=== PATIENT | male | born 1965 | race Caucasian/White ===

== ENCOUNTER 2017-08-13 14:01 | Inpatient (IN) ==
[2017-08-13] MEDS ORDERED: Pantoprazole 80 MG in 0.9 % Sodium Chloride 50 ML IVPB ONE (15:19)
[2017-08-13] MEDS ORDERED: 0.9 % Sodium Chloride 1,000 ML IVC ONE (15:19)
--- NOTE | 2017-08-13 15:42 | Emergency Department Note ---
Disposition Clinical Impression: Mesenteric venous thrombosis GI bleed Qualifiers: GI bleed type/associated pathology: unspecified gastrointestinal hemorrhage type Qualified Code(s): K92.2 - Gastrointestinal hemorrhage, unspecified Anemia Qualifiers: Anemia type: other cause Other causes of anemia: other cause, not classified Qualified Code(s): D64.89 - Other specified anemias Disposition: Admitted As Inpatient Condition: Good Referrals: Garett Ervin DO [Primary Care Provider] - Forms: ED Satisfaction Letter GI Bleed HPI - General Chief complaint: ED GI Bleed Stated complaint: Rectal Bleed Time Seen by Provider: 08/13/17 15:06 Source: patient Mode of arrival: private vehicle Limitations: no limitations Nursing Notes Reviewed: Yes Vital Signs Reviewed: Yes - History of Present Illness HPI Narrative: 52-year-old male history of pancreatic cancer currently not on chemotherapy history of gastric ulcers currently not on medications to presents to the ER due to rectal bleeding. Patient reports symptoms for the last 2 days. States he has had dark stools as well as some bright red blood mixed into his stool. He reports lower abdominal pain. He denies any hemoptysis, hematemesis, hematuria. He is not on any blood thinners. No history of transfusion and he is aware of. Last chemotherapy therapy was 5 weeks ago. Has had hemorrhoids before. No other complaints. Pt Subjective Complaint: melena Onset (ago): day(s) Consistency: intermittent Severity: mild Improves with: nothing Worsens with: nothing Context: other (History of ulcers) Associated symptoms: Reports: abdominal pain, nausea. Denies: vomiting, fever Treatments Prior to Arrival: none - Related Data Home Medications Medication Instructions Recorded Confirmed Multivitamin [Multivitamins] 1 each PO DAILY 11/06/16 08/13/17 Ranitidine HCl [Acid Plow And Boring Machine Tender] 150 mg PO QPM PRN 11/06/16 08/13/17 metFORMIN [Glucophage] 500 mg PO DAILY 11/06/16 08/13/17 Baclofen [Lioresal] 10 mg PO DAILY PRN 08/13/17 08/13/17 Gabapentin [Neurontin] 300 mg PO HS PRN 08/13/17 08/13/17 Lipase/Protease/Amylase [Creon Dr 1 each PO AD 08/13/17 08/13/17 12,000 Units Capsule] Pantoprazole Sodium [Protonix] 40 mg PO DAILY 08/13/17 08/13/17 RX: Loperamide [Imodium] 2 mg PO PER PKG DI PRN 08/13/17 08/13/17 RX: Melatonin 5 mg PO HS 08/13/17 08/13/17 Turmeric Curcumin 1 tab PO DAILY 08/13/17 08/13/17 Previous Rx's Medication Instructions Recorded RX: Lidocaine/Prilocaine CREAM 1 gm TP AD #1 tube 11/06/16 [Emla] RX: Magic Mouthwash 5 ml PO Q4H PRN #240 ml 11/06/16 Promethazine [Phenergan] 12.5 mg RC Q6H PRN #15 supp.rect 11/18/16 Promethazine [Phenergan] 25 mg PO Q6HR PRN #30 tablet 11/18/16 HYDROcodone/Acet 10/325 mg [Stow 1 tab PO Q4HR PRN #84 tab 12/16/16 10-325 mg] Allergies Allergy/AdvReac Type Severity Reaction Status Date / Time ondansetron Allergy Swelling Verified 05/21/17 14:10 [From Zofran (as of hydrochloride)] Lip/Tongue/Throat prochlorperazine Allergy Swelling Verified 05/21/17 14:10 [From Compazine] of Lip/Tongue/Throat Oxycodone AdvReac Rash Verified 05/21/17 14:09 All systems ED: reviewed and negative except as stated. Constitutional: Denies: fever Cardiovascular: Denies: chest pain Respiratory: Denies: dyspnea, hemoptysis Gastrointestinal: Reports: abdominal pain, nausea, melena. Denies: vomiting, diarrhea, hematemesis Genitourinary: Denies: dysuria, hematuria Past Medical History - Past Medical History Attestation: Yes The following information was validated with the patient. Source: patient Medical history: Reports: cancer, diabetes, hyperlipidemia, hypertension Psychiatric history: Reports: no psych history - Social History Smoking Status: Never smoker Smokeless Tobacco Status: No Alcohol use: Reports: none Drug use: Reports: none Physical Exam - General Limitations: no limitations General appearance: alert, in no apparent distress - Head Head exam: atraumatic, normocephalic, normal inspection - Eye Eye exam: Present: normal appearance, EOMI - ENT ENT exam: normal exam - Neck Neck exam: Present: normal inspection, full ROM - Chest Chest inspection: Present: normal inspection, symmetric chest wall rise - Respiratory Respiratory exam: Present: normal lung sounds bilaterally - Cardiovascular Cardiovascular exam: Present: regular rate, normal rhythm, normal heart sounds - Abdominal Exam Abdominal exam: Present: soft, tenderness (Mild tenderness to palpation in the lower abdomen without rigidity, distention, rebound tenderness.) - Rectal Exam Rectal exam: Present: normal inspection, normal rectal tone, black stool - Extremities Exam Extremities exam: Present: normal inspection, full ROM - Expanded Upper Extremity Exam Shoulder exam: Present: normal inspection, full ROM Arm exam: Present: normal inspection, full ROM Elbow exam: Present: normal inspection, full ROM Forearm/Wrist exam: Present: normal inspection, full ROM Hand exam: Present: normal inspection, full ROM Vascular exam: Normal: radial pulse - Expanded Lower Extremity Exam Hip/Pelvis exam: Present: normal inspection, full ROM Upper leg exam: Present: normal inspection, full ROM Knee exam: Present: normal inspection, full ROM Lower leg exam: Present: normal inspection, full ROM Ankle exam: Present: normal inspection, full ROM Foot/toe exam: Present: normal inspection, full ROM Neurovascular/Tendon exam: Absent: motor deficit, sensory deficit - Neurological Exam Neurological exam: Present: alert, other (GCS 15. Nonfocal.) - Psychiatric Psychiatric exam: Present: normal affect, normal mood - Skin Skin exam: Present: warm, dry, intact, normal color Course Course Narrative: Patient seen and examined. We will obtain an EKG, CT scan of the abdomen and pelvis with IV contrast as well as labs including CBC, coags, type and screen. Patient given a liter bolus as well as Protonix. - Reevaluation(s) Reevaluation #1: I discussed the imaging and lab work with the patient as well as the recommendations from our vascular surgeon. Patient understands the plan of being admitted watching his hemoglobin with possible anticoagulation initiated in the near future. All questions were answered patient has no other complaints or questions at this time. - Consultations Consultation #1: I spoke with the on-call vascular surgeon Dr. Meyer concerning the patient's CT scan. I discussed the patient's history labs imaging and interventions to date. Patient has a thrombosis in his SMV as well as portal vein. He reports that the treatment would be anticoagulation however the patient has had a 3 g drop in his hemoglobin and has Hemoccult positive stool. We will hold anticoagulation in the setting of GI bleed. Consultation #2: I discussed this case with the on-call oncologist Dr. Sanchez. He advises no other interventions at this time and will see the patient in consultation tomorrow. Vital Signs Temperature 98.1 F 08/13/17 14:11 Pulse Rate 93 08/13/17 14:11 Respiratory Rate 22 08/13/17 14:11 Blood Pressure 120/83 08/13/17 14:11 O2 Sat by Pulse Oximetry 100 08/13/17 14:11 Temperature 98.1 F 08/13/17 14:11 Pulse Rate 76 08/13/17 19:42 Respiratory Rate 22 08/13/17 19:42 Blood Pressure 123/83 08/13/17 19:42 O2 Sat by Pulse Oximetry 99 08/13/17 19:42 Oxygen Delivery Oxygen Delivery Room Air GI Bleed - MDM Narrative Medical decision making narrative: 52-year-old male presents to the ER due to tarry stools for 2 days. History pink-red cancer currently on chemotherapy. He has lower crampy abdominal pain without a surgical abdomen on exam. He has a 3 g drop in his hemoglobin from April. He is Hemoccult positive here. CT scan of the abdomen and pelvis as read by radiology reveals an acute thrombus of the SMV as well as portal veins. Case was discussed with vascular surgery and the patient would need to be treated with anticoagulation however he is currently an acute GI bleed so we will withhold this for the time being. She given a liter of fluids as well as 80 mg of Protonix. Patient admitted to the hospitalist service with vascular surgery consultation. - Lab Data Lab results reviewed: Yes I reviewed the patient's lab results. Result diagrams: 08/13/17 16:05 08/13/17 16:05 Lab Results 08/13/17 08/13/17 08/13/17 Range/Units 16:05 16:05 16:05 WBC 3.5 L (4.3-11.1) K/mcL RBC 3.23 L (4.19-5.50) M/mcL Hgb 10.3 L (12.9-16.9) g/dL Hct 31.0 L (37.5-50.1) % MCV 96.0 (83.0-100.0) fL MCH 31.9 (28.0-33.3) pg MCHC 33.2 (31.6-35.5) g/dL RDW 13.5 (11.5-14.5) % Plt Count 150 (140-400) K/mcL MPV 10.2 (9.4-12.4) fL Immature Gran % 0.3 (0-4) % Seg Neutrophils % 82.0 % Lymphocytes % 5.7 % Monocytes % 9.7 % Eosinophils % 1.7 % Basophils % 0.6 % Neutrophils # 2.9 (1.6-8.9) K/mcL Lymphocytes # 0.2 L (0.6-4.6) K/mcL Monocytes # 0.3 (0.0-1.3) K/mcL Eosinophils # 0.1 (0.0-0.6) K/mcL Basophils # 0.0 (0.0-0.2) K/mcL PT 13.5 H (9.4-12.1) Seconds INR 1.2 APTT 36.9 H (26.0-36.0) Seconds Sodium 138 (136-145) mEq/L Potassium 3.6 (3.5-4.5) mEq/L Chloride 105 (98-109) mEq/L Carbon Dioxide 23 (19-29) mEq/L BUN 20 (8-26) mg/dL Creatinine 0.73 (0.72-1.25) mg/dL Est GFR ( Amer) > 60 (> 60) Est GFR (Non-Af Amer) > 60 (> 60) BUN/Creatinine Ratio 27 H (6-26) Glucose 156 H (70-99) mg/dL Calculated Osmolality 292 (280-300) Calcium 9.0 (8.6-10.8) mg/dL Total Bilirubin 1.1 (0.2-1.2) mg/dL AST 22 (5-34) Units/L ALT 36 (0-55) Units/L Alkaline Phosphatase 128 H (38-126) Units/L Troponin I (0-0.03) ng/mL Serum Total Protein 6.4 (6.0-8.3) g/dL Albumin 3.4 L (3.5-5.0) g/dL Globulin 3.0 (2.4-3.5) g/dL Albumin/Globulin Ratio 1.1 (1.1-2.2) Lipase < 10 (8-78) Units/L Stool Occult Blood (Negative) Blood Type Antibody Screen 08/13/17 08/13/17 08/13/17 Range/Units 16:05 16:05 16:25 WBC (4.3-11.1) K/mcL RBC (4.19-5.50) M/mcL Hgb (12.9-16.9) g/dL Hct (37.5-50.1) % MCV (83.0-100.0) fL MCH (28.0-33.3) pg MCHC (31.6-35.5) g/dL RDW (11.5-14.5) % Plt Count (140-400) K/mcL MPV (9.4-12.4) fL Immature Gran % (0-4) % Seg Neutrophils % % Lymphocytes % % Monocytes % % Eosinophils % % Basophils % % Neutrophils # (1.6-8.9) K/mcL Lymphocytes # (0.6-4.6) K/mcL Monocytes # (0.0-1.3) K/mcL Eosinophils # (0.0-0.6) K/mcL Basophils # (0.0-0.2) K/mcL PT (9.4-12.1) Seconds INR APTT (26.0-36.0) Seconds Sodium (136-145) mEq/L Potassium (3.5-4.5) mEq/L Chloride (98-109) mEq/L Carbon Dioxide (19-29) mEq/L BUN (8-26) mg/dL Creatinine (0.72-1.25) mg/dL Est GFR ( Amer) (> 60) Est GFR (Non-Af Amer) (> 60) BUN/Creatinine Ratio (6-26) Glucose (70-99) mg/dL Calculated Osmolality (280-300) Calcium (8.6-10.8) mg/dL Total Bilirubin (0.2-1.2) mg/dL AST (5-34) Units/L ALT (0-55) Units/L Alkaline Phosphatase (38-126) Units/L Troponin I 0.00 (0-0.03) ng/mL Serum Total Protein (6.0-8.3) g/dL Albumin (3.5-5.0) g/dL Globulin (2.4-3.5) g/dL Albumin/Globulin Ratio (1.1-2.2) Lipase (8-78) Units/L Stool Occult Blood Positive A (Negative) Blood Type A POSITIVE Antibody Screen NEGATIVE - Radiology Data Radiology results reviewed: Yes I reviewed the patient's radiology results. Abdomen/Pelvis CT 08/13/17 15:19 IMPRESSION: Acute appearing thrombus within the SMV near the portal splenic confluence. Thrombus also noted extending into the main portal vein, left portal vein, as well as the anterior and posterior branches of the right portal vein. Ill-defined soft tissue noted surrounding the celiac axis and SMA, progressed. Mild dilatation of the pancreatic duct in the tail, new. Prominent inflammatory change in wall thickening involving the ascending colon and proximal transverse colon as well as the distal stomach and duodenum. Findings are likely infectious or inflammatory in etiology. Small to moderate volume ascites. D/ / Lori Ford MD / Lori Ford MD Interpreting Provider: Lori Ford MD - EKG Data EKG attestation: Yes I reviewed and interpreted this EKG. EKG results narrative: EKG demonstrates sinus rhythm with a rate of 80 bpm. Normal axis. Normal intervals. Normal R-wave progression. No gross ST elevations or depressions. No acute ischemic findings. S.B.AJuanR. - Rachel.[email or web address].[place] Situation: Demographics, MOA Background: Presenting Complaint, Relevant PMH, Meds, & Allergies Assessment: Course and respsone to treatment, Exam Concerns, Patient/Family Expectation, Pertinant Lab Results Recommendation: Barrier(s) to disposition, Recommendation based on pending studies, treatments, or consults S.[email or web address] Report Given to: Dr. Oliver Marinelli Repor Time: 19:30 (Requested I speak with oncology concerning the patient's venous thrombosis) Attestation Statement - Attestation Attestation: I examined this patient and my medical decision-making was reviewed with the Resident Physician. I agree with the documented findings, disposition and treatment plan as described except to the extent set forth below. Patient presents to the ED with a chief complaint of rectal bleeding. Patient states dark tarry stools. Patient has pancreatic cancer. He is undergoing treatments here, at the [facility], and at the cancer treatment centers of [facility]. He is currently not getting any treatment as he was not happy with his care at the cancer treatment centers [facility]. He sees Dr. Garcia his PCP, however nobody is managing his pancreatic cancer at this time. He states he was totally stable. Denies fever. No chest pain. On examination he has some upper abdominal tenderness without guarding. Plan. Patient has a CT scan which shows increasing size of his pain currently tumor. He has clot burden throughout the portal veins. He has tumor surrounding the mesenteric arteries as well. We did discuss with on-call for vascular. Patient has contraindications to anticoagulation at this time with the active GI bleed. He protonic's. Will be admitted to the hospital.
[2017-08-13 16:16] LABS: Basophils % 0.6 %; Eosinophils # 0.1 K/mcL (0.0-0.6); Eosinophils % 1.7 %; Hemoglobin 10.3 g/dL (12.9-16.9); Immature Granulocytes % 0.3 % (0-4); Lymphocytes # 0.2 K/mcL (0.6-4.6); Lymphocytes % 5.7 %; Mean Corpuscular HGB Conc 33.2 g/dL (31.6-35.5); Mean Corpuscular Hemoglobin 31.9 pg (28.0-33.3); Mean Platelet Volume 10.2 fL (9.4-12.4); Monocytes # 0.3 K/mcL (0.0-1.3); Monocytes % 9.7 %; Neutrophils # 2.9 K/mcL (1.6-8.9); Platelet Count 150 K/mcL (140-400); Red Blood Count 3.23 M/mcL (4.19-5.50); Red Cell Distribution Width 13.5 % (11.5-14.5)
[2017-08-13 16:20] LABS: INR 1.2; Prothrombin Time 13.5 Seconds (9.4-12.1)
[2017-08-13 16:23] LABS: Activated Partial Thrombo Time 36.9 Seconds (26.0-36.0)
[2017-08-13 16:28] LABS: Alanine Aminotransferase 36 Units/L (0-55); Albumin 3.4 g/dL (3.5-5.0); Albumin/Globulin Ratio 1.1 (1.1-2.2); Alkaline Phosphatase 128 Units/L (38-126); Aspartate Amino Transferase 22 Units/L (5-34); BUN/Creatinine Ratio 27 (6-26); Bilirubin,Total 1.1 mg/dL (0.2-1.2); Blood Urea Nitrogen 20 mg/dL (8-26); Carbon Dioxide 23 mEq/L (19-29); Chloride 105 mEq/L (98-109); Glucose 156 mg/dL (70-99); Osmolality,Calculated 292 (280-300); Potassium 3.6 mEq/L (3.5-4.5); Sodium 138 mEq/L (136-145); Total Protein 6.4 g/dL (6.0-8.3); eGFR For African Americans > 60 (> 60); eGFR For Non-African Americans > 60 (> 60)
[2017-08-13 16:29] LABS: Lipase < 10 Units/L (8-78)
[2017-08-13] MEDS ORDERED: Metoclopramide 10 MG/2 ML VIAL IVP ONE (17:56)
[2017-08-13] MEDS ORDERED: *HR* HYDROmorphone (PF) 1 MG/ML SYRINGE IVP ONE (19:17)
--- NOTE | 2017-08-13 19:40 | Internal Med History&Physical ---
Date of Encounter: 08/14/17 Time of Encounter: 19:39 Assessment and Plan (1) GI bleed Current visit: Yes Status: Acute In the ED, stool occult blood was positive, HGB 10.3, and INR 1.2. Last EGD March 2017 revealed gastric ulcers. Patient denies previous colonoscopy. Patient was given 80 mg of Protonix. Continue Protonix drip Continue IVF Monitor H&H q6h NPO GI consulted Qualifiers: GI bleed type/associated pathology: unspecified gastrointestinal hemorrhage type Qualified Code(s): K92.2 - Gastrointestinal hemorrhage, unspecified (2) Acute blood loss anemia Current visit: Yes Status: Acute Stool occult blood positive, HGB 10.3 (was 13.1 on 05/21/17), and INR 1.2. Patient was given 80 mg of Protonix. Continue Protonix drip Monitor H&H q6h (3) Mesenteric venous thrombosis Current visit: Yes Status: Acute CT abd/plv revealed acute thrombus within the SMV near the portal splenic confluence extending into the main portal vein, left portal vein, as well as the anterior and posterior branches of the right portal vein. ED physician discussed the case with vascular surgeon personal fitness trainer, Dr. Meyer, who recommended holding anticoagulation in the setting of acute GI bleed. Vascular surgery consulted Oncology consulted Consider IR consult for possible embolectomy (4) Pancreatic cancer Current visit: No Status: Chronic CT abd/plv revealed ill-defined soft tissue noted surrounding the celiac axis and SMA, progressed. Mild dilatation of the pancreatic duct in the tail, new. Prominent inflammatory change in wall thickening involving the ascending colon and proximal transverse colon as well as the distal stomach and duodenum. Findings are likely infectious or inflammatory in etiology. Continue empiric Flagyl IV Blood cultures pending Continue pain control Oncology consulted Qualifiers: Pancreatic malignancy location: body of pancreas Qualified Code(s): C25.1 - Malignant neoplasm of body of pancreas (5) DM type 2 (diabetes mellitus, type 2) Current visit: Yes Status: Chronic HGB a1c pending Accuchecks q6h while NPO Low dose SSI Qualifiers: Diabetes mellitus complication status: without complication Diabetes mellitus penitentiary insulin use: without penitentiary use Qualified Code(s): E11.9 - Type 2 diabetes mellitus without complications (6) DVT prophylaxis Current visit: Yes Status: Acute SCDs Internal Medicine - H&P: HPI Chief complaint: Blood in stool Admitted From: Home Plans for Post Hospital Care: Home History of present illness: Mr. Hatch is a 52 year old male with a PMH of inoperable pancreatic cancer diagnosed October 2016, DM type 2, hemorrhoids, and chemo-induced gastric ulcers that presented from home c/o black tarry stool and bright red blood in his stool for the past 2 days. He reports toilet bowl was full of blood today. He reports associated fatigue, nausea, anorexia, and intermittent generalized abd pain. Pain severity was 15/10 and decreased to 1/10 after Dilaudid in the ED. Nothing makes abd pain worse. Patient underwent radiation and chemotherapy at [facility] but had to stop chemotherapy therapy 5 weeks ago because he was not tolerating treatments. Patient denies fever, chills, CP, SOB, hemoptysis, hematemesis, hematuria, h/o blood clots, current blood thinner use, or history of blood transfusions. He reports taking Protonix 40mg PO daily since EGD in March 2017 and 100 lbs weight loss in the past 9 months. Patient has a functioning right Port-a-cath in place. In the ED, stool occult blood was positive, HGB 10.3, and INR 1.2. CT abd/plv revealed acute thrombus within the SMV near the portal splenic confluence extending into the main portal vein, left portal vein, as well as the anterior and posterior branches of the right portal vein. The ED physician discussed the case with vascular surgeon personal fitness trainer, Dr. Meyer, who recommended holding anticoagulation in the setting of acute GI bleed. Patient was given IV fluids as well as 80 mg of Protonix. and brother are at bedside. Past Med Surg Social Fam HX - Past Medical History Medical history: cancer (pancreatic), diabetes, other (Peptic ulcers, hemorrhoids) Psychiatric history: no psych history - Past Surgical History Surgical History: orthopedic, other (right shoulder, C6-C7, port-a-cath) - Social History Smoking Status: Never smoker Smokeless Tobacco Status: No Alcohol use: none Drug use: none Occupational status: employed Current living situation: Home, With Family Activity Level: Independent ambulation Recent Out of Country Travel Within the Last 8 Weeks: No Exposure or Possible Exposure to Illness During Travel: No - Family History Father Hx Family Cardiac Disorders: Yes (NC, CABG, HTN) Hx Family Endocrine Disorder: Yes (DM) Mother Hx Family Cardiac Disorders: No Internal Medicine - H&P: Meds Lidocaine/Prilocaine CREAM [Emla] 1 gm TP AD #1 tube 11/06/16 [Rx] Magic Mouthwash 5 ml PO Q4H PRN #240 ml 11/06/16 [Rx] Multivitamin [Multivitamins] 1 each PO DAILY 11/06/16 [History] Ranitidine HCl [Acid Terminal Computer Operator] 150 mg PO QPM PRN 11/06/16 [History] metFORMIN [Glucophage] 500 mg PO DAILY 11/06/16 [History] HYDROcodone/Acet 10/325 mg [Alden 10-325 mg] 1 tab PO Q4HR PRN #84 tab 12/16/16 [Rx] Baclofen [Lioresal] 10 mg PO DAILY PRN 08/13/17 [History] Gabapentin [Neurontin] 300 mg PO HS PRN 08/13/17 [History] Lipase/Protease/Amylase [Creon Dr 12,000 Units Capsule] 1 each PO AD 08/13/17 [ History] Loperamide [Imodium] 2 mg PO PER PKG DI PRN 08/13/17 [History] Melatonin 5 mg PO HS 08/13/17 [History] Pantoprazole Sodium [Protonix] 40 mg PO DAILY 08/13/17 [History] Sancuso 3.1 mg TD Q1W PRN 08/13/17 [History] Turmeric Curcumin 1 tab PO DAILY 08/13/17 [History] 3 Allergy/AdvReac Type Severity Reaction Status Date / Time ondansetron Allergy Swelling Verified 05/21/17 14:10 [From Zofran (as of hydrochloride)] Lip/Tongue/Throat prochlorperazine Allergy Swelling Verified 05/21/17 14:10 [From Compazine] of Lip/Tongue/Throat Oxycodone AdvReac Rash Verified 05/21/17 14:09 All Systems PM: A 10-system review of systems was performed and is negative for pertinent findings except as documented above in the HPI. - Constitutional Constitutional: anorexia, fatigue, lethargy, weakness, weight loss, no chills, no fever(s) - EENT Eyes: no change in vision Nose, mouth and throat: nasal congestion, post-nasal drip, no epistaxis, no mouth lesions, no sinus pressure, no sore throat - Cardiovascular Cardiovascular ROS IM: no chest pain, no palpitations - Respiratory Respiratory: no cough, no hemoptysis, no wheezing, no chest congestion, no excessive phlegm production - Gastrointestinal Gastrointestinal: abdominal pain, hematochezia, melena, nausea, no bloating, no coffee ground emesis, no constipation, no diarrhea, no hematemesis, no vomiting - Genitourinary Genitourinary ROS male: no dysuria, no urinary frequency, no urinary urgency - Musculoskeletal Musculoskeletal ROS IM: no back pain, no numbness, no tingling - Integumentary Integumentary IM: no erythema, no rash - Neurological Neurological ROS: weakness, no confusion, no dizziness, no numbness, no tingling - Psychiatric Psychiatric: no anxiety, no depression - Endocrine Endocrine IM: fatigue, no polydipsia, no polyphagia, no polyuria - Hematologic/Lymphatic Hematologic/Lymphatic: no easy bleeding, no easy bruising - Constitutional Vitals: Temp Pulse Resp BP Pulse Ox 98.1 F 98 18 122/82 99 08/13/17 14:11 08/13/17 19:15 08/13/17 19:15 08/13/17 19:15 08/13/17 19:15 General appearance: Present: mild distress, pleasant, answers questions appropriately - Head Head exam: Present: atraumatic, normal inspection, normocephalic - Eye Eye exam: Present: EOMI, PERRL, conjuntiva pink - ENT ENT exam: Present: mucous membranes dry, normal oropharynx - Neck Neck exam general surgery: Present: normal inspection, supple. Absent: tenderness - Respiratory Respiratory exam: Present: CTAB. Absent: respiratory distress, wheezes - Cardiovascular Cardiovascular exam: Present: RRR, +S1, +S2 Additional comments: Port-a-cath right upper chest - GI/Abdominal GI/Abdominal exam: Present: normal bowel sounds, soft, tenderness (duffuse). Absent: firm, guarding - Extremities Exam Extremities exam: Present: full ROM, normal inspection, warm, radial pulses palpable and symmetrical. Absent: pedal edema, tenderness - Back Exam Back exam: Present: normal inspection. Absent: tenderness - Neurological Exam Neurological exam: Present: alert, oriented X3, no focal deficits, strengths equal and symetr throughout. Absent: altered, speech deficit - Psychiatric Psychiatric exam: Present: normal affect, normal mood - Skin Skin exam: Present: dry, pallor, warm Internal Med - H&P Results - Labs CBC & Chem 7: 08/13/17 16:05 08/13/17 16:05 Labs: Short CBC 08/13/17 Range/Units 16:05 WBC 3.5 L (4.3-11.1) K/mcL Hgb 10.3 L (12.9-16.9) g/dL Hct 31.0 L (37.5-50.1) % Plt Count 150 (140-400) K/mcL Neutrophils # 2.9 (1.6-8.9) K/mcL BMP 08/13/17 16:05 Sodium 138 Potassium 3.6 Chloride 105 Carbon Dioxide 23 BUN 20 Creatinine 0.73 Glucose 156 H Calcium 9.0 Cardiac Enzymes 08/13/17 Range/Units 16:05 Troponin I 0.00 (0-0.03) ng/mL Liver Function 08/13/17 Range/Units 16:05 Total Bilirubin 1.1 (0.2-1.2) mg/dL AST 22 (5-34) Units/L ALT 36 (0-55) Units/L Alkaline Phosphatase 128 H (38-126) Units/L Albumin 3.4 L (3.5-5.0) g/dL - Impressions ITS Impressions Abdomen/Pelvis CT 08/13/17 15:19 IMPRESSION: Acute appearing thrombus within the SMV near the portal splenic confluence. Thrombus also noted extending into the main portal vein, left portal vein, as well as the anterior and posterior branches of the right portal vein. Ill-defined soft tissue noted surrounding the celiac axis and SMA, progressed. Mild dilatation of the pancreatic duct in the tail, new. Prominent inflammatory change in wall thickening involving the ascending colon and proximal transverse colon as well as the distal stomach and duodenum. Findings are likely infectious or inflammatory in etiology. Small to moderate volume ascites. D/ / Lori Ford MD / Lori Ford MD Interpreting Provider: Lori Ford MD
[2017-08-13] MEDS ORDERED: Naloxone 0.4 MG/ML INJ IVP PRN (20:26)
[2017-08-13] MEDS ORDERED: Metoclopramide 10 MG/2 ML VIAL IVP PRN (20:26)
[2017-08-13] MEDS ORDERED: *HR* HYDROmorphone (PF) 1 MG/ML SYRINGE IVP PRN (20:26)
[2017-08-13] MEDS ORDERED: *HR* Morphine 2 MG/ML SYRINGE IVP PRN (20:26)
[2017-08-13] MEDS ORDERED: 0.9 % Sodium Chloride 1,000 ML IVC SCH (20:30)
[2017-08-13] MEDS ORDERED: Gabapentin 300 MG CAPSULE PO PRN (20:35)
[2017-08-13] MEDS ORDERED: Dextrose Gel 15 GM PO PRN ×2 (20:36)
[2017-08-13] MEDS ORDERED: D5% in Water 1,000 ML IVC PRN (20:36)
[2017-08-13] MEDS ORDERED: *HR* Dextrose 50 % in Water (Syg) 50 ML SYRINGE IVP PRN (20:36)
[2017-08-13] MEDS ORDERED: Melatonin 3 MG TABLET PO SCH (21:00)
[2017-08-13] MEDS ORDERED: Insulin DETEMIR 100 UNIT/ML X5UNITS SQ SCH (21:00)
[2017-08-13] MEDS ORDERED: Insulin LISPRO 300 UNITS/3 ML VIAL SQ SCH (21:00)
[2017-08-13 21:04] LABS: Hemoglobin A1C 4.7 %
[2017-08-13] MEDS: Pantoprazole 40 MG in 0.9 % Sodium Chloride Mini Bag 100 ML IVC SCH (22:45)
[2017-08-14] MEDS ORDERED: MetroNIDAZOLE 500 MG/100 ML 500 MG/100 ML BAG IVPB SCH
[2017-08-14] MEDS ORDERED: *HR* HYDROmorphone (PF) 1 MG/ML SYRINGE IVP PRN (01:10)
--- NOTE | 2017-08-14 01:18 | Event Note ---
Date of Encounter: 08/14/17 Time of Encounter: 01:15 Patient and examined with medical massage therapist. Agree with assessment and plan. Unoperable pancreatic cancer. Suspect upper G.I. bleeding. Protonix drip, follow H and H and GI consultation. Keep NPO. Patient also has superior mesenteric and portended thrombosis. Please discussed by ER with oncology will did not recommend any further intervention by IR.
[2017-08-14] MEDS: Pantoprazole 40 MG in 0.9 % Sodium Chloride Mini Bag 100 ML IVC SCH ×4 (05:58→22:40)
[2017-08-14] MEDS: Insulin LISPRO 300 UNITS/3 ML VIAL SQ SCH ×4 (06:00→17:37)
[2017-08-14 06:09] LABS: Hematocrit 26.9 % (37.5-50.1); Hemoglobin 8.9 g/dL (12.9-16.9); Immature Platelets 3.4 % (1.1-6.1); Mean Corpuscular HGB Conc 33.1 g/dL (31.6-35.5); Mean Corpuscular Hemoglobin 32.1 pg (28.0-33.3); Mean Corpuscular Volume 97.1 fL (83.0-100.0); Mean Platelet Volume 10.5 fL (9.4-12.4); Red Blood Count 2.77 M/mcL (4.19-5.50); Red Cell Distribution Width 13.7 % (11.5-14.5)
[2017-08-14 06:27] LABS: Alanine Aminotransferase 27 Units/L (0-55); Albumin 2.9 g/dL (3.5-5.0); Albumin/Globulin Ratio 1.2 (1.1-2.2); Alkaline Phosphatase 105 Units/L (38-126); Aspartate Amino Transferase 18 Units/L (5-34); BUN/Creatinine Ratio 27 (6-26); Bilirubin,Total 0.9 mg/dL (0.2-1.2); Blood Urea Nitrogen 20 mg/dL (8-26); Calcium 8.7 mg/dL (8.6-10.8); Carbon Dioxide 23 mEq/L (19-29); Chloride 110 mEq/L (98-109); Globulin 2.5 g/dL (2.4-3.5); Glucose 92 mg/dL (70-99); INR 1.2; Osmolality,Calculated 294 (280-300); Potassium 3.7 mEq/L (3.5-4.5); Prothrombin Time 13.2 Seconds (9.4-12.1); Sodium 141 mEq/L (136-145); Total Protein 5.4 g/dL (6.0-8.3); eGFR For African Americans > 60 (> 60); eGFR For Non-African Americans > 60 (> 60)
[2017-08-14 06:30] LABS: Activated Partial Thrombo Time 28.3 Seconds (26.0-36.0)
--- NOTE | 2017-08-14 08:43 | Oncology Inp Consult Note ---
Date of Encounter: 08/14/17 Time of Encounter: 08:40 Assessment and Plan (1) GI bleed Status: Acute Assessment and plan: He has acute upper GI bleed with melena. Given his recent radiation therapy, radiation enteritis is a concern as is possible varices given his portal vein thromosis. GI to see today and will await their evaluation. Maintain hemoglobin >7. Qualifiers: GI bleed type/associated pathology: unspecified gastrointestinal hemorrhage type Qualified Code(s): K92.2 - Gastrointestinal hemorrhage, unspecified (2) Mesenteric venous thrombosis Status: Chronic Assessment and plan: He had a documented portal vein thrombosis in April,. There is now evidence of a SMV thrombosis. This may be related to tumor thrombosis. In either case, would not recommend anticoagulation as this is a chronic process and may be tumor-related. Also with GI bleed, anticoagulation is contraindicated. (3) Pancreatic cancer Status: Chronic Assessment and plan: He has locally advanced, progressive pancreatic cancer. I think we could consider further [place]/Abraxane after recovery from this acute event. He wishes to reestablish care here with Dr. Waters. I will make arrangements for f/u. Qualifiers: Pancreatic malignancy location: body of pancreas Qualified Code(s): C25.1 - Malignant neoplasm of body of pancreas - Data of Consult Requesting Physician: Pascale Gonzalez MD Primary Care Provider: Cora Santacruz - Consult Narrative Reason for consult: Pancreas cancer with SMV thrombosis and GI bleed History of present illness: Mr. Hatch is a 52 year old male who was previously a patient of my partner, Dr. Waters, who has unresectable locally advanced pancreatic adenocarcinoma. Patient initially presented to the emergency department in September 2016 with left upper quadrant pain. There was a mass located at the junction of the head and body of the pancreas measuring 3.8 x 2.1 cm. It was recommended he proceed with neoadjuvant chemotherapy. He completed 4 doses of full fear and ox every 2016 without significant response. Patient unfortunately remained unresectable. He sought a second opinion at the [facility] [place] [facility]. There, he received concurrent chemoradiotherapy completed sometime in February 2017. There was concern of disease progression and likely tumor thrombus in the portal vein. This was followed by initiation of gemcitabine and Abraxane. He received 2 cycles and has done poorly since that time. He has been off chemotherapy for at least 5 weeks. He was able to return to work at [employer] and doing well. He presented with new midabdominal pain different than his usual cancer-related pain that started this past weekend. It is a sharp, constant pain. He has been using [place] with minimal relief. No nausea or emesis. However, he did develop melena for the past few days. He has become more fatigued. Of note, he was previously on morphine following radiation therapy. He has also underwent celiac plexus block x 3 for pain. Past Med Surg Social Fam HX - Past Medical History Medical history: cancer (pancreatic), diabetes, other (Peptic ulcers, hemorrhoids) Psychiatric history: no psych history - Past Surgical History Surgical History: orthopedic, other (right shoulder, C6-C7, port-a-cath) - Social History Smoking Status: Never smoker Smokeless Tobacco Status: No Alcohol use: none Drug use: none - Family History Father Adopted: No Hx Family Cardiac Disorders: Yes (ID, CABG, HTN) Hx Family Endocrine Disorder: Yes (DM) Mother History Unknown: Yes Hx Family Cardiac Disorders: No Medications and Allergies Lidocaine/Prilocaine CREAM [Emla] 1 gm TP AD #1 tube 11/06/16 [Rx] Magic Mouthwash 5 ml PO Q4H PRN #240 ml 11/06/16 [Rx] Multivitamin [Multivitamins] 1 each PO DAILY 11/06/16 [History] Ranitidine HCl [Acid Manager Stars] 150 mg PO QPM PRN 11/06/16 [History] metFORMIN [Glucophage] 500 mg PO DAILY 11/06/16 [History] HYDROcodone/Acet 10/325 mg [[place] 10-325 mg] 1 tab PO Q4HR PRN #84 tab 12/16/16 [Rx] Baclofen [Lioresal] 10 mg PO DAILY PRN 08/13/17 [History] Gabapentin [Neurontin] 300 mg PO HS PRN 08/13/17 [History] Lipase/Protease/Amylase [Creon Dr 12,000 Units Capsule] 1 each PO AD 08/13/17 [ History] Loperamide [Imodium] 2 mg PO PER PKG DI PRN 08/13/17 [History] Melatonin 5 mg PO HS 08/13/17 [History] Pantoprazole Sodium [Protonix] 40 mg PO DAILY 08/13/17 [History] Sancuso 3.1 mg TD Q1W PRN 08/13/17 [History] Turmeric Curcumin 1 tab PO DAILY 08/13/17 [History] 3 Allergy/AdvReac Type Severity Reaction Status Date / Time ondansetron Allergy Swelling Verified 05/21/17 14:10 [From Zofran (as of hydrochloride)] Lip/Tongue/Throat prochlorperazine Allergy Swelling Verified 05/21/17 14:10 [From Compazine] of Lip/Tongue/Throat Oxycodone AdvReac Rash Verified 05/21/17 14:09 All systems: reviewed and no additional remarkable complaints except as stated Constitutional: Present: fatigue, malaise, weakness Eyes: Present: as per HPI Ears: Present: as per HPI Nose, mouth and throat: Present: as per HPI Cardiovascular: Present: dyspnea on exertion Gastrointestinal: Present: as per HPI Neurological: Present: as per HPI Oncology - Exam - Constitutional Vitals: Temp Pulse Resp BP Pulse Ox 97.8 F 74 14 100/68 99 08/14/17 07:16 08/14/17 07:16 08/14/17 07:16 08/14/17 07:16 08/14/17 07:16 General appearance: no acute distress, thin - Head Head exam: Present: atraumatic, normal inspection, normocephalic - Eye Eye exam: Present: EOMI, normal appearance, conjuntiva pink, sclera anicteric - ENT ENT exam: Present: mucous membranes dry, normal oropharynx - Neck Neck exam: Present: full ROM, normal inspection - Respiratory Respiratory exam: Present: CTAB - Cardiovascular Cardiovascular exam: Present: RRR - GI/Abdominal GI/Abdominal exam: Present: normal bowel sounds, tenderness - Extremities Exam Extremities exam: Present: normal inspection - Neurological Exam Neurological exam: Present: alert, CN II-XII intact, oriented X3 Oncology - Results Labs: Short CBC 08/14/17 Range/Units 04:52 WBC 2.5 L (4.3-11.1) K/mcL Hgb 8.9 L (12.9-16.9) g/dL Hct 26.9 L (37.5-50.1) % Plt Count 133 L (140-400) K/mcL BMP 08/14/17 04:52 Sodium 141 Potassium 3.7 Chloride 110 H Carbon Dioxide 23 BUN 20 Creatinine 0.73 Glucose 92 Calcium 8.7 Liver Function 08/14/17 Range/Units 04:52 Total Bilirubin 0.9 (0.2-1.2) mg/dL AST 18 (5-34) Units/L ALT 27 (0-55) Units/L Alkaline Phosphatase 105 (38-126) Units/L Albumin 2.9 L (3.5-5.0) g/dL Consult Discharge Plan - Plan Referrals: Garett Ervin DO [Primary Care Provider] -
[2017-08-14] MEDS ORDERED: FLUARIX QUAD 2017-18 36MOS UP/PF 0.5 ML SYRINGE IM ONE (09:00)
[2017-08-14] MEDS ORDERED: Multivit/Ca/Min/Fe/FA 1 TAB TABLET PO SCH (09:00)
[2017-08-14] MEDS ORDERED: Metoclopramide 10 MG/2 ML VIAL IVP PRN (09:23)
[2017-08-14] MEDS ORDERED: Naloxone 0.4 MG/ML INJ IVP PRN (09:23)
[2017-08-14] MEDS ORDERED: D5% in Water 1,000 ML IVC PRN (09:24)
[2017-08-14] MEDS ORDERED: Dextrose Gel 15 GM PO PRN ×2 (09:24)
[2017-08-14] MEDS ORDERED: Gabapentin 300 MG CAPSULE PO PRN ×2 (09:24→21:00)
[2017-08-14] MEDS ORDERED: *HR* Dextrose 50 % in Water (Syg) 50 ML SYRINGE IVP PRN (09:24)
[2017-08-14] MEDS: MetroNIDAZOLE 500 MG/100 ML 500 MG/100 ML BAG IVPB SCH ×2 (09:34→17:32)
[2017-08-14] MEDS: 0.9 % Sodium Chloride 1,000 ML IVC SCH ×2 (09:39→21:27)
[2017-08-14] MEDS ORDERED: *HR* Morphine 2 MG/ML SYRINGE IVP PRN (11:03)
[2017-08-14 11:18] LABS: Hematocrit 28.7 % (37.5-50.1); Hemoglobin 9.4 g/dL (12.9-16.9); Mean Corpuscular HGB Conc 32.8 g/dL (31.6-35.5); Mean Corpuscular Volume 97.6 fL (83.0-100.0); Mean Platelet Volume 9.8 fL (9.4-12.4); Platelet Count 127 K/mcL (140-400); Red Blood Count 2.94 M/mcL (4.19-5.50); Red Cell Distribution Width 13.7 % (11.5-14.5)
--- NOTE | 2017-08-14 11:52 | Internal Med Progress Note ---
Date of Encounter: 08/14/17 Time of Encounter: 11:50 - Assessment and plan (1) GI bleed Current Visit: Yes Status: Acute Assessment and plan: Patient presented with multiple episodes of bright red bleeding per rectum, with h/o- radiation-induced gastritis and gastric ulcers. Bleeding is currently controlled. Continue bowel rest, IV hydration. Pain control with when necessary IV Dilaudid. Monitor hemoglobin closely, noted to have a 1g drop in hemoglobin this morning. Will transfuse <8. GI consult for possible colonoscopy. Qualifiers: GI bleed type/associated pathology: unspecified gastrointestinal hemorrhage type Qualified Code(s): K92.2 - Gastrointestinal hemorrhage, unspecified (2) Mesenteric venous thrombosis Current Visit: Yes Status: Chronic Assessment and plan: Case d/w Oncology; review of previous imaging studies show that patient has chronic thrombosis of portal ein, and more than likely it could be tumor burden rather than blood clot; he is a high risk candidate for intervention/ thrombectomy, not indicated at this time. Continue pain control and supportive care. He is also not a candidate for anticoagulation due to recent radiation and current GI bleed. (3) Acute blood loss anemia Current Visit: Yes Status: Acute Assessment and plan: due to GI bleed, monitor Hb closely. (4) DM type 2 (diabetes mellitus, type 2) Current Visit: Yes Status: Chronic Assessment and plan: Continue Accu-Chek blood glucose monitoring with sliding scale insulin as needed. Currently nothing by mouth. Qualifiers: Diabetes mellitus complication status: without complication Diabetes mellitus long-term insulin use: without long-term use Qualified Code(s): E11.9 - Type 2 diabetes mellitus without complications (5) Pancreatic cancer Current Visit: Yes Status: Chronic Assessment and plan: History of unresectable pancreatic cancer with metastasis. Follows with oncology as outpatient. Unable to tolerate chemotherapy, has been off chemotherapy for 5 weeks. Oncology consult appreciated. Qualifiers: Pancreatic malignancy location: body of pancreas Qualified Code(s): C25.1 - Malignant neoplasm of body of pancreas - Subjective Interval history: Improved rectal bleeding, no further bowel movements today. No nausea, vomiting , fever/chills, does have improving abdominal pain. - Constitutional Vitals: Temp Pulse Resp BP Pulse Ox 97.8 F 74 14 100/68 99 08/14/17 07:16 08/14/17 07:16 08/14/17 07:16 08/14/17 07:16 08/14/17 07:16 General appearance: Present: A&O X 3, answers questions appropriately - Respiratory Respiratory exam: Present: CTAB. Absent: accessory muscle use, rales, rhonchi, wheezes - Cardiovascular Cardiovascular exam: Present: RRR, +S1, +S2. Absent: diastolic murmur, gallop, rubs, systolic murmur - GI/Abdominal GI/Abdominal exam: Present: normal bowel sounds, soft, no peritoneal signs. Absent: distended, tenderness - Extremities Exam Extremities exam: Present: full ROM, warm, radial pulses palpable and symmetrical. Absent: calf tenderness, cyanotic, pedal edema - Neurological Exam Neurological exam: Present: CN II-XII intact, oriented X3, no focal deficits. Absent: pronater drift, facial droop, speech deficit Internal Medicine: Result - Labs CBC & Chem 7: 08/14/17 11:07 08/14/17 04:52 Labs: Short CBC 08/14/17 08/14/17 Range/Units 04:52 11:07 WBC 2.5 L 2.5 L (4.3-11.1) K/mcL Hgb 8.9 L 9.4 L (12.9-16.9) g/dL Hct 26.9 L 28.7 L (37.5-50.1) % Plt Count 133 L 127 L (140-400) K/mcL BMP 08/14/17 04:52 Sodium 141 Potassium 3.7 Chloride 110 H Carbon Dioxide 23 BUN 20 Creatinine 0.73 Glucose 92 Calcium 8.7 Liver Function 08/14/17 Range/Units 04:52 Total Bilirubin 0.9 (0.2-1.2) mg/dL AST 18 (5-34) Units/L ALT 27 (0-55) Units/L Alkaline Phosphatase 105 (38-126) Units/L Albumin 2.9 L (3.5-5.0) g/dL - ABG Interpretation ABG results: PT/INR, D-dimer PT 13.2 Seconds (9.4-12.1) H 08/14/17 04:52 - VTE Documentation of Mechanical Device: Intermittent pneumatic compression device Consult Discharge Plan - Plan Referrals: Garett Ervin DO [Primary Care Provider] -
[2017-08-14] MEDS ORDERED: Lidocaine -MPF 2% 5 ML VIAL INFILT ONE (12:11)
--- NOTE | 2017-08-14 12:25 | Anesthesia Evaluation PreOp ---
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 Any Significant HX Other Medical History: Other (GI bleed, Pancreatic CA, CT abd/plv revealed acute thrombus within the SMV near the portal splenic confluence extending into the main portal vein, left portal vein, as well as the anterior and posterior branches of the right portal vein.) Anesthesia History: No Prior Anesthetic Complications, Past Anesthesia (ACDF, Knee scope) Alcohol Use: none Drug use: none Medications and Allergies Lidocaine/Prilocaine CREAM [Emla] 1 gm TP AD #1 tube 11/06/16 [Rx] Magic Mouthwash 5 ml PO Q4H PRN #240 ml 11/06/16 [Rx] Multivitamin [Multivitamins] 1 each PO DAILY 11/06/16 [History] Ranitidine HCl [Acid Inspector Of Weights And Measures] 150 mg PO QPM PRN 11/06/16 [History] metFORMIN [Glucophage] 500 mg PO DAILY 11/06/16 [History] HYDROcodone/Acet 10/325 mg [[place] 10-325 mg] 1 tab PO Q4HR PRN #84 tab 12/16/16 [Rx] Baclofen [Lioresal] 10 mg PO DAILY PRN 08/13/17 [History] Gabapentin [Neurontin] 300 mg PO HS PRN 08/13/17 [History] Lipase/Protease/Amylase [Creon Dr 12,000 Units Capsule] 1 each PO AD 08/13/17 [ History] Loperamide [Imodium] 2 mg PO PER PKG DI PRN 08/13/17 [History] Melatonin 5 mg PO HS 08/13/17 [History] Pantoprazole Sodium [Protonix] 40 mg PO DAILY 08/13/17 [History] Sancuso 3.1 mg TD Q1W PRN 08/13/17 [History] Turmeric Curcumin 1 tab PO DAILY 08/13/17 [History] 3 Allergy/AdvReac Type Severity Reaction Status Date / Time ondansetron Allergy Swelling Verified 05/21/17 14:10 [From Zofran (as of hydrochloride)] Lip/Tongue/Throat prochlorperazine Allergy Swelling Verified 05/21/17 14:10 [From Compazine] of Lip/Tongue/Throat Oxycodone AdvReac Rash Verified 05/21/17 14:09 - Meds/Allergy Pre-op Review Medications Reviewed: Yes Allergies Reviewed: Yes Beta Blockers on Current Med List: No Anesthesia Results - Labs 08/14/17 11:07 08/14/17 04:52 Anesthesia Exam O2 Sat Height 1.8 m Weight 65.68 kg Weight 65.544 kg O2 Sat by Pulse Oximetry 93 O2 Sat by Pulse Oximetry 99 O2 Sat by Pulse Oximetry 99 O2 Sat by Pulse Oximetry 100 O2 Sat by Pulse Oximetry 99 O2 Sat by Pulse Oximetry 99 O2 Sat by Pulse Oximetry 99 O2 Sat by Pulse Oximetry 100 O2 Sat by Pulse Oximetry 100 O2 Sat by Pulse Oximetry 97 Vital Signs Temp Pulse Resp BP Pulse Ox 98.1 F 93 22 120/83 100 08/13/17 14:11 08/13/17 14:11 08/13/17 14:11 08/13/17 14:11 08/13/17 14:11 Vital Signs/O2 Sat, Most Current Temp Pulse Resp BP Pulse Ox 98.1 F 78 16 102/68 93 08/14/17 11:49 08/14/17 11:49 08/14/17 11:49 08/14/17 11:49 08/14/17 11:49 Height: 5'11'' Weight: 144# NPO (# of Hours): > 8 hrs Pain Scale: 0 Pain Scale Used: Numeric (1 - 10) - HEENT Pupil (Motor): Pupils equal, EOMI Mallampati: III Teeth: Normal Oral Opening: Greater than 3 - RETAIL SALES ASSOCIATE SEASONAL LOC: Oriented RETAIL SALES [employer]OCIATE SEASONAL Motor: Normal RUE, Normal LUE, Normal RLE, Normal LLE, Normal Face [employer]AIL SALES ASSOCIATE SEASONAL Sensory: Normal: RUE, LUE, RLE, LLE, Face - Cardiac Rhythm: Regular Murmur: None JVD: No Carotid Bruit: No - Pulmonary Breath Sounds: bilateral Clear Respiratory Effort: Symmetrical Anesthesia Assess/Plan ASA Score: 3 Modified Brien Scale for Level of Consciousness: Cooperative, oriented, and tranquil Anesthetic Plan: General Autologous Blood: Yes Monitoring Plan: Standard Monitors Recovery Plan: Other
--- NOTE | 2017-08-14 12:41 | Gastroenterology Consult Note ---
<Chan Moore Roberto - Last Filed: 08/14/17 12:39> Date of Encounter: 08/14/17 Time of Encounter: 10:55 - Assessment and plan (1) GI bleed Current Visit: Yes Status: Acute Assessment and plan: Plan for EGD today to r/o esophagitis, gastritis, duodenitis, PUD, MW tear, or AVM. If negative consider colonoscopy tomorrow. Qualifiers: GI bleed type/associated pathology: unspecified gastrointestinal hemorrhage type Qualified Code(s): K92.2 - Gastrointestinal hemorrhage, unspecified (2) Anemia Current Visit: Yes Status: Acute Assessment and plan: Hgb 10.3 on admission and this AM Hgb 8.9. Continue to monitor CBC and transfuse PRBC as needed. Plan for EGD today and possible colonoscopy tomorrow. Qualifiers: Anemia type: unspecified type Qualified Code(s): D64.9 - Anemia, unspecified (3) Pancreatic cancer Current Visit: No Status: Chronic Assessment and plan: CT A/P revealed acute thrombus within the SMV near the portal splenic confluence extending into the main portal vein, left portal vein, as well as the anterior and posterior branches of the right portal vein. Likely this is his pancreatic tumor and not a thrombus. Qualifiers: Pancreatic malignancy location: body of pancreas Qualified Code(s): C25.1 - Malignant neoplasm of body of pancreas - Time Spent With Patient Total time spent is greater than 50% in coordination of care (as documented) at patient's floor/unit and/or counseling patient: GI History of Present Illness - Data of Consult Patient: new to practice Consult date: 08/14/17 Requesting Physician: Pascale Gonzalez MD - Consult Narrative Reason for consult: GI bleed History of present illness: Mr. Hatch is a 52 year old male with PMHx of Pancreatic cancer diagnosed October 2016, DM, chemo induced gastric ulcers that presented from home c/o black tarry stool and bright red blood in his stool for 2 days prior to admission. He reports toilet bowl was full of blood the day of admission. He reports associated fatigue, nausea, anorexia, and intermittent generalized abd pain. Patient underwent radiation and chemotherapy at [facility] but had to stop chemotherapy therapy 5 weeks ago because he was not tolerating treatments. He denies fever, chills, chest pain, SOB, hematemesis. FOBT positive in the ED. Hgb 10.3 on admission and this AM Hgb 8.9. CT A/P revealed acute thrombus within the SMV near the portal splenic confluence extending into the main portal vein, left portal vein, as well as the anterior and posterior branches of the right portal vein. Procedures: EGD March 2017 revealed gastric ulcers. NSAIDs: None Anticoagulation: None Past Med Surg Social Fam HX - Past Medical History Medical history: cancer (pancreatic), diabetes, other (Peptic ulcers, hemorrhoids) Psychiatric history: no psych history - Past Surgical History Surgical History: orthopedic, other (right shoulder, C6-C7, port-a-cath) - Social History Smoking Status: Never smoker Smokeless Tobacco Status: No Alcohol use: none Drug use: none - Family History Father Adopted: No Hx Family Cardiac Disorders: Yes (DE, CABG, HTN) Hx Family Endocrine Disorder: Yes (DM) Mother History Unknown: Yes Hx Family Cardiac Disorders: No - Gastrointestinal Gastrointestinal: Present: as per HPI - Constitutional Constitutional: as per HPI - EENT Eyes: as per HPI Ears: Present: as per HPI Nose, mouth and throat: Present: as per HPI - Cardiovascular Cardiovascular ROS: Present: as per HPI - Respiratory Respiratory IM: Present: as per HPI - Genitourinary Genitourinary: Absent: change in color, Urinary frequency - Neurological ROS Neurological GI: Present: as per HPI - Hematologic/Lymphatic Hematologic/Lymphatic pediatric: Present: as per HPI - Musculoskeletal Musculoskeletal ROS GI: Present: as per HPI - Integumentary Integumentary GI: Present: as per HPI - Psychiatric ROS Psychiatric GI: Present: as per HPI - Endocrine Endocrine IM: Present: as per HPI - Constitutional Vitals: Temp Pulse Resp BP Pulse Ox 98.1 F 78 16 102/68 93 08/14/17 11:49 08/14/17 11:49 08/14/17 11:49 08/14/17 11:49 08/14/17 11:49 General appearance: Present: cooperative, A&O X 3, no acute distress, answers questions appropriately - Head Head exam: Present: atraumatic, normocephalic - Eye Eye exam: Present: normal appearance, sclera anicteric - ENT ENT exam: Present: mucous membranes dry - Neck Neck exam general surgery: Present: normal inspection, trachea midline - Respiratory Respiratory exam: Present: CTAB. Absent: rales, rhonchi - Cardiovascular Cardiovascular exam: Present: RRR, +S1, +S2 - GI/Abdominal GI/Abdominal exam: Present: normal bowel sounds, soft, no peritoneal signs. Absent: distended, firm, guarding, tenderness - Rectal Rectal exam: Present: deferred - Extremities Exam Extremities exam: Present: warm - Neurological Exam Neurological exam: Present: no focal deficits - Psychiatric Psychiatric exam: Present: normal affect, normal mood - Skin Skin exam: Present: dry, intact, normal color, warm Results - Labs CBC & Chem 7: 08/14/17 11:07 08/14/17 04:52 Labs: Last Result Calcium 8.7 mg/dL (8.6-10.8) 08/14/17 04:52 Troponin I 0.00 ng/mL (0-0.03) 08/13/17 16:05 Stool Occult Blood Positive (Negative) A 08/13/17 16:25 Entire Visit Hgb 9.4 g/dL (12.9-16.9) L 08/14/17 11:07 Hct 28.7 % (37.5-50.1) L 08/14/17 11:07 PT 13.2 Seconds (9.4-12.1) H 08/14/17 04:52 Total Bilirubin 0.9 mg/dL (0.2-1.2) 08/14/17 04:52 AST 18 Units/L (5-34) 08/14/17 04:52 ALT 27 Units/L (0-55) 08/14/17 04:52 Lipase < 10 Units/L (8-78) 08/13/17 16:05 - ABG ABG results: PT/INR, D-dimer PT 13.2 Seconds (9.4-12.1) H 08/14/17 04:52 Consult Discharge Plan - Plan Referrals: Garett Ervin DO [Primary Care Provider] - <Chanell Barber - Last Filed: 08/14/17 18:34> Date of Encounter: 08/14/17 Time of Encounter: 14:00 - Time Spent With Patient Total time spent is greater than 50% in coordination of care (as documented) at patient's floor/unit and/or counseling patient: GI History of Present Illness - Data of Consult Requesting Physician: Pascale Gonzalez MD - Consult Narrative History of present illness: Mr. Hatch is a 52 year old male - Constitutional Vitals: Temp Pulse Resp BP Pulse Ox 98.0 F 69 16 120/79 95 08/14/17 15:10 08/14/17 16:30 08/14/17 16:30 08/14/17 16:30 08/14/17 16:30 Results - Labs CBC & Chem 7: 08/14/17 16:15 08/14/17 04:52 Labs: Last Result Calcium 8.7 mg/dL (8.6-10.8) 08/14/17 04:52 Troponin I 0.00 ng/mL (0-0.03) 08/13/17 16:05 Stool Occult Blood Positive (Negative) A 08/13/17 16:25 Entire Visit Hgb 9.5 g/dL (12.9-16.9) L 08/14/17 16:15 Hct 29.3 % (37.5-50.1) L 08/14/17 16:15 PT 13.2 Seconds (9.4-12.1) H 08/14/17 04:52 Total Bilirubin 0.9 mg/dL (0.2-1.2) 08/14/17 04:52 AST 18 Units/L (5-34) 08/14/17 04:52 ALT 27 Units/L (0-55) 08/14/17 04:52 Lipase < 10 Units/L (8-78) 08/13/17 16:05 - ABG ABG results: PT/INR, D-dimer PT 13.2 Seconds (9.4-12.1) H 08/14/17 04:52 - Attending Attestation I examined this patient and my medical decision-making was reviewed with the Resident Physician. I agree with the documented findings, disposition and treatment plan as described except to the extent set forth below. Unresectable pancreatic cancer. Patient may need EUS with celiac block for pain control as per patient he did work before. EGD for lower GI bleed and if negative then will need colonoscopy
[2017-08-14] MEDS ORDERED: Simethicone 40 MG/0.6 ML MLS IR ONE (15:12)
[2017-08-14] MEDS ORDERED: Tetracaine/Benzocaine/Butamben 200MG/SPRAY (100SPY/BOT) MM ONE (15:12)
--- NOTE | 2017-08-14 15:31 | Electrocardiograph Report ---
[address] [address] Test Date: 2017-08-13 Pat Name: Dickson Hatch Department: 102 Room: 3A42 Gender: M Epic Director: : 1965 Requested By: Woodrow Carter Order Number: [id number] Reading MD: Kwaku Coleman Measurements Intervals [place] Rate: 80 P: 6 CA: 138 QRS: 42 QRSD: 89 T: 41 QT: 368 QTc: 404 Interpretive Statements SINUS RHYTHM Electronically Signed On 08-14-2017 15:29:37 EDT by Kwaku Coleman
[2017-08-14] MEDS: *HR* HYDROmorphone (PF) 1 MG/ML SYRINGE IVP PRN ×2 (16:15→21:29)
[2017-08-14 16:48] LABS: Basophils % 0.8 %; Eosinophils % 0.8 %; Hematocrit 29.3 % (37.5-50.1); Hemoglobin 9.5 g/dL (12.9-16.9); Lymphocytes # 0.2 K/mcL (0.6-4.6); Mean Corpuscular HGB Conc 32.4 g/dL (31.6-35.5); Mean Corpuscular Hemoglobin 31.5 pg (28.0-33.3); Mean Platelet Volume 10.1 fL (9.4-12.4); Monocytes # 0.3 K/mcL (0.0-1.3); Monocytes % 7.3 %; Neutrophils # 3.3 K/mcL (1.6-8.9); Platelet Count 131 K/mcL (140-400); Red Blood Count 3.02 M/mcL (4.19-5.50); Red Cell Distribution Width 13.7 % (11.5-14.5); Segmented Neutrophils % 86.1 %
[2017-08-14 16:55] LABS: Platelet Estimate Slight Decrease (Normal)
[2017-08-14] MEDS ORDERED: Insulin DETEMIR 100 UNIT/ML X5UNITS SQ SCH (21:00)
[2017-08-14] MEDS ORDERED: Insulin LISPRO 300 UNITS/3 ML VIAL SQ SCH (21:00)
[2017-08-14] MEDS: Melatonin 3 MG TABLET PO SCH (21:28)
[2017-08-15] MEDS: Insulin LISPRO 300 UNITS/3 ML VIAL SQ SCH ×6 (00:23→21:09)
[2017-08-15] MEDS: MetroNIDAZOLE 500 MG/100 ML 500 MG/100 ML BAG IVPB SCH ×3 (01:57→18:14)
[2017-08-15] MEDS: *HR* HYDROmorphone (PF) 1 MG/ML SYRINGE IVP PRN ×2 (04:10→09:19)
[2017-08-15 04:28] LABS: Basophils % 0.8 %; Eosinophils # 0.1 K/mcL (0.0-0.6); Eosinophils % 3.9 %; Hematocrit 26.8 % (37.5-50.1); Hemoglobin 8.7 g/dL (12.9-16.9); Lymphocytes # 0.2 K/mcL (0.6-4.6); Lymphocytes % 8.5 %; Mean Corpuscular HGB Conc 32.5 g/dL (31.6-35.5); Mean Corpuscular Hemoglobin 31.5 pg (28.0-33.3); Mean Corpuscular Volume 97.1 fL (83.0-100.0); Mean Platelet Volume 10.4 fL (9.4-12.4); Monocytes # 0.3 K/mcL (0.0-1.3); Monocytes % 10.9 %; Platelet Count 120 K/mcL (140-400); Red Blood Count 2.76 M/mcL (4.19-5.50); Red Cell Distribution Width 13.5 % (11.5-14.5); Segmented Neutrophils % 75.9 %
[2017-08-15] MEDS: Pantoprazole 40 MG in 0.9 % Sodium Chloride Mini Bag 100 ML IVC SCH ×3 (04:30→09:04)
[2017-08-15 05:09] LABS: Alanine Aminotransferase 24 Units/L (0-55); Albumin/Globulin Ratio 1.3 (1.1-2.2); Alkaline Phosphatase 104 Units/L (38-126); Aspartate Amino Transferase 17 Units/L (5-34); BUN/Creatinine Ratio 29 (6-26); Blood Urea Nitrogen 20 mg/dL (8-26); Calcium 8.5 mg/dL (8.6-10.8); Carbon Dioxide 19 mEq/L (19-29); Chloride 109 mEq/L (98-109); Globulin 2.4 g/dL (2.4-3.5); Glucose 87 mg/dL (70-99); Osmolality,Calculated 290 (280-300); Potassium 3.6 mEq/L (3.5-4.5); Sodium 139 mEq/L (136-145); Total Protein 5.4 g/dL (6.0-8.3); eGFR For African Americans > 60 (> 60); eGFR For Non-African Americans > 60 (> 60)
[2017-08-15] MEDS: 0.9 % Sodium Chloride 1,000 ML IVC SCH ×2 (07:39→09:02)
[2017-08-15] MEDS: Multivit/Ca/Min/Fe/FA 1 TAB TABLET PO SCH (09:02)
[2017-08-15] MEDS: Sucralfate 1 GM TABLET PO SCH ×3 (11:52→21:09)
[2017-08-15] MEDS ORDERED: *HR* HYDROcodone/Acet 10/325 mg TABLET PO PRN (11:59)
--- NOTE | 2017-08-15 12:28 | Internal Med Progress Note ---
Date of Encounter: 08/15/17 Time of Encounter: 11:40 - Assessment and plan (1) GI bleed Current Visit: Yes Status: Acute Assessment and plan: Bleeding symptoms improved. GI consulted, patient underwent EGD yesterday- radiation gastritis and duodenitis with few bleeding spots s/p cauterization and bleeding control. Continue solid diet as tolerated. Noted to have drop in Hb , 8.7 today. Continue to monitor closely. Will transfuse <8. Discontinue PPI drip and start PO Protonix. 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 Continue pain control and supportive care. He is also not a candidate for anticoagulation due to recent radiation and current GI bleed. (3) Acute blood loss anemia Current Visit: Yes Status: Acute Assessment and plan: due to GI bleed, monitor Hb closely. (4) DM type 2 (diabetes mellitus, type 2) Current Visit: Yes Status: Chronic Assessment and plan: Continue Accu-Chek blood glucose monitoring with sliding scale insulin as needed. Diabetic diet. Qualifiers: Diabetes mellitus complication status: without complication Diabetes mellitus long-term insulin use: without long-term use Qualified Code(s): E11.9 - Type 2 diabetes mellitus without complications (5) Pancreatic cancer Current Visit: Yes Status: Chronic Assessment and plan: History of unresectable pancreatic cancer with metastasis. Follows with oncology as outpatient. Unable to tolerate chemotherapy, has been off chemotherapy for 5 weeks. Oncology consult appreciated. Qualifiers: Pancreatic malignancy location: body of pancreas Qualified Code(s): C25.1 - Malignant neoplasm of body of pancreas - Subjective Interval history: No fever/chills, nausea, vomiting, rectal bleed/melena. Does have some lower abdominal pain. Tolerates oral diet. - Constitutional Vitals: Temp Pulse Resp BP Pulse Ox 98.0 F 90 14 98/64 100 08/15/17 11:05 08/15/17 11:05 08/15/17 11:05 08/15/17 11:05 08/15/17 11:05 General appearance: Present: A&O X 3, answers questions appropriately - Respiratory Respiratory exam: Present: CTAB. Absent: accessory muscle use, rales, rhonchi, wheezes - Cardiovascular Cardiovascular exam: Present: RRR, +S1, +S2. Absent: diastolic murmur, gallop, rubs, systolic murmur - GI/Abdominal GI/Abdominal exam: Present: normal bowel sounds, soft, no peritoneal signs. Absent: distended, tenderness - Extremities Exam Extremities exam: Present: full ROM, warm, radial pulses palpable and symmetrical. Absent: calf tenderness, cyanotic, pedal edema Internal Medicine: Result - Labs CBC & Chem 7: 08/15/17 04:00 08/15/17 04:00 Labs: Short CBC 08/14/17 08/15/17 Range/Units 16:15 04:00 WBC 3.8 L D 2.6 L (4.3-11.1) K/mcL Hgb 9.5 L 8.7 L (12.9-16.9) g/dL Hct 29.3 L 26.8 L (37.5-50.1) % Plt Count 131 L 120 L (140-400) K/mcL Neutrophils # 3.3 2.0 (1.6-8.9) K/mcL BMP 08/15/17 04:00 Sodium 139 Potassium 3.6 Chloride 109 Carbon Dioxide 19 BUN 20 Creatinine 0.69 L Glucose 87 Calcium 8.5 L Liver Function 08/15/17 Range/Units 04:00 Total Bilirubin 1.0 (0.2-1.2) mg/dL AST 17 (5-34) Units/L ALT 24 (0-55) Units/L Alkaline Phosphatase 104 (38-126) Units/L Albumin 3.0 L (3.5-5.0) g/dL - ABG Interpretation ABG results: PT/INR, D-dimer PT 13.2 Seconds (9.4-12.1) H 08/14/17 04:52 - VTE Documentation of Mechanical Device: Intermittent pneumatic compression device Consult Discharge Plan - Plan Referrals: Garett Ervin DO [Primary Care Provider] -
--- NOTE | 2017-08-15 17:52 | Oncology Inp Progress Note ---
Date of Encounter: 08/18/17 Time of Encounter: 17:50 (1) Acute blood loss anemia Status: Acute Assessment and plan: Hemoglobin 8.7.we will continue to monitor that. (2) Mesenteric venous thrombosis Status: Chronic Assessment and plan: Superior mesenteric vein thrombosis. PT PTT normal 08/14/2017. Because of recent GI bleed not a candidate for anticoagulation (3) Pancreatic cancer Status: Chronic Assessment and plan: Will review the records from [facility]. We will give a break from chemotherapy still his gastritis and duodenitis improve Had a long discussion with him and the . He wants to resume chemotherapy here. We will do Gemzar and Abraxane every 2 weeks He his interested in CARTT treatment for pancreatic cancer.. She is going to bring some information on that CT dominant pelvis with contrast 08/13/2017 revealed ill-defined soft tissue surrounding celiac access and SMA. No mention of any liver metastasis. I ordered CA 19.9 during this admission Qualifiers: Pancreatic malignancy location: body of pancreas Qualified Code(s): C25.1 - Malignant neoplasm of body of pancreas Oncology: Subj Interval history: Unresectable pancreatic cancer. Initial stage T3 N1, MX stage III. Mass about 3 cm at the junction of head and neck of pancreas treated initially with neoadjuvant FOLFIRINOX 4 cycles completed November 2016. CA-19-9 marginally reduced to 185. Found to be unresectable to chemotherapy at [facility] Since then he went to cancer treatment centers of [facility] and had concurrent chemoradiation to the pancreas. He was on Xeloda apparently 2 g by mouth twice a day during radiation and he had SBRT the pancreas at the end of radiation Also started on Gemzar and Abraxane completion of chemoradiation and last dose was about 5 weeks ago Hospitalized now with his in induced gastritis and GI bleeding . Currently getting Prilosec and sucralfate EGD 08/15/2017 showed severe lesion induced gastropathy and adenopathy reduced improving with conservative management - Constitutional Vitals: Vital Signs Temp Pulse Resp BP Pulse Ox 08/15/17 14:12 98.3 F 79 14 103/69 100 08/15/17 11:05 98.0 F 90 14 98/64 100 08/15/17 07:14 98.3 F 77 14 104/67 100 08/15/17 05:06 97.8 F 83 18 95/89 100 08/15/17 00:00 97.7 F 88 18 100/63 100 08/14/17 19:54 98.4 F 92 18 105/63 100 Intake and Output 08/15/17 08/15/17 08/15/17 07:59 15:59 23:59 Intake Total 1200 / 1200 560 / 560 Output Total 0 / 0 0 / 0 0 / 0 Balance 1200 / 1200 560 / 560 0 / 0 Intake: IV Fluids 1200 / 1200 200 / 200 0.9 % Sodium Chloride 1,000 ML 1000 / 1000 @ 100 mls/hr IVC .Q10H MAXI Rx#: [id number] Protonix 40 MG In 0.9 % Sodium 100 / 100 100 / 100 Chloride (Mini-Bag +) 100 ML @ 20 mls/hr IVC .Q5H MAXI Rx#: [id number] Flagyl Premix 500 MG/100 ML 500 100 / 100 100 / 100 mg In 100 ml @ 100 mls/hr IVPB Q8H MAXI Rx#:[id number] Oral 0 / 0 360 / 360 Output: Urine 0 / 0 0 / 0 0 / 0 Other: Meal Lunch Percent of Meal Consumed 100% Stool Size Moderate Stool Consistency loose Stool Color Dark Red Blood # Bowel Movements 1 0 Blood Glucose* 88 140 135 Exam: GENERAL: Alert and oriented, well appearing. Mental Status: Affect appropriate for circumstances HEENT: Sclerae anicteric. No mucositis or thrush. No other oral or pharyngeal lesions or erythema. Skin: No rashes or petechiae. No evidence of skin malignancy Lymph nodes: No cervical, supraclavicular, axillary, or inguinal adenopathy. Lungs: Air entry normal with normal breath sounds. No rhonchi or wheezing Cardiovascular: Regular rate and rhythm. No skipped beats Abdomen: Soft, mild tenderness in the epigastrium; no organomegaly or masses palpable. Extremities: No edema. No calf swelling or tenderness. No joint deformity. Neurologic: Alert, cranial nerves II-XII intact; normal gait; no focal weakness or sensory abnormalities Oncology: Obj Data - Labs CBC & Chem 7: 08/16/17 Unknown 08/15/17 04:00 Labs: Laboratory Results - last 24 hr 08/14/17 08/15/17 08/15/17 20:05 00:05 04:00 WBC 2.6 L RBC 2.76 L Hgb 8.7 L Hct 26.8 L MCV 97.1 MCH 31.5 MCHC 32.5 RDW 13.5 Plt Count 120 L MPV 10.4 Immature Gran % 0.0 Seg Neutrophils % 75.9 Lymphocytes % 8.5 Monocytes % 10.9 Eosinophils % 3.9 Basophils % 0.8 Neutrophils # 2.0 Lymphocytes # 0.2 L Monocytes # 0.3 Eosinophils # 0.1 Basophils # 0.0 Sodium Potassium Chloride Carbon Dioxide BUN Creatinine Est GFR ( Amer) Est GFR (Non-Af Amer) BUN/Creatinine Ratio Glucose POC Glucose 131 H 104 H Calculated Osmolality Calcium Total Bilirubin AST ALT Alkaline Phosphatase Serum Total Protein Albumin Globulin Albumin/Globulin Ratio 08/15/17 08/15/17 08/15/17 04:00 05:04 07:44 WBC RBC Hgb Hct MCV MCH MCHC RDW Plt Count MPV Immature Gran % Seg Neutrophils % Lymphocytes % Monocytes % Eosinophils % Basophils % Neutrophils # Lymphocytes # Monocytes # Eosinophils # Basophils # Sodium 139 Potassium 3.6 Chloride 109 Carbon Dioxide 19 BUN 20 Creatinine 0.69 L Est GFR ( Amer) > 60 Est GFR (Non-Af Amer) > 60 BUN/Creatinine Ratio 29 H Glucose 87 POC Glucose 83 88 Calculated Osmolality 290 Calcium 8.5 L Total Bilirubin 1.0 AST 17 ALT 24 Alkaline Phosphatase 104 Serum Total Protein 5.4 L Albumin 3.0 L Globulin 2.4 Albumin/Globulin Ratio 1.3 08/15/17 08/15/17 11:08 16:05 WBC RBC Hgb Hct MCV MCH MCHC RDW Plt Count MPV Immature Gran % Seg Neutrophils % Lymphocytes % Monocytes % Eosinophils % Basophils % Neutrophils # Lymphocytes # Monocytes # Eosinophils # Basophils # Sodium Potassium Chloride Carbon Dioxide BUN Creatinine Est GFR ( Amer) Est GFR (Non-Af Amer) BUN/Creatinine Ratio Glucose POC Glucose 140 H 135 H Calculated Osmolality Calcium Total Bilirubin AST ALT Alkaline Phosphatase Serum Total Protein Albumin Globulin Albumin/Globulin Ratio - ABG Interpretation ABG results: PT/INR, D-dimer PT 13.2 Seconds (9.4-12.1) H 08/14/17 04:52 Consult Discharge Plan - Plan Instructions: Sucralfate (By mouth), Pantoprazole (By mouth), Anemia (GEN) Additional Instructions: F/up with [facility] as scheduled Referrals: Garett Ervin DO [Primary Care Provider] - Prescriptions: Pantoprazole Sodium [Protonix] 40 mg PO BID #60 tablet. Sucralfate [Carafate] 1 gm PO TID #90 tablet
[2017-08-15] MEDS: Melatonin 3 MG TABLET PO SCH (21:09)
[2017-08-16] MEDS: MetroNIDAZOLE 500 MG/100 ML 500 MG/100 ML BAG IVPB SCH ×2 (01:38→08:27)
[2017-08-16 03:48] LABS: Basophils % 0.4 %; Eosinophils # 0.1 K/mcL (0.0-0.6); Eosinophils % 3.2 %; Hematocrit 26.2 % (37.5-50.1); Hemoglobin 8.7 g/dL (12.9-16.9); Immature Granulocytes % 0.4 % (0-4); Lymphocytes # 0.2 K/mcL (0.6-4.6); Lymphocytes % 7.1 %; Mean Corpuscular HGB Conc 33.2 g/dL (31.6-35.5); Mean Corpuscular Volume 96.3 fL (83.0-100.0); Monocytes # 0.3 K/mcL (0.0-1.3); Monocytes % 12.7 %; Neutrophils # 1.9 K/mcL (1.6-8.9); Platelet Count 113 K/mcL (140-400); Red Blood Count 2.72 M/mcL (4.19-5.50); Red Cell Distribution Width 13.4 % (11.5-14.5); Segmented Neutrophils % 76.2 %
[2017-08-16 04:15] LABS: Platelet Estimate Decreased (Normal)
[2017-08-16 07:10] VITALS: BP 117/73
[2017-08-16] MEDS: Insulin LISPRO 300 UNITS/3 ML VIAL SQ SCH ×2 (08:10→11:48)
[2017-08-16] MEDS: Multivit/Ca/Min/Fe/FA 1 TAB TABLET PO SCH (08:26)
[2017-08-16] MEDS: Sucralfate 1 GM TABLET PO SCH (08:27)
--- NOTE | 2017-08-16 11:17 | Discharge Summary ---
Date of Encounter: 08/16/17 Time of Encounter: 11:13 - Discharge Diagnosis (1) GI bleed Priority: Primary Status: Acute Qualifiers: GI bleed type/associated pathology: gastritis Gastritis type: other gastritis Qualified Code(s): K29.61 - Other gastritis with bleeding (2) Mesenteric venous thrombosis Priority: Primary Status: Chronic (3) Acute blood loss anemia Priority: Primary Status: Acute (4) DM type 2 (diabetes mellitus, type 2) Priority: Secondary Status: Chronic Qualifiers: Diabetes mellitus complication status: without complication Diabetes mellitus ferry terminal agent insulin use: without long-term use Qualified Code(s): E11.9 - Type 2 diabetes mellitus without complications (5) Pancreatic cancer Priority: Secondary Status: Chronic Qualifiers: Pancreatic malignancy location: body of pancreas Qualified Code(s): C25.1 - Malignant neoplasm of body of pancreas - Discharge Medications Prescriptions: Pantoprazole Sodium [Protonix] 40 mg PO BID #60 tablet. Sucralfate [Carafate] 1 gm PO TID #90 tablet Home Medications: Lidocaine/Prilocaine CREAM [Emla] 1 gm TP AD #1 tube 11/06/16 [Rx] Magic Mouthwash 5 ml PO Q4H PRN #240 ml 11/06/16 [Rx] Multivitamin [Multivitamins] 1 each PO DAILY 11/06/16 [History] Ranitidine HCl [Acid Plumber Maintenance] 150 mg PO QPM PRN 11/06/16 [History] metFORMIN [Glucophage] 500 mg PO DAILY 11/06/16 [History] Baclofen [Lioresal] 10 mg PO DAILY PRN 08/13/17 [History] Gabapentin [Neurontin] 300 mg PO HS PRN 08/13/17 [History] Lipase/Protease/Amylase [Darrin Cartagena 12,000 Units Capsule] 1 each PO AD 08/13/17 [ History] Loperamide [Imodium] 2 mg PO PER PKG DI PRN 08/13/17 [History] Melatonin 5 mg PO HS 08/13/17 [History] Sancuso 3.1 mg TD Q1W PRN 08/13/17 [History] Turmeric Curcumin 1 tab PO DAILY 08/13/17 [History] Pantoprazole Sodium [Protonix] 40 mg PO BID #60 tablet. 08/16/17 [Rx] Sucralfate [Carafate] 1 gm PO TID #90 tablet 08/16/17 [Rx] Allergies/Adverse Reactions: 3 Allergy/AdvReac Type Severity Reaction Status Date / Time ondansetron Allergy Swelling Verified 05/21/17 14:10 [From Zofran (as of hydrochloride)] Lip/Tongue/Throat prochlorperazine Allergy Swelling Verified 05/21/17 14:10 [From Compazine] of Lip/Tongue/Throat Oxycodone AdvReac Rash Verified 05/21/17 14:09 Date of admission: 08/14/17 01:29 Primary care physician: Cora Santacruz Discharging clinician: Pascale Gonzalez Anticipated date of discharge: 08/16/17 - Patient Status Disposition: Home, Self-Care Condition: Good Functional capacity at discharge: independent ambulation Overall status at discharge: patient is progressing back to baseline - Discharge Instructions Instructions: Sucralfate (By mouth), Pantoprazole (By mouth), Anemia (GEN) Follow Up With: Garett Ervin DO [Primary Care Provider] - Forms: Inpatient Work/School Release Additional Instructions: F/up with [facility] as scheduled - Diet and Activity Activity: resume usual activities as tolerated Diet: advance to your usual diet, diabetic diet, low fat, low cholesterol Hospital course: Mr. Hatch is a 52 year old male with history of unresectable pancreatic cancer, on chemotherapy, who was admitted with melena and rectal bleed. He was given bowel rest, IV hydration and supportive care. He was noted to have a 2-3 g drop in hemoglobin during this hospitalization, however remained fairly stable and did not require PRBC transfusion. Gastroenterology was consulted and patient underwent EGD, which showed diffuse radiation-induced gastritis and duodenitis, with a few bleeding spots. He started on twice daily PPI and Carafate with meals. CT abdomen/pelvis done at the time of admission also revealed portal vein and superior mesenteric vein thrombosis. Oncology was consulted and patient is noted to have chronic portal vein thrombosis and this is likely related to his cancer, anticoagulation is not recommended at this time due to active GI bleed. Patient was gradually able to tolerate oral diet, his abdominal pain is controlled without narcotic pain medications and he is currently medically stable for discharge, with outpatient oncology follow-up. - Time Spent with Patient Total time spent providing and/or coordinating discharge services: Greater than 30 minutes (40 min) - Constitutional Vitals: Temp Pulse Resp BP Pulse Ox 97.4 F L 74 14 117/73 100 08/16/17 07:03 08/16/17 07:03 08/16/17 07:03 08/16/17 07:03 08/16/17 07:03 General appearance: Present: A&O X 3, answers questions appropriately - Cardiovascular Cardiovascular exam: Present: RRR, +S1, +S2. Absent: diastolic murmur, gallop, rubs, systolic murmur - VTE Documentation of Mechanical Device: Intermittent pneumatic compression device
== END 2017-08-16 12:12 | disposition home or self-care (01) | DRG 377 ==
LOC: EMEROO 14:01 → 3ANU 14:01
PROVIDERS: ADMIT Hospitalist; ATTEND Internal Medicine
PROC: ENDOEBX (2017-08-14 14:30)

== ENCOUNTER 2017-09-29 09:29 | Inpatient (IN) ==
--- NOTE | 2017-09-29 09:53 | Emergency Department Note ---
Disposition Clinical Impression: Dehydration Altered mental status Qualifiers: Altered mental status type: somnolence Qualified Code(s): R40.0 - Somnolence Disposition: Admitted As Inpatient Condition: Fair Time of Disposition: 12:32 Altered Mental Status HPI - General Chief Complaint: ED Weakness Stated Complaint: lethargic Time Seen by Provider: 09/29/17 09:35 Source: EMS Limitations: altered mental status Nursing Notes Reviewed: Yes Vital Signs Reviewed: Yes - History of Present Illness HPI Narrative: 52-year-old male brought to the emergency department by EMS because of altered mental status and weakness. He has history of pancreatic cancer and lashes chemotherapy in April of this year. He has since had radiation treatments but nothing in the past week. No recent surgery. No recent change in medications. There is been a 2 to three-day progression of worsening somnolence with poor oral intake and periods of hypotension. This morning his measured a systolic blood pressure of 70. He has had increasing weakness and unable to ambulate from bathroom to bedroom. No vomiting or diarrhea today. No fevers. MD complaint: altered mental status Onset (ago): day(s) Timing confirmed by: spouse Pain Severity: moderate Pain Scale: 0 Consistency of Symptoms: getting worse Context: cancer Associated symptoms: Denies: chest pain, cough Treatments prior to arrival: IV fluid - Related Data Home Medications Medication Instructions Recorded Confirmed Multivitamin [Multivitamins] 1 each PO DAILY 11/06/16 09/29/17 Baclofen [Lioresal] 10 mg PO DAILY PRN 08/13/17 09/29/17 Gabapentin [Neurontin] 300 mg PO HS PRN 08/13/17 09/29/17 Lipase/Protease/Amylase [Creon Dr 1 each PO TID PRN 08/13/17 09/29/17 12,000 Units Capsule] Melatonin 5 mg PO HS 08/13/17 09/29/17 Previous Rx's Medication Instructions Recorded Pantoprazole Sodium [Protonix] 40 mg PO BID #60 tablet. 08/16/17 Hydromorphone HCl [Dilaudid] 1 - 2 tab PO Q4H PRN #90 tablet 09/03/17 Apixaban [Eliquis] 1 tab PO BID #60 tablet 09/10/17 Granisetron [Sancuso] 1 each TD QWEEK #4 patch.tdwk 09/10/17 predniSONE [PredniSONE] 1 tab PO DAILY #30 tablet 09/10/17 Potassium Chloride Elixir 7.5 ml PO DAILY #220 mls 09/25/17 [Potassium Chloride] Allergies Allergy/AdvReac Type Severity Reaction Status Date / Time ondansetron Allergy Swelling Verified 09/25/17 09:38 [From Zofran (as of hydrochloride)] Lip/Tongue/Throat prochlorperazine Allergy Swelling Verified 09/25/17 09:38 [From Compazine] of Lip/Tongue/Throat Oxycodone AdvReac Rash Verified 09/25/17 09:38 All systems ED: reviewed and negative except as stated. Constitutional: Reports: weakness. Denies: fever, chills Eyes: Denies: eye pain Cardiovascular: Denies: chest pain, palpitations Gastrointestinal: Denies: abdominal pain, diarrhea Genitourinary: Denies: urgency, dysuria Neurological: Reports: headache. Denies: weakness Past Medical History - Past Medical History Attestation: Yes The following information was validated with the patient. Medical history: Reports: cancer (pancreatic), diabetes, other (Thrombosed portal vein ) Surgical history: Reports: orthopedic, other Psychiatric history: Reports: no psych history - Social History Smoking Status: Never smoker Smokeless Tobacco Status: No Alcohol use: Reports: none Drug use: Reports: none Physical Exam Somnolent but arousable. Follows commands. Denies pain. - General Limitations: altered mental status General appearance: alert, lethargic - Head Head exam: atraumatic, normocephalic - Eye Eye exam: Present: normal appearance - ENT ENT exam: mucous membranes dry - Neck Neck exam: Present: full ROM, trachea midline. Absent: tenderness - Chest Chest inspection: Present: normal inspection, symmetric chest wall rise. Absent : tenderness - Respiratory Respiratory exam: Present: normal lung sounds bilaterally, respiratory distress - Cardiovascular Cardiovascular exam: Present: regular rate - Abdominal Exam Abdominal exam: Present: soft, Non-Tender, normal bowel sounds - Extremities Exam Extremities exam: Present: normal inspection - Expanded Lower Extremity Exam Foot/toe exam: Absent: tenderness Neurovascular/Tendon exam: Present: normal capillary refill - Neurological Exam Neurological exam: Absent: motor sensory deficit - Psychiatric Psychiatric exam: Present: flat affect. Absent: normal affect - Skin Skin exam: Present: warm, dry Course - Reevaluation(s) Reevaluation #1: Slight improvement with IV fluids ED work-up unremarkable to this point except for pre-renal azotemia Time: 12:35 Vital Signs Temperature 97.7 F 09/29/17 09:34 Pulse Rate 82 09/29/17 09:34 Respiratory Rate 16 09/29/17 09:34 Blood Pressure 102/72 09/29/17 09:34 O2 Sat by Pulse Oximetry 100 09/29/17 09:34 Temperature 97.4 F L 09/29/17 13:28 Pulse Rate 74 09/29/17 13:28 Respiratory Rate 18 09/29/17 13:28 Blood Pressure 99/66 09/29/17 13:28 O2 Sat by Pulse Oximetry 100 09/29/17 13:28 Oxygen Delivery Oxygen Delivery Room Air Altered Mental Status - Lab Data Result diagrams: 09/29/17 10:14 09/29/17 10:14 Lab Results 09/29/17 09/29/17 09/29/17 Range/Units 10:14 10:14 10:14 WBC 3.4 L D (4.3-11.1) K/mcL RBC 4.46 (4.19-5.50) M/mcL Hgb 12.2 L (12.9-16.9) g/dL Hct 37.9 (37.5-50.1) % MCV 85.0 (83.0-100.0) fL MCH 27.4 L (28.0-33.3) pg MCHC 32.2 (31.6-35.5) g/dL RDW 14.4 (11.5-14.5) % Plt Count 207 (140-400) K/mcL MPV 9.5 (9.4-12.4) fL Immature Gran % 0.3 (0-4) % Seg Neutrophils % 81.0 % Lymphocytes % 5.9 % Monocytes % 12.8 % Eosinophils % 0.0 % Basophils % 0.0 % Neutrophils # 2.8 (1.6-8.9) K/mcL Lymphocytes # 0.2 L (0.6-4.6) K/mcL Monocytes # 0.4 (0.0-1.3) K/mcL Eosinophils # 0.0 (0.0-0.6) K/mcL Basophils # 0.0 (0.0-0.2) K/mcL VBG pH (7.32-7.42) pH Units VBG pCO2 (41-51) mmHg VBG pO2 (25-50) mmHg VBG HCO3 (21-27) mEq/L Sodium 131 L (136-145) mEq/L Potassium 3.9 (3.5-4.5) mEq/L Chloride 94 L (98-109) mEq/L Carbon Dioxide 25 (19-29) mEq/L BUN 40 H (8-26) mg/dL Creatinine 1.01 (0.72-1.25) mg/dL Est GFR ( Amer) > 60 (> 60) Est GFR (Non-Af Amer) > 60 (> 60) BUN/Creatinine Ratio 40 H (6-26) Glucose 143 H (70-99) mg/dL Calculated Osmolality 284 (280-300) Lactic Acid (0.5-2.2) mmol/L Calcium 8.9 (8.6-10.8) mg/dL Magnesium 2.4 (1.6-2.6) mg/dL Total Bilirubin 1.1 (0.2-1.2) mg/dL AST 18 (5-34) Units/L ALT 25 (0-55) Units/L Alkaline Phosphatase 179 H (38-126) Units/L Ammonia 42 (18-72) mcmol/L Serum Total Protein 6.6 (6.0-8.3) g/dL Albumin 3.0 L (3.5-5.0) g/dL Globulin 3.6 H (2.4-3.5) g/dL Albumin/Globulin Ratio 0.8 L (1.1-2.2) 09/29/17 09/29/17 Range/Units 10:29 10:33 WBC (4.3-11.1) K/mcL RBC (4.19-5.50) M/mcL Hgb (12.9-16.9) g/dL Hct (37.5-50.1) % MCV (83.0-100.0) fL MCH (28.0-33.3) pg MCHC (31.6-35.5) g/dL RDW (11.5-14.5) % Plt Count (140-400) K/mcL MPV (9.4-12.4) fL Immature Gran % (0-4) % Seg Neutrophils % % Lymphocytes % % Monocytes % % Eosinophils % % Basophils % % Neutrophils # (1.6-8.9) K/mcL Lymphocytes # (0.6-4.6) K/mcL Monocytes # (0.0-1.3) K/mcL Eosinophils # (0.0-0.6) K/mcL Basophils # (0.0-0.2) K/mcL VBG pH 7.44 H (7.32-7.42) pH Units VBG pCO2 39 L (41-51) mmHg VBG pO2 34 (25-50) mmHg VBG HCO3 26 (21-27) mEq/L Sodium (136-145) mEq/L Potassium (3.5-4.5) mEq/L Chloride (98-109) mEq/L Carbon Dioxide (19-29) mEq/L BUN (8-26) mg/dL Creatinine (0.72-1.25) mg/dL Est GFR ( Amer) (> 60) Est GFR (Non-Af Amer) (> 60) BUN/Creatinine Ratio (6-26) Glucose (70-99) mg/dL Calculated Osmolality (280-300) Lactic Acid 0.9 (0.5-2.2) mmol/L Calcium (8.6-10.8) mg/dL Magnesium (1.6-2.6) mg/dL Total Bilirubin (0.2-1.2) mg/dL AST (5-34) Units/L ALT (0-55) Units/L Alkaline Phosphatase (38-126) Units/L Ammonia (18-72) mcmol/L Serum Total Protein (6.0-8.3) g/dL Albumin (3.5-5.0) g/dL Globulin (2.4-3.5) g/dL Albumin/Globulin Ratio (1.1-2.2) TPA Checklist - LKW: 3-4.5 hrs Add. Warnings/Precautions Patient/family understanding: The patient/family members have been counseled and understood the risk, benefit , and alternatives of treatment.
[2017-09-29 10:21] LABS: Hematocrit 37.9 % (37.5-50.1); Hemoglobin 12.2 g/dL (12.9-16.9); Immature Granulocytes % 0.3 % (0-4); Lymphocytes # 0.2 K/mcL (0.6-4.6); Lymphocytes % 5.9 %; Mean Corpuscular HGB Conc 32.2 g/dL (31.6-35.5); Mean Corpuscular Hemoglobin 27.4 pg (28.0-33.3); Mean Platelet Volume 9.5 fL (9.4-12.4); Monocytes # 0.4 K/mcL (0.0-1.3); Monocytes % 12.8 %; Neutrophils # 2.8 K/mcL (1.6-8.9); Platelet Count 207 K/mcL (140-400); Red Blood Count 4.46 M/mcL (4.19-5.50); Red Cell Distribution Width 14.4 % (11.5-14.5)
[2017-09-29 10:34] LABS: VBG HCO3 26 mEq/L (21-27); VBG PCO2 39 mmHg (41-51); VBG PH 7.44 pH Units (7.32-7.42); VBG PO2 34 mmHg (25-50)
[2017-09-29 10:34] LABS: Alanine Aminotransferase 25 Units/L (0-55); Albumin/Globulin Ratio 0.8 (1.1-2.2); Alkaline Phosphatase 179 Units/L (38-126); Aspartate Amino Transferase 18 Units/L (5-34); BUN/Creatinine Ratio 40 (6-26); Bilirubin,Total 1.1 mg/dL (0.2-1.2); Blood Urea Nitrogen 40 mg/dL (8-26); Calcium 8.9 mg/dL (8.6-10.8); Carbon Dioxide 25 mEq/L (19-29); Chloride 94 mEq/L (98-109); Globulin 3.6 g/dL (2.4-3.5); Glucose 143 mg/dL (70-99); Magnesium 2.4 mg/dL (1.6-2.6); Osmolality,Calculated 284 (280-300); Potassium 3.9 mEq/L (3.5-4.5); Sodium 131 mEq/L (136-145); Total Protein 6.6 g/dL (6.0-8.3); eGFR For African Americans > 60 (> 60); eGFR For Non-African Americans > 60 (> 60)
[2017-09-29] MEDS ORDERED: 0.9 % Sodium Chloride 1,000 ML IVC ONE (11:05)
[2017-09-29] MEDS ORDERED: Naloxone 0.4 MG/ML INJ IVP PRN (14:21)
[2017-09-29] MEDS ORDERED: Ondansetron 4 MG/2 ML VIAL IVP PRN (14:21)
--- NOTE | 2017-09-29 14:27 | Internal Med History&Physical ---
Date of Encounter: 09/29/17 Time of Encounter: 14:27 Assessment and Plan (1) Dehydration Current visit: Yes Status: Acute 52/male Advanced metastatic pancreatic cancer. Admitted with the dehydration. Elevated BUN. Plan: IV fluid bolus 1 L IV fluid maintenance 70 mL/h. Pain controlled with intravenous opioids. Resume home medications. Of note: I have a long discussion with the patient and his family members in the emergency room #22 Patient and family would prefer to go with the status of full code. (2) Pancreatic cancer Current visit: No Status: Chronic Patient has advanced metastatic cancer. I spoke with patient's oncologist. Patient's oncologist is of opinion that patient can be referred to palliative care. This is because past few months patient is not on any active treatment. Patient and his family prefer for a full code. 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 (4) DVT prophylaxis Current visit: No Status: Acute On the novel anticoagulant. Internal Medicine - H&P: HPI Chief complaint: Abdominal pain Admitted From: Emergency Dept Plans for Post Hospital Care: Home History of present illness: Mr. Hatch is a 52 year old male who was diagnosed with pancreatic cancer around 1 year back. Patient underwent chemotherapy/radiation therapy in last 1 year. For the past few months patient is not on any active oncology treatment. Noted that patient has good family support. Family noted that patient is clinically deteriorating and was dehydrated due to the poor oral intake. This was the reason they decided to bring the patient to the hospital for further evaluation. Patient was seen in the emergency room by ER physician. Basic labs were drawn and suspicion for dehydration was confirmed. Reason for hospitalization: Worsening dehydration and an once metastatic pancreatic cancer patient. Family history: Noncontributory Past Med Surg Social Fam HX - Past Medical History Medical history: cancer (pancreatic), diabetes, other (Thrombosed portal vein ) Psychiatric history: no psych history - Past Surgical History Surgical History: orthopedic, other - Social History Smoking Status: Never smoker Smokeless Tobacco Status: No Alcohol use: none Drug use: none - Family History Father Adopted: No Hx Family Cardiac Disorders: Yes ([place], CABG, HTN) Hx Family Endocrine Disorder: Yes (DM) Mother Hx Family Cardiac Disorders: No Internal Medicine - H&P: Meds Multivitamin [Multivitamins] 1 each PO DAILY 11/06/16 [History] Baclofen [Lioresal] 10 mg PO DAILY PRN 08/13/17 [History] Gabapentin [Neurontin] 300 mg PO HS PRN 08/13/17 [History] Lipase/Protease/Amylase [Darrin Cartagena 12,000 Units Capsule] 1 each PO TID PRN [History] Melatonin 5 mg PO HS 08/13/17 [History] Pantoprazole Sodium [Protonix] 40 mg PO BID #60 tablet.dr 08/16/17 [Rx] Hydromorphone HCl [Dilaudid] 1 - 2 tab PO Q4H PRN #90 tablet 09/03/17 [Rx] Apixaban [Eliquis] 1 tab PO BID #60 tablet 09/10/17 [Rx] Granisetron [Sancuso] 1 each TD QWEEK #4 patch.tdwk 09/10/17 [Rx] predniSONE [PredniSONE] 1 tab PO DAILY #30 tablet 09/10/17 [Rx] Potassium Chloride Elixir [Potassium Chloride] 7.5 ml PO DAILY #220 mls [Rx] 3 Allergy/AdvReac Type Severity Reaction Status Date / Time ondansetron Allergy Swelling Verified 09/25/17 09:38 [From Zofran (as of hydrochloride)] Lip/Tongue/Throat prochlorperazine Allergy Swelling Verified 09/25/17 09:38 [From Compazine] of Lip/Tongue/Throat Oxycodone AdvReac Rash Verified 09/25/17 09:38 All Systems PM: A 10-system review of systems was performed and is negative for pertinent findings except as documented above in the HPI. - Constitutional Constitutional: anorexia, fatigue, lethargy, malaise, weakness, weight loss, no chills, no fever(s), no night sweats - EENT Eyes: no change in vision, no discharge, no pain, no photophobia Ears: no ear discharge, no ear pain, no tinnitus Nose, mouth and throat: no dysphagia, no nasal discharge, no neck pain, no sore throat - Cardiovascular Cardiovascular ROS IM: no chest pain, no diaphoresis, no dyspnea, no lightheadedness, no palpitations, no syncope - Respiratory Respiratory: no cough, no dyspnea, no wheezing, no excessive phlegm production - Gastrointestinal Gastrointestinal: no abdominal pain, no diarrhea, no hematemesis, no hematochezia, no melena, no nausea, no vomiting - Musculoskeletal Musculoskeletal ROS IM: no numbness, no tingling - Integumentary Integumentary IM: no rash, no unusual bruising - Neurological Neurological ROS: no confusion, no convulsions, no focal weakness, no numbness, no tingling, no tremor(s) - Hematologic/Lymphatic Hematologic/Lymphatic: no easy bruising - Constitutional Vitals: Temp Pulse Resp BP Pulse Ox 97.4 F L 74 18 99/66 100 09/29/17 13:28 09/29/17 13:28 09/29/17 13:28 09/29/17 13:28 09/29/17 13:28 General appearance: Present: cachectic, A&O X 3, pleasant, answers questions appropriately - Head Head exam: Present: atraumatic, normocephalic - Eye Eye exam: Present: PERRL, conjuntiva pink, sclera anicteric Pupils: Present: PERRL - Neck Neck exam general surgery: Present: supple, trachea midline. Absent: lymphadenopathy - Respiratory Respiratory exam: Present: CTAB. Absent: accessory muscle use, rales, rhonchi, wheezes - Cardiovascular Cardiovascular exam: Present: RRR, +S1, +S2. Absent: diastolic murmur, gallop, rubs, systolic murmur - GI/Abdominal GI/Abdominal exam: Present: normal bowel sounds, soft, no peritoneal signs. Absent: distended, tenderness - Extremities Exam Extremities exam: Present: warm, radial pulses palpable and symmetrical. Absent : calf tenderness, cyanotic, pedal edema - Neurological Exam Neurological exam: Present: CN II-XII intact, oriented X3, no focal deficits. Absent: pronater drift, facial droop, speech deficit - Skin Skin exam: Present: dry, intact Internal Med - H&P Results - Labs CBC & Chem 7: 09/29/17 10:14 09/29/17 10:14
[2017-09-29] MEDS ORDERED: 0.9 % Sodium Chloride 1,000 ML ONE (15:57)
[2017-09-29] MEDS ORDERED: 0.9 % Sodium Chloride 1,000 ML IV ONE ×2 (16:05→16:15)
[2017-09-29] MEDS: *HR* Morphine 2 MG/ML SYRINGE IVP PRN (17:12)
[2017-09-29] MEDS: 0.9 % Sodium Chloride 1,000 ML IVC SCH (17:17)
[2017-09-29] MEDS ORDERED: Gabapentin 300 MG CAPSULE PO PRN (18:34)
[2017-09-29] MEDS ORDERED: Baclofen 10 MG TABLET PO PRN (18:34)
[2017-09-29] MEDS ORDERED: Patient Taking Own Medication 1 EACH TP SCH (18:45)
[2017-09-29] MEDS: APIXABAN 2.5 MG TABLET PO SCH (20:36)
[2017-09-29] MEDS: Melatonin 3 MG TABLET PO SCH (20:36)
[2017-09-29] MEDS ORDERED: GRANISETRON 3.1 MG TP SCH (20:45)
[2017-09-30] MEDS: *HR* Morphine 2 MG/ML SYRINGE IVP PRN ×5 (01:11→21:34)
[2017-09-30 05:24] LABS: Hematocrit 32.4 % (37.5-50.1); Mean Corpuscular HGB Conc 31.8 g/dL (31.6-35.5); Mean Corpuscular Hemoglobin 27.2 pg (28.0-33.3); Mean Corpuscular Volume 85.7 fL (83.0-100.0); Mean Platelet Volume 9.8 fL (9.4-12.4); Platelet Count 176 K/mcL (140-400); Red Blood Count 3.78 M/mcL (4.19-5.50); Red Cell Distribution Width 14.6 % (11.5-14.5)
[2017-09-30 05:25] LABS: Hemoglobin 10.3 g/dL (12.9-16.9)
[2017-09-30 05:42] LABS: Alanine Aminotransferase 21 Units/L (0-55); Albumin 2.5 g/dL (3.5-5.0); Albumin/Globulin Ratio 0.9 (1.1-2.2); Alkaline Phosphatase 138 Units/L (38-126); Aspartate Amino Transferase 18 Units/L (5-34); BUN/Creatinine Ratio 45 (6-26); Blood Urea Nitrogen 33 mg/dL (8-26); Calcium 8.1 mg/dL (8.6-10.8); Carbon Dioxide 23 mEq/L (19-29); Chloride 101 mEq/L (98-109); Globulin 2.8 g/dL (2.4-3.5); Glucose 101 mg/dL (70-99); Magnesium 1.8 mg/dL (1.6-2.6); Osmolality,Calculated 281 (280-300); Phosphorous 2.8 mg/dL (2.3-4.7); Potassium 3.6 mEq/L (3.5-4.5); Sodium 132 mEq/L (136-145); Total Protein 5.3 g/dL (6.0-8.3); eGFR For African Americans > 60 (> 60); eGFR For Non-African Americans > 60 (> 60)
[2017-09-30 06:47] LABS: Bilirubin,Urine Negative (Negative); Blood,Urine Negative (Negative); Clarity,Urine Clear (Clear); Color,Urine Yellow (Yellow); Glucose,Urine (UA) Normal (Normal); Ketones,Urine Negative (Negative); Leukocyte Esterase,Urine Negative (Negative); Nitrite,Urine Negative (Negative); PH,Urine 6.5 pH Units (5.0-8.0); Protein,Urine Trace mg/dL (Neg-Trace); Specific Gravity,Urine 1.026 (1.010-1.025); Urobilinogen,Urine Normal (Normal)
[2017-09-30 06:49] LABS: Bacteria,Urine None Seen per hpf (None-Few); Hyaline Casts,Urine None Seen per lpf (None-Few); Squamous Epithelial Cell,Urine Many per lpf (None-Few)
[2017-09-30] MEDS: APIXABAN 2.5 MG TABLET PO SCH ×2 (09:04→20:38)
[2017-09-30] MEDS: Potassium Chloride Elixir 20 MEQ/15 ML UDC PO SCH (09:04)
[2017-09-30] MEDS: predniSONE 10 MG TABLET PO SCH (09:04)
[2017-09-30] MEDS: Multivit/Ca/Min/Fe/FA 1 TAB TABLET PO SCH (09:04)
[2017-09-30] MEDS: 0.9 % Sodium Chloride 1,000 ML IVC SCH (09:05)
--- NOTE | 2017-09-30 09:49 | Internal Med Progress Note ---
<Shun Ortega - Last Filed: 09/30/17 16:43> Date of Encounter: 09/30/17 Time of Encounter: 09:46 - Assessment and plan (1) Dehydration Current Visit: Yes Status: Acute Assessment and plan: Metastatic pancreatic cancer BUN elevated at 40 on admission Patient receiving IV fluid repletion (2) Pancreatic cancer Current Visit: No Status: Chronic Assessment and plan: Advanced metastatic pancreatic cancer Oncology is of the opinion that patient can be referred to palliative care Admitting physician discussed with family who prefer full code Pain controlled with IV opioid medication Qualifiers: Pancreatic malignancy location: body of pancreas Qualified Code(s): C25.1 - Malignant neoplasm of body of pancreas (3) Mesenteric venous thrombosis Current Visit: No Status: Chronic Assessment and plan: On Eliquis at home and in hospital (4) DVT prophylaxis Current Visit: No Status: Acute Assessment and plan: Eliquis - Subjective Interval history: 52-year-old male here for dehydration, poor oral intake, and overall declining state of health. He was diagnosed with pancreatic cancer approximately one year ago, treated with chemotherapy/radiation. Patient seen and examined at bedside. He is complaining of abdominal and back pain that is chronic and related to his metastatic pancreatic cancer. He requests increase in his pain medication. He denies new complaints - Constitutional Vitals: Temp Pulse Resp BP Pulse Ox 97.7 F 71 17 111/79 100 09/30/17 07:09 09/30/17 07:09 09/30/17 07:09 09/30/17 07:09 09/30/17 07:09 General appearance: Present: cachectic, A&O X 3, pleasant, answers questions appropriately - Respiratory Respiratory exam: Present: CTAB. Absent: accessory muscle use, rales, rhonchi, wheezes - Cardiovascular Cardiovascular exam: Present: RRR, +S1, +S2. Absent: diastolic murmur, gallop, rubs, systolic murmur - GI/Abdominal GI/Abdominal exam: Present: normal bowel sounds, soft, tenderness (diffuse, most markedly LUQ). Absent: distended - Extremities Exam Extremities exam: Present: warm, radial pulses palpable and symmetrical. Absent : calf tenderness, cyanotic, pedal edema - Neurological Exam Neurological exam: Present: alert, oriented X3, no focal deficits Internal Medicine: Result - Labs CBC & Chem 7: 09/30/17 04:58 09/30/17 04:58 Labs: Short CBC 09/30/17 Range/Units 04:58 WBC 2.3 L (4.3-11.1) K/mcL Hgb 10.3 L D (12.9-16.9) g/dL Hct 32.4 L (37.5-50.1) % Plt Count 176 (140-400) K/mcL BMP 09/30/17 04:58 Sodium 132 L Potassium 3.6 Chloride 101 Carbon Dioxide 23 BUN 33 H Creatinine 0.73 Glucose 101 H Calcium 8.1 L Liver Function 09/30/17 Range/Units 04:58 Total Bilirubin 1.0 (0.2-1.2) mg/dL AST 18 (5-34) Units/L ALT 21 (0-55) Units/L Alkaline Phosphatase 138 H (38-126) Units/L Albumin 2.5 L (3.5-5.0) g/dL Urine 09/30/17 Range/Units 06:35 Urine Color Yellow (Yellow) Urine Clarity Clear (Clear) Urine pH 6.5 (5.0-8.0) pH Units Ur Specific [place] 1.026 H (1.010-1.025) Urine Protein Trace (Neg-Trace) mg/dL Urine Glucose (UA) Normal (Normal) mg/dL Consult Discharge Plan - Plan Referrals: Garett Ervin DO [Primary Care Provider] - <Phil Thibodeaux - Last Filed: 09/30/17 19:45> Date of Encounter: 09/30/17 - Constitutional Vitals: Temp Pulse Resp BP Pulse Ox 98.1 F 95 16 98/62 100 09/30/17 16:37 09/30/17 16:37 09/30/17 16:37 09/30/17 16:37 09/30/17 16:37 Internal Medicine: Result - Labs CBC & Chem 7: 09/30/17 04:58 09/30/17 04:58 Labs: Short CBC 09/30/17 Range/Units 04:58 WBC 2.3 L (4.3-11.1) K/mcL Hgb 10.3 L D (12.9-16.9) g/dL Hct 32.4 L (37.5-50.1) % Plt Count 176 (140-400) K/mcL BMP 09/30/17 04:58 Sodium 132 L Potassium 3.6 Chloride 101 Carbon Dioxide 23 BUN 33 H Creatinine 0.73 Glucose 101 H Calcium 8.1 L Liver Function 09/30/17 Range/Units 04:58 Total Bilirubin 1.0 (0.2-1.2) mg/dL AST 18 (5-34) Units/L ALT 21 (0-55) Units/L Alkaline Phosphatase 138 H (38-126) Units/L Albumin 2.5 L (3.5-5.0) g/dL Urine 09/30/17 Range/Units 06:35 Urine Color Yellow (Yellow) Urine Clarity Clear (Clear) Urine pH 6.5 (5.0-8.0) pH Units Ur Specific [place] 1.026 H (1.010-1.025) Urine Protein Trace (Neg-Trace) mg/dL Urine Glucose (UA) Normal (Normal) mg/dL - Attending Attestation I conducted a face to face diagnostic evaluation of this patient and my medical decision-making was reviewed with the Resident Physician, Dr Shun Ortega. I agree with the documented findings, disposition and treatment plan as described except to the extent set forth below: On exam he is a cachectic middle-aged man in no acute distress. Abdomen is soft and nontender. No consult palliative. I have discussed the case with point of care, appreciate their recommendations. Patient to remain full code at this time. Continue with palliative chemotherapy. Additional diagnosis: Severe protein calorie malnutrition - Plan: Nutrition consult. All listed medical problems are new to me today.
--- NOTE | 2017-09-30 13:30 | Palliative - Consult Note ---
<ZehraAnshul - Last Filed: 09/30/17 15:46> Date of Encounter: 09/30/17 Time of Encounter: 10:00 - Assessment and Plan (1) Counseling regarding goals of care Current Visit: Yes Status: Acute Assessment and plan: Patient affirmed that he would like to remain full code for the time being. We can address this further through this hospitalization. (2) Cancer-related pain Current Visit: Yes Status: Acute Assessment and plan: Patient feels that his pain is controlled after taking medications, but that the relief does not last until the next dosing. We are increasing his dosing schedule of dilaudid to 2 mg PO q2h. Will monitor. (3) Constipation Current Visit: Yes Status: Acute Assessment and plan: Patient and family indicate that patient has alternating diarrhea and constipation, depending on if he is taking narcotic pain medications. We will start senna plus 2 tab po BID. Qualifiers: Constipation type: drug induced constipation Qualified Code(s): K59.03 - Drug induced constipation (4) Pancreatic cancer Current Visit: No Status: Chronic Assessment and plan: Advanced metastatic pancreatic cancer. Patient has apparently exhausted oncologic interventions, though he hopes to be included in a clinical trial in [place]. Qualifiers: Pancreatic malignancy location: body of pancreas Qualified Code(s): C25.1 - Malignant neoplasm of body of pancreas Palliative-CN HPI - Data of Consult Consult date: 09/30/17 Requesting Physician: Phil Thibodeaux MD Primary Care Provider: Cora Santcaruz - Consult Narrative Reason for consult: Goals of Care History of present illness: Mr. Hatch is a 52 year old male with a 1 year history of metastatic pancreatic cancer. Patient has halted a chemotherapy and radiation therapy for the last few months. He is hoping to become part of a clinical trial in [place], though this is currently "on hold". This admission is for dehydration and deteriorating clinical status secondary to vomiting and poor oral intake. He also noted a decrease in blood pressure. He has been doing much better sense of mission. He does have complaints of inadequately controlled pain, but no nausea. CC: Phil Thibodeaux MD Past Med Surg Social Fam HX - Past Medical History Medical history: cancer (pancreatic), diabetes, other (Thrombosed portal vein ) Psychiatric history: no psych history - Past Surgical History Surgical History: orthopedic, other - Social History Smoking Status: Never smoker Smokeless Tobacco Status: No Alcohol use: none Drug use: none - Family History Father Adopted: No Hx Family Cardiac Disorders: Yes ([place], CABG, HTN) Hx Family Endocrine Disorder: Yes (DM) Mother Hx Family Cardiac Disorders: No Medications and Allergies Multivitamin [Multivitamins] 1 each PO DAILY 11/06/16 [History] Baclofen [Lioresal] 10 mg PO DAILY PRN 08/13/17 [History] Gabapentin [Neurontin] 300 mg PO HS PRN 08/13/17 [History] Lipase/Protease/Amylase [Darrin Cartagena 12,000 Units Capsule] 1 each PO TID PRN [History] Melatonin 5 mg PO HS 08/13/17 [History] Pantoprazole Sodium [Protonix] 40 mg PO BID #60 tablet.dr 08/16/17 [Rx] Hydromorphone HCl [Dilaudid] 1 - 2 tab PO Q4H PRN #90 tablet 09/03/17 [Rx] Apixaban [Eliquis] 1 tab PO BID #60 tablet 09/10/17 [Rx] Granisetron [Sancuso] 1 each TD QWEEK #4 patch.tdwk 09/10/17 [Rx] predniSONE [PredniSONE] 1 tab PO DAILY #30 tablet 09/10/17 [Rx] Potassium Chloride Elixir [Potassium Chloride] 7.5 ml PO DAILY #220 mls [Rx] 3 Allergy/AdvReac Type Severity Reaction Status Date / Time ondansetron Allergy Swelling Verified 09/25/17 09:38 [From Zofran (as of hydrochloride)] Lip/Tongue/Throat prochlorperazine Allergy Swelling Verified 09/25/17 09:38 [From Compazine] of Lip/Tongue/Throat Oxycodone AdvReac Rash Verified 09/25/17 09:38 - Constitutional Constitutional ROS PAL: anorexia, fatigue, malaise, weight loss - Cardiovascular Cardiovascular ROS: no chest pain, no diaphoresis - Respiratory Respiratory: no cough, no dyspnea - Gastrointestinal Gastrointestinal: constipation, diarrhea Palliative Care-Exam - Constitutional Vitals: Temp Pulse Resp BP Pulse Ox 97.4 F L 93 15 96/61 100 09/30/17 11:25 09/30/17 11:25 09/30/17 11:25 09/30/17 11:25 09/30/17 11:25 General appearance: Present: thin - Head Head Exam: Present: atraumatic, normal inspection, normocephalic - ENT ENT exam: Present: mucous membranes moist - Respiratory Respiratory exam: Present: decreased breath sounds, CTAB - Cardiovascular Cardiovascular exam: Present: RRR, +S1, +S2 - GI/Abdominal Exam GI/Abdominal exam: Present: soft. Absent: tenderness - Back Exam Back exam: Present: tenderness (low to mid thoracic) - Neurological Exam Neurological exam: Present: alert, oriented X3 Internal Medicine - CN: Reslt - Labs CBC & Chem 7: 09/30/17 04:58 09/30/17 04:58 Labs: Short CBC 09/30/17 Range/Units 04:58 WBC 2.3 L (4.3-11.1) K/mcL Hgb 10.3 L D (12.9-16.9) g/dL Hct 32.4 L (37.5-50.1) % Plt Count 176 (140-400) K/mcL BMP 09/30/17 04:58 Sodium 132 L Potassium 3.6 Chloride 101 Carbon Dioxide 23 BUN 33 H Creatinine 0.73 Glucose 101 H Calcium 8.1 L Liver Function 09/30/17 Range/Units 04:58 Total Bilirubin 1.0 (0.2-1.2) mg/dL AST 18 (5-34) Units/L ALT 21 (0-55) Units/L Alkaline Phosphatase 138 H (38-126) Units/L Albumin 2.5 L (3.5-5.0) g/dL Urine 09/30/17 Range/Units 06:35 Urine Color Yellow (Yellow) Urine Clarity Clear (Clear) Urine pH 6.5 (5.0-8.0) pH Units Ur Specific [place] 1.026 H (1.010-1.025) Urine Protein Trace (Neg-Trace) mg/dL Urine Glucose (UA) Normal (Normal) mg/dL Consult Discharge Plan - Plan Referrals: Garett Ervin DO [Primary Care Provider] - Palliative Quality Palliative Quality: Screen for Code Status: Yes, Screen for Goals of Care: Yes, Screen for Pain: Yes, If Pain Regimen Started, Initiate Bowel Regimen: Yes, Screen for Nausea/Vomitting: Yes <Aime Carrillo - Last Filed: 09/30/17 15:59> Date of Encounter: 09/30/17 Palliative-CN HPI - Data of Consult Requesting Physician: Phil Thibodeaux MD Primary Care Provider: Cora Santacruz - Consult Narrative History of present illness: Mr. Hatch is a 52 year old male CC: Phil Thibodeaux MD Palliative Care-Exam - Constitutional Vitals: Temp Pulse Resp BP Pulse Ox 97.4 F L 93 15 96/61 100 09/30/17 11:25 09/30/17 11:25 09/30/17 11:25 09/30/17 11:25 09/30/17 11:25 Internal Medicine - CN: Reslt - Labs CBC & Chem 7: 09/30/17 04:58 09/30/17 04:58 Labs: Short CBC 09/30/17 Range/Units 04:58 WBC 2.3 L (4.3-11.1) K/mcL Hgb 10.3 L D (12.9-16.9) g/dL Hct 32.4 L (37.5-50.1) % Plt Count 176 (140-400) K/mcL BMP 09/30/17 04:58 Sodium 132 L Potassium 3.6 Chloride 101 Carbon Dioxide 23 BUN 33 H Creatinine 0.73 Glucose 101 H Calcium 8.1 L Liver Function 09/30/17 Range/Units 04:58 Total Bilirubin 1.0 (0.2-1.2) mg/dL AST 18 (5-34) Units/L ALT 21 (0-55) Units/L Alkaline Phosphatase 138 H (38-126) Units/L Albumin 2.5 L (3.5-5.0) g/dL Urine 09/30/17 Range/Units 06:35 Urine Color Yellow (Yellow) Urine Clarity Clear (Clear) Urine pH 6.5 (5.0-8.0) pH Units Ur Specific [place] 1.026 H (1.010-1.025) Urine Protein Trace (Neg-Trace) mg/dL Urine Glucose (UA) Normal (Normal) mg/dL - Attending Attestation I examined this patient and my medical decision-making was reviewed with the Resident Physician. I agree with the documented findings, disposition and treatment plan as described except to the extent set forth below.
[2017-09-30] MEDS: *HR* HYDROmorphone 2 MG TABLET PO PRN ×4 (16:08→23:47)
[2017-09-30] MEDS: Gabapentin 300 MG CAPSULE PO SCH (20:38)
[2017-09-30] MEDS: Sennosides/Docusate Sodium TABLET PO SCH (20:39)
[2017-09-30] MEDS: Melatonin 3 MG TABLET PO SCH (20:39)
[2017-10-01] MEDS: *HR* Morphine 2 MG/ML SYRINGE IVP PRN (03:02)
[2017-10-01 05:13] LABS: Basophils % 0.4 %; Eosinophils % 1.8 %; Hematocrit 32.5 % (37.5-50.1); Hemoglobin 10.3 g/dL (12.9-16.9); Lymphocytes # 0.2 K/mcL (0.6-4.6); Lymphocytes % 9.4 %; Mean Corpuscular HGB Conc 31.7 g/dL (31.6-35.5); Mean Corpuscular Hemoglobin 27.1 pg (28.0-33.3); Mean Corpuscular Volume 85.5 fL (83.0-100.0); Mean Platelet Volume 9.7 fL (9.4-12.4); Monocytes # 0.3 K/mcL (0.0-1.3); Monocytes % 11.2 %; Neutrophils # 1.7 K/mcL (1.6-8.9); Platelet Count 185 K/mcL (140-400); Red Cell Distribution Width 14.4 % (11.5-14.5); Segmented Neutrophils % 77.2 %
[2017-10-01 05:26] LABS: Alanine Aminotransferase 20 Units/L (0-55); Albumin 2.5 g/dL (3.5-5.0); Albumin/Globulin Ratio 0.8 (1.1-2.2); Alkaline Phosphatase 134 Units/L (38-126); Aspartate Amino Transferase 18 Units/L (5-34); BUN/Creatinine Ratio 37 (6-26); Bilirubin,Total 0.9 mg/dL (0.2-1.2); Blood Urea Nitrogen 29 mg/dL (8-26); Calcium 8.3 mg/dL (8.6-10.8); Carbon Dioxide 22 mEq/L (19-29); Chloride 99 mEq/L (98-109); Glucose 141 mg/dL (70-99); Osmolality,Calculated 276 (280-300); Potassium 4.3 mEq/L (3.5-4.5); Sodium 129 mEq/L (136-145); Total Protein 5.5 g/dL (6.0-8.3); eGFR For African Americans > 60 (> 60); eGFR For Non-African Americans > 60 (> 60)
[2017-10-01] MEDS: *HR* HYDROmorphone 2 MG TABLET PO PRN ×2 (06:16→09:37)
[2017-10-01] MEDS ORDERED: *HR* Morphine 2 MG/ML SYRINGE IVP PRN (09:10)
--- NOTE | 2017-10-01 09:30 | Palliative Progress Note ---
Date of Encounter: 10/01/17 Time of Encounter: 07:10 - Assessment and plan (1) Dehydration Current Visit: Yes Status: Acute Assessment and plan: Being addressed by treatment team continue current meds. (2) Counseling regarding goals of care Current Visit: Yes Status: Acute Assessment and plan: At this time the patient wishes to remain a full code, patient is pursuing very active and aggressive chemotherapy if this is possible. Ulcer cares for the patient to continue getting his chemotherapy the patient understands and is performance scale these be better for him to be seriously considered for the trials that he may possibly be eligible for. He is working towards this. (3) Cancer-related pain Current Visit: Yes Status: Acute Assessment and plan: Patient is getting oral Dilaudid as prescribed at home and took a total of oral morphine equivalents during the course the day yesterday in addition to 6 oral morphine equivalents of his IV morphine for a total of 136 oral morphine equivalents. Patient is already already morphine therefore we will start a long -lasting morphine for him. We will start him at 30 mg twice a day of oral morphine long-lasting. Continue to watch his when necessary use. (4) Constipation Current Visit: Yes Status: Acute Assessment and plan: On to twice a day of senna S continue to watch. Qualifiers: Constipation type: drug induced constipation Qualified Code(s): K59.03 - Drug induced constipation (5) Ascites Current Visit: No Status: Acute Assessment and plan: Per nursing staff patient drained yesterday. Continue current therapy - Time Spent With Patient Total time spent is greater than 50% in coordination of care (as documented) at patient's floor/unit and/or counseling patient: - Subjective Interval history: She states that the pain meds are working better. Per the nurses he is really not asking for them as much is saying he needs them when they come in to check on him. Case discussed with patient's oncologist yesterday patient not good about taking his pain meds. - Constitutional Vitals: Abnormal lab results WBC 2.2 K/mcL (4.3-11.1) L 10/01/17 04:53 RBC 3.80 M/mcL (4.19-5.50) L 10/01/17 04:53 Hgb 10.3 g/dL (12.9-16.9) L 10/01/17 04:53 Hct 32.5 % (37.5-50.1) L 10/01/17 04:53 MCH 27.1 pg (28.0-33.3) L 10/01/17 04:53 Lymphocytes # 0.2 K/mcL (0.6-4.6) L 10/01/17 04:53 VBG pH 7.44 pH Units (7.32-7.42) H 09/29/17 10:29 VBG pCO2 39 mmHg (41-51) L 09/29/17 10:29 Sodium 129 mEq/L (136-145) L 10/01/17 04:53 BUN 29 mg/dL (8-26) H 10/01/17 04:53 BUN/Creatinine Ratio 37 (6-26) H 10/01/17 04:53 Glucose 141 mg/dL (70-99) H 10/01/17 04:53 POC Glucose 170 (58-89) H 09/30/17 16:41 Calculated Osmolality 276 (280-300) L 10/01/17 04:53 Calcium 8.3 mg/dL (8.6-10.8) L 10/01/17 04:53 Alkaline Phosphatase 134 Units/L (38-126) H 10/01/17 04:53 Serum Total Protein 5.5 g/dL (6.0-8.3) L 10/01/17 04:53 Albumin 2.5 g/dL (3.5-5.0) L 10/01/17 04:53 Albumin/Globulin Ratio 0.8 (1.1-2.2) L 10/01/17 04:53 Ur Specific [place] 1.026 (1.010-1.025) H 09/30/17 06:35 Urine Microscopic RBC 5-15 per hpf (0-3) H 09/30/17 06:35 Urine Microscopic WBC 5-15 per hpf (0-3) H 09/30/17 06:35 Ur Squamous Epith Cells Many per lpf (None-Few) H 09/30/17 06:35 General appearance: Present: no acute distress - Head Head exam: Present: atraumatic, normal inspection - ENT ENT exam: Present: mucous membranes moist - Respiratory Respiratory exam: Present: decreased breath sounds - Cardiovascular Cardiovascular exam: Present: RRR - GI/Abdominal GI/Abdominal exam: Present: normal bowel sounds, soft. Absent: tenderness - Extremities Exam Extremities exam: Present: normal inspection. Absent: tenderness - Neurological Exam Neurological exam: Present: alert - Psychiatric Psychiatric exam: Present: normal affect, normal mood. Absent: agitated, anxious - Skin Skin exam: Present: dry, warm Palliative Quality Palliative Quality: Screen for Code Status: Yes, Screen for Goals of Care: Yes, Screen for Pain: Yes, If Pain Regimen Started, Initiate Bowel Regimen: Yes, Screen for Nausea/Vomitting: Yes - Labs CBC & Chem 7: 10/01/17 04:53 10/01/17 04:53 Labs: Laboratory Results - last 24 hr 09/30/17 09/30/17 10/01/17 11:22 16:41 04:53 WBC 2.2 L RBC 3.80 L Hgb 10.3 L Hct 32.5 L MCV 85.5 MCH 27.1 L MCHC 31.7 RDW 14.4 Plt Count 185 MPV 9.7 Immature Gran % 0.0 Seg Neutrophils % 77.2 Lymphocytes % 9.4 Monocytes % 11.2 Eosinophils % 1.8 Basophils % 0.4 Neutrophils # 1.7 Lymphocytes # 0.2 L Monocytes # 0.3 Eosinophils # 0.0 Basophils # 0.0 Sodium Potassium Chloride Carbon Dioxide BUN Creatinine Est GFR ( Amer) Est GFR (Non-Af Amer) BUN/Creatinine Ratio Glucose POC Glucose 162 H 170 H Calculated Osmolality Calcium Total Bilirubin AST ALT Alkaline Phosphatase Serum Total Protein Albumin Globulin Albumin/Globulin Ratio 10/01/17 04:53 WBC RBC Hgb Hct MCV MCH MCHC RDW Plt Count MPV Immature Gran % Seg Neutrophils % Lymphocytes % Monocytes % Eosinophils % Basophils % Neutrophils # Lymphocytes # Monocytes # Eosinophils # Basophils # Sodium 129 L Potassium 4.3 Chloride 99 Carbon Dioxide 22 BUN 29 H Creatinine 0.78 Est GFR ( Amer) > 60 Est GFR (Non-Af Amer) > 60 BUN/Creatinine Ratio 37 H Glucose 141 H POC Glucose Calculated Osmolality 276 L Calcium 8.3 L Total Bilirubin 0.9 AST 18 ALT 20 Alkaline Phosphatase 134 H Serum Total Protein 5.5 L Albumin 2.5 L Globulin 3.0 Albumin/Globulin Ratio 0.8 L Consult Discharge Plan - Plan Referrals: Garett Ervin DO [Primary Care Provider] -
[2017-10-01] MEDS: Sennosides/Docusate Sodium TABLET PO SCH ×2 (09:37→20:51)
[2017-10-01] MEDS: Multivit/Ca/Min/Fe/FA 1 TAB TABLET PO SCH (09:37)
[2017-10-01] MEDS: APIXABAN 2.5 MG TABLET PO SCH ×2 (09:38→20:52)
[2017-10-01] MEDS: predniSONE 10 MG TABLET PO SCH (09:38)
[2017-10-01] MEDS: Potassium Chloride Elixir 20 MEQ/15 ML UDC PO SCH (09:38)
[2017-10-01] MEDS: *HR* Promethazine 25 MG/ML VIAL IVP PRN ×2 (10:34→20:51)
--- NOTE | 2017-10-01 13:12 | Oncology Inp Consult Note ---
Date of Encounter: 09/30/17 Time of Encounter: 17:00 Assessment and Plan (1) Dehydration Status: Acute Assessment and plan: He has tough time keeping up with oral hydration and fluids. He improved with IV fluids (2) Cancer-related pain Status: Acute Assessment and plan: Palliative care and well. His pain control is getting better on oral Dilaudid and morphine. If necessary would consider NEWS LIBRARIAN lump in the future (3) Pancreatic cancer Status: Chronic Assessment and plan: Locally advanced with sinusitis. Further restaging scans ordered to assess progression but not done. His general condition remains poor for aggressive chemotherapy. He is also being investigated for clinical trial including CAR-T trial at [facility]. But the study calls for better performance status His overall prognosis is guarded to poor and family understands that Qualifiers: Pancreatic malignancy location: body of pancreas Qualified Code(s): C25.1 - Malignant neoplasm of body of pancreas - Data of Consult Patient: known to practice within the last 3 years Requesting Physician: Phil Thibodeaux MD Primary Care Provider: Cora Santacruz - Consult Narrative Reason for consult: Dehydration, metastatic pancreatic cancer History of present illness: Mr. Hatch is a 52 year old male hospitalized with dehydration deconditioning. His condition improved with hydration. His general condition continued to decline slowly. He has at least locally advanced pancreatic cancer. Restaging CAT scans has been ordered to assess disease progression but has not been completed His general condition remains poor for aggressive chemotherapy at this time. CA 19-9 elevated at 578 on 09/03/2017. During this admission palliative care has been consulted. He reminds to be on full code. He is getting decent pain control on oral Dilaudid and morphine. His constipation got worse with pain medication in his on stool softeners He has a Pleurx type catheter in the abdomen to drain ascites fluid. We will drain it as an inpatient Chief complaint: Pancreatic adenocarcinoma locally advanced unresectable diagnosis at [facility] October 2016 Initial stage T3 N1, MX stage IIB. Mass about 3 cm at the junction of head and neck of pancreas treated initially with neoadjuvant FOLFIRINOX 4 cycles completed November 2016. Oncological history Imaging CT abdomen and pelvis at [place] 10/10/2016 with contrast showed massive the junction of head and the body of pancreas. Spleen craniocaudal 13 cm. Fatty liver from the above pancreatic mass at [facility] cytology showed adenocarcinoma CT chest on 10/31/2016 at [facility] showed no metastasis in the chest. It showed 3.8 x 2.1 cm mass at the junction of pancreatic head and body with related posterior exophytic lesion 3.1 x 2.2 cm EGD showed Ledezma's esophagus negative for dysplasia. Squamous mucosa with reactive epithelial changes CEA normal at 2.8. CA-19-9 elevated at 229 at [facility] PET scan on 11/20/16 shows mildly increased FDG activity with SUV max of 4.2. Mildly increased FDG activity with SUV mas of 3.2 corresponds to a rounded maricuhy hepatitis lymph node described on the prior CT scan. Neoadjuvant chemotherapy Oxaliplatin 85 mg/m day 1 and irinotecan 150 mg/m Day 1. Home 5-FU infusion 2400 mg/m IV over 46 hours. Each dose will be every 2 weeks Completed 4 doses on November 2016 CA-19-9 marginally reduced to 185. Found to be unresectable to chemotherapy at [facility] T4,N1,Mx Stage III Since then he went to cancer treatment [facility] Had concurrent chemoradiation to the pancreas. He was on Xeloda apparently 2 g by mouth twice a day during radiation and he had SBRT the pancreas at the end of radiation Also started on Gemzar and Abraxane completion of chemoradiation and last dose was about 6 weeks ago We will restart Gemzar and Abraxane every 2 weeks once he is stable He his interested in CAR-T treatment for pancreatic cancer.. His was researched a lot of trials. I went through some of them. We will look into [facility] where core T trial is available. Proceed with [facility] [place] testing and may qualify him for match trial Radiation gastritis Hospitalized to [place] on July 2017 with radiation induced gastritis and GI bleeding . Improved with Prilosec and sucralfate. 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 CT angiogram abdomen and pelvis 08/21/2017 showed portal vein thrombosis with near complete occlusion of main portal vein with significant clot burden. Partial occlusion of distal renal vein. Showed pancreatic head mass with a ductal dietitian and distal pancreatic atrophy. Jejunal wall thickening Started him on Lovenox 40 mg subcutaneous twice a day since 08/25/2017. Dose reduced because of his GI bleed. Currently he reduced that to 40 mg once a day as he developed some more lower GI bleed from gastritis. Since then GI bleeding is almost resolved We will switch him to Elequis 2.5 mg by mouth twice a day starting #16 2016 Recurrent ascites 6 L drained on 08/25/2017 cytology negative for malignancy 7 L drained on 09/02/2017 paracentesis on 09/09/2017 and about 4 L of fluid drained and Pleurx type catheter was placed Since then his abdominal pain has resolved and he is draining about 1 L daily He lost about 25 pounds in one month and current weight 55 kg which is about 121 pounds on 09/25/2017 Past Med Surg Social Fam HX - Past Medical History Medical history: cancer (pancreatic), diabetes, other (Thrombosed portal vein ) Psychiatric history: no psych history - Past Surgical History Surgical History: orthopedic, other - Social History Smoking Status: Never smoker Smokeless Tobacco Status: No Alcohol use: none Drug use: none - Family History Father Adopted: No Hx Family Cardiac Disorders: Yes (NH, CABG, HTN) Hx Family Endocrine Disorder: Yes (DM) Mother Hx Family Cardiac Disorders: No Medications and Allergies Multivitamin [Multivitamins] 1 each PO DAILY 11/06/16 [History] Baclofen [Lioresal] 10 mg PO DAILY PRN 08/13/17 [History] Gabapentin [Neurontin] 300 mg PO HS PRN 08/13/17 [History] Lipase/Protease/Amylase [Darrin Cartagena 12,000 Units Capsule] 1 each PO TID PRN [History] Melatonin 5 mg PO HS 08/13/17 [History] Pantoprazole Sodium [Protonix] 40 mg PO BID #60 tablet. 08/16/17 [Rx] Hydromorphone HCl [Dilaudid] 1 - 2 tab PO Q4H PRN #90 tablet 09/03/17 [Rx] Apixaban [Eliquis] 1 tab PO BID #60 tablet 09/10/17 [Rx] Granisetron [Sancuso] 1 each TD QWEEK #4 patch.tdwk 09/10/17 [Rx] predniSONE [PredniSONE] 1 tab PO DAILY #30 tablet 09/10/17 [Rx] Potassium Chloride Elixir [Potassium Chloride] 7.5 ml PO DAILY #220 mls [Rx] 3 Allergy/AdvReac Type Severity Reaction Status Date / Time ondansetron Allergy Swelling Verified 09/25/17 09:38 [From Zofran (as of hydrochloride)] Lip/Tongue/Throat prochlorperazine Allergy Swelling Verified 09/25/17 09:38 [From Compazine] of Lip/Tongue/Throat Oxycodone AdvReac Rash Verified 09/25/17 09:38 Review of systems: He is more alert with IV fluids. Constipation is the main complaint also diffuse abdominal pain. He is passing gas Oncology - Exam - Constitutional Vitals: Temp Pulse Resp BP Pulse Ox 97.4 F L 82 16 93/60 100 10/01/17 11:18 10/01/17 11:18 10/01/17 11:18 10/01/17 11:18 10/01/17 11:18 Exam: GENERAL: Alert and oriented, fatigue and deconditioned Mental Status: Affect appropriate for circumstances HEENT: Sclerae anicteric. No mucositis or thrush. No other oral or pharyngeal lesions or erythema. Skin: No rashes or petechiae. No evidence of skin malignancy Lymph nodes: No cervical, supraclavicular, axillary, or inguinal adenopathy. Lungs: Air entry normal with normal breath sounds. No rhonchi or wheezing Cardiovascular: Regular rate and rhythm. No skipped beats Abdomen: Soft, mild diffuse tenderness. Mild ascites. Catheter in place in the left side of abdominal wall. Extremities: No edema. No calf swelling or tenderness. No joint deformity. Neurologic: Alert, cranial nerves II-XII intact; normal gait; no focal weakness or sensory abnormalities. Generalized weakness but no deconditioning. Oncology - Results Labs: Short CBC 10/01/17 Range/Units 04:53 WBC 2.2 L (4.3-11.1) K/mcL Hgb 10.3 L (12.9-16.9) g/dL Hct 32.5 L (37.5-50.1) % Plt Count 185 (140-400) K/mcL Neutrophils # 1.7 (1.6-8.9) K/mcL BMP 10/01/17 04:53 Sodium 129 L Potassium 4.3 Chloride 99 Carbon Dioxide 22 BUN 29 H Creatinine 0.78 Glucose 141 H Calcium 8.3 L Liver Function 10/01/17 Range/Units 04:53 Total Bilirubin 0.9 (0.2-1.2) mg/dL AST 18 (5-34) Units/L ALT 20 (0-55) Units/L Alkaline Phosphatase 134 H (38-126) Units/L Albumin 2.5 L (3.5-5.0) g/dL Consult Discharge Plan - Plan Referrals: Garett Ervin DO [Primary Care Provider] - 10/06/17 1:30 pm (Please follow up as schedule...)
--- NOTE | 2017-10-01 15:43 | Internal Med Progress Note ---
<FelipeChan johnson - Last Filed: 10/01/17 15:41> Date of Encounter: 10/01/17 Time of Encounter: 15:41 - Assessment and plan (1) Dehydration Status: Acute Assessment and plan: Likely secondary to intravascular depletion in the setting of recurrent ascites due to metastatic pancreatic cancer. Educated patient and on ascitic fluid removal amounts from his indwelling peritoneal catheter. Recommended not removing more than 1 L of fluid per day and encouraging good oral hydration. Patient appears to be gradually improving. (2) Mesenteric venous thrombosis Status: Chronic Assessment and plan: Present on arrival. Continue Eliquis (3) Pancreatic cancer Status: Chronic Assessment and plan: Metastatic. Per oncology consultation the patient is a poor candidate for further chemotherapy, he may be eligible for a clinical trial however his functional status may not be good enough for this. Patient was seen by palliative care and would like to remain a full code and pursue any aggressive treatment measures available. He does have chronic pain and we have adjusted his pain medication to include a long-acting morphine for better control. Qualifiers: Pancreatic malignancy location: body of pancreas Qualified Code(s): C25.1 - Malignant neoplasm of body of pancreas - Subjective Interval history: Patient seen and examined at bedside. He states he feels better today however does report some nausea and vomiting. He feels like his strength is mildly improved but still feels weak. He denies any fever, chills, abdominal pain. - Constitutional Vitals: Temp Pulse Resp BP Pulse Ox 97.4 F L 82 16 93/60 100 10/01/17 11:18 10/01/17 11:18 10/01/17 11:18 10/01/17 11:18 10/01/17 11:18 General appearance: Present: cachectic, A&O X 3, pleasant, answers questions appropriately - Respiratory Respiratory exam: Present: CTAB. Absent: rales, rhonchi, wheezes - Cardiovascular Cardiovascular exam: Present: RRR. Absent: gallop, rubs, systolic murmur - GI/Abdominal GI/Abdominal exam: Present: distended (Mild), normal bowel sounds, soft. Absent : tenderness - Extremities Exam Extremities exam: Present: warm. Absent: pedal edema, tenderness - Neurological Exam Neurological exam: Present: alert, CN II-XII intact, oriented X3, no focal deficits Internal Medicine: Result - Labs CBC & Chem 7: 12/06/17 04:53 10/01/17 04:53 Labs: Short CBC 10/01/17 Range/Units 04:53 WBC 2.2 L (4.3-11.1) K/mcL Hgb 10.3 L (12.9-16.9) g/dL Hct 32.5 L (37.5-50.1) % Plt Count 185 (140-400) K/mcL Neutrophils # 1.7 (1.6-8.9) K/mcL BMP 10/01/17 04:53 Sodium 129 L Potassium 4.3 Chloride 99 Carbon Dioxide 22 BUN 29 H Creatinine 0.78 Glucose 141 H Calcium 8.3 L Liver Function 10/01/17 Range/Units 04:53 Total Bilirubin 0.9 (0.2-1.2) mg/dL AST 18 (5-34) Units/L ALT 20 (0-55) Units/L Alkaline Phosphatase 134 H (38-126) Units/L Albumin 2.5 L (3.5-5.0) g/dL Consult Discharge Plan - Plan Instructions: Morphine, Slow Release (By mouth), Laxative, Stimulant Combination (By mouth), Constipation (DC), Dehydration (DC), Anemia (GEN) Referrals: Garett Ervin DO [Primary Care Provider] - 10/06/17 1:30 pm (Please follow up as schedule...) Prescriptions: Morphine Sulfate SR (12 HR) [MS Contin] 1 tab PO Q12HR #60 tab Pantoprazole Sodium 40 mg PO BID #60 tablet.dr Quintero/Docusate Sodium [Senna Plus] 2 each PO BID #60 tablet <Phil Thibodeaux - Last Filed: 10/02/17 17:44> Date of Encounter: 10/01/17 - Constitutional Vitals: Temp Pulse Resp BP Pulse Ox 97.4 F L 85 18 88/62 99 10/02/17 06:57 10/02/17 06:57 10/02/17 06:57 10/02/17 06:57 10/02/17 08:03 Internal Medicine: Result - Labs CBC & Chem 7: 10/02/17 05:27 10/02/17 05:27 Labs: Short CBC 10/02/17 Range/Units 05:27 WBC 2.4 L (4.3-11.1) K/mcL Hgb 11.4 L (12.9-16.9) g/dL Hct 35.9 L (37.5-50.1) % Plt Count 190 (140-400) K/mcL Neutrophils # 1.9 (1.6-8.9) K/mcL BMP 10/02/17 05:27 Sodium 129 L Potassium 4.7 H Chloride 98 Carbon Dioxide 21 BUN 29 H Creatinine 0.76 Glucose 151 H Calcium 8.6 - Attending Attestation I conducted a face to face diagnostic evaluation of this patient and my medical decision-making was reviewed with the Resident Physician, Dr. Chan Savage. I agree with the documented findings, disposition and treatment plan as described except to the extent set forth below: Continue IV fluids, supportive care, IV antiemetics.
[2017-10-01] MEDS: *HR* Morphine Sulfate SR (12 HR) 30 MG TABLET.ER PO SCH (17:03)
[2017-10-01] MEDS ORDERED: 0.9 % Sodium Chloride 250 ML IVC ONE (19:07)
[2017-10-01] MEDS: Melatonin 3 MG TABLET PO SCH (20:51)
[2017-10-01] MEDS: Gabapentin 300 MG CAPSULE PO SCH (20:52)
[2017-10-02] MEDS: *HR* Morphine Sulfate SR (12 HR) 30 MG TABLET.ER PO SCH (05:12)
[2017-10-02 06:05] LABS: Basophils % 0.4 %; Eosinophils % 1.3 %; Hematocrit 35.9 % (37.5-50.1); Hemoglobin 11.4 g/dL (12.9-16.9); Lymphocytes # 0.3 K/mcL (0.6-4.6); Lymphocytes % 10.4 %; Mean Corpuscular HGB Conc 31.8 g/dL (31.6-35.5); Mean Corpuscular Hemoglobin 27.4 pg (28.0-33.3); Mean Corpuscular Volume 86.3 fL (83.0-100.0); Monocytes # 0.2 K/mcL (0.0-1.3); Monocytes % 9.2 %; Neutrophils # 1.9 K/mcL (1.6-8.9); Platelet Count 190 K/mcL (140-400); Red Blood Count 4.16 M/mcL (4.19-5.50); Red Cell Distribution Width 14.6 % (11.5-14.5); Segmented Neutrophils % 78.7 %
[2017-10-02 06:22] LABS: BUN/Creatinine Ratio 38 (6-26); Blood Urea Nitrogen 29 mg/dL (8-26); Calcium 8.6 mg/dL (8.6-10.8); Carbon Dioxide 21 mEq/L (19-29); Chloride 98 mEq/L (98-109); Glucose 151 mg/dL (70-99); Magnesium 1.8 mg/dL (1.6-2.6); Osmolality,Calculated 277 (280-300); Potassium 4.7 mEq/L (3.5-4.5); Sodium 129 mEq/L (136-145); eGFR For African Americans > 60 (> 60); eGFR For Non-African Americans > 60 (> 60)
--- NOTE | 2017-10-02 06:54 | Internal Med Progress Note ---
Date of Encounter: 10/02/17 Time of Encounter: 06:51 - Assessment and plan (1) Dehydration Current Visit: Yes Status: Acute Assessment and plan: Likely secondary to intravascular depletion in the setting of recurrent ascites due to metastatic pancreatic cancer. Patient and aware to limit ascitic fluid removal from his indwelling peritoneal catheter to 1 L of fluid per day and encouraging good oral hydration. Patient continues to improve (2) Pancreatic cancer Current Visit: No Status: Chronic Assessment and plan: Metastatic. Per oncology consultation the patient is a poor candidate for further chemotherapy, he may be eligible for a clinical trial however his functional status may not be good enough for this. Patient was seen by palliative care and would like to remain a full code and pursue any aggressive treatment measures available. He does have chronic pain and we have adjusted his pain medication to include a long-acting morphine for better control. (3) Mesenteric venous thrombosis Current Visit: No Status: Chronic Assessment and plan: Present on arrival. Continue Eliquis (4) DVT prophylaxis Current Visit: No Status: Acute Assessment and plan: Eliquis - Subjective Interval history: 52-year-old male here for dehydration, poor oral intake, and overall declining state of health. He was diagnosed with pancreatic cancer approximately one year ago, treated with chemotherapy/radiation. Patient seen and examined at bedside. He denies new complaints - Constitutional Vitals: Temp Pulse Resp BP Pulse Ox 98.0 F 78 12 97/65 100 10/02/17 03:33 10/02/17 03:33 10/02/17 03:33 10/02/17 03:33 10/02/17 03:33 General appearance: Present: cachectic, A&O X 3, pleasant, answers questions appropriately Internal Medicine: Result - Labs CBC & Chem 7: 10/02/17 05:27 10/02/17 05:27 Labs: Short CBC 10/02/17 Range/Units 05:27 WBC 2.4 L (4.3-11.1) K/mcL Hgb 11.4 L (12.9-16.9) g/dL Hct 35.9 L (37.5-50.1) % Plt Count 190 (140-400) K/mcL Neutrophils # 1.9 (1.6-8.9) K/mcL BMP 10/02/17 05:27 Sodium 129 L Potassium 4.7 H Chloride 98 Carbon Dioxide 21 BUN 29 H Creatinine 0.76 Glucose 151 H Calcium 8.6 Consult Discharge Plan - Plan Referrals: Garett Ervin DO [Primary Care Provider] - 10/06/17 1:30 pm (Please follow up as schedule...)
[2017-10-02 07:04] VITALS: BP 88/62
--- NOTE | 2017-10-02 07:30 | Discharge Summary ---
<ShannonShun Chan - Last Filed: 10/02/17 07:28> Date of Encounter: 10/02/17 Time of Encounter: 07:28 - Discharge Diagnosis (1) Dehydration Priority: Primary Status: Acute (2) Pancreatic cancer Priority: Primary Status: Chronic Qualifiers: Pancreatic malignancy location: body of pancreas Qualified Code(s): C25.1 - Malignant neoplasm of body of pancreas (3) Mesenteric venous thrombosis Priority: Secondary Status: Chronic (4) DVT prophylaxis Priority: Secondary Status: Acute - Discharge Medications Prescriptions: Morphine Sulfate SR (12 HR) [MS Contin] 1 tab PO Q12HR #60 tab Pantoprazole Sodium 40 mg PO BID #60 tablet. Sencarlos enriquesidealbino/Docusate Sodium [Senna Plus] 2 each PO BID #60 tablet Home Medications: Multivitamin [Multivitamins] 1 each PO DAILY 11/06/16 [History] Baclofen [Lioresal] 10 mg PO DAILY PRN 08/13/17 [History] Gabapentin [Neurontin] 300 mg PO HS PRN 08/13/17 [History] Lipase/Protease/Amylase [Darrin Cartagena 12,000 Units Capsule] 1 each PO TID PRN [History] Melatonin 5 mg PO HS 08/13/17 [History] Pantoprazole Sodium [Protonix] 40 mg PO BID #60 tablet. 08/16/17 [Rx] Hydromorphone HCl [Dilaudid] 1 - 2 tab PO Q4H PRN #90 tablet 09/03/17 [Rx] Apixaban [Eliquis] 1 tab PO BID #60 tablet 09/10/17 [Rx] Granisetron [Sancuso] 1 each TD QWEEK #4 patch.tdwk 09/10/17 [Rx] predniSONE [PredniSONE] 1 tab PO DAILY #30 tablet 09/10/17 [Rx] Potassium Chloride Elixir [Potassium Chloride] 7.5 ml PO DAILY #220 mls [Rx] Morphine Sulfate SR (12 HR) [MS Contin] 1 tab PO Q12HR #60 tab 10/02/17 [Rx] Pantoprazole Sodium 40 mg PO BID #60 tablet. 10/02/17 [Rx] Sennosides/Docusate Sodium [Senna Plus] 2 each PO BID #60 tablet 10/02/17 [Rx] Allergies/Adverse Reactions: 3 Allergy/AdvReac Type Severity Reaction Status Date / Time ondansetron Allergy Swelling Verified 09/25/17 09:38 [From Zofran (as of hydrochloride)] Lip/Tongue/Throat prochlorperazine Allergy Swelling Verified 09/25/17 09:38 [From Compazine] of Lip/Tongue/Throat Oxycodone AdvReac Rash Verified 09/25/17 09:38 Date of admission: 09/29/17 14:21 Primary care physician: Cora Santacruz Consults: 09/29/17 18:36 Consult to Oncology Hematology [CONS] Routine Consulting Provider: Joni Waters Reason for Consult: Pancreatic cancer with dehydration Call Completed: Yes 09/30/17 10:44 Consult to Nutrition [CONS] Routine Comment: Consulting Provider: NUTRITION Reason for Dietary Consult: Other Other:: physican order Consult to Occupational Therapy [CONS] Routine Comment: Evaluate, develop and implement POC Reason for Consult: weakness Consult to Palliative Care [CONS] Routine Comment: Consulting Provider: Palliative Care [place] Reason for Consult: cancer Time Notified: 10:46 Call Completed: Yes Consult to Physical Therapy [CONS] Routine Comment: Evaluate, develop and implement POC Reason for Consult: weakness Discharging clinician: Phil Thibodeaux Anticipated date of discharge: 10/02/17 - Patient Status Disposition: Home, Self-Care Condition: Fair Functional capacity at discharge: independent ambulation Overall status at discharge: patient is progressing back to baseline - Discharge Instructions Instructions: Morphine, Slow Release (By mouth), Laxative, Stimulant Combination (By mouth), Constipation (DC), Dehydration (DC), Anemia (GEN) Follow Up With: Garett Ervin DO [Primary Care Provider] - 10/06/17 1:30 pm (Please follow up as schedule...) - Diet and Activity Activity: as per physical therapy, resume usual activities as tolerated Diet: advance to your usual diet Hospital course: Mr. Hatch is a 52 year old male admitted to [facility] from 09/29-10/02/17 for dehydration, poor oral intake, and overall declining state of health. Patient has a history of pancreatic cancer, diagnosed approximately 1 year ago and treated with chemotherapy/radiation. Per oncology consultation, the patient is a poor candidate for further chemotherapy, however; he may be eligible for a clinical trial if his functional status could tolerate this. Patient & family are not considering hospice at this time. He also has a history of mesenteric venous thrombosis and remains on Eliquis. Over his hospital course, his nausea & vomiting resolved and he was tolerating oral intake. We placed him on MS Contin which significantly improved his abdominal/ back pain. Patient's states they already have an appointment scheduled with oncology in 2 weeks - Time Spent with Patient Total time spent providing and/or coordinating discharge services: Greater than 30 minutes - Constitutional Vitals: Temp Pulse Resp BP Pulse Ox 97.4 F L 85 18 88/62 99 10/02/17 06:57 10/02/17 06:57 10/02/17 06:57 10/02/17 06:57 10/02/17 06:57 General appearance: Present: cachectic, A&O X 3, pleasant, answers questions appropriately - Respiratory Respiratory exam: Present: CTAB. Absent: accessory muscle use, rales, rhonchi, wheezes - Cardiovascular Cardiovascular exam: Present: RRR, +S1, +S2. Absent: diastolic murmur, gallop, rubs, systolic murmur - GI/Abdominal GI/Abdominal exam: Present: normal bowel sounds, soft, tenderness (Diffuse, improved from prior exams), no peritoneal signs. Absent: distended - Extremities Exam Extremities exam: Present: warm, radial pulses palpable and symmetrical. Absent : calf tenderness, cyanotic, pedal edema - Neurological Exam Neurological exam: Present: alert, oriented X3, no focal deficits <Phil Thibodeaux - Last Filed: 10/02/17 18:12> Date of Encounter: 10/02/17 Date of admission: 09/29/17 14:21 Primary care physician: Cora Santacruz Consults: 09/29/17 18:36 Consult to Oncology Hematology [CONS] Routine Consulting Provider: Joni Waters Reason for Consult: Pancreatic cancer with dehydration Call Completed: Yes 09/30/17 10:44 Consult to Nutrition [CONS] Routine Comment: Consulting Provider: NUTRITION Reason for Dietary Consult: Other Other:: physican order Consult to Occupational Therapy [CONS] Routine Comment: Evaluate, develop and implement POC Reason for Consult: weakness Consult to Palliative Care [CONS] Routine Comment: Consulting Provider: Palliative Care Leandra Reason for Consult: cancer Time Notified: 10:46 Call Completed: Yes Consult to Physical Therapy [CONS] Routine Comment: Evaluate, develop and implement POC Reason for Consult: weakness Hospital course: Mr. Hatch is a 52 year old male - Time Spent with Patient Total time spent providing and/or coordinating discharge services: - Constitutional Vitals: Temp Pulse Resp BP Pulse Ox 97.4 F L 85 18 88/62 99 10/02/17 06:57 10/02/17 06:57 10/02/17 06:57 10/02/17 06:57 10/02/17 08:03 - Attending Attestation I conducted a face to face diagnostic evaluation of this patient and my medical decision-making was reviewed with the Resident Physician, Dr. Chan Savage. I agree with the documented findings, disposition and treatment plan as described except to the extent set forth below: Patient's nausea was controlled with medication. He was able to tolerate oral food. Kidney function has improved. He is medically stable for discharge home. Follow up closely with oncologist and primary care physician
[2017-10-02] MEDS: Potassium Chloride Elixir 20 MEQ/15 ML UDC PO SCH (07:59)
[2017-10-02] MEDS: Sennosides/Docusate Sodium TABLET PO SCH (07:59)
[2017-10-02] MEDS: predniSONE 10 MG TABLET PO SCH (07:59)
[2017-10-02] MEDS: Multivit/Ca/Min/Fe/FA 1 TAB TABLET PO SCH (07:59)
[2017-10-02] MEDS: APIXABAN 2.5 MG TABLET PO SCH (08:01)
--- NOTE | 2017-10-02 08:08 | Physician Discharge Referral ---
Home Health/Hosp Referral Info Transfer to: Home Health Attending Provider: Dr. 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 For more information, call the [place] Tobacco Quit Line at 1-105-FFAX-NOW. - Diet/Nutrition Diet/Nutrition Orders: Regular - Activity Activity Orders: Ambulate - Services Needed Following services are medically necessary services: Physical Therapy, Occupational Therapy - Transfer Medications Prescriptions: Morphine Sulfate SR (12 HR) [MS Contin] 1 tab PO Q12HR #60 tab Sennosides/Docusate Sodium [Senna Plus] 2 each PO BID #60 tablet Home Medications: Multivitamin [Multivitamins] 1 each PO DAILY 11/06/16 [History] Baclofen [Lioresal] 10 mg PO DAILY PRN 08/13/17 [History] Gabapentin [Neurontin] 300 mg PO HS PRN 08/13/17 [History] Lipase/Protease/Amylase [Darrin Cartagena 12,000 Units Capsule] 1 each PO TID PRN [History] Melatonin 5 mg PO HS 08/13/17 [History] Pantoprazole Sodium [Protonix] 40 mg PO BID #60 tablet. 08/16/17 [Rx] Hydromorphone HCl [Dilaudid] 1 - 2 tab PO Q4H PRN #90 tablet 09/03/17 [Rx] Apixaban [Eliquis] 1 tab PO BID #60 tablet 09/10/17 [Rx] Granisetron [Sancuso] 1 each TD QWEEK #4 patch.tdwk 09/10/17 [Rx] predniSONE [PredniSONE] 1 tab PO DAILY #30 tablet 09/10/17 [Rx] Potassium Chloride Elixir [Potassium Chloride] 7.5 ml PO DAILY #220 mls [Rx] Morphine Sulfate SR (12 HR) [MS Contin] 1 tab PO Q12HR #60 tab 10/02/17 [Rx] Sennosides/Docusate Sodium [Senna Plus] 2 each PO BID #60 tablet 10/02/17 [Rx] Allergies/Adverse Reactions: 3 Allergy/AdvReac Type Severity Reaction Status Date / Time ondansetron Allergy Swelling Verified 09/25/17 09:38 [From Zofran (as of hydrochloride)] Lip/Tongue/Throat prochlorperazine Allergy Swelling Verified 09/25/17 09:38 [From Compazine] of Lip/Tongue/Throat Oxycodone AdvReac Rash Verified 09/25/17 09:38 Certification: Further, I certify that my clinical findings support that this patient is homebound (i.e. absences from home require considerable and taxing effort and are for medical reasons or bahai services or infrequently or short duration when for other reasons) because: Homebound Reason: Patient requires assistance of a person or device to safely leave home, Leaving home requires considerable and taxing effort due to condition Attestation: My signature below is to certify that this patient is under my care and that I, or nurse practitioner, or a physician's him assistant working with me, has a face-to -face encounter with this patient.
== END 2017-10-02 09:45 | disposition home or self-care (01) | DRG 640 ==
LOC: EMEROO 09:29 → 2ANU 09:29 → SUATTDRO 14:21
PROVIDERS: ADMIT Internal Medicine; ATTEND Internal Medicine

== ENCOUNTER 2017-10-06 02:53 | Inpatient (IN) ==
[2017-10-06] MEDS ORDERED: 0.9 % Sodium Chloride 1,000 ML IVC ONE ×2 (03:01→06:51)
--- NOTE | 2017-10-06 03:05 | Emergency Department Note ---
Disposition Clinical Impression: Acute hepatic encephalopathy, Hyponatremia Pancreatic cancer Qualifiers: Pancreatic malignancy location: unspecified Qualified Code(s): C25.9 - Malignant neoplasm of pancreas, unspecified Altered mental status Qualifiers: Altered mental status type: somnolence Qualified Code(s): R40.0 - Somnolence Disposition: Admitted As Inpatient Condition: Critical Referrals: Garett Ervin DO [Primary Care Provider] - Forms: ED Satisfaction Letter Time of Disposition: 05:26 Altered Mental Status HPI - General Chief Complaint: ED Altered Mental Status Stated Complaint: unresponsive Time Seen by Provider: 10/06/17 02:59 Source: family, EMS Mode of arrival: EMS Limitations: altered mental status Nursing Notes Reviewed: Yes Vital Signs Reviewed: Yes - History of Present Illness HPI Narrative: 52-year-old male with history of diagnosis of pancreatic cancer, arrives to [facility] emergency department unresponsive and alteration in mentation. The patient was noted to be nonverbal since roughly 10 4:30 this evening. The patient has had similar episodes in the past where he has to be admitted and hydrated. The patient is actively receiving no intervention for his pancreatic cancer. The patient is very cachectic looking at this time. He is not able to follow commands but he is responsive to noxious stimuli. The patient vital signs demonstrate mild tachycardia, no hypotension, O2 saturation 100% on room air. He is respirated without difficulty. The patient's denies any previous history or recent history of cough, difficulty breathing, abdominal pain, burning sensation when he urinates. The patient is on Elavil was due to a portal vein thrombosis associated with cancer. The patient's states that he has not been alone has had no falls. MD complaint: altered mental status Onset (ago): unknown Timing confirmed by: spouse Pain Scale: 0 Context: cancer - Related Data Home Medications Medication Instructions Recorded Confirmed Multivitamin [Multivitamins] 1 each PO DAILY 11/06/16 09/29/17 Baclofen [Lioresal] 10 mg PO DAILY PRN 08/13/17 09/29/17 Gabapentin [Neurontin] 300 mg PO HS PRN 08/13/17 09/29/17 Lipase/Protease/Amylase [Creon Dr 1 each PO TID PRN 08/13/17 09/29/17 12,000 Units Capsule] Melatonin 5 mg PO HS 08/13/17 09/29/17 Previous Rx's Medication Instructions Recorded Pantoprazole Sodium [Protonix] 40 mg PO BID #60 tablet. 08/16/17 Hydromorphone HCl [Dilaudid] 1 - 2 tab PO Q4H PRN #90 tablet 09/03/17 Apixaban [Eliquis] 1 tab PO BID #60 tablet 09/10/17 Granisetron [Sancuso] 1 each TD QWEEK #4 patch.tdwk 09/10/17 predniSONE [PredniSONE] 1 tab PO DAILY #30 tablet 09/10/17 Potassium Chloride Elixir 7.5 ml PO DAILY #220 mls 09/25/17 [Potassium Chloride] Morphine Sulfate SR (12 HR) [MS 1 tab PO Q12HR #60 tab 10/02/17 Contin] Pantoprazole Sodium 40 mg PO BID #60 tablet. 10/02/17 Sennosides/Docusate Sodium [Senna 2 each PO BID #60 tablet 10/02/17 Plus] Allergies Allergy/AdvReac Type Severity Reaction Status Date / Time ondansetron Allergy Swelling Verified 10/06/17 02:56 [From Zofran (as of hydrochloride)] Lip/Tongue/Throat prochlorperazine Allergy Swelling Verified 10/06/17 02:56 [From Compazine] of Lip/Tongue/Throat Oxycodone AdvReac Rash Verified 10/06/17 02:56 Limitations: ROS unobtainable due to patients medical condition Past Medical History - Past Medical History Source: old records reviewed, obtained from family Medical history: Reports: cancer (pancreatic), diabetes, other (Thrombosed portal vein ) Surgical history: Reports: orthopedic, other Psychiatric history: Reports: no psych history - Social History Smoking Status: Never smoker Smokeless Tobacco Status: No Alcohol use: Reports: none Drug use: Reports: none Physical Exam - General Limitations: altered mental status General appearance: obtunded, cachectic - Head Head exam: atraumatic, normocephalic, normal inspection - Eye Eye exam: Present: normal appearance, PERRL, EOMI - ENT ENT exam: normal exam, normal oropharynx, mucous membranes moist - Neck Neck exam: Present: normal inspection, full ROM, trachea midline - Chest Chest inspection: Present: symmetric chest wall rise, other (The patient has a port on the right side of his chest as well as a drain in the left abdominal wall.). Absent: tenderness - Respiratory Respiratory exam: Present: normal lung sounds bilaterally - Cardiovascular Cardiovascular exam: Present: regular rate, normal rhythm, normal heart sounds - Abdominal Exam Abdominal exam: Present: soft, Non-Tender. Absent: tenderness, distention, guarding, rebound, rigidity - Extremities Exam Extremities exam: Present: normal inspection, full ROM. Absent: tenderness, pedal edema - Expanded Neurological Exam Coma Scale Eye Opening: Spontaneous Coma Scale Motor Response: Localizes to Pain Coma Scale Verbal Response: None Coma Scale Total: 10 Course Vital Signs Temperature 98.7 F 10/06/17 03:00 Pulse Rate 99 10/06/17 03:00 Respiratory Rate 12 10/06/17 03:00 Blood Pressure 121/82 10/06/17 03:00 O2 Sat by Pulse Oximetry 100 10/06/17 03:00 Temperature 98.7 F 10/06/17 03:00 Pulse Rate 92 10/06/17 05:17 Respiratory Rate 12 10/06/17 05:17 Blood Pressure 110/89 10/06/17 05:17 O2 Sat by Pulse Oximetry 100 10/06/17 05:17 Oxygen Delivery Oxygen Delivery Room Air Altered Mental Status - MDM Narrative Medical decision making narrative: Workup in the emergency department demonstrates hyponatremia, hyperkalemia. The patient was also noted to be in hepatic encephalopathy with an ammonia level 162. The patient does have a large amount of ascites in his abdomen despite having a tube in place. The patient has a negative chest x-ray negative. CT pretty acute process. Given the patient's inability to take fluids, we will perform a rectal lactulose dose here in the emergency department. The patient will be admitted to the ICU. Accepted by Dr. Zuniga. - Medical Records Medical records reviewed: Yes I reviewed the patient's medical records. - Lab Data Lab results reviewed: Yes I reviewed the patient's lab results. Result diagrams: 10/06/17 03:06 10/06/17 03:06 Lab Results 10/06/17 10/06/17 10/06/17 Range/Units 03:06 03:06 03:06 WBC 3.0 L (4.3-11.1) K/mcL RBC 4.19 (4.19-5.50) M/mcL Hgb 11.4 L (12.9-16.9) g/dL Hct 34.5 L (37.5-50.1) % MCV 82.3 L (83.0-100.0) fL MCH 27.2 L (28.0-33.3) pg MCHC 33.0 (31.6-35.5) g/dL RDW 14.8 H (11.5-14.5) % Plt Count 241 (140-400) K/mcL MPV 9.6 (9.4-12.4) fL Immature Gran % 0.0 (0-4) % Seg Neutrophils % 76.1 % Lymphocytes % 9.1 % Monocytes % 13.8 % Eosinophils % 0.7 % Basophils % 0.3 % Neutrophils # 2.3 (1.6-8.9) K/mcL Lymphocytes # 0.3 L (0.6-4.6) K/mcL Monocytes # 0.4 (0.0-1.3) K/mcL Eosinophils # 0.0 (0.0-0.6) K/mcL Basophils # 0.0 (0.0-0.2) K/mcL PT 17.7 H (9.4-12.1) Seconds INR 1.6 APTT 39.8 H (26.0-36.0) Seconds Sodium 126 L (136-145) mEq/L Potassium 4.9 H (3.5-4.5) mEq/L Chloride 97 L (98-109) mEq/L Carbon Dioxide 18 L (19-29) mEq/L BUN 37 H (8-26) mg/dL Creatinine 0.88 (0.72-1.25) mg/dL Est GFR ( Amer) > 60 (> 60) Est GFR (Non-Af Amer) > 60 (> 60) BUN/Creatinine Ratio 42 H (6-26) Glucose 144 H (70-99) mg/dL Calculated Osmolality 273 L (280-300) Calcium 8.8 (8.6-10.8) mg/dL Total Bilirubin 1.6 H (0.2-1.2) mg/dL AST 35 H (5-34) Units/L ALT 50 (0-55) Units/L Alkaline Phosphatase 227 H (38-126) Units/L Ammonia (18-72) mcmol/L Troponin I (0-0.03) ng/mL Serum Total Protein 6.3 (6.0-8.3) g/dL Albumin 2.9 L (3.5-5.0) g/dL Globulin 3.4 (2.4-3.5) g/dL Albumin/Globulin Ratio 0.9 L (1.1-2.2) Urine Color (Yellow) Urine Clarity (Clear) Urine pH (5.0-8.0) pH Units Ur Specific [place] (1.010-1.025) Urine Protein (Neg-Trace) mg/dL Urine Glucose (UA) (Normal) mg/dL Urine Ketones (Negative) mg/dL Urine Blood (Negative) Urine Nitrite (Negative) Urine Bilirubin (Negative) Urine Urobilinogen (Normal) mg/dL Ur Leukocyte Esterase (Negative) Ur Culture Indicated? (NO) 10/06/17 10/06/17 10/06/17 Range/Units 03:06 04:54 05:04 WBC (4.3-11.1) K/mcL RBC (4.19-5.50) M/mcL Hgb (12.9-16.9) g/dL Hct (37.5-50.1) % MCV (83.0-100.0) fL MCH (28.0-33.3) pg MCHC (31.6-35.5) g/dL RDW (11.5-14.5) % Plt Count (140-400) K/mcL MPV (9.4-12.4) fL Immature Gran % (0-4) % Seg Neutrophils % % Lymphocytes % % Monocytes % % Eosinophils % % Basophils % % Neutrophils # (1.6-8.9) K/mcL Lymphocytes # (0.6-4.6) K/mcL Monocytes # (0.0-1.3) K/mcL Eosinophils # (0.0-0.6) K/mcL Basophils # (0.0-0.2) K/mcL PT (9.4-12.1) Seconds INR APTT (26.0-36.0) Seconds Sodium (136-145) mEq/L Potassium (3.5-4.5) mEq/L Chloride (98-109) mEq/L Carbon Dioxide (19-29) mEq/L BUN (8-26) mg/dL Creatinine (0.72-1.25) mg/dL Est GFR ( Amer) (> 60) Est GFR (Non-Af Amer) (> 60) BUN/Creatinine Ratio (6-26) Glucose (70-99) mg/dL Calculated Osmolality (280-300) Calcium (8.6-10.8) mg/dL Total Bilirubin (0.2-1.2) mg/dL AST (5-34) Units/L ALT (0-55) Units/L Alkaline Phosphatase (38-126) Units/L Ammonia 162 H (18-72) mcmol/L Troponin I 0.01 (0-0.03) ng/mL Serum Total Protein (6.0-8.3) g/dL Albumin (3.5-5.0) g/dL Globulin (2.4-3.5) g/dL Albumin/Globulin Ratio (1.1-2.2) Urine Color Dark Yellow (Yellow) Urine Clarity Clear (Clear) Urine pH 6.5 (5.0-8.0) pH Units Ur Specific [place] > 1.030 H (1.010-1.025) Urine Protein Negative (Neg-Trace) mg/dL Urine Glucose (UA) Normal (Normal) mg/dL Urine Ketones Trace H (Negative) mg/dL Urine Blood Negative (Negative) Urine Nitrite Negative (Negative) Urine Bilirubin Small H (Negative) Urine Urobilinogen Normal (Normal) mg/dL Ur Leukocyte Esterase Negative (Negative) Ur Culture Indicated? NO (NO) - EKG Data EKG attestation: Yes I reviewed and interpreted this EKG. EKG results narrative: Heart rate 91 bpm. ND interval 145 ms. QTC 406 ms. Normal sinus rhythm. No ST elevation or ST depression noted. No acute changes noted. TPA Checklist - LKW: 3-4.5 hrs Add. Warnings/Precautions Patient/family understanding: The patient/family members have been counseled and understood the risk, benefit , and alternatives of treatment. Critical Care Time Critical Care Time: Yes Total Critical Care Time: 40 Attestation: Critical care performed: Time is exclusive of separately billable procedures. Time includes: direct patient care, patient reassessment, coordination of patient care, interpretation of data (laboratory data, radiology data, and respiratory data), review of patient's medical records, medical consultation and documentation of patient care. Procedures included in critical care time: Procedures excluded from critical care time: Attestation Statement - Attestation Attestation: I, Robles Evans MD, personally evaluated this patient and discussed their management with the resident physician. I reviewed the resident's note and agree with the documented findings, medical decision making, and plan of care. 52-year-old male with known pancreatic cancer presents to the emergency department unresponsive. reports he just got out of the hospital last week. He has had similar episodes in the past but not as severe. She states he has been getting weaker and have been having decreasing responsiveness over the past few days. His last verbal response was about 10:30 PM this evening. No falls. On examination patient is a very cachectic male who is unresponsive. No cyanosis or diaphoresis. Breath sounds equal bilaterally. Heart regular rate and rhythm. Abdomen soft. Bowel sounds present. No distention. Patient has a peritoneal drain in the left upper abdomen. Chest x-ray negative. Head CT negative. CT of abdomen and pelvis shows: 1. Ill defined soft tissue extending posteriorly from the pancreatic neck surrounding the celiac and superior mesenteric arteries presumably represents the patient's known pancreatic cancer. 2. Persistent portal vein thrombosis and biliary ductal dilation. 3. Large volume of ascites despite the presence of a peritoneal drain. Labs reviewed. Significantly elevated ammonia level. The hospitalist, Dr. Kinney, was consulted and accepted admission of the patient.
[2017-10-06] MEDS ORDERED: Naloxone 0.4 MG/ML INJ IVP ONE (03:12)
[2017-10-06 03:15] LABS: Basophils % 0.3 %; Eosinophils % 0.7 %; Hematocrit 34.5 % (37.5-50.1); Hemoglobin 11.4 g/dL (12.9-16.9); Lymphocytes # 0.3 K/mcL (0.6-4.6); Lymphocytes % 9.1 %; Mean Corpuscular Hemoglobin 27.2 pg (28.0-33.3); Mean Corpuscular Volume 82.3 fL (83.0-100.0); Mean Platelet Volume 9.6 fL (9.4-12.4); Monocytes # 0.4 K/mcL (0.0-1.3); Monocytes % 13.8 %; Neutrophils # 2.3 K/mcL (1.6-8.9); Platelet Count 241 K/mcL (140-400); Red Blood Count 4.19 M/mcL (4.19-5.50); Red Cell Distribution Width 14.8 % (11.5-14.5); Segmented Neutrophils % 76.1 %
[2017-10-06 03:21] LABS: INR 1.6; Prothrombin Time 17.7 Seconds (9.4-12.1)
[2017-10-06 03:24] LABS: Activated Partial Thrombo Time 39.8 Seconds (26.0-36.0)
[2017-10-06] MEDS ORDERED: *HR* Promethazine 25 MG/ML VIAL IVP ONE (03:43)
[2017-10-06 03:53] LABS: Alanine Aminotransferase 50 Units/L (0-55); Albumin 2.9 g/dL (3.5-5.0); Albumin/Globulin Ratio 0.9 (1.1-2.2); Alkaline Phosphatase 227 Units/L (38-126); Aspartate Amino Transferase 35 Units/L (5-34); BUN/Creatinine Ratio 42 (6-26); Bilirubin,Total 1.6 mg/dL (0.2-1.2); Blood Urea Nitrogen 37 mg/dL (8-26); Calcium 8.8 mg/dL (8.6-10.8); Carbon Dioxide 18 mEq/L (19-29); Chloride 97 mEq/L (98-109); Globulin 3.4 g/dL (2.4-3.5); Glucose 144 mg/dL (70-99); Osmolality,Calculated 273 (280-300); Potassium 4.9 mEq/L (3.5-4.5); Total Protein 6.3 g/dL (6.0-8.3); eGFR For African Americans > 60 (> 60); eGFR For Non-African Americans > 60 (> 60)
[2017-10-06 03:55] LABS: Sodium 126 mEq/L (136-145)
[2017-10-06 05:11] LABS: Bilirubin,Urine Small (Negative); Blood,Urine Negative (Negative); Clarity,Urine Clear (Clear); Color,Urine Dark Yellow (Yellow); Glucose,Urine (UA) Normal (Normal); Ketones,Urine Trace mg/dL (Negative); Leukocyte Esterase,Urine Negative (Negative); Nitrite,Urine Negative (Negative); PH,Urine 6.5 pH Units (5.0-8.0); Protein,Urine Negative (Neg-Trace); Specific Gravity,Urine > 1.030 (1.010-1.025); Urobilinogen,Urine Normal (Normal)
[2017-10-06] MEDS ORDERED: Lactulose 200 GM, Sodium Chloride IRRigation 700 ML RC ONE (05:24)
[2017-10-06] MEDS ORDERED: 0.9 % Sodium Chloride 1,000 ML ONE (06:52)
--- NOTE | 2017-10-06 08:58 | Pulmonology Consult Note ---
<Patric Gray - Last Filed: 10/06/17 13:35> Date of Encounter: 10/06/17 Time of Encounter: 08:44 Assessment and Plan (1) Pancreatic cancer Current Visit: Yes Status: Chronic Multiple organ metastasis since diagnosis October 2016. Patient has exhausted radiotherapy and chemotherapy options. CT abd/plv reveals ill defined soft tissue extending posteriorly from the pancreatic neck surrounding the celiac and superior mesenteric arteries presumably represents the patient's known pancreatic cancer. Oncology consulted during recent hospitalization last week and determined patient would need to clinically improve in order to attempt clinical trials and recommended continued Dilaudid and Morphine and eventual FRONT OFFICE MEDICAL ASSISTANT pump Palliative care consulted Code status changed to DNR-CCA, but short term intubation ok per family. Qualifiers: Pancreatic malignancy location: unspecified Qualified Code(s): C25.9 - Malignant neoplasm of pancreas, unspecified (2) Acute hepatic encephalopathy Current Visit: Yes Status: Acute Patient was A&Ox3 up until yesterday per family Elevated ammonia level 162, likely secondary to hepatic dysfunction from cancer Patient given lactulose rectally in ED but it was all excreted secondary to poor rectal tone, NG tube inserted to administer Lactulose Repeat ammonia level pending (3) Ascites Current Visit: Yes Status: Acute CT abd/plv reveals large volume of ascites despite the presence of a peritoneal drain. 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, and significant weight loss in the as few months NG tube for medication administration NPO for now until mentation improves (8) DM type 2 (diabetes mellitus, type 2) Current Visit: No Status: Chronic Continue to monitor Qualifiers: Diabetes mellitus complication status: with other specified complication Diabetes mellitus terminal supervisor insulin use: without terminal supervisor use Qualified Code( s): E11.69 - Type 2 diabetes mellitus with other specified complication (9) DVT prophylaxis Current Visit: Yes Status: Acute Lovenox subQ History of Present Illness Consult date: 10/06/17 Requesting physician: Jeff Bustillos Reason for consult: other (hyponatremia, hepatic encephalopathy) Chief complaint: AMS History of present illness: Mr. Hatch is a 52-year-old male with a PMH of inoperable pancreatic cancer diagnosed October 2016, chemo-induced gastric ulcers, Eliquis use due to portal vein thrombosis associated with cancer, DM type 2, dehydration, and deconditioning who presented to the ED due to unresponsive and AMS isnce last PM. According to his at bedside, patient has been nonverbal since rough yesterday. The patient has had similar admission in the past due to dehydration. Labs revealed Ammonia level of 162, CXR was negative, and CT brain was negative. CT abd/plv revealed persistent portal vein thrombosis and biliary ductal dilation with large volume of ascites despite the presence of a peritoneal drain. The patient is very cachectic, doesn't follow commands at this time, but he is responsive to noxious stimuli. During most recent hospitalization, palliative care was consulted and patient wished to remain a full code and pursue inclusion in clinical trials. Oncology determined patient would need to clinically improve in order to attempt clinical trials and recommended continued Dilaudid and morphine and eventual FRONT OFFICE MEDICAL ASSISTANT pump. Past Med Surg Social Fam HX - Past Medical History Medical history: cancer, diabetes Psychiatric history: no psych history - Past Surgical History Surgical History: orthopedic, other - Social History Smoking Status: Never smoker Smokeless Tobacco Status: No Alcohol use: none Drug use: none - Family History Father Adopted: No Hx Family Cardiac Disorders: Yes ([place], CABG, HTN) Hx Family Endocrine Disorder: Yes (DM) Mother Hx Family Cardiac Disorders: No Medications and Allergies Multivitamin [Multivitamins] 1 each PO DAILY 11/06/16 [History] Baclofen [Lioresal] 10 mg PO DAILY PRN 08/13/17 [History] Gabapentin [Neurontin] 300 mg PO HS PRN 08/13/17 [History] Lipase/Protease/Amylase [Darrin Cartagena 12,000 Units Capsule] 1 each PO TID PRN [History] Melatonin 5 mg PO HS 08/13/17 [History] Pantoprazole Sodium [Protonix] 40 mg PO BID #60 tablet. 08/16/17 [Rx] Hydromorphone HCl [Dilaudid] 1 - 2 tab PO Q4H PRN #90 tablet 09/03/17 [Rx] Apixaban [Eliquis] 1 tab PO BID #60 tablet 09/10/17 [Rx] Granisetron [Sancuso] 1 each TD QWEEK #4 patch.tdwk 09/10/17 [Rx] Potassium Chloride Elixir [Potassium Chloride] 7.5 ml PO DAILY #220 mls [Rx] Morphine Sulfate SR (12 HR) [MS Contin] 1 tab PO Q12HR #60 tab 10/02/17 [Rx] Pantoprazole Sodium 40 mg PO BID #60 tablet. 10/02/17 [Rx] Sennosides/Docusate Sodium [Senna Plus] 2 each PO BID #60 tablet 10/02/17 [Rx] 3 Allergy/AdvReac Type Severity Reaction Status Date / Time ondansetron Allergy Swelling Verified 10/06/17 02:56 [From Zofran (as of hydrochloride)] Lip/Tongue/Throat prochlorperazine Allergy Swelling Verified 10/06/17 02:56 [From Compazine] of Lip/Tongue/Throat Oxycodone AdvReac Rash Verified 10/06/17 02:56 ROS unobtainable: due to mental status All Systems: A 10-system review of systems was performed and is negative for pertinent findings except as documented above in the HPI. Physical Examination Vital Signs: Vital Signs, Last 4 Hours Temp Pulse Resp BP Pulse Ox 10/06/17 08:27 97.5 F L 98 10 95/68 100 10/06/17 08:14 95 100 10/06/17 07:35 97.5 F L 99 10 109/73 100 10/06/17 06:50 91 12 95/67 100 General appearance: lethargic, appears uncomfortable, other (cachectic, nonverbal, no response or movement to voice, but responds to noxious stimuli) Eyes: icteric (mild) ENT: oropharynx dry Neck: supple Effort: normal Inspection: normal Auscultation: bilateral: clear Percussion: bilateral: not dull Cardiovascular: other (sinus tachycardia) Gastrointestinal: normoactive bowel sounds, other (distended, left sided PleurX cath in place with no surrounding erythema) Integumentary: other (mild jaundice, warm, dry) Extremities: no edema Musculoskeletal: other (severe loss of subcuticular fat, muscle wasting) pupils equal and round, unable to assess due to mental status other (unable to assess) Ventilator Settings Ventilator Settings: Ventilator Settings, Last 8 Hours Ventilator Respiratory Rate 8 Setting Results - Laboratory Findings CBC and BMP: 10/06/17 03:06 10/06/17 03:06 PT/INR, D-dimer PT 17.7 Seconds (9.4-12.1) H 10/06/17 03:06 Abnormal lab findings: Abnormal lab results WBC 3.0 K/mcL (4.3-11.1) L 10/06/17 03:06 Hgb 11.4 g/dL (12.9-16.9) L 10/06/17 03:06 Hct 34.5 % (37.5-50.1) L 10/06/17 03:06 MCV 82.3 fL (83.0-100.0) L 10/06/17 03:06 MCH 27.2 pg (28.0-33.3) L 10/06/17 03:06 RDW 14.8 % (11.5-14.5) H 10/06/17 03:06 Lymphocytes # 0.3 K/mcL (0.6-4.6) L 10/06/17 03:06 PT 17.7 Seconds (9.4-12.1) H 10/06/17 03:06 APTT 39.8 Seconds (26.0-36.0) H 10/06/17 03:06 Sodium 126 mEq/L (136-145) L 10/06/17 03:06 Potassium 4.9 mEq/L (3.5-4.5) H 10/06/17 03:06 Chloride 97 mEq/L (98-109) L 10/06/17 03:06 Carbon Dioxide 18 mEq/L (19-29) L 10/06/17 03:06 BUN 37 mg/dL (8-26) H 10/06/17 03:06 BUN/Creatinine Ratio 42 (6-26) H 10/06/17 03:06 Glucose 144 mg/dL (70-99) H 10/06/17 03:06 Calculated Osmolality 273 (280-300) L 10/06/17 03:06 Total Bilirubin 1.6 mg/dL (0.2-1.2) H 10/06/17 03:06 AST 35 Units/L (5-34) H 10/06/17 03:06 Alkaline Phosphatase 227 Units/L (38-126) H 10/06/17 03:06 Ammonia 162 mcmol/L (18-72) H 10/06/17 04:54 Albumin 2.9 g/dL (3.5-5.0) L 10/06/17 03:06 Albumin/Globulin Ratio 0.9 (1.1-2.2) L 10/06/17 03:06 Ur Specific Dewey > 1.030 (1.010-1.025) H 10/06/17 05:04 Urine Ketones Trace mg/dL (Negative) H 10/06/17 05:04 Urine Bilirubin Small (Negative) H 10/06/17 05:04 - Diagnostic Findings Chest x-ray: report reviewed, image reviewed Additional studies: ITS Impressions Abdomen/Pelvis CT 10/06/17 03:00 IMPRESSION: 1. Ill defined soft tissue extending posteriorly from the pancreatic neck surrounding the celiac and superior mesenteric arteries presumably represents the patient's known pancreatic cancer. 2. Persistent portal vein thrombosis and biliary ductal dilation. 3. Large volume of ascites despite the presence of a peritoneal drain. D/ / Delmar Whatley MD / Delmar Whatley MD Interpreting Provider: Delmar Whatley MD Head CT 10/06/17 03:00 IMPRESSION: No acute intracranial abnormality. D/ / Chan Aguilar MD / Chan Aguilar MD Interpreting Provider: Chan Aguilar MD Chest X-Ray 10/06/17 03:01 IMPRESSION: No acute findings. Question of left lung nodular opacities, consider CT when clinically appropriate. D/ / Chan Aguilar MD / Chan Aguilar MD Interpreting Provider: Chan Aguilar MD X-Ray 10/06/17 09:48 IMPRESSION: Nasogastric tube side port projects over the mid gastric body. Distal tip projects over the gastric antrum. D/ / 10/06/2017 10:49:11 Flash Zamora MD / jessica Interpreting Provider: Flash Zamora MD - Clinical Findings Intake & Output: Intake & Output 10/05/17 10/06/17 10/06/17 23:59 07:59 15:59 Intake Total 1000 / 1000 Balance 1000 / 1000 Consult Discharge Plan - Plan Referrals: Garett Ervin DO [Primary Care Provider] - <Li Alejandra - Last Filed: 10/06/17 20:20> Date of Encounter: 10/06/17 All Systems: A 10-system review of systems was performed and is negative for pertinent findings except as documented above in the HPI. Physical Examination Vital Signs: Vital Signs, Last 4 Hours Temp Pulse Resp BP Pulse Ox 10/06/17 17:33 101 16 99/68 99 10/06/17 16:44 120 16 116/80 99 10/06/17 16:07 97.4 F L 10/06/17 15:22 110 10 107/76 100 10/06/17 14:19 112 12 97/65 99 Ventilator Settings Ventilator Settings: Ventilator Settings, Last 8 Hours Ventilator Respiratory Rate 8 Setting Results - Laboratory Findings CBC and BMP: 10/06/17 03:06 10/06/17 14:30 PT/INR, D-dimer PT 17.7 Seconds (9.4-12.1) H 10/06/17 03:06 Abnormal lab findings: Abnormal lab results WBC 3.0 K/mcL (4.3-11.1) L 10/06/17 03:06 Hgb 11.4 g/dL (12.9-16.9) L 10/06/17 03:06 Hct 34.5 % (37.5-50.1) L 10/06/17 03:06 MCV 82.3 fL (83.0-100.0) L 10/06/17 03:06 MCH 27.2 pg (28.0-33.3) L 10/06/17 03:06 RDW 14.8 % (11.5-14.5) H 10/06/17 03:06 Lymphocytes # 0.3 K/mcL (0.6-4.6) L 10/06/17 03:06 PT 17.7 Seconds (9.4-12.1) H 10/06/17 03:06 APTT 39.8 Seconds (26.0-36.0) H 10/06/17 03:06 Sodium 130 mEq/L (136-145) L 10/06/17 14:30 Carbon Dioxide 18 mEq/L (19-29) L 10/06/17 14:30 BUN 39 mg/dL (8-26) H 10/06/17 14:30 BUN/Creatinine Ratio 42 (6-26) H 10/06/17 14:30 Glucose 122 mg/dL (70-99) H 10/06/17 14:30 Total Bilirubin 1.8 mg/dL (0.2-1.2) H 10/06/17 14:30 Alkaline Phosphatase 198 Units/L (38-126) H 10/06/17 14:30 Ammonia 122 mcmol/L (18-72) H 10/06/17 14:30 Albumin 3.3 g/dL (3.5-5.0) L 10/06/17 14:30 Ur Specific Dewey > 1.030 (1.010-1.025) H 10/06/17 05:04 Urine Ketones Trace mg/dL (Negative) H 10/06/17 05:04 Urine Bilirubin Small (Negative) H 10/06/17 05:04 - Microbiology Findings Microbiology Findings: Microbiology, Last 48 Hours 10/06/17 13:20 Body Fluid Culture - Preliminary Ascites Fluid - Clinical Findings Intake & Output: Intake & Output 10/06/17 10/06/17 10/06/17 07:59 15:59 23:59 Intake Total 1000 / 1000 1100 / 1100 100 / 100 Output Total 3150 / 3150 100 / 100 Balance 1000 / 1000 -2049 / -2049 0 / 0 - Attending Attestation I examined this patient and my medical decision-making was reviewed with the Resident Physician. I agree with the documented findings, disposition and treatment plan as described except to the extent set forth below. Patient seen and examined. Labs, radiology, chart personally reviewed. 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 His encephalopathy could be also sepsis related. Pulmonary: Acceptable oxygenation and ventilation. patient is protecting his airway and no need for invasive mechanical ventilations especially with his poor prognosis. Cardiovascular: stable GI: Nutrition per dietary and GI prophylaxis per routine. patient with ascites and attempted to drain and suspect mechanical problem with the catheter and IR has placed it to follow-up. Patient will receive albumin. Heme: DVT prophylaxis per routine. because of his underlying malignancy, Will treat patient with Lovenox.patient with extreme poor prognosis. ID: Continue antibiotics and plan to de-escalation. suspect possible infection and peritonitis. His catheter may need to be removed if no response to the treatment Renal; urine out put and renal funtion reviewed Endorcine: blood glucose is monitored Lines: all lines checked and no evidence of infections Skin: skin care to prevent pressure ulcers per nursing routine care I have made with the family.
[2017-10-06] MEDS ORDERED: Naloxone 0.4 MG/ML INJ IVP PRN (09:24)
[2017-10-06] MEDS ORDERED: Pantoprazole 40 MG VIAL IVPB SCH (09:30)
[2017-10-06] MEDS ORDERED: Lactulose Oral Soln 20 GM/30 ML UDC PO SCH (09:30)
--- NOTE | 2017-10-06 11:18 | Palliative - Consult Note ---
<Anshul Shahid - Last Filed: 10/06/17 12:58> Date of Encounter: 10/06/17 Time of Encounter: 09:30 - Assessment and Plan (1) Counseling regarding goals of care Current Visit: No Status: Acute Assessment and plan: Spoke at length with regarding code status. Though patient was full code during last hospitalization, and his reaffirmed this initially, she feels that a change in code status would better suit his desires. Different options discussed and code status was settled on: CODE STATUS changed to DNR-CCA Short Term Intubation OK. Additionally, broached subject of PEG tube. unsure at this time, but we can reassess if it should become necessary. (2) Acute hepatic encephalopathy Current Visit: Yes Status: Acute Assessment and plan: Elevated ammonia. Management by primary team. (3) Pancreatic cancer Current Visit: Yes Status: Chronic Assessment and plan: Metastatic. Patient has exhausted radiotherapy and chemotherapy options. [place] of experimental protocols looks unlikely if patient does not improve functional status. Qualifiers: Pancreatic malignancy location: unspecified Qualified Code(s): C25.9 - Malignant neoplasm of pancreas, unspecified Palliative-CN HPI - Data of Consult Consult date: 10/06/17 Requesting Physician: Gustavo Lockhart Primary Care Provider: Cora Santacruz - Consult Narrative Reason for consult: Advanced pancreatic cancer History of present illness: Mr. Hatch is a 52 year old male with a 1 year history of pancreatic cancer metabolized to multiple sites. He was recently admitted (09/29/17) for dehydration and deteriorating status secondary to vomiting and poor oral intake. He has exhausted chemotherapy and radiotherapy options, though he is seeking inclusion in clinical trials. He was admitted early this morning with altered mentation and unresponsive that had started around 10:30 last night. CC: Gustavo Lockhart Past Med Surg Social Fam HX - Past Medical History Medical history: cancer, diabetes Psychiatric history: no psych history - Past Surgical History Surgical History: orthopedic, other - Social History Smoking Status: Never smoker Smokeless Tobacco Status: No Alcohol use: none Drug use: none - Family History Father Adopted: No Hx Family Cardiac Disorders: Yes ([place], CABG, HTN) Hx Family Endocrine Disorder: Yes (DM) Mother Hx Family Cardiac Disorders: No Medications and Allergies Multivitamin [Multivitamins] 1 each PO DAILY 11/06/16 [History] Baclofen [Lioresal] 10 mg PO DAILY PRN 08/13/17 [History] Gabapentin [Neurontin] 300 mg PO HS PRN 08/13/17 [History] Lipase/Protease/Amylase [Darrin Cartagena 12,000 Units Capsule] 1 each PO TID PRN [History] Melatonin 5 mg PO HS 08/13/17 [History] Pantoprazole Sodium [Protonix] 40 mg PO BID #60 tablet. 08/16/17 [Rx] Hydromorphone HCl [Dilaudid] 1 - 2 tab PO Q4H PRN #90 tablet 09/03/17 [Rx] Apixaban [Eliquis] 1 tab PO BID #60 tablet 09/10/17 [Rx] Granisetron [Sancuso] 1 each TD QWEEK #4 patch.tdwk 09/10/17 [Rx] Potassium Chloride Elixir [Potassium Chloride] 7.5 ml PO DAILY #220 mls [Rx] Morphine Sulfate SR (12 HR) [MS Contin] 1 tab PO Q12HR #60 tab 10/02/17 [Rx] Pantoprazole Sodium 40 mg PO BID #60 tablet. 10/02/17 [Rx] Sennosides/Docusate Sodium [Senna Plus] 2 each PO BID #60 tablet 10/02/17 [Rx] 3 Allergy/AdvReac Type Severity Reaction Status Date / Time ondansetron Allergy Swelling Verified 10/06/17 02:56 [From Zofran (as of hydrochloride)] Lip/Tongue/Throat prochlorperazine Allergy Swelling Verified 10/06/17 02:56 [From Compazine] of Lip/Tongue/Throat Oxycodone AdvReac Rash Verified 10/06/17 02:56 ROS unobtainable: due to mental status Palliative Care-Exam - Constitutional Vitals: Temp Pulse Resp BP Pulse Ox 97.5 F L 102 10 110/81 100 10/06/17 08:27 10/06/17 10:15 10/06/17 10:15 10/06/17 10:15 10/06/17 10:15 Exam: cachectic - Head Head Exam: Present: atraumatic, normocephalic - ENT ENT exam: Present: mucous membranes dry - Respiratory Respiratory exam: Present: CTAB - Cardiovascular Cardiovascular exam: Present: RRR, +S1, +S2 - GI/Abdominal Exam GI/Abdominal exam: Present: diminished bowel sounds, soft additional comments: drain in place - Neurological Exam Neurological exam: Present: altered Additional comments: Reacts to noxious stimuli but not commands - Skin Skin exam: Present: dry, warm Internal Medicine - CN: Reslt - Labs CBC & Chem 7: 10/06/17 03:06 10/06/17 03:06 - ABG Interpretation ABG results: PT/INR, D-dimer PT 17.7 Seconds (9.4-12.1) H 10/06/17 03:06 - Impressions Impressions KUB X-Ray 10/06/17 09:48 IMPRESSION: Nasogastric tube side port projects over the mid gastric body. Distal tip projects over the gastric antrum. D/ / 10/06/2017 10:49:11 Flash Zamora MD / jessica Interpreting Provider: Flash Zamora MD Consult Discharge Plan - Plan Referrals: Garett Ervin DO [Primary Care Provider] - Palliative Quality Palliative Quality: Screen for Code Status: Yes, Screen for Goals of Care: Yes, Screen for Pain: Yes, If Pain Regimen Started, Initiate Bowel Regimen: NA, Screen for Nausea/Vomitting: Yes Code Status: 10/06/17 09:24 Resuscitation Status: Active [RES] Routine Comment: Resuscitation Status: Full Code <Aime Carrillo L - Last Filed: 10/06/17 14:03> Date of Encounter: 10/06/17 Palliative-CN HPI - Data of Consult Requesting Physician: Gustavo Lockhart Primary Care Provider: Cora Santacruz - Consult Narrative History of present illness: Mr. Hatch is a 52 year old male CC: Gustavo Lockhart Palliative Care-Exam - Constitutional Vitals: Temp Pulse Resp BP Pulse Ox 97.6 F 113 12 104/77 99 10/06/17 12:13 10/06/17 13:12 10/06/17 13:12 10/06/17 13:12 10/06/17 13:12 Internal Medicine - CN: Reslt - Labs CBC & Chem 7: 10/06/17 03:06 10/06/17 03:06 - ABG Interpretation ABG results: PT/INR, D-dimer PT 17.7 Seconds (9.4-12.1) H 10/06/17 03:06 - Impressions Impressions KUB X-Ray 10/06/17 09:48 IMPRESSION: Nasogastric tube side port projects over the mid gastric body. Distal tip projects over the gastric antrum. D/ / 10/06/2017 10:49:11 Flash Zamora MD / jessica Interpreting Provider: Flash Zamora MD - Attending Attestation I examined this patient and my medical decision-making was reviewed with the Resident Physician. I agree with the documented findings, disposition and treatment plan as described except to the extent set forth below. Palliative Quality Code Status: 10/06/17 09:24 Resuscitation Status: Active [RES] Routine Comment: Resuscitation Status: Full Code Resuscitation Status: Active [RES] Routine Comment: SHORT TERM INTUBATION OK NO TRACH Resuscitation Status: DNR-Comfort Care-Arrest
[2017-10-06] MEDS: Albumin 25% 25gram/100mL 25 GM/100 ML IV.SOLN IVPB SCH ×2 (13:13→16:45)
[2017-10-06] MEDS ORDERED: *HR* Dextrose 50 % in Water (Syg) 50 ML SYRINGE IVP PRN (14:02)
[2017-10-06] MEDS ORDERED: D5% in Water 1,000 ML IVC PRN (14:02)
[2017-10-06] MEDS ORDERED: Dextrose Gel 15 GM PO PRN ×2 (14:02)
--- NOTE | 2017-10-06 14:30 | Internal Med History&Physical ---
Date of Encounter: 10/06/17 Time of Encounter: 09:00 Assessment and Plan (1) Acute hepatic encephalopathy Current visit: Yes Status: Acute -Patients ammonia levels was also found to be elevated at 162. -G-tube placed per coal deliverer recommendations to administer lactulose -Will continue to monitor (2) Ascites Current visit: Yes Status: Acute -Recommendations from coal deliverer for paracentesis Qualifiers: Ascites type: malignant Qualified Code(s): R18.0 - Malignant ascites (3) Hyponatremia Current visit: Yes Status: Acute -Patient with hypornatremia; recommendations for fluid restriction -Continue to monitor (4) Pancreatic cancer Current visit: Yes Status: Chronic -Hematology oncologist following as well as palliative care and appreciate recommendations Qualifiers: Pancreatic malignancy location: unspecified Qualified Code(s): C25.9 - Malignant neoplasm of pancreas, unspecified (5) Severe protein-calorie malnutrition Current visit: Yes Status: Acute -Secondary to the above. 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 Patient unable to give history but is present at the bedside and reports that patient has gradually been declining over the last 3 or 4 weeks now with a cute onset of altered mental status. Patient is managed by hematology oncology waiting to enter into a new trial for therapy. In the ER, she was found to be neutropenic with hypernatremia and dehydration. Patients ammonia levels was also found to be elevated at 162. Patient will be admitted to the ICU for further medical management. Past Med Surg Social Fam HX - Past Medical History Medical history: cancer, diabetes Psychiatric history: no psych history - Past Surgical History Surgical History: orthopedic, other - Social History Smoking Status: Never smoker Smokeless Tobacco Status: No Alcohol use: none Drug use: none - Family History Father Adopted: No Hx Family Cardiac Disorders: Yes ([place], CABG, HTN) Hx Family Endocrine Disorder: Yes (DM) Mother Hx Family Cardiac Disorders: No Internal Medicine - H&P: Meds Multivitamin [Multivitamins] 1 each PO DAILY 11/06/16 [History] Baclofen [Lioresal] 10 mg PO DAILY PRN 08/13/17 [History] Gabapentin [Neurontin] 300 mg PO HS PRN 08/13/17 [History] Lipase/Protease/Amylase [Darrin Cartagena 12,000 Units Capsule] 1 each PO TID PRN [History] Melatonin 5 mg PO HS 08/13/17 [History] Pantoprazole Sodium [Protonix] 40 mg PO BID #60 tablet. 08/16/17 [Rx] Hydromorphone HCl [Dilaudid] 1 - 2 tab PO Q4H PRN #90 tablet 09/03/17 [Rx] Apixaban [Eliquis] 1 tab PO BID #60 tablet 09/10/17 [Rx] Granisetron [Sancuso] 1 each TD QWEEK #4 patch.tdwk 09/10/17 [Rx] Potassium Chloride Elixir [Potassium Chloride] 7.5 ml PO DAILY #220 mls [Rx] Morphine Sulfate SR (12 HR) [MS Contin] 1 tab PO Q12HR #60 tab 10/02/17 [Rx] Pantoprazole Sodium 40 mg PO BID #60 tablet. 10/02/17 [Rx] Sennosides/Docusate Sodium [Senna Plus] 2 each PO BID #60 tablet 10/02/17 [Rx] 3 Allergy/AdvReac Type Severity Reaction Status Date / Time ondansetron Allergy Swelling Verified 10/06/17 02:56 [From Zofran (as of hydrochloride)] Lip/Tongue/Throat prochlorperazine Allergy Swelling Verified 10/06/17 02:56 [From Compazine] of Lip/Tongue/Throat Oxycodone AdvReac Rash Verified 10/06/17 02:56 ROS unobtainable: due to mental status All Systems PM: A 10-system review of systems was performed and is negative for pertinent findings except as documented above in the HPI. - Constitutional Vitals: Temp Pulse Resp BP Pulse Ox 97.6 F 112 12 97/65 99 10/06/17 12:13 10/06/17 14:19 10/06/17 14:19 10/06/17 14:19 10/06/17 14:19 General appearance: Present: A&O X 0, mild distress, underweight - Respiratory Respiratory exam: Present: CTAB. Absent: accessory muscle use, rales, rhonchi, wheezes - Cardiovascular Cardiovascular exam: Present: RRR, +S1, +S2. Absent: diastolic murmur, gallop, rubs, systolic murmur - GI/Abdominal GI/Abdominal exam: Present: normal bowel sounds, soft, no peritoneal signs. Absent: distended, tenderness - Extremities Exam Extremities exam: Absent: pedal edema - Skin Skin exam: Present: normal color Internal Med - H&P Results - Labs CBC & Chem 7: 10/06/17 03:06 10/06/17 03:06 - Impressions ITS Impressions KUB X-Ray 10/06/17 09:48 IMPRESSION: Nasogastric tube side port projects over the mid gastric body. Distal tip projects over the gastric antrum. D/ / 10/06/2017 10:49:11 Flash Zamora MD / jessica Interpreting Provider: Flash Zamora MD
[2017-10-06] MEDS: Cefotaxime 2,000 MG in D5% in Water 100 ML IVPB SCH ×2 (14:37→22:04)
[2017-10-06] MEDS ORDERED: Lactulose Oral Soln 20 GM/30 ML UDC PO ONE (14:50)
[2017-10-06 14:52] LABS: Alanine Aminotransferase 45 Units/L (0-55); Albumin 3.3 g/dL (3.5-5.0); Albumin/Globulin Ratio 1.1 (1.1-2.2); Alkaline Phosphatase 198 Units/L (38-126); Aspartate Amino Transferase 30 Units/L (5-34); BUN/Creatinine Ratio 42 (6-26); Bilirubin,Total 1.8 mg/dL (0.2-1.2); Blood Urea Nitrogen 39 mg/dL (8-26); Calcium 8.8 mg/dL (8.6-10.8); Carbon Dioxide 18 mEq/L (19-29); Chloride 101 mEq/L (98-109); Globulin 3.1 g/dL (2.4-3.5); Glucose 122 mg/dL (70-99); Osmolality,Calculated 281 (280-300); Potassium 4.5 mEq/L (3.5-4.5); Sodium 130 mEq/L (136-145); Total Protein 6.4 g/dL (6.0-8.3); eGFR For African Americans > 60 (> 60); eGFR For Non-African Americans > 60 (> 60)
[2017-10-06 15:18] LABS: RBC,Pleural Fluid < 0.002 M/mcL
[2017-10-06 15:20] LABS: Appearance of Pleural Fl Clear (Clear)
--- NOTE | 2017-10-06 15:52 | Electrocardiograph Report ---
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
[2017-10-06] MEDS: *HR* Morphine Immed Rel 30 MG TABLET PO PRN (18:00)
[2017-10-06] MEDS: Lactulose Oral Soln 20 GM/30 ML UDC PO SCH ×3 (18:06→22:06)
[2017-10-06] MEDS: Insulin LISPRO 300 UNITS/3 ML VIAL SQ SCH (18:10)
[2017-10-07] MEDS: Albumin 25% 25gram/100mL 25 GM/100 ML IV.SOLN IVPB SCH (00:09)
[2017-10-07] MEDS: Lactulose Oral Soln 20 GM/30 ML UDC PO SCH ×7 (00:09→12:10)
[2017-10-07] MEDS: *HR* Morphine Immed Rel 30 MG TABLET PO PRN ×2 (00:23→09:30)
[2017-10-07] MEDS: Insulin LISPRO 300 UNITS/3 ML VIAL SQ SCH ×4 (00:23→17:25)
[2017-10-07 05:13] LABS: Eosinophils % 0.4 %; Hematocrit 27.7 % (37.5-50.1); Immature Granulocytes % 0.4 % (0-4); Lymphocytes # 0.1 K/mcL (0.6-4.6); Lymphocytes % 4.4 %; Mean Corpuscular HGB Conc 33.6 g/dL (31.6-35.5); Mean Corpuscular Hemoglobin 27.4 pg (28.0-33.3); Mean Corpuscular Volume 81.7 fL (83.0-100.0); Mean Platelet Volume 9.7 fL (9.4-12.4); Monocytes # 0.3 K/mcL (0.0-1.3); Neutrophils # 1.9 K/mcL (1.6-8.9); Platelet Count 150 K/mcL (140-400); Red Blood Count 3.39 M/mcL (4.19-5.50); Red Cell Distribution Width 15.2 % (11.5-14.5); Segmented Neutrophils % 83.8 %
[2017-10-07 05:23] LABS: Hemoglobin 9.3 g/dL (12.9-16.9)
[2017-10-07] MEDS: Cefotaxime 2,000 MG in D5% in Water 100 ML IVPB SCH ×3 (05:27→22:45)
[2017-10-07 05:44] LABS: Alanine Aminotransferase 33 Units/L (0-55); Albumin/Globulin Ratio 1.6 (1.1-2.2); Alkaline Phosphatase 156 Units/L (38-126); Aspartate Amino Transferase 22 Units/L (5-34); BUN/Creatinine Ratio 46 (6-26); Bilirubin,Total 2.4 mg/dL (0.2-1.2); Blood Urea Nitrogen 39 mg/dL (8-26); Calcium 9.5 mg/dL (8.6-10.8); Carbon Dioxide 17 mEq/L (19-29); Chloride 105 mEq/L (98-109); Globulin 2.4 g/dL (2.4-3.5); Glucose 105 mg/dL (70-99); Osmolality,Calculated 286 (280-300); Sodium 133 mEq/L (136-145); Total Protein 6.3 g/dL (6.0-8.3); eGFR For African Americans > 60 (> 60); eGFR For Non-African Americans > 60 (> 60)
[2017-10-07 05:45] LABS: Albumin 3.9 g/dL (3.5-5.0); Potassium 3.3 mEq/L (3.5-4.5)
[2017-10-07 06:00] LABS: Platelet Estimate Normal (Normal); Tear Drop Cells 1+ (Not Present)
[2017-10-07] MEDS ORDERED: *HR* Enoxaparin 40 MG/0.4 ML SYRINGE SQ SCH (06:00)
--- NOTE | 2017-10-07 07:01 | Pulmonology Progress Note ---
<JustinmelissaLi clarke M - Last Filed: 10/07/17 12:35> Date of Encounter: 10/07/17 Objective PUL Vital signs: Last Vital Signs Temp 97.0 F L 10/07/17 08:17 Pulse 116 10/07/17 10:30 Resp 18 10/07/17 10:30 BP 90/67 10/07/17 10:30 Pulse Ox 100 10/07/17 10:30 Results - Laboratory Findings CBC and BMP: 10/07/17 04:40 10/07/17 04:40 PT/INR, D-dimer PT 17.7 Seconds (9.4-12.1) H 10/06/17 03:06 Abnormal lab findings: Abnormal lab results WBC 2.3 K/mcL (4.3-11.1) L 10/07/17 04:40 RBC 3.39 M/mcL (4.19-5.50) L 10/07/17 04:40 Hgb 9.3 g/dL (12.9-16.9) L D 10/07/17 04:40 Hct 27.7 % (37.5-50.1) L 10/07/17 04:40 MCV 81.7 fL (83.0-100.0) L 10/07/17 04:40 MCH 27.4 pg (28.0-33.3) L 10/07/17 04:40 RDW 15.2 % (11.5-14.5) H 10/07/17 04:40 Lymphocytes # 0.1 K/mcL (0.6-4.6) L 10/07/17 04:40 Tear Drop Cells 1+ (Not Present) A 10/07/17 04:40 PT 17.7 Seconds (9.4-12.1) H 10/06/17 03:06 APTT 39.8 Seconds (26.0-36.0) H 10/06/17 03:06 Sodium 133 mEq/L (136-145) L 10/07/17 04:40 Potassium 3.3 mEq/L (3.5-4.5) L D 10/07/17 04:40 Carbon Dioxide 17 mEq/L (19-29) L 10/07/17 04:40 BUN 39 mg/dL (8-26) H 10/07/17 04:40 BUN/Creatinine Ratio 46 (6-26) H 10/07/17 04:40 Glucose 105 mg/dL (70-99) H 10/07/17 04:40 POC Glucose 119 (58-89) H 10/07/17 00:12 Total Bilirubin 2.4 mg/dL (0.2-1.2) H 10/07/17 04:40 Alkaline Phosphatase 156 Units/L (38-126) H 10/07/17 04:40 Ur Specific [place] > 1.030 (1.010-1.025) H 10/06/17 05:04 Urine Ketones Trace mg/dL (Negative) H 10/06/17 05:04 Urine Bilirubin Small (Negative) H 10/06/17 05:04 - Microbiology Findings Microbiology Findings: Microbiology, Last 48 Hours 10/06/17 13:20 Body Fluid Culture - Preliminary Ascites Fluid - Clinical Findings Intake & Output: Intake & Output 10/06/17 10/07/17 10/07/17 23:59 07:59 15:59 Intake Total 300 / 300 440 / 440 Output Total 450 / 450 825 / 825 150 / 150 Balance -150 / -150 -385 / -385 -150 / -150 Weight 51.8 kg Consult Discharge Plan - Plan Referrals: Garett Ervin DO [Primary Care Provider] - - Attending Attestation I examined this patient and my medical decision-making was reviewed with the Resident Physician. I agree with the documented findings, disposition and treatment plan as described except to the extent set forth below. Patient seen and examined. Labs, radiology, chart personally reviewed. 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 GI bleed can appreciate GI input. Patient is on PPI. Discussed with the at the bedside regarding PEG tube placement due to severe protein calorie malnutrition and talking about it. Heme: DVT prophylaxis per routine. Mechanical prophylaxis ID: Continue antibiotics and plan to de-escalation. Follow up with IR and catheter may need to be removed because of the sepsis and could be source of infection. Renal; urine out put and renal funtion reviewed Endorcine: blood glucose is monitored Lines: all lines checked and no evidence of infections Skin: skin care to prevent pressure ulcers per nursing routine care Palliative care is following as well and patient can be transferred to the floor. <Patric Gray - Last Filed: 10/07/17 13:28> Date of Encounter: 10/07/17 Time of Encounter: 07:01 Assessment and Plan (1) Pancreatic cancer Current Visit: Yes Status: Chronic Multiple organ metastasis since diagnosis October 2016. Patient has exhausted radiotherapy and chemotherapy options. CT abd/plv reveals ill defined soft tissue extending posteriorly from the pancreatic neck surrounding the celiac and superior mesenteric arteries presumably represents the patient's known pancreatic cancer. Oncology consulted during recent hospitalization last week and determined patient would need to clinically improve in order to attempt clinical trials Continue Morphine/ Dilaudid and may need eventual CATERING [place]IST[place] pump Palliative care following Code status DNR-CCA, but short term intubation ok per family. Anticipate transfer out of ICU Qualifiers: Pancreatic malignancy location: unspecified Qualified Code(s): C25.9 - Malignant neoplasm of pancreas, unspecified (2) SBP (spontaneous bacterial peritonitis) Current Visit: Yes Status: Acute LA 2.3 ---> 2.1 CT abd/plv reveals large volume of ascites despite the presence of a peritoneal drain. PleurX catheter placed by IR on 09/09/17 with 2800cc drainage SAAG is 2.5 g/dL indicating portal hypertension is likely the cause of ascites, consistent with cancer. Peritoneal fluid culture is positive for gram positive cocci and rods Cefotaxime (Day 2) PleurX catheter removed today as it is a likely fomite (3) Anemia Current Visit: Yes Status: Chronic Likely acute blood loss anemia from gastric ulcer, patient has history of chemo induced gastric ulcers HGB 11.4 --> 9.3 Stopped Lactulose Started Protinix drip GI consulted, recommended removing NG tube Qualifiers: Anemia type: unspecified type Qualified Code(s): D64.9 - Anemia, unspecified (4) Acute hepatic encephalopathy Current Visit: Yes Status: Acute Patient was A&Ox3 up until 10/05/17 per family Elevated ammonia level 162 --> 122, likely secondary to hepatic dysfunction from cancer Patient given lactulose rectally in ED but it was all excreted secondary to poor rectal tone NG tube removed due to GI bleed Continue Lactulose BID (5) Ascites Current Visit: Yes Status: Acute CT abd/plv reveals large volume of ascites despite the presence of a peritoneal drain. PleurX catheter placed by IR on 09/09/17 with 2800cc drainage Albumin x3 given PleurX catheter removed today by IR, may need CT guided drainage if ascites re- accumulates Qualifiers: Ascites type: malignant Qualified Code(s): R18.0 - Malignant ascites (6) Cancer-related pain Current Visit: Yes Status: Chronic Cautious over-medication due to AMS Palliative care following Oncology consulted during recent hospitalization last week and recommended continued Morphine/ Dilaudid and may need eventual CATER[place] pump (7) Mesenteric venous thrombosis Current Visit: Yes Status: Chronic Portal vein thrombosis associated with cancer CT abd.plv reveals persistent portal vein thrombosis and biliary ductal dilation. 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, and significant weight loss in the as few months NG tube for medication administration No dietary supplementation for now until mentation improves GI consulted, discussed with at the bedside regarding PEG tube placement (11) DM type 2 (diabetes mellitus, type 2) Current Visit: No Status: Chronic Continue to monitor Qualifiers: Diabetes mellitus complication status: with other specified complication Diabetes mellitus penitentiary insulin use: without ad terminal makeup operator use Qualified Code( s): E11.69 - Type 2 diabetes mellitus with other specified complication (12) DVT prophylaxis Current Visit: Yes Status: Acute Hold Lovenox subQ due to GI bleed SCDs Subjective Principal diagnosis: Pancreatic cancer Interval history: Patient seen and examined resting comfortably in bed. Patient remains non- verbal today and family is at bedside during time of exam. Peritoneal fluid analysis is positive for gram positive cocci and rods and patient was started on Cefotaxime yesterday. Nursing reports coffee ground emesis then BRB from NG tube last PM. Lactulose was stopped after patient had multiple bowel movements. Objective PUL Vital signs: Last Vital Signs Temp 97.7 F 10/07/17 03:30 Pulse 103 10/07/17 06:08 Resp 16 10/07/17 06:08 BP 101/71 10/07/17 06:08 Pulse Ox 100 10/07/17 06:08 General appearance: no acute distress, asleep Eyes: icteric (mild) ENT: oropharynx dry (NG tube in place with dark colored output) Neck: supple, JVD Effort: normal Auscultation: bilateral: clear Percussion: bilateral: not dull Cardiovascular: other (sinus tachycardia) Gastrointestinal: other (distended, left sided PleurX cath in place with no surrounding erythema) Integumentary: other (mild jaundice, warm, dry, loss of subQ fat) Extremities: no edema Musculoskeletal: other (severe loss of subcuticular fat, muscle wasting) pupils equal and round, unable to assess due to mental status Results - Laboratory Findings CBC and BMP: 10/07/17 04:40 10/07/17 04:40 PT/INR, D-dimer PT 17.7 Seconds (9.4-12.1) H 10/06/17 03:06 Abnormal lab findings: Abnormal lab results WBC 2.3 K/mcL (4.3-11.1) L 10/07/17 04:40 RBC 3.39 M/mcL (4.19-5.50) L 10/07/17 04:40 Hgb 9.3 g/dL (12.9-16.9) L D 10/07/17 04:40 Hct 27.7 % (37.5-50.1) L 10/07/17 04:40 MCV 81.7 fL (83.0-100.0) L 10/07/17 04:40 MCH 27.4 pg (28.0-33.3) L 10/07/17 04:40 RDW 15.2 % (11.5-14.5) H 10/07/17 04:40 Lymphocytes # 0.1 K/mcL (0.6-4.6) L 10/07/17 04:40 Tear Drop Cells 1+ (Not Present) A 10/07/17 04:40 PT 17.7 Seconds (9.4-12.1) H 10/06/17 03:06 APTT 39.8 Seconds (26.0-36.0) H 10/06/17 03:06 Sodium 133 mEq/L (136-145) L 10/07/17 04:40 Potassium 3.3 mEq/L (3.5-4.5) L D 10/07/17 04:40 Carbon Dioxide 17 mEq/L (19-29) L 10/07/17 04:40 BUN 39 mg/dL (8-26) H 10/07/17 04:40 BUN/Creatinine Ratio 46 (6-26) H 10/07/17 04:40 Glucose 105 mg/dL (70-99) H 10/07/17 04:40 POC Glucose 119 (58-89) H 10/07/17 00:12 Total Bilirubin 2.4 mg/dL (0.2-1.2) H 10/07/17 04:40 Alkaline Phosphatase 156 Units/L (38-126) H 10/07/17 04:40 Ur Specific [place] > 1.030 (1.010-1.025) H 10/06/17 05:04 Urine Ketones Trace mg/dL (Negative) H 10/06/17 05:04 Urine Bilirubin Small (Negative) H 10/06/17 05:04 - Microbiology Findings Microbiology Findings: Microbiology, Last 48 Hours 10/06/17 13:20 Body Fluid Culture - Preliminary Ascites Fluid - Diagnostic Findings Additional studies: Microbiology 10/06/17 03:06 Peripheral Venipuncture Blood Culture - Preliminary No growth. 10/06/17 13:20 Ascites Fluid Body Fluid Culture - Preliminary - Clinical Findings Intake & Output: Intake & Output 10/06/17 10/06/17 10/07/17 15:59 23:59 07:59 Intake Total 1100 / 1100 300 / 300 440 / 440 Output Total 3150 / 3150 450 / 450 825 / 825 Balance -2049 / -2049 -150 / -150 -385 / -385 Weight 51.8 kg
[2017-10-07] MEDS ORDERED: Pantoprazole 80 MG in 0.9 % Sodium Chloride 250 ML IVC SCH (08:15)
[2017-10-07] MEDS ORDERED: Potassium Chloride Elixir 20 MEQ/15 ML UDC PO SCH (09:00)
--- NOTE | 2017-10-07 11:21 | Palliative Progress Note ---
<Anshul Shahid - Last Filed: 10/07/17 11:18> Date of Encounter: 10/07/17 Time of Encounter: 09:15 - Assessment and plan (1) Counseling regarding goals of care Current Visit: Yes Status: Acute Assessment and plan: Code status remains DNR-CCA Short Term Intubation OK Patient's still unsure of PEG Tube, waiting to speak with GI first (2) Acute hepatic encephalopathy Current Visit: Yes Status: Acute Assessment and plan: Improving. Management by primary team. (3) Pancreatic cancer Current Visit: Yes Status: Chronic Assessment and plan: Metastatic. Patient has exhausted radiotherapy and chemotherapy options. [place] of experimental protocols looks unlikely, if his functional status does not improve. Qualifiers: Pancreatic malignancy location: unspecified Qualified Code(s): C25.9 - Malignant neoplasm of pancreas, unspecified - Time Spent With Patient Total time spent is greater than 50% in coordination of care (as documented) at patient's floor/unit and/or counseling patient: - Subjective Interval history: Patient has some improvement in mental status, able to say a few words. - Constitutional Vitals: Abnormal lab results WBC 2.3 K/mcL (4.3-11.1) L 10/07/17 04:40 RBC 3.39 M/mcL (4.19-5.50) L 10/07/17 04:40 Hgb 9.3 g/dL (12.9-16.9) L D 10/07/17 04:40 Hct 27.7 % (37.5-50.1) L 10/07/17 04:40 MCV 81.7 fL (83.0-100.0) L 10/07/17 04:40 MCH 27.4 pg (28.0-33.3) L 10/07/17 04:40 RDW 15.2 % (11.5-14.5) H 10/07/17 04:40 Lymphocytes # 0.1 K/mcL (0.6-4.6) L 10/07/17 04:40 Tear Drop Cells 1+ (Not Present) A 10/07/17 04:40 PT 17.7 Seconds (9.4-12.1) H 10/06/17 03:06 APTT 39.8 Seconds (26.0-36.0) H 10/06/17 03:06 Sodium 133 mEq/L (136-145) L 10/07/17 04:40 Potassium 3.3 mEq/L (3.5-4.5) L D 10/07/17 04:40 Carbon Dioxide 17 mEq/L (19-29) L 10/07/17 04:40 BUN 39 mg/dL (8-26) H 10/07/17 04:40 BUN/Creatinine Ratio 46 (6-26) H 10/07/17 04:40 Glucose 105 mg/dL (70-99) H 10/07/17 04:40 POC Glucose 119 (58-89) H 10/07/17 00:12 Total Bilirubin 2.4 mg/dL (0.2-1.2) H 10/07/17 04:40 Alkaline Phosphatase 156 Units/L (38-126) H 10/07/17 04:40 Ur Specific [place] > 1.030 (1.010-1.025) H 10/06/17 05:04 Urine Ketones Trace mg/dL (Negative) H 10/06/17 05:04 Urine Bilirubin Small (Negative) H 10/06/17 05:04 Exam: cachectic - Head Head exam: Present: atraumatic, normocephalic - ENT ENT exam: Present: mucous membranes moist - Respiratory Respiratory exam: Present: CTAB - Cardiovascular Cardiovascular exam: Present: +S1, +S2, tachycardia - GI/Abdominal GI/Abdominal exam: Present: diminished bowel sounds, soft - Neurological Exam Neurological exam: Present: altered - Skin Skin exam: Present: dry, warm Palliative Quality Palliative Quality: Screen for Code Status: Yes, Screen for Goals of Care: Yes, Screen for Pain: Yes, If Pain Regimen Started, Initiate Bowel Regimen: NA, Screen for Nausea/Vomitting: Yes Code Status: 10/06/17 09:24 Resuscitation Status: Active [RES] Routine Comment: Resuscitation Status: Full Code Resuscitation Status: Active [RES] Routine Comment: SHORT TERM INTUBATION OK NO TRACH Resuscitation Status: DNR-Comfort Care-Arrest - Labs CBC & Chem 7: 10/07/17 04:40 10/07/17 04:40 Labs: Laboratory Results - last 24 hr 10/06/17 10/06/17 10/06/17 07:57 13:20 13:20 WBC RBC Hgb Hct MCV MCH MCHC RDW Plt Count MPV Immature Gran % Seg Neutrophils % Lymphocytes % Monocytes % Eosinophils % Basophils % Neutrophils # Lymphocytes # Monocytes # Eosinophils # Basophils # Platelet Estimate Tear Drop Cells Sodium Potassium Chloride Carbon Dioxide BUN Creatinine Est GFR ( Amer) Est GFR (Non-Af Amer) BUN/Creatinine Ratio Glucose POC Glucose 108 H Calculated Osmolality Lactic Acid Calcium Total Bilirubin AST ALT Alkaline Phosphatase Ammonia Serum Total Protein Albumin Globulin Albumin/Globulin Ratio Pleural Fluid Volume 155.0 Pleural Appearance Clear Pleural RBC < 0.002 Pleural Tot Nuc Cell 88 Pleural Neutrophils 8.0 Pleural Band Neuts Test Not Performed Pleural Eosinophils Test Not Performed Pleural Basophils Test Not Performed Pleural Lymphocytes % 72.0 Pleural Monocytes % 8.0 Pleural Other Cells % 12.0 Pleural Albumin 0.4 10/06/17 10/06/17 10/06/17 14:30 14:30 14:30 WBC RBC Hgb Hct MCV MCH MCHC RDW Plt Count MPV Immature Gran % Seg Neutrophils % Lymphocytes % Monocytes % Eosinophils % Basophils % Neutrophils # Lymphocytes # Monocytes # Eosinophils # Basophils # Platelet Estimate Tear Drop Cells Sodium 130 L Potassium 4.5 Chloride 101 Carbon Dioxide 18 L BUN 39 H Creatinine 0.93 Est GFR ( Amer) > 60 Est GFR (Non-Af Amer) > 60 BUN/Creatinine Ratio 42 H Glucose 122 H POC Glucose Calculated Osmolality 281 Lactic Acid 2.1 Calcium 8.8 Total Bilirubin 1.8 H AST 30 ALT 45 Alkaline Phosphatase 198 H Ammonia 122 H Serum Total Protein 6.4 Albumin 3.3 L Globulin 3.1 Albumin/Globulin Ratio 1.1 Pleural Fluid Volume Pleural Appearance Pleural RBC Pleural Tot Nuc Cell Pleural Neutrophils Pleural Band Neuts Pleural Eosinophils Pleural Basophils Pleural Lymphocytes % Pleural Monocytes % Pleural Other Cells % Pleural Albumin 10/06/17 10/07/17 10/07/17 18:08 00:12 04:40 WBC 2.3 L RBC 3.39 L Hgb 9.3 L D Hct 27.7 L MCV 81.7 L MCH 27.4 L MCHC 33.6 RDW 15.2 H Plt Count 150 MPV 9.7 Immature Gran % 0.4 Seg Neutrophils % 83.8 Lymphocytes % 4.4 Monocytes % 11.0 Eosinophils % 0.4 Basophils % 0.0 Neutrophils # 1.9 Lymphocytes # 0.1 L Monocytes # 0.3 Eosinophils # 0.0 Basophils # 0.0 Platelet Estimate Normal Tear Drop Cells 1+ A Sodium Potassium Chloride Carbon Dioxide BUN Creatinine Est GFR ( Amer) Est GFR (Non-Af Amer) BUN/Creatinine Ratio Glucose POC Glucose 115 H 119 H Calculated Osmolality Lactic Acid Calcium Total Bilirubin AST ALT Alkaline Phosphatase Ammonia Serum Total Protein Albumin Globulin Albumin/Globulin Ratio Pleural Fluid Volume Pleural Appearance Pleural RBC Pleural Tot Nuc Cell Pleural Neutrophils Pleural Band Neuts Pleural Eosinophils Pleural Basophils Pleural Lymphocytes % Pleural Monocytes % Pleural Other Cells % Pleural Albumin 10/07/17 10/07/17 04:40 05:30 WBC RBC Hgb Hct MCV MCH MCHC RDW Plt Count MPV Immature Gran % Seg Neutrophils % Lymphocytes % Monocytes % Eosinophils % Basophils % Neutrophils # Lymphocytes # Monocytes # Eosinophils # Basophils # Platelet Estimate Tear Drop Cells Sodium 133 L Potassium 3.3 L D Chloride 105 Carbon Dioxide 17 L BUN 39 H Creatinine 0.85 Est GFR ( Amer) > 60 Est GFR (Non-Af Amer) > 60 BUN/Creatinine Ratio 46 H Glucose 105 H POC Glucose Calculated Osmolality 286 Lactic Acid Calcium 9.5 Total Bilirubin 2.4 H AST 22 ALT 33 Alkaline Phosphatase 156 H Ammonia 71 Serum Total Protein 6.3 Albumin 3.9 Globulin 2.4 Albumin/Globulin Ratio 1.6 Pleural Fluid Volume Pleural Appearance Pleural RBC Pleural Tot Nuc Cell Pleural Neutrophils Pleural Band Neuts Pleural Eosinophils Pleural Basophils Pleural Lymphocytes % Pleural Monocytes % Pleural Other Cells % Pleural Albumin - Impressions Impressions [facility] X-Ray 10/06/17 09:48 IMPRESSION: Nasogastric tube side port projects over the mid gastric body. Distal tip projects over the gastric antrum. D/ / 10/06/2017 10:49:11 Flash Zamora MD / jessica Interpreting Provider: Flash Zamora MD - ABG Interpretation ABG results: PT/INR, D-dimer PT 17.7 Seconds (9.4-12.1) H 10/06/17 03:06 Consult Discharge Plan - Plan Referrals: Garett Ervin DO [Primary Care Provider] - <Aime Carrillo - Last Filed: 10/07/17 11:31> Date of Encounter: 10/07/17 - Time Spent With Patient Total time spent is greater than 50% in coordination of care (as documented) at patient's floor/unit and/or counseling patient: - Constitutional Vitals: Abnormal lab results WBC 2.3 K/mcL (4.3-11.1) L 10/07/17 04:40 RBC 3.39 M/mcL (4.19-5.50) L 10/07/17 04:40 Hgb 9.3 g/dL (12.9-16.9) L D 10/07/17 04:40 Hct 27.7 % (37.5-50.1) L 10/07/17 04:40 MCV 81.7 fL (83.0-100.0) L 10/07/17 04:40 MCH 27.4 pg (28.0-33.3) L 10/07/17 04:40 RDW 15.2 % (11.5-14.5) H 10/07/17 04:40 Lymphocytes # 0.1 K/mcL (0.6-4.6) L 10/07/17 04:40 Tear Drop Cells 1+ (Not Present) A 10/07/17 04:40 PT 17.7 Seconds (9.4-12.1) H 10/06/17 03:06 APTT 39.8 Seconds (26.0-36.0) H 10/06/17 03:06 Sodium 133 mEq/L (136-145) L 10/07/17 04:40 Potassium 3.3 mEq/L (3.5-4.5) L D 10/07/17 04:40 Carbon Dioxide 17 mEq/L (19-29) L 10/07/17 04:40 BUN 39 mg/dL (8-26) H 10/07/17 04:40 BUN/Creatinine Ratio 46 (6-26) H 10/07/17 04:40 Glucose 105 mg/dL (70-99) H 10/07/17 04:40 POC Glucose 119 (58-89) H 10/07/17 00:12 Total Bilirubin 2.4 mg/dL (0.2-1.2) H 10/07/17 04:40 Alkaline Phosphatase 156 Units/L (38-126) H 10/07/17 04:40 Ur Specific [place] > 1.030 (1.010-1.025) H 10/06/17 05:04 Urine Ketones Trace mg/dL (Negative) H 10/06/17 05:04 Urine Bilirubin Small (Negative) H 10/06/17 05:04 - Attending Attestation I examined this patient and my medical decision-making was reviewed with the Resident Physician. I agree with the documented findings, disposition and treatment plan as described except to the extent set forth below. Palliative Quality Code Status: 10/06/17 09:24 Resuscitation Status: Active [RES] Routine Comment: Resuscitation Status: Full Code Resuscitation Status: Active [RES] Routine Comment: SHORT TERM INTUBATION OK NO TRACH Resuscitation Status: DNR-Comfort Care-Arrest - Labs CBC & Chem 7: 10/07/17 04:40 10/07/17 04:40 Labs: Laboratory Results - last 24 hr 10/06/17 10/06/17 10/06/17 07:57 13:20 13:20 WBC RBC Hgb Hct MCV MCH MCHC RDW Plt Count MPV Immature Gran % Seg Neutrophils % Lymphocytes % Monocytes % Eosinophils % Basophils % Neutrophils # Lymphocytes # Monocytes # Eosinophils # Basophils # Platelet Estimate Tear Drop Cells Sodium Potassium Chloride Carbon Dioxide BUN Creatinine Est GFR ( Amer) Est GFR (Non-Af Amer) BUN/Creatinine Ratio Glucose POC Glucose 108 H Calculated Osmolality Lactic Acid Calcium Total Bilirubin AST ALT Alkaline Phosphatase Ammonia Serum Total Protein Albumin Globulin Albumin/Globulin Ratio Pleural Fluid Volume 155.0 Pleural Appearance Clear Pleural RBC < 0.002 Pleural Tot Nuc Cell 88 Pleural Neutrophils 8.0 Pleural Band Neuts Test Not Performed Pleural Eosinophils Test Not Performed Pleural Basophils Test Not Performed Pleural Lymphocytes % 72.0 Pleural Monocytes % 8.0 Pleural Other Cells % 12.0 Pleural Albumin 0.4 10/06/17 10/06/17 10/06/17 14:30 14:30 14:30 WBC RBC Hgb Hct MCV MCH MCHC RDW Plt Count MPV Immature Gran % Seg Neutrophils % Lymphocytes % Monocytes % Eosinophils % Basophils % Neutrophils # Lymphocytes # Monocytes # Eosinophils # Basophils # Platelet Estimate Tear Drop Cells Sodium 130 L Potassium 4.5 Chloride 101 Carbon Dioxide 18 L BUN 39 H Creatinine 0.93 Est GFR ( Amer) > 60 Est GFR (Non-Af Amer) > 60 BUN/Creatinine Ratio 42 H Glucose 122 H POC Glucose Calculated Osmolality 281 Lactic Acid 2.1 Calcium 8.8 Total Bilirubin 1.8 H AST 30 ALT 45 Alkaline Phosphatase 198 H Ammonia 122 H Serum Total Protein 6.4 Albumin 3.3 L Globulin 3.1 Albumin/Globulin Ratio 1.1 Pleural Fluid Volume Pleural Appearance Pleural RBC Pleural Tot Nuc Cell Pleural Neutrophils Pleural Band Neuts Pleural Eosinophils Pleural Basophils Pleural Lymphocytes % Pleural Monocytes % Pleural Other Cells % Pleural Albumin 10/06/17 10/07/17 10/07/17 18:08 00:12 04:40 WBC 2.3 L RBC 3.39 L Hgb 9.3 L D Hct 27.7 L MCV 81.7 L MCH 27.4 L MCHC 33.6 RDW 15.2 H Plt Count 150 MPV 9.7 Immature Gran % 0.4 Seg Neutrophils % 83.8 Lymphocytes % 4.4 Monocytes % 11.0 Eosinophils % 0.4 Basophils % 0.0 Neutrophils # 1.9 Lymphocytes # 0.1 L Monocytes # 0.3 Eosinophils # 0.0 Basophils # 0.0 Platelet Estimate Normal Tear Drop Cells 1+ A Sodium Potassium Chloride Carbon Dioxide BUN Creatinine Est GFR ( Amer) Est GFR (Non-Af Amer) BUN/Creatinine Ratio Glucose POC Glucose 115 H 119 H Calculated Osmolality Lactic Acid Calcium Total Bilirubin AST ALT Alkaline Phosphatase Ammonia Serum Total Protein Albumin Globulin Albumin/Globulin Ratio Pleural Fluid Volume Pleural Appearance Pleural RBC Pleural Tot Nuc Cell Pleural Neutrophils Pleural Band Neuts Pleural Eosinophils Pleural Basophils Pleural Lymphocytes % Pleural Monocytes % Pleural Other Cells % Pleural Albumin 10/07/17 10/07/17 04:40 05:30 WBC RBC Hgb Hct MCV MCH MCHC RDW Plt Count MPV Immature Gran % Seg Neutrophils % Lymphocytes % Monocytes % Eosinophils % Basophils % Neutrophils # Lymphocytes # Monocytes # Eosinophils # Basophils # Platelet Estimate Tear Drop Cells Sodium 133 L Potassium 3.3 L D Chloride 105 Carbon Dioxide 17 L BUN 39 H Creatinine 0.85 Est GFR ( Amer) > 60 Est GFR (Non-Af Amer) > 60 BUN/Creatinine Ratio 46 H Glucose 105 H POC Glucose Calculated Osmolality 286 Lactic Acid Calcium 9.5 Total Bilirubin 2.4 H AST 22 ALT 33 Alkaline Phosphatase 156 H Ammonia 71 Serum Total Protein 6.3 Albumin 3.9 Globulin 2.4 Albumin/Globulin Ratio 1.6 Pleural Fluid Volume Pleural Appearance Pleural RBC Pleural Tot Nuc Cell Pleural Neutrophils Pleural Band Neuts Pleural Eosinophils Pleural Basophils Pleural Lymphocytes % Pleural Monocytes % Pleural Other Cells % Pleural Albumin - Impressions Impressions [facility] X-Ray 10/06/17 09:48
[2017-10-07] MEDS ORDERED: *HR* HYDROmorphone (PF) 1 MG/ML SYRINGE IVP PRN (11:34)
[2017-10-07] MEDS ORDERED: Lactulose Oral Soln 20 GM/30 ML UDC GTUBE SCH (12:00)
--- NOTE | 2017-10-07 12:08 | Gastroenterology Consult Note ---
<MooreChan Mejia - Last Filed: 10/07/17 12:06> Date of Encounter: 10/07/17 Time of Encounter: 11:55 - Assessment and plan (1) Elevated INR Status: Acute Assessment and plan: INR 1.6 (2) GI bleed Status: Acute Assessment and plan: Bright red blood noted in NG tube, likely secondary to trauma during NG insertion and slightly elevated INR. Recommend removing NG tube. Continue PPI. Qualifiers: GI bleed type/associated pathology: gastritis Gastritis type: other gastritis Qualified Code(s): K29.61 - Other gastritis with bleeding (3) Severe protein-calorie malnutrition Status: Acute Assessment and plan: Family with questions about PEG tube. Dr. Granda to speak with family regarding risks vs benefits of inserting PEG tube. (4) Acute hepatic encephalopathy Status: Acute Assessment and plan: Improved with administration of lactulose. (5) Pancreatic cancer Status: Chronic Qualifiers: Pancreatic malignancy location: unspecified Qualified Code(s): C25.9 - Malignant neoplasm of pancreas, unspecified - Time Spent With Patient Total time spent is greater than 50% in coordination of care (as documented) at patient's floor/unit and/or counseling patient: GI History of Present Illness - Data of Consult Patient: known to practice within the last 3 years Consult date: 10/07/17 Requesting Physician: Gustavo Lockhart - Consult Narrative Reason for consult: PEG tube insertion and BEB in NG tube History of present illness: Mr. Hatch is a 52 year old male with PMHx of inoperable metastatic pancreatic cancer diagnosed October 2016, chemo-induced gastric ulcers, Eliquis use due to portal vein thrombosis associated with cancer, DM type 2, dehydration, and deconditioning who presented to the ED due to unresponsive and AMS. Labs revealed Ammonia level of 162, CXR was negative, and CT brain was negative. CT abd/plv revealed persistent portal vein thrombosis and biliary ductal dilation with large volume of ascites despite the presence of a peritoneal drain. His mental status has improved with improvement of ammonia from 162 to 71. We have been consulted to evaluate BRB in NG tube and possible insertion of PEG tube. Procedures: EGD 08/14/2017 Dr. Barber: Severe radiation gastropathy and duodenopathy. NSAIDs: None Anticoagulation: None Past Med Surg Social Fam HX - Past Medical History Medical history: cancer, diabetes Psychiatric history: no psych history - Past Surgical History Surgical History: orthopedic, other - Social History Smoking Status: Never smoker Smokeless Tobacco Status: No Alcohol use: none Drug use: none - Family History Father Adopted: No Hx Family Cardiac Disorders: Yes (UT, CABG, HTN) Hx Family Endocrine Disorder: Yes (DM) Mother Hx Family Cardiac Disorders: No - Gastrointestinal Gastrointestinal: Present: as per HPI - Constitutional Constitutional: as per HPI - EENT Eyes: as per HPI Ears: Present: as per HPI Nose, mouth and throat: Present: as per HPI - Cardiovascular Cardiovascular ROS: Present: as per HPI - Respiratory Respiratory IM: Present: as per HPI - Genitourinary Genitourinary: Absent: change in color, Urinary frequency - Neurological ROS Neurological GI: Present: as per HPI - Hematologic/Lymphatic Hematologic/Lymphatic pediatric: Present: as per HPI - Musculoskeletal Musculoskeletal ROS GI: Present: as per HPI - Integumentary Integumentary GI: Present: as per HPI - Psychiatric ROS Psychiatric GI: Present: as per HPI - Endocrine Endocrine IM: Present: as per HPI - Constitutional Vitals: Temp Pulse Resp BP Pulse Ox 97.0 F L 116 18 90/67 100 10/07/17 08:17 10/07/17 10:30 10/07/17 10:30 10/07/17 10:30 10/07/17 10:30 General appearance: Present: cachectic, cooperative, no acute distress, answers questions appropriately - Head Head exam: Present: atraumatic, normocephalic - Eye Eye exam: Present: normal appearance, sclera anicteric - ENT ENT exam: Present: mucous membranes dry - Neck Neck exam general surgery: Present: normal inspection, trachea midline - Respiratory Respiratory exam: Present: decreased breath sounds, CTAB - Cardiovascular Cardiovascular exam: Present: RRR, +S1, +S2 - GI/Abdominal GI/Abdominal exam: Present: soft, no peritoneal signs. Absent: distended, firm , guarding, tenderness - Rectal Rectal exam: Present: deferred - Extremities Exam Extremities exam: Present: warm - Neurological Exam Neurological exam: Present: altered - Psychiatric Psychiatric exam: Present: normal affect, normal mood - Skin Skin exam: Present: dry, intact, normal color, warm Results - Labs CBC & Chem 7: 10/07/17 04:40 10/07/17 04:40 Labs: Last Result Calcium 9.5 mg/dL (8.6-10.8) 10/07/17 04:40 Troponin I 0.01 ng/mL (0-0.03) 10/06/17 03:06 Entire Visit Hgb 9.3 g/dL (12.9-16.9) L D 10/07/17 04:40 Hct 27.7 % (37.5-50.1) L 10/07/17 04:40 PT 17.7 Seconds (9.4-12.1) H 10/06/17 03:06 Total Bilirubin 2.4 mg/dL (0.2-1.2) H 10/07/17 04:40 AST 22 Units/L (5-34) 10/07/17 04:40 ALT 33 Units/L (0-55) 10/07/17 04:40 Ammonia 71 mcmol/L (18-72) 10/07/17 05:30 - ABG ABG results: PT/INR, D-dimer PT 17.7 Seconds (9.4-12.1) H 10/06/17 03:06 - Impressions Impressions KUB X-Ray 10/06/17 09:48 IMPRESSION: Nasogastric tube side port projects over the mid gastric body. Distal tip projects over the gastric antrum. D/ / 10/06/2017 10:49:11 Flash Zamora MD / jessica Interpreting Provider: Flash Zamora MD Consult Discharge Plan - Plan Instructions: Anemia (GEN) Referrals: Garett Ervin DO [Primary Care Provider] - (web request sent ) <Tito Granda - Last Filed: 10/18/17 09:09> Date of Encounter: 10/07/17 - Time Spent With Patient Total time spent is greater than 50% in coordination of care (as documented) at patient's floor/unit and/or counseling patient: GI History of Present Illness - Data of Consult Requesting Physician: Jeff Bustillos - Consult Narrative History of present illness: Mr. Hatch is a 52 year old male - Constitutional Vitals: Temp Pulse Resp BP Pulse Ox 97.3 F L 94 17 93/66 100 10/16/17 11:53 10/16/17 11:53 10/16/17 11:53 10/16/17 11:53 10/16/17 11:53 Results - Labs CBC & Chem 7: 10/14/17 06:00 10/14/17 06:00 Labs: Last Result Calcium 8.5 mg/dL (8.6-10.8) L 10/14/17 06:00 Iron 25 mcg/dL (65-175) L 10/11/17 03:24 % Saturation 10 % (20-55) L 10/11/17 03:24 Transferrin 172 mg/dL (174-364) L 10/11/17 03:24 Ferritin 87 ng/ml (22-275) 10/11/17 03:24 Troponin I 0.01 ng/mL (0-0.03) 10/06/17 03:06 Vitamin B12 1328 pg/mL (213-816) H 10/11/17 03:24 Folate 14.5 ng/mL (7.0-31.4) 10/11/17 03:24 Entire Visit Hgb 9.1 g/dL (12.9-16.9) L 10/14/17 06:00 Hct 27.1 % (37.5-50.1) L 10/14/17 06:00 PT 15.7 Seconds (9.4-12.1) H 10/13/17 09:15 Ferritin 87 ng/ml (22-275) 10/11/17 03:24 Total Bilirubin 2.0 mg/dL (0.2-1.2) H 10/08/17 05:30 AST 26 Units/L (5-34) 10/08/17 05:30 ALT 26 Units/L (0-55) 10/08/17 05:30 Ammonia 99 mcmol/L (18-72) H 10/10/17 04:30 Folate 14.5 ng/mL (7.0-31.4) 10/11/17 03:24 - ABG ABG results: PT/INR, D-dimer PT 15.7 Seconds (9.4-12.1) H 10/13/17 09:15 - Attending Attestation I I have personally performed a face to face evaluation on this patient. I have reviewed and agree with the care plan. History and Exam by me shows:
[2017-10-07] MEDS ORDERED: D5% in Water 1,000 ML IVC PRN (12:20)
[2017-10-07] MEDS ORDERED: Dextrose Gel 15 GM PO PRN ×2 (12:20)
[2017-10-07] MEDS ORDERED: *HR* Dextrose 50 % in Water (Syg) 50 ML SYRINGE IVP PRN (12:20)
[2017-10-07] MEDS ORDERED: Naloxone 0.4 MG/ML INJ IVP PRN (12:20)
[2017-10-07] MEDS: *HR* HYDROmorphone (PF) 1 MG/ML SYRINGE IVP PRN ×3 (13:37→21:45)
[2017-10-07] MEDS: Pantoprazole 80 MG in 0.9 % Sodium Chloride 250 ML IVC SCH ×2 (14:05→21:51)
[2017-10-07] MEDS ORDERED: *HR* Morphine Immed Rel 30 MG TABLET PO SCH ×2 (18:00)
[2017-10-07] MEDS ORDERED: Lactulose 200 GM, Sodium Chloride IRRigation 700 ML RC SCH (21:00)
[2017-10-07] MEDS ORDERED: Lactulose 200 GM/300 ML (for enema) RC SCH (21:00)
[2017-10-07] MEDS ORDERED: Lactulose Oral Soln 20 GM/30 ML UDC PO SCH (21:00)
[2017-10-07] MEDS: *HR* Morphine 2 MG/ML SYRINGE IVP SCH (21:56)
[2017-10-08] MEDS: Insulin LISPRO 300 UNITS/3 ML VIAL SQ SCH ×4 (00:40→18:54)
[2017-10-08] MEDS: *HR* Morphine 2 MG/ML SYRINGE IVP SCH ×2 (01:30→12:43)
[2017-10-08] MEDS: Cefotaxime 2,000 MG in D5% in Water 100 ML IVPB SCH ×3 (05:40→21:44)
[2017-10-08 05:46] LABS: Eosinophils % 0.8 %; Hematocrit 29.2 % (37.5-50.1); Hemoglobin 9.6 g/dL (12.9-16.9); Immature Granulocytes % 0.4 % (0-4); Lymphocytes # 0.2 K/mcL (0.6-4.6); Lymphocytes % 7.1 %; Mean Corpuscular HGB Conc 32.9 g/dL (31.6-35.5); Mean Corpuscular Hemoglobin 27.4 pg (28.0-33.3); Mean Corpuscular Volume 83.2 fL (83.0-100.0); Mean Platelet Volume 9.9 fL (9.4-12.4); Monocytes # 0.2 K/mcL (0.0-1.3); Monocytes % 9.7 %; Platelet Count 158 K/mcL (140-400); Red Blood Count 3.51 M/mcL (4.19-5.50); Red Cell Distribution Width 15.3 % (11.5-14.5)
[2017-10-08 06:00] LABS: Alanine Aminotransferase 26 Units/L (0-55); Albumin 3.1 g/dL (3.5-5.0); Albumin/Globulin Ratio 1.3 (1.1-2.2); Alkaline Phosphatase 136 Units/L (38-126); Aspartate Amino Transferase 26 Units/L (5-34); BUN/Creatinine Ratio 51 (6-26); Blood Urea Nitrogen 38 mg/dL (8-26); Carbon Dioxide 17 mEq/L (19-29); Chloride 108 mEq/L (98-109); Globulin 2.3 g/dL (2.4-3.5); Glucose 108 mg/dL (70-99); Osmolality,Calculated 290 (280-300); Potassium 3.7 mEq/L (3.5-4.5); Sodium 135 mEq/L (136-145); Total Protein 5.4 g/dL (6.0-8.3); eGFR For African Americans > 60 (> 60); eGFR For Non-African Americans > 60 (> 60)
[2017-10-08] MEDS ORDERED: *HR* Enoxaparin 40 MG/0.4 ML SYRINGE SQ SCH (06:00)
[2017-10-08 06:31] LABS: Burr Cells 1+ (Not Present); Platelet Estimate Normal (Normal)
--- NOTE | 2017-10-08 09:00 | Palliative Progress Note ---
<Anshul Shahid - Last Filed: 10/08/17 08:58> Date of Encounter: 10/08/17 Time of Encounter: 08:30 - Assessment and plan (1) Counseling regarding goals of care Current Visit: Yes Status: Acute Assessment and plan: Code status remains DNR-CCA Short Term Intubation OK Per , GI advised against PEG tube. Speech eval ordered. (2) Acute hepatic encephalopathy Current Visit: Yes Status: Acute Assessment and plan: Improving. Management by primary team. (3) Pancreatic cancer Current Visit: Yes Status: Chronic Assessment and plan: Metastatic. Patient has exhausted radiotherapy and chemotherapy options. [place] of experimental protocols looks unlikely, if his functional status does not improve. Qualifiers: Pancreatic malignancy location: unspecified Qualified Code(s): C25.9 - Malignant neoplasm of pancreas, unspecified - Time Spent With Patient Total time spent is greater than 50% in coordination of care (as documented) at patient's floor/unit and/or counseling patient: - Subjective Interval history: Patient has further improvement in mental status. Able to respond to some questions. - Constitutional Vitals: Abnormal lab results WBC 2.4 K/mcL (4.3-11.1) L 10/08/17 05:30 RBC 3.51 M/mcL (4.19-5.50) L 10/08/17 05:30 Hgb 9.6 g/dL (12.9-16.9) L 10/08/17 05:30 Hct 29.2 % (37.5-50.1) L 10/08/17 05:30 MCH 27.4 pg (28.0-33.3) L 10/08/17 05:30 RDW 15.3 % (11.5-14.5) H 10/08/17 05:30 Lymphocytes # 0.2 K/mcL (0.6-4.6) L 10/08/17 05:30 Tear Drop Cells 1+ (Not Present) A 10/07/17 04:40 Beba Cells 1+ (Not Present) A 10/08/17 05:30 PT 17.7 Seconds (9.4-12.1) H 10/06/17 03:06 APTT 39.8 Seconds (26.0-36.0) H 10/06/17 03:06 Sodium 135 mEq/L (136-145) L 10/08/17 05:30 Carbon Dioxide 17 mEq/L (19-29) L 10/08/17 05:30 BUN 38 mg/dL (8-26) H 10/08/17 05:30 BUN/Creatinine Ratio 51 (6-26) H 10/08/17 05:30 Glucose 108 mg/dL (70-99) H 10/08/17 05:30 POC Glucose 120 (58-89) H 10/07/17 23:45 Calcium 8.0 mg/dL (8.6-10.8) L D 10/08/17 05:30 Total Bilirubin 2.0 mg/dL (0.2-1.2) H 10/08/17 05:30 Alkaline Phosphatase 136 Units/L (38-126) H 10/08/17 05:30 Serum Total Protein 5.4 g/dL (6.0-8.3) L 10/08/17 05:30 Albumin 3.1 g/dL (3.5-5.0) L D 10/08/17 05:30 Globulin 2.3 g/dL (2.4-3.5) L 10/08/17 05:30 Ur Specific [place] > 1.030 (1.010-1.025) H 10/06/17 05:04 Urine Ketones Trace mg/dL (Negative) H 10/06/17 05:04 Urine Bilirubin Small (Negative) H 10/06/17 05:04 General appearance: Present: no acute distress Exam: cachetic - Head Head exam: Present: atraumatic, normocephalic - ENT ENT exam: Present: mucous membranes moist Additional comments: NG Tube removed - Respiratory Respiratory exam: Present: CTAB. Absent: rales, rhonchi, wheezes - Cardiovascular Cardiovascular exam: Present: +S1, +S2, tachycardia - GI/Abdominal GI/Abdominal exam: Present: diminished bowel sounds, soft. Absent: tenderness - Neurological Exam Additional comments: Arousable, responds appropriately - Skin Skin exam: Present: dry, warm Palliative Quality Palliative Quality: Screen for Code Status: Yes, Screen for Goals of Care: Yes, Screen for Pain: Yes, If Pain Regimen Started, Initiate Bowel Regimen: NA, Screen for Nausea/Vomitting: Yes Code Status: 10/06/17 09:24 Resuscitation Status: Active [RES] Routine Comment: Resuscitation Status: Full Code Resuscitation Status: Active [RES] Routine Comment: SHORT TERM INTUBATION OK NO TRACH Resuscitation Status: DNR-Comfort Care-Arrest - Labs CBC & Chem 7: 10/08/17 05:30 10/08/17 05:30 Labs: Laboratory Results - last 24 hr 10/07/17 10/07/17 10/07/17 06:50 12:02 16:47 WBC RBC Hgb Hct MCV MCH MCHC RDW Plt Count MPV Immature Gran % Seg Neutrophils % Lymphocytes % Monocytes % Eosinophils % Basophils % Neutrophils # Lymphocytes # Monocytes # Eosinophils # Basophils # Platelet Estimate Beba Cells Sodium Potassium Chloride Carbon Dioxide BUN Creatinine Est GFR ( Amer) Est GFR (Non-Af Amer) BUN/Creatinine Ratio Glucose POC Glucose 117 H 121 H 117 H Calculated Osmolality Calcium Total Bilirubin AST ALT Alkaline Phosphatase Serum Total Protein Albumin Globulin Albumin/Globulin Ratio 10/07/17 10/07/17 10/08/17 20:41 23:45 05:30 WBC 2.4 L RBC 3.51 L Hgb 9.6 L Hct 29.2 L MCV 83.2 MCH 27.4 L MCHC 32.9 RDW 15.3 H Plt Count 158 MPV 9.9 Immature Gran % 0.4 Seg Neutrophils % 82.0 Lymphocytes % 7.1 Monocytes % 9.7 Eosinophils % 0.8 Basophils % 0.0 Neutrophils # 2.0 Lymphocytes # 0.2 L Monocytes # 0.2 Eosinophils # 0.0 Basophils # 0.0 Platelet Estimate Normal Beba Cells 1+ A Sodium Potassium Chloride Carbon Dioxide BUN Creatinine Est GFR ( Amer) Est GFR (Non-Af Amer) BUN/Creatinine Ratio Glucose POC Glucose 97 H 120 H Calculated Osmolality Calcium Total Bilirubin AST ALT Alkaline Phosphatase Serum Total Protein Albumin Globulin Albumin/Globulin Ratio 10/08/17 05:30 WBC RBC Hgb Hct MCV MCH MCHC RDW Plt Count MPV Immature Gran % Seg Neutrophils % Lymphocytes % Monocytes % Eosinophils % Basophils % Neutrophils # Lymphocytes # Monocytes # Eosinophils # Basophils # Platelet Estimate [place] Cells Sodium 135 L Potassium 3.7 Chloride 108 Carbon Dioxide 17 L BUN 38 H Creatinine 0.74 Est GFR ( Amer) > 60 Est GFR (Non-Af Amer) > 60 BUN/Creatinine Ratio 51 H Glucose 108 H POC Glucose Calculated Osmolality 290 Calcium 8.0 L D Total Bilirubin 2.0 H AST 26 ALT 26 Alkaline Phosphatase 136 H Serum Total Protein 5.4 L Albumin 3.1 L D Globulin 2.3 L Albumin/Globulin Ratio 1.3 - Impressions Impressions Insertion Tunneled Catheter 10/07/17 00:00 IMPRESSION: Successful tunneled PleurX catheter removal D/ / Timi Beckham MD / Timi Beckham MD Interpreting Provider: Timi Beckham MD - ABG Interpretation ABG results: PT/INR, D-dimer PT 17.7 Seconds (9.4-12.1) H 10/06/17 03:06 Consult Discharge Plan - Plan Referrals: Garett Ervin DO [Primary Care Provider] - (SENT WEB REQUEST ON 10-08-17@ [id number]) <Aime Carrillo - Last Filed: 10/08/17 09:07> Date of Encounter: 10/08/17 - Time Spent With Patient Total time spent is greater than 50% in coordination of care (as documented) at patient's floor/unit and/or counseling patient: - Constitutional Vitals: Abnormal lab results WBC 2.4 K/mcL (4.3-11.1) L 10/08/17 05:30 RBC 3.51 M/mcL (4.19-5.50) L 10/08/17 05:30 Hgb 9.6 g/dL (12.9-16.9) L 10/08/17 05:30 Hct 29.2 % (37.5-50.1) L 10/08/17 05:30 MCH 27.4 pg (28.0-33.3) L 10/08/17 05:30 RDW 15.3 % (11.5-14.5) H 10/08/17 05:30 Lymphocytes # 0.2 K/mcL (0.6-4.6) L 10/08/17 05:30 Tear Drop Cells 1+ (Not Present) A 10/07/17 04:40 Beba Cells 1+ (Not Present) A 10/08/17 05:30 PT 17.7 Seconds (9.4-12.1) H 10/06/17 03:06 APTT 39.8 Seconds (26.0-36.0) H 10/06/17 03:06 Sodium 135 mEq/L (136-145) L 10/08/17 05:30 Carbon Dioxide 17 mEq/L (19-29) L 10/08/17 05:30 BUN 38 mg/dL (8-26) H 10/08/17 05:30 BUN/Creatinine Ratio 51 (6-26) H 10/08/17 05:30 Glucose 108 mg/dL (70-99) H 10/08/17 05:30 POC Glucose 120 (58-89) H 10/07/17 23:45 Calcium 8.0 mg/dL (8.6-10.8) L D 10/08/17 05:30 Total Bilirubin 2.0 mg/dL (0.2-1.2) H 10/08/17 05:30 Alkaline Phosphatase 136 Units/L (38-126) H 10/08/17 05:30 Serum Total Protein 5.4 g/dL (6.0-8.3) L 10/08/17 05:30 Albumin 3.1 g/dL (3.5-5.0) L D 10/08/17 05:30 Globulin 2.3 g/dL (2.4-3.5) L 10/08/17 05:30 Ur Specific [place] > 1.030 (1.010-1.025) H 10/06/17 05:04 Urine Ketones Trace mg/dL (Negative) H 10/06/17 05:04 Urine Bilirubin Small (Negative) H 10/06/17 05:04 - Attending Attestation I examined this patient and my medical decision-making was reviewed with the Resident Physician. I agree with the documented findings, disposition and treatment plan as described except to the extent set forth below. Palliative Quality Code Status: 10/06/17 09:24 Resuscitation Status: Active [RES] Routine Comment: Resuscitation Status: Full Code Resuscitation Status: Active [RES] Routine Comment: SHORT TERM INTUBATION OK NO TRACH Resuscitation Status: DNR-Comfort Care-Arrest - Labs CBC & Chem 7: 10/08/17 05:30 10/08/17 05:30 Labs: Laboratory Results - last 24 hr 10/07/17 10/07/17 10/07/17 06:50 12:02 16:47 WBC RBC Hgb Hct MCV MCH MCHC RDW Plt Count MPV Immature Gran % Seg Neutrophils % Lymphocytes % Monocytes % Eosinophils % Basophils % Neutrophils # Lymphocytes # Monocytes # Eosinophils # Basophils # Platelet Estimate [place] Cells Sodium Potassium Chloride Carbon Dioxide BUN Creatinine Est GFR ( Amer) Est GFR (Non-Af Amer) BUN/Creatinine Ratio Glucose POC Glucose 117 H 121 H 117 H Calculated Osmolality Calcium Total Bilirubin AST ALT Alkaline Phosphatase Serum Total Protein Albumin Globulin Albumin/Globulin Ratio 10/07/17 10/07/17 10/08/17 20:41 23:45 05:30 WBC 2.4 L RBC 3.51 L Hgb 9.6 L Hct 29.2 L MCV 83.2 MCH 27.4 L MCHC 32.9 RDW 15.3 H Plt Count 158 MPV 9.9 Immature Gran % 0.4 Seg Neutrophils % 82.0 Lymphocytes % 7.1 Monocytes % 9.7 Eosinophils % 0.8 Basophils % 0.0 Neutrophils # 2.0 Lymphocytes # 0.2 L Monocytes # 0.2 Eosinophils # 0.0 Basophils # 0.0 Platelet Estimate Normal Beba Cells 1+ A Sodium Potassium Chloride Carbon Dioxide BUN Creatinine Est GFR ( Amer) Est GFR (Non-Af Amer) BUN/Creatinine Ratio Glucose POC Glucose 97 H 120 H Calculated Osmolality Calcium Total Bilirubin AST ALT Alkaline Phosphatase Serum Total Protein Albumin Globulin Albumin/Globulin Ratio 10/08/17 05:30 WBC RBC Hgb Hct MCV MCH MCHC RDW Plt Count MPV Immature Gran % Seg Neutrophils % Lymphocytes % Monocytes % Eosinophils % Basophils % Neutrophils # Lymphocytes # Monocytes # Eosinophils # Basophils # Platelet Estimate Beba Cells Sodium 135 L Potassium 3.7 Chloride 108 Carbon Dioxide 17 L BUN 38 H Creatinine 0.74 Est GFR ( Amer) > 60 Est GFR (Non-Af Amer) > 60 BUN/Creatinine Ratio 51 H Glucose 108 H POC Glucose Calculated Osmolality 290 Calcium 8.0 L D Total Bilirubin 2.0 H AST 26 ALT 26 Alkaline Phosphatase 136 H Serum Total Protein 5.4 L Albumin 3.1 L D Globulin 2.3 L Albumin/Globulin Ratio 1.3 - Impressions Impressions Insertion Tunneled Catheter 10/07/17 00:00
[2017-10-08] MEDS: Pantoprazole 80 MG in 0.9 % Sodium Chloride 250 ML IVC SCH ×2 (09:21→21:44)
--- NOTE | 2017-10-08 09:24 | Internal Med Progress Note ---
<Kalli Eldridge - Last Filed: 10/08/17 09:48> Date of Encounter: 10/08/17 Time of Encounter: 09:21 - Assessment and plan (1) Pancreatic cancer Current Visit: Yes Status: Chronic Assessment and plan: pancreatic cancer with multiple organ mets sees Dr. Waters CT abdomen/pelvis on 10/06/17 showed ill defined soft tissue extending posteriorlly from pancreatic neck surrounding celiac and SMA, likely cancer. persistent portal vein thrombosis and biliary ductal dilation Oncology consulted during recent hospitalization last week and determined patient would need to clinically improve in order to attempt clinical trials Continue Morphine/ Dilaudid palliative on board Plan: PT/OT, discharge planning EMPLOYMENT MANAGER evaluation waiting on GI recs regarding possible GI bleed in regard to whether or not Eliquis can be re started Qualifiers: Pancreatic malignancy location: unspecified Qualified Code(s): C25.9 - Malignant neoplasm of pancreas, unspecified (2) Anemia Current Visit: Yes Status: Chronic Assessment and plan: patient has hx of chemo induced gastric ulcers Plan: consult to GI regarding possible GI bleed. continue protonix gtt for now. if no plan for endoscoy, switch to IV PPI daily Qualifiers: Anemia type: unspecified type Qualified Code(s): D64.9 - Anemia, unspecified (3) Acute hepatic encephalopathy Current Visit: Yes Status: Resolved Assessment and plan: reolved. continue lactulose (4) Ascites Current Visit: Yes Status: Acute Assessment and plan: CT A/P showed large volume ascites. Pleur X catheter placed by IR on 10/09 with 2800cc drainage. was removed on with pustular fluid present. SAAG 2.5: portal hypertension peritoneal fluid culture positive for bacteria, GPC, gram positive rods. 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 CT abdomen/pelvis on 10/06/17 showed ill defined soft tissue extending posteriorlly from pancreatic neck surrounding celiac and SMA, likely cancer. persistent portal vein thrombosis and biliary ductal dilation. when NG tube was pulled there was concern for GI bleed. Gi was consulted and they stated this was likely trauma from NG tube. Plan: will monitor H/H, if stable, will re start Eliquis tomorrow. continue with SQ lovenox. (7) Cancer-related pain Current Visit: Yes Status: Chronic Assessment and plan: continue pain meds (8) Severe protein-calorie malnutrition Current Visit: Yes Status: Acute Assessment and plan: will do dietary supplementation with meals once evaluated by speech therapy (9) DM type 2 (diabetes mellitus, type 2) Current Visit: No Status: Chronic Assessment and plan: continue sliding scale insulin Qualifiers: Diabetes mellitus complication status: with other specified complication Diabetes mellitus long term care phlebotomist insulin use: without senior care use Qualified Code( s): E11.69 - Type 2 diabetes mellitus with other specified complication (10) DVT prophylaxis Current Visit: Yes Status: Acute Assessment and plan: lovenox SQ - Subjective Interval history: 52M evlaluated at bedside. patient denies nausea, vomiting. he is very drowsy and laying in bed. - Constitutional Vitals: Temp Pulse Resp BP Pulse Ox 97.5 F L 93 16 91/70 100 10/08/17 08:14 10/08/17 08:14 10/08/17 08:14 10/08/17 08:14 10/08/17 08:14 General appearance: Present: A&O X 3, no acute distress, underweight, answers questions appropriately Exam: very somnolent. cachectic - Head Head exam: Present: atraumatic, normocephalic - Neck Neck exam general surgery: Present: supple, trachea midline - Respiratory Respiratory exam: Present: CTAB - Cardiovascular Cardiovascular exam: Present: RRR, +S1, +S2 - GI/Abdominal Additional comments: left upper abdomen, 4x4 placed from pleurx catheter removal. - Extremities Exam Extremities exam: Absent: cyanotic, pedal edema - Neurological Exam Neurological exam: Present: alert, oriented X3, no focal deficits - Psychiatric Psychiatric exam: Present: normal affect, normal mood - Skin Skin exam: Present: intact Internal Medicine: Result - Labs CBC & Chem 7: 10/08/17 05:30 10/08/17 05:30 Labs: Short CBC 10/08/17 Range/Units 05:30 WBC 2.4 L (4.3-11.1) K/mcL Hgb 9.6 L (12.9-16.9) g/dL Hct 29.2 L (37.5-50.1) % Plt Count 158 (140-400) K/mcL Neutrophils # 2.0 (1.6-8.9) K/mcL BMP 10/08/17 05:30 Sodium 135 L Potassium 3.7 Chloride 108 Carbon Dioxide 17 L BUN 38 H Creatinine 0.74 Glucose 108 H Calcium 8.0 L D Liver Function 10/08/17 Range/Units 05:30 Total Bilirubin 2.0 H (0.2-1.2) mg/dL AST 26 (5-34) Units/L ALT 26 (0-55) Units/L Alkaline Phosphatase 136 H (38-126) Units/L Albumin 3.1 L D (3.5-5.0) g/dL - ABG Interpretation ABG results: PT/INR, D-dimer PT 17.7 Seconds (9.4-12.1) H 10/06/17 03:06 - Impressions Impressions Insertion Tunneled Catheter 10/07/17 00:00 IMPRESSION: Successful tunneled PleurX catheter removal D/ / Timi Beckham MD / Timi Beckham MD Interpreting Provider: Timi Beckham MD Consult Discharge Plan - Plan Referrals: Garett Ervin DO [Primary Care Provider] - 10/16/17 1:30 pm () <Morales Hidalgo - Last Filed: 10/08/17 19:03> Date of Encounter: 10/08/17 - Assessment and plan (1) SBP (spontaneous bacterial peritonitis) Current Visit: Yes Status: Acute (2) Pancreatic cancer Current Visit: Yes Status: Chronic Qualifiers: Pancreatic malignancy location: unspecified Qualified Code(s): C25.9 - Malignant neoplasm of pancreas, unspecified (3) Mesenteric venous thrombosis Current Visit: Yes Status: Chronic (4) DM type 2 (diabetes mellitus, type 2) Current Visit: No Status: Chronic Qualifiers: Diabetes mellitus complication status: with other specified complication Diabetes mellitus senior care insulin use: without long term care phlebotomist use Qualified Code( s): E11.69 - Type 2 diabetes mellitus with other specified complication (5) Severe protein-calorie malnutrition Current Visit: Yes Status: Acute - Constitutional Vitals: Temp Pulse Resp BP Pulse Ox 97.3 F L 95 14 90/73 100 10/08/17 11:48 10/08/17 16:32 10/08/17 16:32 10/08/17 16:32 10/08/17 16:32 Internal Medicine: Result - Labs CBC & Chem 7: 10/08/17 05:30 10/08/17 05:30 Labs: Short CBC 10/08/17 Range/Units 05:30 WBC 2.4 L (4.3-11.1) K/mcL Hgb 9.6 L (12.9-16.9) g/dL Hct 29.2 L (37.5-50.1) % Plt Count 158 (140-400) K/mcL Neutrophils # 2.0 (1.6-8.9) K/mcL BMP 10/08/17 05:30 Sodium 135 L Potassium 3.7 Chloride 108 Carbon Dioxide 17 L BUN 38 H Creatinine 0.74 Glucose 108 H Calcium 8.0 L D Liver Function 10/08/17 Range/Units 05:30 Total Bilirubin 2.0 H (0.2-1.2) mg/dL AST 26 (5-34) Units/L ALT 26 (0-55) Units/L Alkaline Phosphatase 136 H (38-126) Units/L Albumin 3.1 L D (3.5-5.0) g/dL - ABG Interpretation ABG results: PT/INR, D-dimer PT 17.7 Seconds (9.4-12.1) H 10/06/17 03:06 - Attending Attestation I examined this patient and my medical decision-making was reviewed with the Resident Physician on 10/08/17. I agree with the documented findings, disposition and treatment plan as described except to the extent set forth below. Mr Hatch is currently admitted for infected pleuryx and pancreatic cancer. He remains moderate risk due to potential for worsening clinical status. Mr Hatch feels very weak. No fever or chills. On IV abx for infection. Working on d/c plans. Exam Alert. Comfortable Mucus membranes dry Heart reg No wheeze I/P 1. Pancreatic cancer 2. Infected catheter Further diagnoses and plan as above.
[2017-10-08] MEDS: *HR* HYDROmorphone (PF) 1 MG/ML SYRINGE IVP PRN ×2 (09:28→20:07)
[2017-10-08] MEDS ORDERED: *HR* Morphine 2 MG/ML SYRINGE IVP PRN (15:00)
[2017-10-08] MEDS: Potassium Chloride Elixir 20 MEQ/15 ML UDC PO SCH (15:44)
[2017-10-08] MEDS: Lactulose Oral Soln 20 GM/30 ML UDC PO SCH (20:06)
[2017-10-08] MEDS: APIXABAN 2.5 MG TABLET PO SCH (20:07)
[2017-10-08] MEDS ORDERED: CEFOTAXIME IVPB SCH (21:00)
[2017-10-08] MEDS ORDERED: WATER FOR INJ IVPB SCH (21:00)
[2017-10-09] MEDS: Insulin LISPRO 300 UNITS/3 ML VIAL SQ SCH ×4 (00:13→18:23)
[2017-10-09 04:51] LABS: BUN/Creatinine Ratio 52 (6-26); Blood Urea Nitrogen 38 mg/dL (8-26); Calcium 8.7 mg/dL (8.6-10.8); Carbon Dioxide 18 mEq/L (19-29); Chloride 101 mEq/L (98-109); Glucose 125 mg/dL (70-99); Magnesium 2.2 mg/dL (1.6-2.6); Osmolality,Calculated 277 (280-300); Phosphorous 2.3 mg/dL (2.3-4.7); Potassium 3.9 mEq/L (3.5-4.5); eGFR For African Americans > 60 (> 60); eGFR For Non-African Americans > 60 (> 60)
[2017-10-09 04:54] LABS: Sodium 128 mEq/L (136-145)
[2017-10-09 04:56] LABS: INR 1.5; Prothrombin Time 16.8 Seconds (9.4-12.1)
[2017-10-09 05:04] LABS: Basophils % 0.4 %; Eosinophils % 1.3 %; Hematocrit 31.6 % (37.5-50.1); Hemoglobin 10.4 g/dL (12.9-16.9); Immature Granulocytes % 0.4 % (0-4); Lymphocytes # 0.2 K/mcL (0.6-4.6); Lymphocytes % 7.6 %; Mean Corpuscular HGB Conc 32.9 g/dL (31.6-35.5); Mean Corpuscular Hemoglobin 27.4 pg (28.0-33.3); Mean Corpuscular Volume 83.2 fL (83.0-100.0); Mean Platelet Volume 9.9 fL (9.4-12.4); Monocytes # 0.3 K/mcL (0.0-1.3); Monocytes % 11.4 %; Neutrophils # 1.9 K/mcL (1.6-8.9); Platelet Count 175 K/mcL (140-400); Red Cell Distribution Width 15.1 % (11.5-14.5); Segmented Neutrophils % 78.9 %
[2017-10-09] MEDS: Cefotaxime 2,000 MG in D5% in Water 100 ML IVPB SCH ×3 (05:48→22:34)
[2017-10-09 06:06] LABS: Platelet Estimate Normal (Normal)
[2017-10-09] MEDS: Pantoprazole 80 MG in 0.9 % Sodium Chloride 250 ML IVC SCH (06:42)
[2017-10-09] MEDS: Potassium Chloride Elixir 20 MEQ/15 ML UDC PO SCH (07:43)
[2017-10-09] MEDS: Lactulose Oral Soln 20 GM/30 ML UDC PO SCH ×2 (08:01→22:33)
[2017-10-09] MEDS: APIXABAN 2.5 MG TABLET PO SCH ×2 (08:01→22:34)
[2017-10-09] MEDS: Sennosides/Docusate Sodium TABLET PO SCH (08:01)
--- NOTE | 2017-10-09 08:09 | Palliative Progress Note ---
<Anshul Shahid - Last Filed: 10/09/17 08:50> Date of Encounter: 10/09/17 Time of Encounter: 07:45 - Assessment and plan (1) Counseling regarding goals of care Current Visit: Yes Status: Acute Assessment and plan: Code status remains DNR-CCA Short Term Intubation OK Per , GI advised against PEG tube. Patient passed speech therapy, though is not eating much. states that she and discussed PEG now that he is more awake. He decided that he would not want PEG in the future. (2) Acute hepatic encephalopathy Current Visit: Yes Status: Resolved Assessment and plan: Improving. Management by primary team. (3) Pancreatic cancer Current Visit: Yes Status: Chronic Assessment and plan: Metastatic. Patient has exhausted radiotherapy and chemotherapy options. Christine of experimental protocols looks unlikely, if his functional status does not improve. Qualifiers: Pancreatic malignancy location: unspecified Qualified Code(s): C25.9 - Malignant neoplasm of pancreas, unspecified - Time Spent With Patient Total time spent is greater than 50% in coordination of care (as documented) at patient's floor/unit and/or counseling patient: - Subjective Interval history: Patient able to respond to some questions. Still very somnolent. - Constitutional Vitals: Abnormal lab results WBC 2.4 K/mcL (4.3-11.1) L 10/09/17 04:25 RBC 3.80 M/mcL (4.19-5.50) L 10/09/17 04:25 Hgb 10.4 g/dL (12.9-16.9) L 10/09/17 04:25 Hct 31.6 % (37.5-50.1) L 10/09/17 04:25 MCH 27.4 pg (28.0-33.3) L 10/09/17 04:25 RDW 15.1 % (11.5-14.5) H 10/09/17 04:25 Lymphocytes # 0.2 K/mcL (0.6-4.6) L 10/09/17 04:25 Tear Drop Cells 1+ (Not Present) A 10/07/17 04:40 Beba Cells 1+ (Not Present) A 10/08/17 05:30 PT 16.8 Seconds (9.4-12.1) H 10/09/17 04:25 APTT 39.8 Seconds (26.0-36.0) H 10/06/17 03:06 Sodium 128 mEq/L (136-145) L D 10/09/17 04:25 Carbon Dioxide 18 mEq/L (19-29) L 10/09/17 04:25 BUN 38 mg/dL (8-26) H 10/09/17 04:25 BUN/Creatinine Ratio 52 (6-26) H 10/09/17 04:25 Glucose 125 mg/dL (70-99) H 10/09/17 04:25 POC Glucose 109 (58-89) H 10/09/17 00:10 Calculated Osmolality 277 (280-300) L 10/09/17 04:25 Total Bilirubin 2.0 mg/dL (0.2-1.2) H 10/08/17 05:30 Alkaline Phosphatase 136 Units/L (38-126) H 10/08/17 05:30 Ammonia 119 mcmol/L (18-72) H 10/09/17 04:25 Serum Total Protein 5.4 g/dL (6.0-8.3) L 10/08/17 05:30 Albumin 3.1 g/dL (3.5-5.0) L D 10/08/17 05:30 Globulin 2.3 g/dL (2.4-3.5) L 10/08/17 05:30 Ur Specific [place] > 1.030 (1.010-1.025) H 10/06/17 05:04 Urine Ketones Trace mg/dL (Negative) H 10/06/17 05:04 Urine Bilirubin Small (Negative) H 10/06/17 05:04 Exam: cachectic - Head Head exam: Present: atraumatic, normocephalic - ENT ENT exam: Present: mucous membranes moist - Respiratory Respiratory exam: Present: CTAB - Cardiovascular Cardiovascular exam: Present: +S1, +S2, tachycardia - GI/Abdominal GI/Abdominal exam: Present: hypoactive bowel sounds, soft. Absent: tenderness - Neurological Exam Neurological exam: Present: oriented X3 Additional comments: somnolent but arousable - Psychiatric Psychiatric exam: Present: normal affect, normal mood - Skin Skin exam: Present: dry, warm Palliative Quality Palliative Quality: Screen for Code Status: Yes, Screen for Goals of Care: Yes, Screen for Pain: Yes, If Pain Regimen Started, Initiate Bowel Regimen: NA, Screen for Nausea/Vomitting: Yes Code Status: 10/06/17 09:24 Resuscitation Status: Active [RES] Routine Comment: Resuscitation Status: Full Code Resuscitation Status: Active [RES] Routine Comment: SHORT TERM INTUBATION OK NO TRACH Resuscitation Status: DNR-Comfort Care-Arrest - Labs CBC & Chem 7: 10/09/17 04:25 10/09/17 04:25 Labs: Laboratory Results - last 24 hr 10/08/17 10/08/17 10/08/17 06:34 11:51 16:37 WBC RBC Hgb Hct MCV MCH MCHC RDW Plt Count MPV Immature Gran % Seg Neutrophils % Lymphocytes % Monocytes % Eosinophils % Basophils % Neutrophils # Lymphocytes # Monocytes # Eosinophils # Basophils # Platelet Estimate PT INR Sodium Potassium Chloride Carbon Dioxide BUN Creatinine Est GFR ( Amer) Est GFR (Non-Af Amer) BUN/Creatinine Ratio Glucose POC Glucose 117 H 104 H 140 H Calculated Osmolality Calcium Phosphorus Magnesium Ammonia 10/08/17 10/09/17 10/09/17 20:54 00:10 04:25 WBC 2.4 L RBC 3.80 L Hgb 10.4 L Hct 31.6 L MCV 83.2 MCH 27.4 L MCHC 32.9 RDW 15.1 H Plt Count 175 MPV 9.9 Immature Gran % 0.4 Seg Neutrophils % 78.9 Lymphocytes % 7.6 Monocytes % 11.4 Eosinophils % 1.3 Basophils % 0.4 Neutrophils # 1.9 Lymphocytes # 0.2 L Monocytes # 0.3 Eosinophils # 0.0 Basophils # 0.0 Platelet Estimate Normal PT INR Sodium Potassium Chloride Carbon Dioxide BUN Creatinine Est GFR ( Amer) Est GFR (Non-Af Amer) BUN/Creatinine Ratio Glucose POC Glucose 117 H 109 H Calculated Osmolality Calcium Phosphorus Magnesium Ammonia 10/09/17 10/09/17 10/09/17 04:25 04:25 04:25 WBC RBC Hgb Hct MCV MCH MCHC RDW Plt Count MPV Immature Gran % Seg Neutrophils % Lymphocytes % Monocytes % Eosinophils % Basophils % Neutrophils # Lymphocytes # Monocytes # Eosinophils # Basophils # Platelet Estimate PT 16.8 H INR 1.5 Sodium 128 L D Potassium 3.9 Chloride 101 Carbon Dioxide 18 L BUN 38 H Creatinine 0.73 Est GFR ( Amer) > 60 Est GFR (Non-Af Amer) > 60 BUN/Creatinine Ratio 52 H Glucose 125 H POC Glucose Calculated Osmolality 277 L Calcium 8.7 Phosphorus 2.3 Magnesium 2.2 Ammonia 119 H - ABG Interpretation ABG results: PT/INR, D-dimer PT 16.8 Seconds (9.4-12.1) H 10/09/17 04:25 Consult Discharge Plan - Plan Referrals: Garett Ervin DO [Primary Care Provider] - 10/16/17 1:30 pm () <Aime Carrillo - Last Filed: 10/09/17 09:14> Date of Encounter: 10/09/17 - Time Spent With Patient Total time spent is greater than 50% in coordination of care (as documented) at patient's floor/unit and/or counseling patient: - Constitutional Vitals: Abnormal lab results WBC 2.4 K/mcL (4.3-11.1) L 10/09/17 04:25 RBC 3.80 M/mcL (4.19-5.50) L 10/09/17 04:25 Hgb 10.4 g/dL (12.9-16.9) L 10/09/17 04:25 Hct 31.6 % (37.5-50.1) L 10/09/17 04:25 MCH 27.4 pg (28.0-33.3) L 10/09/17 04:25 RDW 15.1 % (11.5-14.5) H 10/09/17 04:25 Lymphocytes # 0.2 K/mcL (0.6-4.6) L 10/09/17 04:25 Tear Drop Cells 1+ (Not Present) A 10/07/17 04:40 Beba Cells 1+ (Not Present) A 10/08/17 05:30 PT 16.8 Seconds (9.4-12.1) H 10/09/17 04:25 APTT 39.8 Seconds (26.0-36.0) H 10/06/17 03:06 Sodium 128 mEq/L (136-145) L D 10/09/17 04:25 Carbon Dioxide 18 mEq/L (19-29) L 10/09/17 04:25 BUN 38 mg/dL (8-26) H 10/09/17 04:25 BUN/Creatinine Ratio 52 (6-26) H 10/09/17 04:25 Glucose 125 mg/dL (70-99) H 10/09/17 04:25 POC Glucose 109 (58-89) H 10/09/17 00:10 Calculated Osmolality 277 (280-300) L 10/09/17 04:25 Total Bilirubin 2.0 mg/dL (0.2-1.2) H 10/08/17 05:30 Alkaline Phosphatase 136 Units/L (38-126) H 10/08/17 05:30 Ammonia 119 mcmol/L (18-72) H 10/09/17 04:25 Serum Total Protein 5.4 g/dL (6.0-8.3) L 10/08/17 05:30 Albumin 3.1 g/dL (3.5-5.0) L D 10/08/17 05:30 Globulin 2.3 g/dL (2.4-3.5) L 10/08/17 05:30 Ur Specific [place] > 1.030 (1.010-1.025) H 10/06/17 05:04 Urine Ketones Trace mg/dL (Negative) H 10/06/17 05:04 Urine Bilirubin Small (Negative) H 10/06/17 05:04 - Attending Attestation I examined this patient and my medical decision-making was reviewed with the Resident Physician. I agree with the documented findings, disposition and treatment plan as described except to the extent set forth below. Palliative Quality Code Status: 10/06/17 09:24 Resuscitation Status: Active [RES] Routine Comment: Resuscitation Status: Full Code Resuscitation Status: Active [RES] Routine Comment: SHORT TERM INTUBATION OK NO TRACH Resuscitation Status: DNR-Comfort Care-Arrest - Labs CBC & Chem 7: 10/09/17 04:25 10/09/17 04:25 Labs: Laboratory Results - last 24 hr 10/08/17 10/08/17 10/08/17 06:34 11:51 16:37 WBC RBC Hgb Hct MCV MCH MCHC RDW Plt Count MPV Immature Gran % Seg Neutrophils % Lymphocytes % Monocytes % Eosinophils % Basophils % Neutrophils # Lymphocytes # Monocytes # Eosinophils # Basophils # Platelet Estimate PT INR Sodium Potassium Chloride Carbon Dioxide BUN Creatinine Est GFR ( Amer) Est GFR (Non-Af Amer) BUN/Creatinine Ratio Glucose POC Glucose 117 H 104 H 140 H Calculated Osmolality Calcium Phosphorus Magnesium Ammonia 10/08/17 10/09/17 10/09/17 20:54 00:10 04:25 WBC 2.4 L RBC 3.80 L Hgb 10.4 L Hct 31.6 L MCV 83.2 MCH 27.4 L MCHC 32.9 RDW 15.1 H Plt Count 175 MPV 9.9 Immature Gran % 0.4 Seg Neutrophils % 78.9 Lymphocytes % 7.6 Monocytes % 11.4 Eosinophils % 1.3 Basophils % 0.4 Neutrophils # 1.9 Lymphocytes # 0.2 L Monocytes # 0.3 Eosinophils # 0.0 Basophils # 0.0 Platelet Estimate Normal PT INR Sodium Potassium Chloride Carbon Dioxide BUN Creatinine Est GFR ( Amer) Est GFR (Non-Af Amer) BUN/Creatinine Ratio Glucose POC Glucose 117 H 109 H Calculated Osmolality Calcium Phosphorus Magnesium Ammonia 10/09/17 10/09/17 10/09/17 04:25 04:25 04:25 WBC RBC Hgb Hct MCV MCH MCHC RDW Plt Count MPV Immature Gran % Seg Neutrophils % Lymphocytes % Monocytes % Eosinophils % Basophils % Neutrophils # Lymphocytes # Monocytes # Eosinophils # Basophils # Platelet Estimate PT 16.8 H INR 1.5 Sodium 128 L D Potassium 3.9 Chloride 101 Carbon Dioxide 18 L BUN 38 H Creatinine 0.73 Est GFR ( Amer) > 60 Est GFR (Non-Af Amer) > 60 BUN/Creatinine Ratio 52 H Glucose 125 H POC Glucose Calculated Osmolality 277 L Calcium 8.7 Phosphorus 2.3 Magnesium 2.2 Ammonia 119 H - ABG Interpretation ABG results: PT/INR, D-dimer PT 16.8 Seconds (9.4-12.1) H 10/09/17 04:25
--- NOTE | 2017-10-09 10:26 | Internal Med Progress Note ---
<Kalli Eldridge - Last Filed: 10/09/17 10:24> Date of Encounter: 10/09/17 Time of Encounter: 10:24 - Assessment and plan (1) Pancreatic cancer Current Visit: Yes Status: Chronic Assessment and plan: pancreatic cancer with multiple organ mets sees Dr. Waters CT abdomen/pelvis on 10/06/17 showed ill defined soft tissue extending posteriorlly from pancreatic neck surrounding celiac and SMA, likely cancer. persistent portal vein thrombosis and biliary ductal dilation Oncology consulted during recent hospitalization last week and determined patient would need to clinically improve in order to attempt clinical trials Continue Morphine/ Dilaudid palliative on board Plan: PT/OT, discharge planning in progress jonna Campos, monitor H/H. transfer out of when bed available. cefotaxime day 4 Qualifiers: Pancreatic malignancy location: unspecified Qualified Code(s): C25.9 - Malignant neoplasm of pancreas, unspecified (2) Anemia Current Visit: Yes Status: Chronic Assessment and plan: patient has hx of chemo induced gastric ulcers Gi was consulted, they stated that bleeding from the NG tube was likely related to trauma, and they reocmmended continuing the Eliquis Plan: D/C protonix gtt, change to protonix IVP daily Qualifiers: Anemia type: unspecified type Qualified Code(s): D64.9 - Anemia, unspecified (3) Acute hepatic encephalopathy Current Visit: Yes Status: Resolved Assessment and plan: reolved. continue lactulose PO (4) Ascites Current Visit: Yes Status: Acute Assessment and plan: CT A/P showed large volume ascites. Pleur X catheter placed by IR on 10/09 with 2800cc drainage. was removed on with pustular fluid present. SAAG 2.5: portal hypertension peritoneal fluid culture positive for bacteria, GPC, gram positive rods. 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 CT abdomen/pelvis on 10/06/17 showed ill defined soft tissue extending posteriorlly from pancreatic neck surrounding celiac and SMA, likely cancer. persistent portal vein thrombosis and biliary ductal dilation. when NG tube was pulled there was concern for GI bleed. Gi was consulted and they stated this was likely trauma from NG tube. Plan: will monitor H/H, and continue ELiquis (7) Cancer-related pain Current Visit: Yes Status: Chronic Assessment and plan: continue pain meds (8) Severe protein-calorie malnutrition Current Visit: Yes Status: Acute Assessment and plan: evaluaated by speech therapy. regular diet ensure high protein TID with meals. (9) DM type 2 (diabetes mellitus, type 2) Current Visit: No Status: Chronic Assessment and plan: continue sliding scale insulin Qualifiers: Diabetes mellitus complication status: with other specified complication Diabetes mellitus mcc insulin use: without mcc use Qualified Code( s): E11.69 - Type 2 diabetes mellitus with other specified complication (10) DVT prophylaxis Current Visit: Yes Status: Acute Assessment and plan: Eliquis - Subjective Interval history: 52M evlaluated at bedside. patient denies nausea, vomiting. he is very drowsy and laying in bed. 52M evaluated at bedside. patient was laying in bed sleeping. he appears very fatigued. - Constitutional Vitals: Temp Pulse Resp BP Pulse Ox 97.5 F L 101 12 108/85 100 10/09/17 08:07 10/09/17 08:11 10/09/17 08:07 10/09/17 08:07 10/09/17 08:07 General appearance: Present: A&O X 3, no acute distress, underweight, answers questions appropriately Exam: severely malnourished - Head Head exam: Present: atraumatic, normocephalic - Neck Neck exam general surgery: Present: supple, trachea midline - Respiratory Respiratory exam: Present: CTAB - Cardiovascular Cardiovascular exam: Present: RRR, +S1, +S2 - GI/Abdominal Additional comments: tenderness to palpation in epigastric area - Extremities Exam Extremities exam: Absent: cyanotic, pedal edema - Neurological Exam Neurological exam: Present: alert - Psychiatric Psychiatric exam: Present: normal affect, normal mood - Skin Skin exam: Present: intact Internal Medicine: Result - Labs CBC & Chem 7: 10/09/17 04:25 10/09/17 04:25 Labs: Short CBC 10/09/17 Range/Units 04:25 WBC 2.4 L (4.3-11.1) K/mcL Hgb 10.4 L (12.9-16.9) g/dL Hct 31.6 L (37.5-50.1) % Plt Count 175 (140-400) K/mcL Neutrophils # 1.9 (1.6-8.9) K/mcL BMP 10/09/17 04:25 Sodium 128 L D Potassium 3.9 Chloride 101 Carbon Dioxide 18 L BUN 38 H Creatinine 0.73 Glucose 125 H Calcium 8.7 - ABG Interpretation ABG results: PT/INR, D-dimer PT 16.8 Seconds (9.4-12.1) H 10/09/17 04:25 Consult Discharge Plan - Plan Referrals: Garett Ervin DO [Primary Care Provider] - 10/16/17 1:30 pm () <Morales Hidalgo - Last Filed: 10/09/17 11:19> Date of Encounter: 10/09/17 - Assessment and plan (1) Hyponatremia Current Visit: Yes Status: Acute Assessment and plan: Normal saline ordered 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 (6) DM type 2 (diabetes mellitus, type 2) Current Visit: No Status: Chronic Qualifiers: Diabetes mellitus complication status: with other specified complication Diabetes mellitus mcc insulin use: without mcc use Qualified Code( s): E11.69 - Type 2 diabetes mellitus with other specified complication (7) Hypokalemia Current Visit: Yes Status: Acute Assessment and plan: Changed to PO tablet today. (8) Severe protein-calorie malnutrition Current Visit: Yes Status: Acute (9) Anemia Current Visit: Yes Status: Chronic Qualifiers: Anemia type: other cause Other causes of anemia: chronic disease, neoplastic Qualified Code(s): D63.0 - Anemia in neoplastic disease - Constitutional Vitals: Temp Pulse Resp BP Pulse Ox 97.5 F L 101 12 108/85 100 10/09/17 08:07 10/09/17 08:11 10/09/17 08:07 10/09/17 08:07 10/09/17 08:07 Internal Medicine: Result - Labs CBC & Chem 7: 10/09/17 04:25 10/09/17 04:25 Labs: Short CBC 10/09/17 Range/Units 04:25 WBC 2.4 L (4.3-11.1) K/mcL Hgb 10.4 L (12.9-16.9) g/dL Hct 31.6 L (37.5-50.1) % Plt Count 175 (140-400) K/mcL Neutrophils # 1.9 (1.6-8.9) K/mcL BMP 10/09/17 04:25 Sodium 128 L D Potassium 3.9 Chloride 101 Carbon Dioxide 18 L BUN 38 H Creatinine 0.73 Glucose 125 H Calcium 8.7 - ABG Interpretation ABG results: PT/INR, D-dimer PT 16.8 Seconds (9.4-12.1) H 10/09/17 04:25 - Attending Attestation I examined this patient and my medical decision-making was reviewed with the Resident Physician on 10/09/17. I agree with the documented findings, disposition and treatment plan as described except to the extent set forth below. Mr Hatch is currently admitted for SBP related to pleuryx catheter and pancreatic cancer. He remains moderate to high risk due to potential for worsening clinical status. Mr Hatch is resting comfortably at this time. His is at bedside. He is taking in some liquids. No fever or chills. Pain is up and down. Exam Alert. Mild distress due to pain. Mucus membranes dry Heart not tachy No wheeze Na 128 I/P 1. Hyponatremia - serum osm low - most likely he has been taking in free water and no solute. Will give liter NS today. 2. SBP - culture with corynebacterium. Final sensitivities pending. Currently on Cefotaxime 3. Pancreatic cancer Further diagnoses and plan as above. Transfer to med floor.
[2017-10-09] MEDS ORDERED: 0.9 % Sodium Chloride 1,000 ML IVC SCH (10:45)
[2017-10-09] MEDS: Vancomycin 750 MG in D5% in Water 250 ML IVPB SCH (17:33)
[2017-10-10] MEDS ORDERED: 0.9 % Sodium Chloride 1,000 ML IVC ONE (00:29)
[2017-10-10] MEDS: Insulin LISPRO 300 UNITS/3 ML VIAL SQ SCH ×4 (03:58→19:02)
[2017-10-10] MEDS: Vancomycin 750 MG in D5% in Water 250 ML IVPB SCH ×2 (04:50→17:01)
[2017-10-10 04:55] LABS: Basophils % 0.5 %
[2017-10-10 04:57] LABS: Eosinophils % 0.9 %; Hematocrit 30.6 % (37.5-50.1); Hemoglobin 10.1 g/dL (12.9-16.9); Lymphocytes # 0.2 K/mcL (0.6-4.6); Lymphocytes % 8.5 %; Mean Corpuscular Hemoglobin 27.2 pg (28.0-33.3); Mean Corpuscular Volume 82.3 fL (83.0-100.0); Mean Platelet Volume 9.7 fL (9.4-12.4); Monocytes # 0.3 K/mcL (0.0-1.3); Monocytes % 12.3 %; Neutrophils # 1.6 K/mcL (1.6-8.9); Platelet Count 183 K/mcL (140-400); Red Blood Count 3.72 M/mcL (4.19-5.50); Red Cell Distribution Width 15.3 % (11.5-14.5); Segmented Neutrophils % 77.8 %
[2017-10-10 05:11] LABS: BUN/Creatinine Ratio 47 (6-26); Blood Urea Nitrogen 32 mg/dL (8-26); Carbon Dioxide 16 mEq/L (19-29); Chloride 104 mEq/L (98-109); Glucose 114 mg/dL (70-99); Osmolality,Calculated 276 (280-300); Potassium 3.9 mEq/L (3.5-4.5); Sodium 129 mEq/L (136-145); eGFR For African Americans > 60 (> 60); eGFR For Non-African Americans > 60 (> 60)
[2017-10-10 06:01] LABS: Platelet Estimate Normal (Normal)
[2017-10-10] MEDS: Cefotaxime 2,000 MG in D5% in Water 100 ML IVPB SCH ×3 (06:29→21:55)
--- NOTE | 2017-10-10 08:07 | Palliative Progress Note ---
<Anshul Shahid - Last Filed: 10/10/17 08:46> Date of Encounter: 10/10/17 Time of Encounter: 07:30 - Assessment and plan (1) Counseling regarding goals of care Current Visit: Yes Status: Acute Assessment and plan: Code status remains DNR-CCA Short Term Intubation OK Patient has few options at this point. Given poor oral intake and refusal of PEG, condition is likely to continue to deteriorate. We reiterated to his that he would be hospice eligible if they should decide to discontinue aggressive care. (2) Acute hepatic encephalopathy Current Visit: Yes Status: Resolved Assessment and plan: More somnolent today. Management per primary team. (3) Pancreatic cancer Current Visit: Yes Status: Chronic Assessment and plan: Metastatic. Patient has exhausted radiotherapy and chemotherapy options. [place] of experimental protocols looks unlikely. Qualifiers: Pancreatic malignancy location: body of pancreas Qualified Code(s): C25.1 - Malignant neoplasm of body of pancreas - Time Spent With Patient Total time spent is greater than 50% in coordination of care (as documented) at patient's floor/unit and/or counseling patient: - Subjective Interval history: Patient more somnolent than yesterday. No needs expressed by patient nor . Very minimal oral input. - Constitutional Vitals: Abnormal lab results WBC 2.1 K/mcL (4.3-11.1) L 10/10/17 04:30 RBC 3.72 M/mcL (4.19-5.50) L 10/10/17 04:30 Hgb 10.1 g/dL (12.9-16.9) L 10/10/17 04:30 Hct 30.6 % (37.5-50.1) L 10/10/17 04:30 MCV 82.3 fL (83.0-100.0) L 10/10/17 04:30 MCH 27.2 pg (28.0-33.3) L 10/10/17 04:30 RDW 15.3 % (11.5-14.5) H 10/10/17 04:30 Lymphocytes # 0.2 K/mcL (0.6-4.6) L 10/10/17 04:30 Tear Drop Cells 1+ (Not Present) A 10/07/17 04:40 [place] Cells 1+ (Not Present) A 10/08/17 05:30 PT 16.8 Seconds (9.4-12.1) H 10/09/17 04:25 APTT 39.8 Seconds (26.0-36.0) H 10/06/17 03:06 Sodium 129 mEq/L (136-145) L 10/10/17 04:30 Carbon Dioxide 16 mEq/L (19-29) L 10/10/17 04:30 BUN 32 mg/dL (8-26) H 10/10/17 04:30 Creatinine 0.68 mg/dL (0.72-1.25) L 10/10/17 04:30 BUN/Creatinine Ratio 47 (6-26) H 10/10/17 04:30 Glucose 114 mg/dL (70-99) H 10/10/17 04:30 POC Glucose 146 (58-89) H 10/09/17 23:58 Calculated Osmolality 276 (280-300) L 10/10/17 04:30 Calcium 8.0 mg/dL (8.6-10.8) L 10/10/17 04:30 Phosphorus 2.0 mg/dL (2.3-4.7) L 10/10/17 04:30 Total Bilirubin 2.0 mg/dL (0.2-1.2) H 10/08/17 05:30 Alkaline Phosphatase 136 Units/L (38-126) H 10/08/17 05:30 Ammonia 99 mcmol/L (18-72) H 10/10/17 04:30 Serum Total Protein 5.4 g/dL (6.0-8.3) L 10/08/17 05:30 Albumin 3.1 g/dL (3.5-5.0) L D 10/08/17 05:30 Globulin 2.3 g/dL (2.4-3.5) L 10/08/17 05:30 Ur Specific [place] > 1.030 (1.010-1.025) H 10/06/17 05:04 Urine Ketones Trace mg/dL (Negative) H 10/06/17 05:04 Urine Bilirubin Small (Negative) H 10/06/17 05:04 General appearance: Present: no acute distress Exam: cachectic - Head Head exam: Present: atraumatic, normocephalic - ENT ENT exam: Present: mucous membranes moist - Respiratory Respiratory exam: Present: CTAB - Cardiovascular Cardiovascular exam: Present: +S1, +S2, tachycardia (borderline) - GI/Abdominal GI/Abdominal exam: Present: diminished bowel sounds, soft. Absent: tenderness - Neurological Exam Additional comments: somnolent - Skin Skin exam: Present: dry, warm Palliative Quality Palliative Quality: Screen for Code Status: Yes, Screen for Goals of Care: Yes, Screen for Pain: Yes, If Pain Regimen Started, Initiate Bowel Regimen: NA, Screen for Nausea/Vomitting: Yes Code Status: 10/06/17 09:24 Resuscitation Status: Active [RES] Routine Comment: Resuscitation Status: Full Code Resuscitation Status: Active [RES] Routine Comment: SHORT TERM INTUBATION OK NO TRACH Resuscitation Status: DNR-Comfort Care-Arrest - Labs CBC & Chem 7: 10/10/17 04:30 10/10/17 04:30 Labs: Laboratory Results - last 24 hr 10/09/17 10/09/17 10/09/17 04:20 11:54 17:50 WBC RBC Hgb Hct MCV MCH MCHC RDW Plt Count MPV Immature Gran % Seg Neutrophils % Lymphocytes % Monocytes % Eosinophils % Basophils % Neutrophils # Lymphocytes # Monocytes # Eosinophils # Basophils # Platelet Estimate Sodium Potassium Chloride Carbon Dioxide BUN Creatinine Est GFR ( Amer) Est GFR (Non-Af Amer) BUN/Creatinine Ratio Glucose POC Glucose 106 H 103 H 140 H Calculated Osmolality Calcium Phosphorus Ammonia 10/09/17 10/09/17 10/10/17 19:40 23:58 04:30 WBC 2.1 L RBC 3.72 L Hgb 10.1 L Hct 30.6 L MCV 82.3 L MCH 27.2 L MCHC 33.0 RDW 15.3 H Plt Count 183 MPV 9.7 Immature Gran % 0.0 Seg Neutrophils % 77.8 Lymphocytes % 8.5 Monocytes % 12.3 Eosinophils % 0.9 Basophils % 0.5 Neutrophils # 1.6 Lymphocytes # 0.2 L Monocytes # 0.3 Eosinophils # 0.0 Basophils # 0.0 Platelet Estimate Normal Sodium Potassium Chloride Carbon Dioxide BUN Creatinine Est GFR ( Amer) Est GFR (Non-Af Amer) BUN/Creatinine Ratio Glucose POC Glucose 174 H 146 H Calculated Osmolality Calcium Phosphorus Ammonia 10/10/17 10/10/17 04:30 04:30 WBC RBC Hgb Hct MCV MCH MCHC RDW Plt Count MPV Immature Gran % Seg Neutrophils % Lymphocytes % Monocytes % Eosinophils % Basophils % Neutrophils # Lymphocytes # Monocytes # Eosinophils # Basophils # Platelet Estimate Sodium 129 L Potassium 3.9 Chloride 104 Carbon Dioxide 16 L BUN 32 H Creatinine 0.68 L Est GFR ( Amer) > 60 Est GFR (Non-Af Amer) > 60 BUN/Creatinine Ratio 47 H Glucose 114 H POC Glucose Calculated Osmolality 276 L Calcium 8.0 L Phosphorus 2.0 L Ammonia 99 H - Impressions Impressions Insertion Tunneled Catheter 10/07/17 00:00 IMPRESSION: Successful tunneled PleurX catheter removal D/ / Timi Beckham MD / Timi Beckham MD Interpreting Provider: Timi Beckham MD - ABG Interpretation ABG results: PT/INR, D-dimer PT 16.8 Seconds (9.4-12.1) H 10/09/17 04:25 Consult Discharge Plan - Plan Referrals: Garett Ervin DO [Primary Care Provider] - 10/16/17 1:30 pm () <Aime Carrillo - Last Filed: 10/10/17 10:33> Date of Encounter: 10/10/17 - Time Spent With Patient Total time spent is greater than 50% in coordination of care (as documented) at patient's floor/unit and/or counseling patient: - Constitutional Vitals: Abnormal lab results WBC 2.1 K/mcL (4.3-11.1) L 10/10/17 04:30 RBC 3.72 M/mcL (4.19-5.50) L 10/10/17 04:30 Hgb 10.1 g/dL (12.9-16.9) L 10/10/17 04:30 Hct 30.6 % (37.5-50.1) L 10/10/17 04:30 MCV 82.3 fL (83.0-100.0) L 10/10/17 04:30 MCH 27.2 pg (28.0-33.3) L 10/10/17 04:30 RDW 15.3 % (11.5-14.5) H 10/10/17 04:30 Lymphocytes # 0.2 K/mcL (0.6-4.6) L 10/10/17 04:30 Tear Drop Cells 1+ (Not Present) A 10/07/17 04:40 [place] Cells 1+ (Not Present) A 10/08/17 05:30 PT 16.8 Seconds (9.4-12.1) H 10/09/17 04:25 APTT 39.8 Seconds (26.0-36.0) H 10/06/17 03:06 Sodium 129 mEq/L (136-145) L 10/10/17 04:30 Carbon Dioxide 16 mEq/L (19-29) L 10/10/17 04:30 BUN 32 mg/dL (8-26) H 10/10/17 04:30 Creatinine 0.68 mg/dL (0.72-1.25) L 10/10/17 04:30 BUN/Creatinine Ratio 47 (6-26) H 10/10/17 04:30 Glucose 114 mg/dL (70-99) H 10/10/17 04:30 POC Glucose 146 (58-89) H 10/09/17 23:58 Calculated Osmolality 276 (280-300) L 10/10/17 04:30 Calcium 8.0 mg/dL (8.6-10.8) L 10/10/17 04:30 Phosphorus 2.0 mg/dL (2.3-4.7) L 10/10/17 04:30 Total Bilirubin 2.0 mg/dL (0.2-1.2) H 10/08/17 05:30 Alkaline Phosphatase 136 Units/L (38-126) H 10/08/17 05:30 Ammonia 99 mcmol/L (18-72) H 10/10/17 04:30 Serum Total Protein 5.4 g/dL (6.0-8.3) L 10/08/17 05:30 Albumin 3.1 g/dL (3.5-5.0) L D 10/08/17 05:30 Globulin 2.3 g/dL (2.4-3.5) L 10/08/17 05:30 Ur Specific [place] > 1.030 (1.010-1.025) H 10/06/17 05:04 Urine Ketones Trace mg/dL (Negative) H 10/06/17 05:04 Urine Bilirubin Small (Negative) H 10/06/17 05:04 - Attending Attestation I examined this patient and my medical decision-making was reviewed with the Resident Physician. I agree with the documented findings, disposition and treatment plan as described except to the extent set forth below. Palliative Quality Code Status: 10/06/17 09:24 Resuscitation Status: Active [RES] Routine Comment: Resuscitation Status: Full Code Resuscitation Status: Active [RES] Routine Comment: SHORT TERM INTUBATION OK NO TRACH Resuscitation Status: DNR-Comfort Care-Arrest - Labs CBC & Chem 7: 10/10/17 04:30 10/10/17 04:30 Labs: Laboratory Results - last 24 hr 10/09/17 10/09/17 10/09/17 04:20 11:54 17:50 WBC RBC Hgb Hct MCV MCH MCHC RDW Plt Count MPV Immature Gran % Seg Neutrophils % Lymphocytes % Monocytes % Eosinophils % Basophils % Neutrophils # Lymphocytes # Monocytes # Eosinophils # Basophils # Platelet Estimate Sodium Potassium Chloride Carbon Dioxide BUN Creatinine Est GFR ( Amer) Est GFR (Non-Af Amer) BUN/Creatinine Ratio Glucose POC Glucose 106 H 103 H 140 H Calculated Osmolality Calcium Phosphorus Ammonia 10/09/17 10/09/17 10/10/17 19:40 23:58 04:30 WBC 2.1 L RBC 3.72 L Hgb 10.1 L Hct 30.6 L MCV 82.3 L MCH 27.2 L MCHC 33.0 RDW 15.3 H Plt Count 183 MPV 9.7 Immature Gran % 0.0 Seg Neutrophils % 77.8 Lymphocytes % 8.5 Monocytes % 12.3 Eosinophils % 0.9 Basophils % 0.5 Neutrophils # 1.6 Lymphocytes # 0.2 L Monocytes # 0.3 Eosinophils # 0.0 Basophils # 0.0 Platelet Estimate Normal Sodium Potassium Chloride Carbon Dioxide BUN Creatinine Est GFR ( Amer) Est GFR (Non-Af Amer) BUN/Creatinine Ratio Glucose POC Glucose 174 H 146 H Calculated Osmolality Calcium Phosphorus Ammonia 10/10/17 10/10/17 04:30 04:30 WBC RBC Hgb Hct MCV MCH MCHC RDW Plt Count MPV Immature Gran % Seg Neutrophils % Lymphocytes % Monocytes % Eosinophils % Basophils % Neutrophils # Lymphocytes # Monocytes # Eosinophils # Basophils # Platelet Estimate Sodium 129 L Potassium 3.9 Chloride 104 Carbon Dioxide 16 L BUN 32 H Creatinine 0.68 L Est GFR ( Amer) > 60 Est GFR (Non-Af Amer) > 60 BUN/Creatinine Ratio 47 H Glucose 114 H POC Glucose Calculated Osmolality 276 L Calcium 8.0 L Phosphorus 2.0 L Ammonia 99 H - Impressions Impressions Insertion Tunneled Catheter 10/07/17 00:00
[2017-10-10] MEDS: Lactulose Oral Soln 20 GM/30 ML UDC PO SCH ×2 (09:42→16:37)
[2017-10-10] MEDS: Pantoprazole 40 MG VIAL IVP SCH (09:42)
[2017-10-10] MEDS: APIXABAN 2.5 MG TABLET PO SCH (09:42)
[2017-10-10] MEDS: Sennosides/Docusate Sodium TABLET PO SCH (09:51)
--- NOTE | 2017-10-10 11:39 | Internal Med Progress Note ---
<Kalli Eldridge - Last Filed: 10/10/17 11:36> Date of Encounter: 10/10/17 Time of Encounter: 11:44 - Assessment and plan (1) Pancreatic cancer Current Visit: Yes Status: Chronic Assessment and plan: pancreatic cancer with multiple organ mets sees Dr. Waters CT abdomen/pelvis on 10/06/17 showed ill defined soft tissue extending posteriorlly from pancreatic neck surrounding celiac and SMA, likely cancer. persistent portal vein thrombosis and biliary ductal dilation Oncology consulted during recent hospitalization last week and determined patient would need to clinically improve in order to attempt clinical trials Continue Morphine/ Dilaudid palliative on board Plan: PT/OT, discharge planning in progress jonna Campos, monitor H/H. Qualifiers: Pancreatic malignancy location: body of pancreas Qualified Code(s): C25.1 - Malignant neoplasm of body of pancreas (2) Hyponatremia Current Visit: Yes Status: Acute Assessment and plan: etiology multifactorial: hypervolemic hyponatremia secondary to ascitic fluid accumulatin, also decreased oral intake Plan: salt tablets (3) Anemia Current Visit: Yes Status: Chronic Assessment and plan: patient has hx of chemo induced gastric ulcers Gi was consulted, they stated that bleeding from the NG tube was likely related to trauma, and they reocmmended continuing the Eliquis Plan: continue to monitor anemia workup. Qualifiers: Anemia type: other cause Other causes of anemia: chronic disease, neoplastic Qualified Code(s): D63.0 - Anemia in neoplastic disease (4) Acute hepatic encephalopathy Current Visit: Yes Status: Resolved Assessment and plan: reolved. continue lactulose PO (5) Ascites Current Visit: Yes Status: Acute Assessment and plan: CT A/P showed large volume ascites. Pleur X catheter placed by IR on 10/09 with 2800cc drainage. was removed on with pustular fluid present. SAAG 2.5: portal hypertension peritoneal fluid culture positive for cornybacterium. 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 CT abdomen/pelvis on 10/06/17 showed ill defined soft tissue extending posteriorlly from pancreatic neck surrounding celiac and SMA, likely cancer. persistent portal vein thrombosis and biliary ductal dilation. when NG tube was pulled there was concern for GI bleed. Gi was consulted and they stated this was likely trauma from NG tube. Plan: will monitor H/H, and continue ELiquis (8) Cancer-related pain Current Visit: Yes Status: Chronic Assessment and plan: continue pain meds (9) Severe protein-calorie malnutrition Current Visit: Yes Status: Acute Assessment and plan: evaluaated by speech therapy. regular diet ensure high protein TID with meals. (10) DM type 2 (diabetes mellitus, type 2) Current Visit: No Status: Chronic Assessment and plan: continue sliding scale insulin Qualifiers: Diabetes mellitus complication status: with other specified complication Diabetes mellitus intermediate manager insulin use: without intermediate manager use Qualified Code( s): E11.69 - Type 2 diabetes mellitus with other specified complication (11) DVT prophylaxis Current Visit: Yes Status: Acute Assessment and plan: Eliquis - Subjective Interval history: 52M evlaluated at bedside. patient is a lot more alert and interactive today. - Constitutional Vitals: Temp Pulse Resp BP Pulse Ox 97.4 F L 91 15 102/78 100 10/10/17 08:15 10/10/17 08:15 10/10/17 08:15 10/10/17 08:15 10/10/17 08:15 General appearance: Present: A&O X 3, no acute distress, underweight, answers questions appropriately Exam: severely emaciated. - Head Head exam: Present: atraumatic, normocephalic - Neck Neck exam general surgery: Present: supple, trachea midline - Respiratory Respiratory exam: Present: CTAB - Cardiovascular Cardiovascular exam: Present: RRR, +S1, +S2 - GI/Abdominal Additional comments: distended, fluid wave present. - Extremities Exam Extremities exam: Absent: cyanotic, pedal edema - Neurological Exam Neurological exam: Present: alert, oriented X3, no focal deficits - Psychiatric Psychiatric exam: Present: normal affect, normal mood Internal Medicine: Result - Labs CBC & Chem 7: 10/10/17 04:30 10/10/17 04:30 Labs: Short CBC 10/10/17 Range/Units 04:30 WBC 2.1 L (4.3-11.1) K/mcL Hgb 10.1 L (12.9-16.9) g/dL Hct 30.6 L (37.5-50.1) % Plt Count 183 (140-400) K/mcL Neutrophils # 1.6 (1.6-8.9) K/mcL BMP 10/10/17 04:30 Sodium 129 L Potassium 3.9 Chloride 104 Carbon Dioxide 16 L BUN 32 H Creatinine 0.68 L Glucose 114 H Calcium 8.0 L - ABG Interpretation ABG results: PT/INR, D-dimer PT 16.8 Seconds (9.4-12.1) H 10/09/17 04:25 - Impressions Impressions Insertion Tunneled Catheter 10/07/17 00:00 IMPRESSION: Successful tunneled PleurX catheter removal D/ / Timi Beckham MD / Timi Beckham MD Interpreting Provider: Timi Beckham MD - VTE Documentation of Mechanical Device: Intermittent pneumatic compression device Consult Discharge Plan - Plan Referrals: Garett Ervin DO [Primary Care Provider] - 10/16/17 1:30 pm () <Morales Hidalgo - Last Filed: 10/10/17 15:15> Date of Encounter: 10/10/17 - Assessment and plan (1) Hyponatremia Current Visit: Yes Status: Acute 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 (6) DM type 2 (diabetes mellitus, type 2) Current Visit: No Status: Chronic Qualifiers: Diabetes mellitus complication status: with other specified complication Diabetes mellitus detention insulin use: without intermediate manager use Qualified Code( s): E11.69 - Type 2 diabetes mellitus with other specified complication (7) Hypokalemia Current Visit: Yes Status: Resolved (8) Severe protein-calorie malnutrition Current Visit: Yes Status: Acute (9) Anemia Current Visit: Yes Status: Chronic Qualifiers: Anemia type: other cause Other causes of anemia: chronic disease, neoplastic Qualified Code(s): D63.0 - Anemia in neoplastic disease - Constitutional Vitals: Temp Pulse Resp BP Pulse Ox 97.4 F L 91 15 102/78 100 10/10/17 08:15 10/10/17 08:15 10/10/17 08:15 10/10/17 08:15 10/10/17 08:15 Internal Medicine: Result - Labs CBC & Chem 7: 10/10/17 04:30 10/10/17 04:30 Labs: Short CBC 10/10/17 Range/Units 04:30 WBC 2.1 L (4.3-11.1) K/mcL Hgb 10.1 L (12.9-16.9) g/dL Hct 30.6 L (37.5-50.1) % Plt Count 183 (140-400) K/mcL Neutrophils # 1.6 (1.6-8.9) K/mcL BMP 10/10/17 04:30 Sodium 129 L Potassium 3.9 Chloride 104 Carbon Dioxide 16 L BUN 32 H Creatinine 0.68 L Glucose 114 H Calcium 8.0 L - ABG Interpretation ABG results: PT/INR, D-dimer PT 16.8 Seconds (9.4-12.1) H 10/09/17 04:25 - Attending Attestation I examined this patient and my medical decision-making was reviewed with the Resident Physician on 10/10/17. I agree with the documented findings, disposition and treatment plan as described except to the extent set forth below. Mr Hatch is currently admitted for acute SBP and pancreatic cancer. He remains moderate to high risk due to potential for worsening clinical status. Mr Hatch is resting. He is very weak. He is now on IV Vanc for corynebacterium in ascitic fluid. No fever or chills. Exam Alert. Comfortable Mucus membranes dry Heart reg No wheeze I/P 1. SBP on IV Vanc 2 Pancreatic cancer Further diagnoses and plan as above.
[2017-10-10] MEDS ORDERED: D5% in Water 250 ML ONE (16:30)
[2017-10-10] MEDS: *HR* HYDROmorphone (PF) 1 MG/ML SYRINGE IVP PRN (18:18)
[2017-10-10] MEDS ORDERED: Lacri-Lube 3.5 GM TUBE OP PRN (20:30)
[2017-10-11] MEDS: *HR* HYDROmorphone (PF) 1 MG/ML SYRINGE IVP PRN ×3 (01:41→21:06)
[2017-10-11] MEDS: Insulin LISPRO 300 UNITS/3 ML VIAL SQ SCH ×4 (02:56→19:48)
[2017-10-11] MEDS: Lactulose Oral Soln 20 GM/30 ML UDC PO SCH ×4 (02:56→20:50)
[2017-10-11] MEDS: APIXABAN 2.5 MG TABLET PO SCH ×3 (02:56→20:51)
[2017-10-11 04:20] LABS: Basophils % 0.4 %; Eosinophils % 1.1 %; Hematocrit 33.1 % (37.5-50.1); Hemoglobin 10.7 g/dL (12.9-16.9); Lymphocytes # 0.2 K/mcL (0.6-4.6); Lymphocytes % 5.9 %; Mean Corpuscular HGB Conc 32.3 g/dL (31.6-35.5); Mean Corpuscular Hemoglobin 26.5 pg (28.0-33.3); Mean Corpuscular Volume 81.9 fL (83.0-100.0); Mean Platelet Volume 10.1 fL (9.4-12.4); Monocytes # 0.3 K/mcL (0.0-1.3); Monocytes % 10.7 %; Neutrophils # 2.2 K/mcL (1.6-8.9); Platelet Count 186 K/mcL (140-400); Red Blood Count 4.04 M/mcL (4.19-5.50); Red Cell Distribution Width 15.3 % (11.5-14.5); Segmented Neutrophils % 81.9 %
[2017-10-11 04:38] LABS: % Iron Saturation 10 % (20-55); BUN/Creatinine Ratio 44 (6-26); Blood Urea Nitrogen 30 mg/dL (8-26); Calcium 8.7 mg/dL (8.6-10.8); Carbon Dioxide 16 mEq/L (19-29); Chloride 103 mEq/L (98-109); Glucose 155 mg/dL (70-99); Iron 25 mcg/dL (65-175); Osmolality,Calculated 273 (280-300); Potassium 3.7 mEq/L (3.5-4.5); Sodium 127 mEq/L (136-145); Transferrin 172 mg/dL (174-364); eGFR For African Americans > 60 (> 60); eGFR For Non-African Americans > 60 (> 60)
[2017-10-11 04:57] LABS: Platelet Estimate Normal (Normal)
[2017-10-11 04:58] LABS: Poikilocytosis 1+ (Not Present)
[2017-10-11 04:59] LABS: Ferritin 87 ng/ml (22-275)
[2017-10-11 05:13] LABS: Folate 14.5 ng/mL (7.0-31.4)
[2017-10-11] MEDS: Vancomycin 750 MG in D5% in Water 250 ML IVPB SCH ×2 (05:26→16:19)
--- NOTE | 2017-10-11 09:11 | Internal Med Progress Note ---
Date of Encounter: 10/11/17 Time of Encounter: 09:00 - Assessment and plan (1) Hyponatremia Current Visit: Yes Status: Acute Assessment and plan: Most likely related to hypervolemia and intake of free water. Salt tablets added yesterday Will continue same at this time. His appetite has improved today so hopefully that will help sodium increase. Recheck tomorrow. Continue to monitor amount of ascitic fluid. (2) SBP (spontaneous bacterial peritonitis) Current Visit: Yes Status: Acute Assessment and plan: Culture has grown Corynebacterium. Final sensitivities pending. Completed course of Cefotaxime. Vancomycin started with improvement clinically. (3) Pancreatic cancer Current Visit: Yes Status: Chronic Assessment and plan: pancreatic cancer with multiple organ mets sees Dr. Waters CT abdomen/pelvis on 10/06/17 showed ill defined soft tissue extending posteriorlly from pancreatic neck surrounding celiac and SMA, likely cancer. persistent portal vein thrombosis and biliary ductal dilation Oncology consulted during recent hospitalization last week and determined patient would need to clinically improve in order to attempt clinical trials Continue Morphine/ Dilaudid palliative on board Plan: PT/OT, discharge planning in progress PT recommends inpatient rehab. Qualifiers: Pancreatic malignancy location: body of pancreas Qualified Code(s): C25.1 - Malignant neoplasm of body of pancreas (4) Ascites Current Visit: Yes Status: Acute Assessment and plan: CT A/P showed large volume ascites. Pleur X catheter placed by IR on 10/09 with 2800cc drainage. was removed on with pustular fluid present. SAAG 2.5: portal hypertension peritoneal fluid culture positive for cornybacterium. Plan: Monitor amount of fluid Complete course of Vancomycin for SBP. 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 CT abdomen/pelvis on 10/06/17 showed ill defined soft tissue extending posteriorlly from pancreatic neck surrounding celiac and SMA, likely cancer. persistent portal vein thrombosis and biliary ductal dilation. when NG tube was pulled there was concern for GI bleed. Gi was consulted and they stated this was likely trauma from NG tube. Plan: will monitor H/H, and continue ELiquis (6) DM type 2 (diabetes mellitus, type 2) Current Visit: No Status: Chronic Assessment and plan: continue sliding scale insulin Qualifiers: Diabetes mellitus complication status: with other specified complication Diabetes mellitus long term care administrator insulin use: without residential use Qualified Code( s): E11.69 - Type 2 diabetes mellitus with other specified complication (7) Severe protein-calorie malnutrition Current Visit: Yes Status: Acute Assessment and plan: evaluaated by speech therapy. regular diet ensure high protein TID with meals. (8) Anemia Current Visit: Yes Status: Chronic Assessment and plan: patient has hx of chemo induced gastric ulcers Gi was consulted, they stated that bleeding from the NG tube was likely related to trauma, and they reocmmended continuing the Eliquis Plan: continue to monitor Most likely combination of bleeding and chronic disease. Qualifiers: Anemia type: other cause Other causes of anemia: chronic disease, neoplastic Qualified Code(s): D63.0 - Anemia in neoplastic disease - Subjective Interval history: Mr Hatch is currently admitted for acute hepatic encephalopathy and SBP. He remains moderate to high risk due to potential for worsening clinical status. Mr Hatch is more alert today. He is eating breakfast He slept better last night. No fever or chills. He is in better spirits today. Pain controlled at this time. - Constitutional Vitals: Temp Pulse Resp BP Pulse Ox 97.4 F L 96 14 105/69 100 10/11/17 06:24 10/11/17 06:24 10/11/17 06:24 10/11/17 06:24 10/11/17 06:24 General appearance: Present: A&O X 3, underweight, answers questions appropriately - Head Head exam: Present: atraumatic, normocephalic - Eye Eye exam: Present: EOMI, conjuntiva pink - ENT ENT exam: Present: mucous membranes moist - Respiratory Respiratory exam: Present: decreased breath sounds, CTAB - Cardiovascular Cardiovascular exam: Present: RRR. Absent: tachycardia - GI/Abdominal GI/Abdominal exam: Present: distended, normal bowel sounds, soft. Absent: tenderness - Extremities Exam Extremities exam: Present: warm. Absent: tenderness - Neurological Exam Neurological exam: Present: alert, oriented X3 - Skin Skin exam: Present: dry, warm. Absent: rash Internal Medicine: Result - Labs CBC & Chem 7: 10/11/17 03:24 10/11/17 03:24 Labs: Short CBC 10/11/17 Range/Units 03:24 WBC 2.7 L (4.3-11.1) K/mcL Hgb 10.7 L (12.9-16.9) g/dL Hct 33.1 L (37.5-50.1) % Plt Count 186 (140-400) K/mcL Neutrophils # 2.2 (1.6-8.9) K/mcL BMP 10/11/17 03:24 Sodium 127 L Potassium 3.7 Chloride 103 Carbon Dioxide 16 L BUN 30 H Creatinine 0.68 L Glucose 155 H Calcium 8.7 - ABG Interpretation ABG results: PT/INR, D-dimer PT 16.8 Seconds (9.4-12.1) H 10/09/17 04:25 - VTE Documentation of Mechanical Device: Intermittent pneumatic compression device Consult Discharge Plan - Plan Referrals: Garett Ervin DO [Primary Care Provider] - 10/16/17 1:30 pm ()
--- NOTE | 2017-10-11 10:19 | Palliative Progress Note ---
Date of Encounter: 10/11/17 Time of Encounter: 10:15 - Assessment and plan (1) Cancer-related pain Current Visit: Yes Status: Chronic Assessment and plan: Has Morphine for mod pain, and Hydromorphone for severe pain. Has utilized Hydromorphone x2 over last 24 hours. If continues to do well, plan on transitioning to oral agent Friday. Monitor (2) Counseling regarding goals of care Current Visit: Yes Status: Acute Assessment and plan: D/W Dr. Hidalgo - he looks much improved over the last 24 hours after initiation of Vancomycin. is encouraged and hoping he will continue improvement. Will continue to follow clinical course closely. (3) Acute hepatic encephalopathy Current Visit: Yes Status: Resolved Assessment and plan: Improved. (4) Pancreatic cancer Current Visit: Yes Status: Chronic Qualifiers: Pancreatic malignancy location: body of pancreas Qualified Code(s): C25.1 - Malignant neoplasm of body of pancreas - Time Spent With Patient Total time spent is greater than 50% in coordination of care (as documented) at patient's floor/unit and/or counseling patient: 25 - 35 minutes - Subjective Interval history: Patient awake and alert. Conversive and talking with . Ate yesterday and ate full breakfast this am. Denies pain or discomfort, other than fullness from eating too much. In good spirits. Vitals stable, blood pressure improved. + BM during the night. - Constitutional Vitals: Abnormal lab results WBC 2.7 K/mcL (4.3-11.1) L 10/11/17 03:24 RBC 4.04 M/mcL (4.19-5.50) L 10/11/17 03:24 Hgb 10.7 g/dL (12.9-16.9) L 10/11/17 03:24 Hct 33.1 % (37.5-50.1) L 10/11/17 03:24 MCV 81.9 fL (83.0-100.0) L 10/11/17 03:24 MCH 26.5 pg (28.0-33.3) L 10/11/17 03:24 RDW 15.3 % (11.5-14.5) H 10/11/17 03:24 Lymphocytes # 0.2 K/mcL (0.6-4.6) L 10/11/17 03:24 Poikilocytosis 1+ (Not Present) A 10/11/17 03:24 Tear Drop Cells 1+ (Not Present) A 10/07/17 04:40 Beba Cells 1+ (Not Present) A 10/08/17 05:30 PT 16.8 Seconds (9.4-12.1) H 10/09/17 04:25 APTT 39.8 Seconds (26.0-36.0) H 10/06/17 03:06 Sodium 127 mEq/L (136-145) L 10/11/17 03:24 Carbon Dioxide 16 mEq/L (19-29) L 10/11/17 03:24 BUN 30 mg/dL (8-26) H 10/11/17 03:24 Creatinine 0.68 mg/dL (0.72-1.25) L 10/11/17 03:24 BUN/Creatinine Ratio 44 (6-26) H 10/11/17 03:24 Glucose 155 mg/dL (70-99) H 10/11/17 03:24 POC Glucose 151 (58-89) H 10/10/17 06:16 Calculated Osmolality 273 (280-300) L 10/11/17 03:24 Phosphorus 2.0 mg/dL (2.3-4.7) L 10/10/17 04:30 Iron 25 mcg/dL (65-175) L 10/11/17 03:24 % Saturation 10 % (20-55) L 10/11/17 03:24 Transferrin 172 mg/dL (174-364) L 10/11/17 03:24 Total Bilirubin 2.0 mg/dL (0.2-1.2) H 10/08/17 05:30 Alkaline Phosphatase 136 Units/L (38-126) H 10/08/17 05:30 Ammonia 99 mcmol/L (18-72) H 10/10/17 04:30 Serum Total Protein 5.4 g/dL (6.0-8.3) L 10/08/17 05:30 Albumin 3.1 g/dL (3.5-5.0) L D 10/08/17 05:30 Globulin 2.3 g/dL (2.4-3.5) L 10/08/17 05:30 Vitamin B12 1328 pg/mL (213-816) H 10/11/17 03:24 Ur Specific [place] > 1.030 (1.010-1.025) H 10/06/17 05:04 Urine Ketones Trace mg/dL (Negative) H 10/06/17 05:04 Urine Bilirubin Small (Negative) H 10/06/17 05:04 General appearance: Present: thin - Respiratory Respiratory exam: Present: decreased breath sounds, CTAB - Cardiovascular Cardiovascular exam: Present: +S1, +S2 - GI/Abdominal GI/Abdominal exam: Present: distended, soft - Extremities Exam Extremities exam: Present: normal capillary refill, normal inspection Additional comments: 1+ bilateral lower extremity edema - Neurological Exam Neurological exam: Present: alert, oriented X3, strengths equal and symetr throughout Additional comments: Generalized weakness - Skin Skin exam: Present: dry, pallor, warm Palliative Quality Palliative Quality: Screen for Code Status: Yes, Screen for Goals of Care: Yes, Screen for Pain: Yes, If Pain Regimen Started, Initiate Bowel Regimen: NA, Screen for Nausea/Vomitting: Yes Code Status: 10/06/17 09:24 Resuscitation Status: Active [RES] Routine Comment: Resuscitation Status: Full Code Resuscitation Status: Active [RES] Routine Comment: SHORT TERM INTUBATION OK NO TRACH Resuscitation Status: DNR-Comfort Care-Arrest - Labs CBC & Chem 7: 10/11/17 03:24 10/11/17 03:24 Labs: Laboratory Results - last 24 hr 10/10/17 10/11/17 10/11/17 06:16 03:24 03:24 WBC 2.7 L RBC 4.04 L Hgb 10.7 L Hct 33.1 L MCV 81.9 L MCH 26.5 L MCHC 32.3 RDW 15.3 H Plt Count 186 MPV 10.1 Immature Gran % 0.0 Seg Neutrophils % 81.9 Lymphocytes % 5.9 Monocytes % 10.7 Eosinophils % 1.1 Basophils % 0.4 Neutrophils # 2.2 Lymphocytes # 0.2 L Monocytes # 0.3 Eosinophils # 0.0 Basophils # 0.0 Platelet Estimate Normal Poikilocytosis 1+ A Sodium 127 L Potassium 3.7 Chloride 103 Carbon Dioxide 16 L BUN 30 H Creatinine 0.68 L Est GFR ( Amer) > 60 Est GFR (Non-Af Amer) > 60 BUN/Creatinine Ratio 44 H Glucose 155 H POC Glucose 151 H Calculated Osmolality 273 L Calcium 8.7 Iron 25 L % Saturation 10 L Transferrin 172 L Ferritin 87 Vitamin B12 Folate Vancomycin Trough 10/11/17 10/11/17 03:24 03:24 WBC RBC Hgb Hct MCV MCH MCHC RDW Plt Count MPV Immature Gran % Seg Neutrophils % Lymphocytes % Monocytes % Eosinophils % Basophils % Neutrophils # Lymphocytes # Monocytes # Eosinophils # Basophils # Platelet Estimate Poikilocytosis Sodium Potassium Chloride Carbon Dioxide BUN Creatinine Est GFR ( Amer) Est GFR (Non-Af Amer) BUN/Creatinine Ratio Glucose POC Glucose Calculated Osmolality Calcium Iron % Saturation Transferrin Ferritin Vitamin B12 1328 H Folate 14.5 Vancomycin Trough 12.1 - ABG Interpretation ABG results: PT/INR, D-dimer PT 16.8 Seconds (9.4-12.1) H 10/09/17 04:25 Consult Discharge Plan - Plan Referrals: Garett Ervin DO [Primary Care Provider] - 10/16/17 1:30 pm ()
[2017-10-11] MEDS: Sennosides/Docusate Sodium TABLET PO SCH (10:32)
[2017-10-11] MEDS: Pantoprazole 40 MG VIAL IVP SCH (10:32)
[2017-10-12] MEDS: Insulin LISPRO 300 UNITS/3 ML VIAL SQ SCH ×5 (00:25→23:33)
[2017-10-12] MEDS: Vancomycin 750 MG in D5% in Water 250 ML IVPB SCH ×2 (04:41→18:59)
[2017-10-12 05:07] LABS: Hematocrit 31.6 % (37.5-50.1); Hemoglobin 10.4 g/dL (12.9-16.9); Mean Corpuscular HGB Conc 32.9 g/dL (31.6-35.5); Mean Corpuscular Hemoglobin 26.9 pg (28.0-33.3); Mean Corpuscular Volume 81.7 fL (83.0-100.0); Mean Platelet Volume 9.5 fL (9.4-12.4); Platelet Count 204 K/mcL (140-400); Red Blood Count 3.87 M/mcL (4.19-5.50); Red Cell Distribution Width 15.2 % (11.5-14.5)
[2017-10-12 05:27] LABS: BUN/Creatinine Ratio 48 (6-26); Blood Urea Nitrogen 29 mg/dL (8-26); Calcium 8.4 mg/dL (8.6-10.8); Carbon Dioxide 15 mEq/L (19-29); Chloride 103 mEq/L (98-109); Glucose 129 mg/dL (70-99); Osmolality,Calculated 270 (280-300); Phosphorous 2.2 mg/dL (2.3-4.7); Potassium 3.9 mEq/L (3.5-4.5); Sodium 126 mEq/L (136-145); eGFR For African Americans > 60 (> 60); eGFR For Non-African Americans > 60 (> 60)
[2017-10-12] MEDS ORDERED: *HR* HYDROmorphone 2 MG TABLET PO PRN (09:05)
--- NOTE | 2017-10-12 09:14 | Palliative Progress Note ---
Date of Encounter: 10/12/17 Time of Encounter: 09:00 - Assessment and plan (1) Cancer-related pain Current Visit: Yes Status: Chronic Assessment and plan: Has utilized IV Hydromorphone x3 last 24 hours. Taking po now and he is improving. Discussed transition to home medication regimen. He does not want to restart the Long acting MS Contin, states he didn't like the way it made him feel and he couldn't stay awake. Just desires PRN Hydromorphone tabs as he took at home. Will have 2mg available for mod pain and 4mg for severe. Monitor (2) Counseling regarding goals of care Current Visit: Yes Status: Acute Assessment and plan: PT recommended inpt rehab/swing bed. Discussed briefly - said they are open to this as long as rehab will let her stay with him. If not, she said that would be a "dealbreaker". Will have social work meet and discuss with her in am. Dr. Hidalgo will be speaking with pharmacist regarding duration of Vancomycin. (3) Acute hepatic encephalopathy Current Visit: Yes Status: Resolved (4) Pancreatic cancer Current Visit: Yes Status: Chronic Qualifiers: Pancreatic malignancy location: body of pancreas Qualified Code(s): C25.1 - Malignant neoplasm of body of pancreas - Time Spent With Patient Total time spent is greater than 50% in coordination of care (as documented) at patient's floor/unit and/or counseling patient: - Subjective Interval history: Patient awake and alert. Conversive and talking with . Continues to improve - sat up in chair yesterday and worked with PT. Didn't like breakfast this am, but did drink protein shake. Pain well controlled with Hydromorphone. - Constitutional Vitals: Abnormal lab results WBC 2.3 K/mcL (4.3-11.1) L 10/12/17 04:55 RBC 3.87 M/mcL (4.19-5.50) L 10/12/17 04:55 Hgb 10.4 g/dL (12.9-16.9) L 10/12/17 04:55 Hct 31.6 % (37.5-50.1) L 10/12/17 04:55 MCV 81.7 fL (83.0-100.0) L 10/12/17 04:55 MCH 26.9 pg (28.0-33.3) L 10/12/17 04:55 RDW 15.2 % (11.5-14.5) H 10/12/17 04:55 Lymphocytes # 0.2 K/mcL (0.6-4.6) L 10/11/17 03:24 Poikilocytosis 1+ (Not Present) A 10/11/17 03:24 Tear Drop Cells 1+ (Not Present) A 10/07/17 04:40 Beba Cells 1+ (Not Present) A 10/08/17 05:30 PT 16.8 Seconds (9.4-12.1) H 10/09/17 04:25 APTT 39.8 Seconds (26.0-36.0) H 10/06/17 03:06 Sodium 126 mEq/L (136-145) L 10/12/17 04:55 Carbon Dioxide 15 mEq/L (19-29) L 10/12/17 04:55 BUN 29 mg/dL (8-26) H 10/12/17 04:55 Creatinine 0.61 mg/dL (0.72-1.25) L 10/12/17 04:55 BUN/Creatinine Ratio 48 (6-26) H 10/12/17 04:55 Glucose 129 mg/dL (70-99) H 10/12/17 04:55 POC Glucose 166 (58-89) H 10/11/17 12:30 Calculated Osmolality 270 (280-300) L 10/12/17 04:55 Calcium 8.4 mg/dL (8.6-10.8) L 10/12/17 04:55 Phosphorus 2.2 mg/dL (2.3-4.7) L 10/12/17 04:55 Iron 25 mcg/dL (65-175) L 10/11/17 03:24 % Saturation 10 % (20-55) L 10/11/17 03:24 Transferrin 172 mg/dL (174-364) L 10/11/17 03:24 Total Bilirubin 2.0 mg/dL (0.2-1.2) H 10/08/17 05:30 Alkaline Phosphatase 136 Units/L (38-126) H 10/08/17 05:30 Ammonia 99 mcmol/L (18-72) H 10/10/17 04:30 Serum Total Protein 5.4 g/dL (6.0-8.3) L 10/08/17 05:30 Albumin 3.1 g/dL (3.5-5.0) L D 10/08/17 05:30 Globulin 2.3 g/dL (2.4-3.5) L 10/08/17 05:30 Vitamin B12 1328 pg/mL (213-816) H 10/11/17 03:24 Ur Specific [place] > 1.030 (1.010-1.025) H 10/06/17 05:04 Urine Ketones Trace mg/dL (Negative) H 10/06/17 05:04 Urine Bilirubin Small (Negative) H 10/06/17 05:04 General appearance: Present: no acute distress - Respiratory Respiratory exam: Present: decreased breath sounds, CTAB - Cardiovascular Cardiovascular exam: Present: +S1, +S2 - GI/Abdominal GI/Abdominal exam: Present: distended, normal bowel sounds, soft - Extremities Exam Additional comments: 2+ bilateral lower extremity edema - Neurological Exam Neurological exam: Present: alert, oriented X3, strengths equal and symetr throughout - Skin Skin exam: Present: dry, warm Palliative Quality Palliative Quality: Screen for Code Status: Yes, Screen for Goals of Care: Yes, Screen for Pain: Yes, If Pain Regimen Started, Initiate Bowel Regimen: NA, Screen for Nausea/Vomitting: Yes Code Status: 10/06/17 09:24 Resuscitation Status: Active [RES] Routine Comment: Resuscitation Status: Full Code Resuscitation Status: Active [RES] Routine Comment: SHORT TERM INTUBATION OK NO TRACH Resuscitation Status: DNR-Comfort Care-Arrest - Labs CBC & Chem 7: 10/12/17 04:55 10/12/17 04:55 Labs: Laboratory Results - last 24 hr 10/11/17 10/11/17 10/12/17 06:20 12:30 04:55 WBC 2.3 L RBC 3.87 L Hgb 10.4 L Hct 31.6 L MCV 81.7 L MCH 26.9 L MCHC 32.9 RDW 15.2 H Plt Count 204 MPV 9.5 Sodium Potassium Chloride Carbon Dioxide BUN Creatinine Est GFR ( Amer) Est GFR (Non-Af Amer) BUN/Creatinine Ratio Glucose POC Glucose 188 H 166 H Calculated Osmolality Calcium Phosphorus Magnesium 10/12/17 04:55 WBC RBC Hgb Hct MCV MCH MCHC RDW Plt Count MPV Sodium 126 L Potassium 3.9 Chloride 103 Carbon Dioxide 15 L BUN 29 H Creatinine 0.61 L Est GFR ( Amer) > 60 Est GFR (Non-Af Amer) > 60 BUN/Creatinine Ratio 48 H Glucose 129 H POC Glucose Calculated Osmolality 270 L Calcium 8.4 L Phosphorus 2.2 L Magnesium 2.0 - ABG Interpretation ABG results: PT/INR, D-dimer PT 16.8 Seconds (9.4-12.1) H 10/09/17 04:25 Consult Discharge Plan - Plan Referrals: Garett Ervin DO [Primary Care Provider] - 10/16/17 1:30 pm ()
[2017-10-12] MEDS: Lactulose Oral Soln 20 GM/30 ML UDC PO SCH ×3 (12:03→21:16)
[2017-10-12] MEDS: APIXABAN 2.5 MG TABLET PO SCH ×2 (12:03→21:01)
[2017-10-12] MEDS: Sennosides/Docusate Sodium TABLET PO SCH (12:03)
[2017-10-12] MEDS: Pantoprazole 40 MG VIAL IVP SCH (12:03)
--- NOTE | 2017-10-12 12:41 | Internal Med Progress Note ---
Date of Encounter: 10/12/17 Time of Encounter: 10:00 - Assessment and plan (1) Hyponatremia Current Visit: Yes Status: Acute Assessment and plan: Appears to be hypervolemic hyponatremia due to ascites. May need paracentesis and/or another Pleuryx Monitor for now. Salt tablets. PO intake has improved. (2) SBP (spontaneous bacterial peritonitis) Current Visit: Yes Status: Acute Assessment and plan: Currently on IV Vancomycin to cover Corynebacterium. Final ID and sensitivities pending. Tolerating abx. (3) Pancreatic cancer Current Visit: Yes Status: Chronic Assessment and plan: pancreatic cancer with multiple organ mets sees Dr. Waters CT abdomen/pelvis on 10/06/17 showed ill defined soft tissue extending posteriorlly from pancreatic neck surrounding celiac and SMA, likely cancer. persistent portal vein thrombosis and biliary ductal dilation Oncology consulted during recent hospitalization last week and determined patient would need to clinically improve in order to attempt clinical trials Continue Morphine/ Dilaudid palliative on board Plan: PT/OT, discharge planning in progress PT recommends inpatient rehab. Qualifiers: Pancreatic malignancy location: body of pancreas Qualified Code(s): C25.1 - Malignant neoplasm of body of pancreas (4) Ascites Current Visit: Yes Status: Acute Assessment and plan: CT A/P showed large volume ascites. Pleur X catheter placed by IR on 10/09 with 2800cc drainage. was removed on with pustular fluid present. SAAG 2.5: portal hypertension peritoneal fluid culture positive for cornybacterium. Plan: Monitor amount of fluid Complete course of Vancomycin for SBP. May need paracentesis to remove fluid again soon. 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 CT abdomen/pelvis on 10/06/17 showed ill defined soft tissue extending posteriorlly from pancreatic neck surrounding celiac and SMA, likely cancer. persistent portal vein thrombosis and biliary ductal dilation. when NG tube was pulled there was concern for GI bleed. Gi was consulted and they stated this was likely trauma from NG tube. Plan: will monitor H/H, and continue ELiquis (6) DM type 2 (diabetes mellitus, type 2) Current Visit: No Status: Chronic Assessment and plan: continue sliding scale insulin Qualifiers: Diabetes mellitus complication status: with other specified complication Diabetes mellitus buttermaker continuous churn insulin use: without chcf use Qualified Code( s): E11.69 - Type 2 diabetes mellitus with other specified complication (7) Severe protein-calorie malnutrition Current Visit: Yes Status: Acute Assessment and plan: evaluaated by speech therapy. regular diet ensure high protein TID with meals. (8) Anemia Current Visit: Yes Status: Chronic Assessment and plan: patient has hx of chemo induced gastric ulcers Gi was consulted, they stated that bleeding from the NG tube was likely related to trauma, and they reocmmended continuing the Eliquis Plan: continue to monitor Most likely combination of bleeding and chronic disease. Qualifiers: Anemia type: other cause Other causes of anemia: chronic disease, neoplastic Qualified Code(s): D63.0 - Anemia in neoplastic disease - Subjective Interval history: Mr Hatch is currently admitted for acute hepatic encephalopathy and SBP. He remains moderate to high risk due to potential for worsening clinical status. Mr Hatch is continuing to do a little better each day. No CP or SOB. No fever or chills. Wants de out. Tolerating IV Vancomycin. Family at bedside. Wants to know about taking a vitamin. - Constitutional Vitals: Temp Pulse Resp BP Pulse Ox 97.8 F 94 15 99/72 100 10/12/17 08:20 10/12/17 08:20 10/12/17 08:20 10/12/17 08:20 10/12/17 08:20 General appearance: Present: A&O X 3, underweight, answers questions appropriately - Head Head exam: Present: atraumatic, normocephalic - Eye Eye exam: Present: EOMI, conjuntiva pink - ENT ENT exam: Present: mucous membranes moist - Respiratory Respiratory exam: Present: decreased breath sounds, CTAB - Cardiovascular Cardiovascular exam: Present: RRR. Absent: tachycardia - GI/Abdominal GI/Abdominal exam: Present: distended, soft. Absent: tenderness - Extremities Exam Extremities exam: Present: warm - Neurological Exam Neurological exam: Present: alert, oriented X3 - Skin Skin exam: Present: warm. Absent: rash Internal Medicine: Result - Labs CBC & Chem 7: 10/12/17 04:55 10/12/17 04:55 Labs: Short CBC 10/12/17 Range/Units 04:55 WBC 2.3 L (4.3-11.1) K/mcL Hgb 10.4 L (12.9-16.9) g/dL Hct 31.6 L (37.5-50.1) % Plt Count 204 (140-400) K/mcL [facility] 10/12/17 04:55 Sodium 126 L Potassium 3.9 Chloride 103 Carbon Dioxide 15 L BUN 29 H Creatinine 0.61 L Glucose 129 H Calcium 8.4 L - ABG Interpretation ABG results: PT/INR, D-dimer PT 16.8 Seconds (9.4-12.1) H 10/09/17 04:25 - VTE Documentation of Mechanical Device: Intermittent pneumatic compression device Consult Discharge Plan - Plan Referrals: Garett Ervin DO [Primary Care Provider] - 10/16/17 1:30 pm ()
[2017-10-12] MEDS: *HR* HYDROmorphone 2 MG TABLET PO PRN (21:17)
[2017-10-13 05:08] LABS: Hematocrit 32.1 % (37.5-50.1); Hemoglobin 10.4 g/dL (12.9-16.9); Mean Corpuscular HGB Conc 32.4 g/dL (31.6-35.5); Mean Corpuscular Hemoglobin 26.6 pg (28.0-33.3); Mean Corpuscular Volume 82.1 fL (83.0-100.0); Mean Platelet Volume 9.3 fL (9.4-12.4); Platelet Count 224 K/mcL (140-400); Red Blood Count 3.91 M/mcL (4.19-5.50); Red Cell Distribution Width 15.4 % (11.5-14.5)
[2017-10-13 05:21] LABS: BUN/Creatinine Ratio 49 (6-26); Blood Urea Nitrogen 35 mg/dL (8-26); Carbon Dioxide 15 mEq/L (19-29); Chloride 101 mEq/L (98-109); Glucose 124 mg/dL (70-99); Osmolality,Calculated 267 (280-300); Potassium 4.2 mEq/L (3.5-4.5); Sodium 124 mEq/L (136-145); eGFR For African Americans > 60 (> 60); eGFR For Non-African Americans > 60 (> 60)
[2017-10-13] MEDS: Insulin LISPRO 300 UNITS/3 ML VIAL SQ SCH ×3 (07:45→16:49)
[2017-10-13] MEDS: Vancomycin 750 MG in D5% in Water 250 ML IVPB SCH ×2 (08:03→21:28)
[2017-10-13 09:42] LABS: INR 1.4; Prothrombin Time 15.7 Seconds (9.4-12.1)
[2017-10-13 09:45] LABS: Activated Partial Thrombo Time 28.8 Seconds (26.0-36.0)
--- NOTE | 2017-10-13 10:20 | Discharge Summary ---
Date of Encounter: 10/13/17 Time of Encounter: 08:45 - Discharge Medications Home Medications: Multivitamin [Multivitamins] 1 each PO DAILY 11/06/16 [History] Baclofen [Lioresal] 10 mg PO DAILY PRN 08/13/17 [History] Gabapentin [Neurontin] 300 mg PO HS PRN 08/13/17 [History] Lipase/Protease/Amylase [Darrin Cartagena 12,000 Units Capsule] 1 each PO TID PRN [History] Melatonin 5 mg PO HS 08/13/17 [History] Pantoprazole Sodium [Protonix] 40 mg PO BID #60 tablet. 08/16/17 [Rx] Hydromorphone HCl [Dilaudid] 1 - 2 tab PO Q4H PRN #90 tablet 09/03/17 [Rx] Apixaban [Eliquis] 1 tab PO BID #60 tablet 09/10/17 [Rx] Granisetron [Sancuso] 1 each TD QWEEK #4 patch.tdwk 09/10/17 [Rx] Potassium Chloride Elixir [Potassium Chloride] 7.5 ml PO DAILY #220 mls [Rx] Morphine Sulfate SR (12 HR) [MS Contin] 1 tab PO Q12HR #60 tab 10/02/17 [Rx] Pantoprazole Sodium 40 mg PO BID #60 tablet. 10/02/17 [Rx] Sennosides/Docusate Sodium [Senna Plus] 2 each PO BID #60 tablet 10/02/17 [Rx] Allergies/Adverse Reactions: 3 Allergy/AdvReac Type Severity Reaction Status Date / Time ondansetron Allergy Swelling Verified 10/06/17 02:56 [From Zofran (as of hydrochloride)] Lip/Tongue/Throat prochlorperazine Allergy Swelling Verified 10/06/17 02:56 [From Compazine] of Lip/Tongue/Throat Oxycodone AdvReac Rash Verified 10/06/17 02:56 Procedures/tests Complete & Pending: Procedures Performed prior 72 hours Category Date Time Status IR paracentesis ultrasound [IR] Routine IR 10/13/17 Ordered Date of admission: 10/06/17 05:50 Primary care physician: Cora Santacruz Consults: 10/06/17 08:12 Consult to Nutrition [CONS] Routine Comment: Consulting Provider: NUTRITION Reason for Dietary Consult: MST Score 10/06/17 08:29 Consult to Critical Care [CONS] Routine Consulting Provider: Pulm Crit Care [facility] [place] Reason for Consult: hyponatremia, hepatic encephalopathy Call Completed: No 10/06/17 09:27 Consult to Palliative Care [CONS] Routine Comment: Consulting Provider: Palliative Care [place] Reason for Consult: Advanced pancreatic cancer Time Notified: 09:28 Call Completed: Yes 10/06/17 10:28 Consult to Interventional Radiology [CONS] Routine Consulting Provider: Radiology Interventional [place] Reason for Consult: PleurX catheter inserted 09/09/17 not functioning, ascites, pancreatic CA Time Notified: 10:31 Call Completed: Yes 10/07/17 11:16 Consult to Gastroenterology [CONS] Routine Consulting Provider: Gastroenterology [place] Reason for Consult: +/- PEG, BRB in NG tube output, history of chemo induced gastric ulcers Time Notified: 11:17 Call Completed: Yes 10/07/17 12:47 Consult to Interventional Radiology [CONS] Stat Consulting Provider: Radiology Interventional [place] Reason for Consult: pluerix drainage growing, dc pluerix drain Time Notified: 12:49 Call Completed: Yes 10/08/17 09:55 Consult to Occupational Therapy [CONS] Routine Comment: Evaluate, develop and implement POC Reason for Consult: therapy, placement recs Consult to Physical Therapy [CONS] Routine Comment: Evaluate, develop and implement POC Reason for Consult: therapy, placement recs 10/08/17 09:56 Consult to Speech Therapy [CONS] Routine Comment: Evaluate, develop and implement POC Reason for Consult: s/p NG removal, needs eval for swallowing. Call Completed: No 10/13/17 09:02 Consult to Interventional Radiology [CONS] Stat Consulting Provider: Radiology Interventional [place] Reason for Consult: Paracentesis Call Completed: Yes - Patient Status Condition: Critical - Discharge Instructions Follow Up With: Garett Ervin DO [Primary Care Provider] - 10/16/17 1:30 pm () Hospital course: Mr. Hatch is a 52 year old male - Time Spent with Patient Total time spent providing and/or coordinating discharge services: - Constitutional Vitals: Temp Pulse Resp BP Pulse Ox 97.9 F 98 16 94/67 100 10/13/17 04:39 10/13/17 04:39 10/13/17 04:39 10/13/17 04:39 10/13/17 04:39 General appearance: Present: A&O X 3, underweight, answers questions appropriately - VTE Documentation of Mechanical Device: Intermittent pneumatic compression device
--- NOTE | 2017-10-13 11:30 | IR Procedure Note ---
Date of procedure: 10/13/17 Consent Obtained: Written consent Timeout: Correct patient and procedure verified, Correct site verified, Time out performed, Skin prep completed Indications: ascites Procedure Performed: paracentesis Site/Technique: left Results/Findings: large ascites Estimated blood loss (cc): 0 Complications: None; Tolerated procedure well Post Procedure Treatment Plan: observation
--- NOTE | 2017-10-13 11:41 | Palliative Progress Note ---
<Judith Parmar - Last Filed: 10/13/17 11:37> Date of Encounter: 10/13/17 Time of Encounter: 09:00 - Assessment and plan (1) Counseling regarding goals of care Current Visit: Yes Status: Acute Assessment and plan: The patient requested that the facility that he goes to will allow his to stay with him and have his own private room. Thai of [facility] has seen the patient and is aware of the patient's request. He informed him that he will do his best to arrange a facility that will accommodate these requests. The patient and his stated that physical therapy came last Friday and that he was able to participate in the activities. The patient reported that he is able to use his walker by himself to move to the bed side commode. He reported that physical therapy had not seen him yet today. (2) Cancer-related pain Current Visit: Yes Status: Chronic Assessment and plan: The patient's pain is controlled with PRN Hydromorphone tablets that he took at home. Current order is 2mg available for moderate pain and 4mg for severe. (3) Acute hepatic encephalopathy Current Visit: Yes Status: Resolved (4) Pancreatic cancer Current Visit: Yes Status: Chronic Qualifiers: Pancreatic malignancy location: body of pancreas Qualified Code(s): C25.1 - Malignant neoplasm of body of pancreas - Time Spent With Patient Total time spent is greater than 50% in coordination of care (as documented) at patient's floor/unit and/or counseling patient: - Subjective Interval history: Patient is awake, alert, and oriented talking with his at the bedside. He has no complaints at this time. Thai from [facility] had just finished talking with the patient and his about the re-had facility that is being arranged. The patient's request is that his is able to stay with him. Thai told him he would do his best to meet his request. - Constitutional Vitals: Abnormal lab results WBC 2.1 K/mcL (4.3-11.1) L 10/13/17 04:40 RBC 3.91 M/mcL (4.19-5.50) L 10/13/17 04:40 Hgb 10.4 g/dL (12.9-16.9) L 10/13/17 04:40 Hct 32.1 % (37.5-50.1) L 10/13/17 04:40 MCV 82.1 fL (83.0-100.0) L 10/13/17 04:40 MCH 26.6 pg (28.0-33.3) L 10/13/17 04:40 RDW 15.4 % (11.5-14.5) H 10/13/17 04:40 MPV 9.3 fL (9.4-12.4) L 10/13/17 04:40 Lymphocytes # 0.2 K/mcL (0.6-4.6) L 10/11/17 03:24 Poikilocytosis 1+ (Not Present) A 10/11/17 03:24 Tear Drop Cells 1+ (Not Present) A 10/07/17 04:40 [place] Cells 1+ (Not Present) A 10/08/17 05:30 PT 15.7 Seconds (9.4-12.1) H 10/13/17 09:15 Sodium 124 mEq/L (136-145) L 10/13/17 04:40 Carbon Dioxide 15 mEq/L (19-29) L 10/13/17 04:40 BUN 35 mg/dL (8-26) H 10/13/17 04:40 BUN/Creatinine Ratio 49 (6-26) H 10/13/17 04:40 Glucose 124 mg/dL (70-99) H 10/13/17 04:40 POC Glucose 125 (58-89) H 10/13/17 06:56 Calculated Osmolality 267 (280-300) L 10/13/17 04:40 Phosphorus 2.2 mg/dL (2.3-4.7) L 10/12/17 04:55 Iron 25 mcg/dL (65-175) L 10/11/17 03:24 % Saturation 10 % (20-55) L 10/11/17 03:24 Transferrin 172 mg/dL (174-364) L 10/11/17 03:24 Total Bilirubin 2.0 mg/dL (0.2-1.2) H 10/08/17 05:30 Alkaline Phosphatase 136 Units/L (38-126) H 10/08/17 05:30 Ammonia 99 mcmol/L (18-72) H 10/10/17 04:30 Serum Total Protein 5.4 g/dL (6.0-8.3) L 10/08/17 05:30 Albumin 3.1 g/dL (3.5-5.0) L D 10/08/17 05:30 Globulin 2.3 g/dL (2.4-3.5) L 10/08/17 05:30 Vitamin B12 1328 pg/mL (213-816) H 10/11/17 03:24 Ur Specific [place] > 1.030 (1.010-1.025) H 10/06/17 05:04 Urine Ketones Trace mg/dL (Negative) H 10/06/17 05:04 Urine Bilirubin Small (Negative) H 10/06/17 05:04 Palliative Quality Palliative Quality: Screen for Code Status: No, Screen for Goals of Care: Yes, Screen for Pain: Yes, If Pain Regimen Started, Initiate Bowel Regimen: NA, Screen for Nausea/Vomitting: Yes Code Status: 10/06/17 09:24 Resuscitation Status: Active [RES] Routine Comment: Resuscitation Status: Full Code Resuscitation Status: Active [RES] Routine Comment: SHORT TERM INTUBATION OK NO TRACH Resuscitation Status: DNR-Comfort Care-Arrest - Labs CBC & Chem 7: 10/13/17 04:40 10/13/17 04:40 Labs: Laboratory Results - last 24 hr 10/12/17 10/12/17 10/12/17 08:18 17:07 23:30 WBC RBC Hgb Hct MCV MCH MCHC RDW Plt Count MPV PT INR APTT Sodium Potassium Chloride Carbon Dioxide BUN Creatinine Est GFR ( Amer) Est GFR (Non-Af Amer) BUN/Creatinine Ratio Glucose POC Glucose 130 H 116 H 123 H Calculated Osmolality Calcium 10/13/17 10/13/17 10/13/17 04:40 04:40 06:56 WBC 2.1 L RBC 3.91 L Hgb 10.4 L Hct 32.1 L MCV 82.1 L MCH 26.6 L MCHC 32.4 RDW 15.4 H Plt Count 224 MPV 9.3 L PT INR APTT Sodium 124 L Potassium 4.2 Chloride 101 Carbon Dioxide 15 L BUN 35 H Creatinine 0.72 Est GFR ( Amer) > 60 Est GFR (Non-Af Amer) > 60 BUN/Creatinine Ratio 49 H Glucose 124 H POC Glucose 125 H Calculated Osmolality 267 L Calcium 9.0 10/13/17 09:15 WBC RBC Hgb Hct MCV MCH MCHC RDW Plt Count MPV PT 15.7 H INR 1.4 APTT 28.8 Sodium Potassium Chloride Carbon Dioxide BUN Creatinine Est GFR ( Amer) Est GFR (Non-Af Amer) BUN/Creatinine Ratio Glucose POC Glucose Calculated Osmolality Calcium - ABG Interpretation ABG results: PT/INR, D-dimer PT 15.7 Seconds (9.4-12.1) H 10/13/17 09:15 Consult Discharge Plan - Plan Referrals: Garett Ervin DO [Primary Care Provider] - 10/16/17 1:30 pm () <Aime Carrillo - Last Filed: 10/13/17 11:52> Date of Encounter: 10/13/17 - Time Spent With Patient Total time spent is greater than 50% in coordination of care (as documented) at patient's floor/unit and/or counseling patient: - Constitutional Vitals: Abnormal lab results WBC 2.1 K/mcL (4.3-11.1) L 10/13/17 04:40 RBC 3.91 M/mcL (4.19-5.50) L 10/13/17 04:40 Hgb 10.4 g/dL (12.9-16.9) L 10/13/17 04:40 Hct 32.1 % (37.5-50.1) L 10/13/17 04:40 MCV 82.1 fL (83.0-100.0) L 10/13/17 04:40 MCH 26.6 pg (28.0-33.3) L 10/13/17 04:40 RDW 15.4 % (11.5-14.5) H 10/13/17 04:40 MPV 9.3 fL (9.4-12.4) L 10/13/17 04:40 Lymphocytes # 0.2 K/mcL (0.6-4.6) L 10/11/17 03:24 Poikilocytosis 1+ (Not Present) A 10/11/17 03:24 Tear Drop Cells 1+ (Not Present) A 10/07/17 04:40 [place] Cells 1+ (Not Present) A 10/08/17 05:30 PT 15.7 Seconds (9.4-12.1) H 10/13/17 09:15 Sodium 124 mEq/L (136-145) L 10/13/17 04:40 Carbon Dioxide 15 mEq/L (19-29) L 10/13/17 04:40 BUN 35 mg/dL (8-26) H 10/13/17 04:40 BUN/Creatinine Ratio 49 (6-26) H 10/13/17 04:40 Glucose 124 mg/dL (70-99) H 10/13/17 04:40 POC Glucose 125 (58-89) H 10/13/17 06:56 Calculated Osmolality 267 (280-300) L 10/13/17 04:40 Phosphorus 2.2 mg/dL (2.3-4.7) L 10/12/17 04:55 Iron 25 mcg/dL (65-175) L 10/11/17 03:24 % Saturation 10 % (20-55) L 10/11/17 03:24 Transferrin 172 mg/dL (174-364) L 10/11/17 03:24 Total Bilirubin 2.0 mg/dL (0.2-1.2) H 10/08/17 05:30 Alkaline Phosphatase 136 Units/L (38-126) H 10/08/17 05:30 Ammonia 99 mcmol/L (18-72) H 10/10/17 04:30 Serum Total Protein 5.4 g/dL (6.0-8.3) L 10/08/17 05:30 Albumin 3.1 g/dL (3.5-5.0) L D 10/08/17 05:30 Globulin 2.3 g/dL (2.4-3.5) L 10/08/17 05:30 Vitamin B12 1328 pg/mL (213-816) H 10/11/17 03:24 Ur Specific [place] > 1.030 (1.010-1.025) H 10/06/17 05:04 Urine Ketones Trace mg/dL (Negative) H 10/06/17 05:04 Urine Bilirubin Small (Negative) H 10/06/17 05:04 - Attending Attestation I examined this patient and my medical decision-making was reviewed with the Resident Physician. I agree with the documented findings, disposition and treatment plan as described except to the extent set forth below. Palliative Quality Code Status: 10/06/17 09:24 Resuscitation Status: Active [RES] Routine Comment: Resuscitation Status: Full Code Resuscitation Status: Active [RES] Routine Comment: SHORT TERM INTUBATION OK NO TRACH Resuscitation Status: DNR-Comfort Care-Arrest - Labs CBC & Chem 7: 10/13/17 04:40 10/13/17 04:40 Labs: Laboratory Results - last 24 hr 10/12/17 10/12/17 10/12/17 08:18 17:07 23:30 WBC RBC Hgb Hct MCV MCH MCHC RDW Plt Count MPV PT INR APTT Sodium Potassium Chloride Carbon Dioxide BUN Creatinine Est GFR ( Amer) Est GFR (Non-Af Amer) BUN/Creatinine Ratio Glucose POC Glucose 130 H 116 H 123 H Calculated Osmolality Calcium 10/13/17 10/13/17 10/13/17 04:40 04:40 06:56 WBC 2.1 L RBC 3.91 L Hgb 10.4 L Hct 32.1 L MCV 82.1 L MCH 26.6 L MCHC 32.4 RDW 15.4 H Plt Count 224 MPV 9.3 L PT INR APTT Sodium 124 L Potassium 4.2 Chloride 101 Carbon Dioxide 15 L BUN 35 H Creatinine 0.72 Est GFR ( Amer) > 60 Est GFR (Non-Af Amer) > 60 BUN/Creatinine Ratio 49 H Glucose 124 H POC Glucose 125 H Calculated Osmolality 267 L Calcium 9.0 10/13/17 09:15 WBC RBC Hgb Hct MCV MCH MCHC RDW Plt Count MPV PT 15.7 H INR 1.4 APTT 28.8 Sodium Potassium Chloride Carbon Dioxide BUN Creatinine Est GFR ( Amer) Est GFR (Non-Af Amer) BUN/Creatinine Ratio Glucose POC Glucose Calculated Osmolality Calcium - ABG Interpretation ABG results: PT/INR, D-dimer PT 15.7 Seconds (9.4-12.1) H 10/13/17 09:15
[2017-10-13] MEDS: Lactulose Oral Soln 20 GM/30 ML UDC PO SCH ×3 (13:29→20:17)
[2017-10-13] MEDS: APIXABAN 2.5 MG TABLET PO SCH ×2 (13:29→20:12)
[2017-10-13] MEDS: Sennosides/Docusate Sodium TABLET PO SCH (13:30)
--- NOTE | 2017-10-13 13:51 | Internal Med Progress Note ---
<Deepika Pineda - Last Filed: 10/13/17 16:45> Date of Encounter: 10/13/17 Time of Encounter: 08:30 - Assessment and plan (1) Ascites Current Visit: Yes Status: Acute Assessment and plan: - CT A/P on 10/06/17 showed large volume ascites. - Pleur X catheter was placed by IR on 09/09/17 with limited drainage and removed on 10/07/17 with pustular fluid present. - SAAG 2.5: portal hypertension - Peritoneal fluid culture positive for Cornybacterium species. Continue IV vancomycin for SBP. - Significant ascites on exam noted today. - IR consulted for paracentesis. Will also give albumin if large volume of ascites is drained. Qualifiers: Ascites type: malignant Qualified Code(s): R18.0 - Malignant ascites (2) Hyponatremia Current Visit: Yes Status: Acute Assessment and plan: - Na 124 today. - Likley hypervolemic hyponatremia due to ascites. - Will benefit from paracentesis and/or another Pleuryx - Continue salt tablets. - Continue to monitor. (3) SBP (spontaneous bacterial peritonitis) Current Visit: Yes Status: Acute Assessment and plan: - Ascitic fluid from 10/06/17 grew Corynebacterium pseudodiphtheriticum, susceptible to clindamycin, doxycycline, erythromycin, gentamicin, linezolid, Bactrim and vancomycin. - Continue IV vancomycin (since 10/09/17). The plan is finish 7-day course which is estimated to be done on 10/17/17. (4) Pancreatic cancer Current Visit: Yes Status: Chronic Assessment and plan: - Pancreatic cancer with multiple organ mets. Patient of Dr. Waters - CT abdomen/pelvis on 10/06/17 showed ill defined soft tissue extending posteriorlly from pancreatic neck surrounding celiac and SMA, likely cancer. persistent portal vein thrombosis and biliary ductal dilation - Oncology was consulted during recent hospitalization and determined patient would need to clinically improve in order to attempt clinical trials - Continue Morphine/Dilaudid for pain control. - Palliative on board and appreciate assistance. - PT recommends inpatient rehab. Appreciate social service assistance regarding placement. 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 - CT abdomen/pelvis on 10/06/17 showed ill defined soft tissue extending posteriorlly from pancreatic neck surrounding celiac and SMA, likely cancer. persistent portal vein thrombosis and biliary ductal dilation. - Concern of GI bleed when NG tube was pulled but per GI, it's likely trauma from NG tube and okay to continue Eliquis. - Continue Eliquis while monitoring H&H closely. (6) DM type 2 (diabetes mellitus, type 2) Current Visit: No Status: Chronic Assessment and plan: - Continue sliding scale insulin with glucose monitoring. Qualifiers: Diabetes mellitus complication status: with other specified complication Diabetes mellitus senior living insulin use: without ad terminal makeup operator use Qualified Code( s): E11.69 - Type 2 diabetes mellitus with other specified complication (7) Severe protein-calorie malnutrition Current Visit: Yes Status: Acute Assessment and plan: - Continue regular diet along with Ensure high protein supplement TID with meals. (8) Anemia Current Visit: Yes Status: Chronic Assessment and plan: - Most likely combination of bleeding and chronic disease. - History of chemo induced gastric ulcers - Per GI, bleeding from the NG tube was likely related to trauma and patient can continue Eliquis - Continue to monitor Qualifiers: Anemia type: other cause Other causes of anemia: chronic disease, neoplastic Qualified Code(s): D63.0 - Anemia in neoplastic disease - Subjective Interval history: Patient was seen and examined this morning. Patient still has some nausea and vomiting but overall feels better compared to yesterday. Patient denies fever, chills, chest pain, shortness of breath, abdominal pain. - Constitutional Vitals: Temp Pulse Resp BP Pulse Ox 97.4 F L 85 16 102/70 100 10/13/17 11:55 10/13/17 11:55 10/13/17 11:55 10/13/17 11:55 10/13/17 11:55 General appearance: Present: A&O X 3, no acute distress, underweight, answers questions appropriately - Head Head exam: Present: atraumatic, normocephalic - Eye Eye exam: Present: EOMI, conjuntiva pink, sclera anicteric - Neck Neck exam general surgery: Present: supple, trachea midline. Absent: lymphadenopathy - Respiratory Respiratory exam: Present: decreased breath sounds - Cardiovascular Cardiovascular exam: Present: RRR - GI/Abdominal GI/Abdominal exam: Present: distended (Positive fluid wave), normal bowel sounds , soft. Absent: tenderness - Extremities Exam Extremities exam: Present: warm. Absent: cyanotic, pedal edema - Neurological Exam Neurological exam: Present: oriented X3, no focal deficits. Absent: facial droop, speech deficit - Skin Skin exam: Present: dry, warm. Absent: rash Internal Medicine: Result - Labs CBC & Chem 7: 10/13/17 04:40 10/13/17 04:40 Labs: Short CBC 10/13/17 Range/Units 04:40 WBC 2.1 L (4.3-11.1) K/mcL Hgb 10.4 L (12.9-16.9) g/dL Hct 32.1 L (37.5-50.1) % Plt Count 224 (140-400) K/mcL BMP 10/13/17 04:40 Sodium 124 L Potassium 4.2 Chloride 101 Carbon Dioxide 15 L BUN 35 H Creatinine 0.72 Glucose 124 H Calcium 9.0 - ABG Interpretation ABG results: PT/INR, D-dimer PT 15.7 Seconds (9.4-12.1) H 10/13/17 09:15 - Impressions Impressions Paracentesis Ultrasound 10/13/17 00:00 IMPRESSION: Successful ultrasound guided paracentesis. D/ / Cielo Cunningham MD / Cielo Cunningham MD Interpreting Provider: Cielo Cunningham MD - VTE Documentation of Mechanical Device: Intermittent pneumatic compression device Consult Discharge Plan - Plan Referrals: Garett Ervin DO [Primary Care Provider] - 10/16/17 1:30 pm () <Morales Hidalgo - Last Filed: 10/13/17 17:21> Date of Encounter: 10/13/17 - Assessment and plan (1) Hyponatremia Current Visit: Yes Status: Acute Assessment and plan: Hopefully will improve with paracentesis. 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 (6) DM type 2 (diabetes mellitus, type 2) Current Visit: No Status: Chronic Qualifiers: Diabetes mellitus complication status: with other specified complication Diabetes mellitus senior living insulin use: without ad terminal makeup operator use Qualified Code( s): E11.69 - Type 2 diabetes mellitus with other specified complication (7) Severe protein-calorie malnutrition Current Visit: Yes Status: Acute (8) Anemia Current Visit: Yes Status: Chronic Qualifiers: Anemia type: other cause Other causes of anemia: chronic disease, neoplastic Qualified Code(s): D63.0 - Anemia in neoplastic disease - Constitutional Vitals: Temp Pulse Resp BP Pulse Ox 97.4 F L 85 16 102/70 100 10/13/17 11:55 10/13/17 11:55 10/13/17 11:55 10/13/17 11:55 10/13/17 11:55 Internal Medicine: Result - Labs CBC & Chem 7: 10/13/17 04:40 10/13/17 04:40 Labs: Short CBC 10/13/17 Range/Units 04:40 WBC 2.1 L (4.3-11.1) K/mcL Hgb 10.4 L (12.9-16.9) g/dL Hct 32.1 L (37.5-50.1) % Plt Count 224 (140-400) K/mcL BMP 10/13/17 04:40 Sodium 124 L Potassium 4.2 Chloride 101 Carbon Dioxide 15 L BUN 35 H Creatinine 0.72 Glucose 124 H Calcium 9.0 - ABG Interpretation ABG results: PT/INR, D-dimer PT 15.7 Seconds (9.4-12.1) H 10/13/17 09:15 - Impressions Impressions Paracentesis Ultrasound 10/13/17 00:00 IMPRESSION: Successful ultrasound guided paracentesis. D/ / Cielo Cunningham MD / Cielo Cunningham MD Interpreting Provider: Cielo Cunningham MD - Attending Attestation I examined this patient and my medical decision-making was reviewed with the Resident Physician on 10/13/17. I agree with the documented findings, disposition and treatment plan as described except to the extent set forth below. Mr Hatch is currently admitted for acute hepatic encephalopathy and peritonitis. He remains moderate to high risk due to potential for worsening clinical status. Mr Hatch is having paracentesis at this time. Large volume removed. His breathing and eating is better now. No new issues overnight. Tolerating IV Vancomycin. Working on d/c planning at this time. Exam Alert. Comfortable Mucus membranes dry Heart regular No wheeze Ascites present I/P 1. Peritonitis - IV Vanc till 10/17 2. Ascites s/p para. Albumin given 3. Metastatic pancreatic CA Further diagnoses and plan as above. D/C planning at this time.
--- NOTE | 2017-10-13 17:44 | Physician Discharge Referral ---
[facility] Referral Info Provider in Charge after Transfer: PCP Institutional Level of Care: Skilled - Diagnosis (1) Hyponatremia Priority: Secondary Status: Acute (2) SBP (spontaneous bacterial peritonitis) Priority: Primary Status: Acute (3) Pancreatic cancer Priority: Primary Status: Chronic (4) Ascites Priority: Primary Status: Acute (5) Mesenteric venous thrombosis Priority: Secondary Status: Chronic (6) DM type 2 (diabetes mellitus, type 2) Priority: Secondary Status: Chronic (7) Severe protein-calorie malnutrition Priority: Secondary Status: Acute (8) Anemia Priority: Secondary Status: Chronic Expected Duration of Placement: Less than 30 days. Prognosis: Fair Aware of Diagnosis: Patient, Family Aware of Prognosis: Patient, Family - Transfer Medications Home Medications: Multivitamin [Multivitamins] 1 each PO DAILY 11/06/16 [History] Baclofen [Lioresal] 10 mg PO DAILY PRN 08/13/17 [History] Gabapentin [Neurontin] 300 mg PO HS PRN 08/13/17 [History] Lipase/Protease/Amylase [Darrin Cartagena 12,000 Units Capsule] 1 each PO TID PRN [History] Melatonin 5 mg PO HS 08/13/17 [History] Pantoprazole Sodium [Protonix] 40 mg PO BID #60 tablet. 08/16/17 [Rx] Hydromorphone HCl [Dilaudid] 1 - 2 tab PO Q4H PRN #90 tablet 09/03/17 [Rx] Apixaban [Eliquis] 1 tab PO BID #60 tablet 09/10/17 [Rx] Potassium Chloride Elixir [Potassium Chloride] 7.5 ml PO DAILY #220 mls [Rx] Morphine Sulfate SR (12 HR) [MS Contin] 1 tab PO Q12HR #60 tab 10/02/17 [Rx] Pantoprazole Sodium 40 mg PO BID #60 tablet. 10/02/17 [Rx] Sennosides/Docusate Sodium [Senna Plus] 2 each PO BID #60 tablet 10/02/17 [Rx] Granisetron [Sancuso] 1 each TD QWEEK #4 patch.tdwk 10/13/17 [Rx] Allergies/Adverse Reactions: 3 Allergy/AdvReac Type Severity Reaction Status Date / Time ondansetron Allergy Swelling Verified 10/06/17 02:56 [From Zofran (as of hydrochloride)] Lip/Tongue/Throat prochlorperazine Allergy Swelling Verified 10/06/17 02:56 [From Compazine] of Lip/Tongue/Throat Oxycodone AdvReac Rash Verified 10/06/17 02:56 - Respiratory Orders Oxygen / L per min (Keep saturation greater than 90%) Smoking Cessation: Smoking cessation has been advised. For more information, call the [place] Tobacco Quit Line at 8-363-PQVI-NOW. - Lab Orders Lab Orders: 2 Step Mantoux Test per State regulation - Ancillary Orders May use pressure relief devices daily prn - Advance Directives Code Status: DNR-Arrest - History and Physical History/Physical reviewed & approved w/add comments: Alert and oriented. - Mobility Orders Ambulate - Rehabiliation Orders Rehab Potential: Fair Rehab Orders: Evaluation for Physical Therapy, Evaluation for Occupational Therapy - Treatments Skin tear care topically daily PRN per policy - Diet Orders Regular CERTIFICATION: I certify that the transfer of the above named patient to an Extended Care Facility is necessary for the continuing treatment of the diagnosis listed. The above information is true and accurate reflection of patient's current condition. Confidential - Redisclosure prohibited without a patient's written consent.
[2017-10-13] MEDS: Albumin 25% 25gram/100mL 25 GM/100 ML IV.SOLN IVC SCH ×2 (18:02→19:51)
[2017-10-13] MEDS ORDERED: GRANISETRON TP SCH ×2 (19:00)
[2017-10-13] MEDS: *HR* HYDROmorphone 2 MG TABLET PO PRN (22:41)
[2017-10-14] MEDS: Insulin LISPRO 300 UNITS/3 ML VIAL SQ SCH ×4 (01:09→17:47)
[2017-10-14 06:23] LABS: BUN/Creatinine Ratio 45 (6-26); Blood Urea Nitrogen 30 mg/dL (8-26); Calcium 8.5 mg/dL (8.6-10.8); Carbon Dioxide 16 mEq/L (19-29); Chloride 99 mEq/L (98-109); Glucose 102 mg/dL (70-99); Osmolality,Calculated 262 (280-300); Potassium 3.4 mEq/L (3.5-4.5); Sodium 123 mEq/L (136-145); eGFR For African Americans > 60 (> 60); eGFR For Non-African Americans > 60 (> 60)
[2017-10-14 06:43] LABS: Red Cell Distribution Width 15.3 % (11.5-14.5)
[2017-10-14 06:45] LABS: Hematocrit 27.1 % (37.5-50.1); Hemoglobin 9.1 g/dL (12.9-16.9); Mean Corpuscular HGB Conc 33.6 g/dL (31.6-35.5); Mean Corpuscular Hemoglobin 27.6 pg (28.0-33.3); Mean Corpuscular Volume 82.1 fL (83.0-100.0); Mean Platelet Volume 10.1 fL (9.4-12.4); Platelet Count 158 K/mcL (140-400)
[2017-10-14] MEDS: Vancomycin 750 MG in D5% in Water 250 ML IVPB SCH ×2 (07:14→19:07)
[2017-10-14 08:28] LABS: Eosinophils # 0.1 K/mcL (0.0-0.6); Lymphocytes # 0.2 K/mcL (0.6-4.6); Monocytes # 0.1 K/mcL (0.0-1.3)
[2017-10-14 08:29] LABS: Platelet Estimate Normal (Normal); Poikilocytosis 1+ (Not Present)
[2017-10-14] MEDS: Lactulose Oral Soln 20 GM/30 ML UDC PO SCH ×3 (09:21→23:07)
[2017-10-14] MEDS: Sennosides/Docusate Sodium TABLET PO SCH (09:24)
[2017-10-14] MEDS: APIXABAN 2.5 MG TABLET PO SCH ×2 (09:24→23:08)
--- NOTE | 2017-10-14 10:11 | Palliative Progress Note ---
<Judith Parmar - Last Filed: 10/14/17 10:04> Date of Encounter: 10/14/17 Time of Encounter: 09:45 - Assessment and plan (1) Counseling regarding goals of care Current Visit: Yes Status: Acute Assessment and plan: Thai of [employer] is still waiting to hear back from the re-hab facility about acceptance into the facility. The issue is that multiple facilities do not take his insurance. The patient requested that the facility that he goes to will allow his to stay with him and have his own private room. Thai informed him that he will do his best to arrange a facility that will accommodate these requests. The patient and his stated that both PT and OT worked with the patient yesterday and that he was able to participate in the activities. The patient reported that he is able to walk without a walker and by himself to walk to the bed side commode. His pain is well controlled despite increased back pain at night. But he reports that pain medication relieved the back pain. (2) Cancer-related pain Current Visit: Yes Status: Chronic Assessment and plan: The patient's pain is controlled with PRN Hydromorphone tablets that he took at home. Current order is 2mg available for moderate pain and 4mg for severe. (3) Acute hepatic encephalopathy Current Visit: Yes Status: Resolved (4) Pancreatic cancer Current Visit: Yes Status: Chronic Qualifiers: Pancreatic malignancy location: body of pancreas Qualified Code(s): C25.1 - Malignant neoplasm of body of pancreas - Time Spent With Patient Total time spent is greater than 50% in coordination of care (as documented) at patient's floor/unit and/or counseling patient: - Subjective Interval history: Patient is awake, alert, and oriented talking with his at the bedside. He has no complaints at this time. He reported that he has increased back pain at night, however the pain medication he receives helps to control it. He reported that PT and OT came worked with him yesterday and it went well, he was able to participate in the activities. According to him they told him that they believe he will do well in re-hab and will not have to stay long. He would like to be home for [place]. Still waiting for Rasheed fuller to hear back about acceptance into re-had facility. - Constitutional Vitals: Abnormal lab results WBC 1.3 K/mcL (4.3-11.1) L 10/14/17 06:00 RBC 3.30 M/mcL (4.19-5.50) L 10/14/17 06:00 Hgb 9.1 g/dL (12.9-16.9) L 10/14/17 06:00 Hct 27.1 % (37.5-50.1) L 10/14/17 06:00 MCV 82.1 fL (83.0-100.0) L 10/14/17 06:00 MCH 27.6 pg (28.0-33.3) L 10/14/17 06:00 RDW 15.3 % (11.5-14.5) H 10/14/17 06:00 Neutrophils # 1.0 K/mcL (1.6-8.9) L 10/14/17 06:00 Lymphocytes # 0.2 K/mcL (0.6-4.6) L 10/14/17 06:00 Poikilocytosis 1+ (Not Present) A 10/14/17 06:00 Tear Drop Cells 1+ (Not Present) A 10/07/17 04:40 Beba Cells 1+ (Not Present) A 10/08/17 05:30 PT 15.7 Seconds (9.4-12.1) H 10/13/17 09:15 Sodium 123 mEq/L (136-145) L 10/14/17 06:00 Potassium 3.4 mEq/L (3.5-4.5) L 10/14/17 06:00 Carbon Dioxide 16 mEq/L (19-29) L 10/14/17 06:00 BUN 30 mg/dL (8-26) H 10/14/17 06:00 Creatinine 0.67 mg/dL (0.72-1.25) L 10/14/17 06:00 BUN/Creatinine Ratio 45 (6-26) H 10/14/17 06:00 Glucose 102 mg/dL (70-99) H 10/14/17 06:00 POC Glucose 189 (58-89) H 10/13/17 23:11 Calculated Osmolality 262 (280-300) L 10/14/17 06:00 Calcium 8.5 mg/dL (8.6-10.8) L 10/14/17 06:00 Phosphorus 2.2 mg/dL (2.3-4.7) L 10/12/17 04:55 Iron 25 mcg/dL (65-175) L 10/11/17 03:24 % Saturation 10 % (20-55) L 10/11/17 03:24 Transferrin 172 mg/dL (174-364) L 10/11/17 03:24 Total Bilirubin 2.0 mg/dL (0.2-1.2) H 10/08/17 05:30 Alkaline Phosphatase 136 Units/L (38-126) H 10/08/17 05:30 Ammonia 99 mcmol/L (18-72) H 10/10/17 04:30 Serum Total Protein 5.4 g/dL (6.0-8.3) L 10/08/17 05:30 Albumin 3.1 g/dL (3.5-5.0) L D 10/08/17 05:30 Globulin 2.3 g/dL (2.4-3.5) L 10/08/17 05:30 Vitamin B12 1328 pg/mL (213-816) H 10/11/17 03:24 Ur Specific [place] > 1.030 (1.010-1.025) H 10/06/17 05:04 Urine Ketones Trace mg/dL (Negative) H 10/06/17 05:04 Urine Bilirubin Small (Negative) H 10/06/17 05:04 - Head Head exam: Present: atraumatic, normal inspection - Eye Eye exam: Present: normal appearance. Absent: scleral icterus - ENT ENT exam: Present: mucous membranes moist - Neck Neck exam: Present: normal inspection. Absent: tenderness - Respiratory Respiratory exam: Present: CTAB. Absent: rales, rhonchi - Cardiovascular Cardiovascular exam: Present: RRR, +S1, +S3 - GI/Abdominal GI/Abdominal exam: Present: normal bowel sounds, soft. Absent: rigid, tenderness - Skin Skin exam: Present: dry, intact Palliative Quality Palliative Quality: Screen for Code Status: No, Screen for Goals of Care: Yes, Screen for Pain: Yes, If Pain Regimen Started, Initiate Bowel Regimen: NA, Screen for Nausea/Vomitting: Yes Code Status: 10/06/17 09:24 Resuscitation Status: Active [RES] Routine Comment: Resuscitation Status: Full Code Resuscitation Status: Active [RES] Routine Comment: SHORT TERM INTUBATION OK NO TRACH Resuscitation Status: DNR-Comfort Care-Arrest - Labs CBC & Chem 7: 10/14/17 06:00 10/14/17 06:00 Labs: Laboratory Results - last 24 hr 10/13/17 10/13/17 10/13/17 11:52 16:47 23:11 WBC RBC Hgb Hct MCV MCH MCHC RDW Plt Count MPV Seg Neutrophils % Band Neutrophils % Lymphocytes % Monocytes % Eosinophils % Neutrophils # Lymphocytes # Monocytes # Eosinophils # Platelet Estimate Poikilocytosis Sodium Potassium Chloride Carbon Dioxide BUN Creatinine Est GFR ( Amer) Est GFR (Non-Af Amer) BUN/Creatinine Ratio Glucose POC Glucose 126 H 105 H 189 H Calculated Osmolality Calcium Magnesium Vancomycin Trough 10/14/17 10/14/17 10/14/17 06:00 06:00 06:00 WBC 1.3 L RBC 3.30 L Hgb 9.1 L Hct 27.1 L MCV 82.1 L MCH 27.6 L MCHC 33.6 RDW 15.3 H Plt Count 158 MPV 10.1 Seg Neutrophils % 72.0 Band Neutrophils % 4.0 Lymphocytes % 12.0 Monocytes % 8.0 Eosinophils % 4.0 Neutrophils # 1.0 L Lymphocytes # 0.2 L Monocytes # 0.1 Eosinophils # 0.1 Platelet Estimate Normal Poikilocytosis 1+ A Sodium 123 L Potassium 3.4 L Chloride 99 Carbon Dioxide 16 L BUN 30 H Creatinine 0.67 L Est GFR ( Amer) > 60 Est GFR (Non-Af Amer) > 60 BUN/Creatinine Ratio 45 H Glucose 102 H POC Glucose Calculated Osmolality 262 L Calcium 8.5 L Magnesium Vancomycin Trough 16.3 10/14/17 07:13 WBC RBC Hgb Hct MCV MCH MCHC RDW Plt Count MPV Seg Neutrophils % Band Neutrophils % Lymphocytes % Monocytes % Eosinophils % Neutrophils # Lymphocytes # Monocytes # Eosinophils # Platelet Estimate Poikilocytosis Sodium Potassium Chloride Carbon Dioxide BUN Creatinine Est GFR ( Amer) Est GFR (Non-Af Amer) BUN/Creatinine Ratio Glucose POC Glucose Calculated Osmolality Calcium Magnesium 2.0 Vancomycin Trough - Impressions Impressions Paracentesis Ultrasound 10/13/17 00:00 IMPRESSION: Successful ultrasound guided paracentesis. D/ / Cielo Cunningham MD / Cielo Cunningham MD Interpreting Provider: Cielo Cunningham MD - ABG Interpretation ABG results: PT/INR, D-dimer PT 15.7 Seconds (9.4-12.1) H 10/13/17 09:15 Consult Discharge Plan - Plan Referrals: Garett Ervin DO [Primary Care Provider] - 10/16/17 1:30 pm () <Aime Carrillo - Last Filed: 10/14/17 10:45> Date of Encounter: 10/14/17 - Time Spent With Patient Total time spent is greater than 50% in coordination of care (as documented) at patient's floor/unit and/or counseling patient: - Constitutional Vitals: Abnormal lab results WBC 1.3 K/mcL (4.3-11.1) L 10/14/17 06:00 RBC 3.30 M/mcL (4.19-5.50) L 10/14/17 06:00 Hgb 9.1 g/dL (12.9-16.9) L 10/14/17 06:00 Hct 27.1 % (37.5-50.1) L 10/14/17 06:00 MCV 82.1 fL (83.0-100.0) L 10/14/17 06:00 MCH 27.6 pg (28.0-33.3) L 10/14/17 06:00 RDW 15.3 % (11.5-14.5) H 10/14/17 06:00 Neutrophils # 1.0 K/mcL (1.6-8.9) L 10/14/17 06:00 Lymphocytes # 0.2 K/mcL (0.6-4.6) L 10/14/17 06:00 Poikilocytosis 1+ (Not Present) A 10/14/17 06:00 Tear Drop Cells 1+ (Not Present) A 10/07/17 04:40 Beba Cells 1+ (Not Present) A 10/08/17 05:30 PT 15.7 Seconds (9.4-12.1) H 10/13/17 09:15 Sodium 123 mEq/L (136-145) L 10/14/17 06:00 Potassium 3.4 mEq/L (3.5-4.5) L 10/14/17 06:00 Carbon Dioxide 16 mEq/L (19-29) L 10/14/17 06:00 BUN 30 mg/dL (8-26) H 10/14/17 06:00 Creatinine 0.67 mg/dL (0.72-1.25) L 10/14/17 06:00 BUN/Creatinine Ratio 45 (6-26) H 10/14/17 06:00 Glucose 102 mg/dL (70-99) H 10/14/17 06:00 POC Glucose 189 (58-89) H 10/13/17 23:11 Calculated Osmolality 262 (280-300) L 10/14/17 06:00 Calcium 8.5 mg/dL (8.6-10.8) L 10/14/17 06:00 Phosphorus 2.2 mg/dL (2.3-4.7) L 10/12/17 04:55 Iron 25 mcg/dL (65-175) L 10/11/17 03:24 % Saturation 10 % (20-55) L 10/11/17 03:24 Transferrin 172 mg/dL (174-364) L 10/11/17 03:24 Total Bilirubin 2.0 mg/dL (0.2-1.2) H 10/08/17 05:30 Alkaline Phosphatase 136 Units/L (38-126) H 10/08/17 05:30 Ammonia 99 mcmol/L (18-72) H 10/10/17 04:30 Serum Total Protein 5.4 g/dL (6.0-8.3) L 10/08/17 05:30 Albumin 3.1 g/dL (3.5-5.0) L D 10/08/17 05:30 Globulin 2.3 g/dL (2.4-3.5) L 10/08/17 05:30 Vitamin B12 1328 pg/mL (213-816) H 10/11/17 03:24 Ur Specific [place] > 1.030 (1.010-1.025) H 10/06/17 05:04 Urine Ketones Trace mg/dL (Negative) H 10/06/17 05:04 Urine Bilirubin Small (Negative) H 10/06/17 05:04 - Attending Attestation I examined this patient and my medical decision-making was reviewed with the Resident Physician. I agree with the documented findings, disposition and treatment plan as described except to the extent set forth below. Palliative Quality Code Status: 10/06/17 09:24 Resuscitation Status: Active [RES] Routine Comment: Resuscitation Status: Full Code Resuscitation Status: Active [RES] Routine Comment: SHORT TERM INTUBATION OK NO TRACH Resuscitation Status: DNR-Comfort Care-Arrest - Labs CBC & Chem 7: 10/14/17 06:00 10/14/17 06:00 Labs: Laboratory Results - last 24 hr 10/13/17 10/13/17 10/13/17 11:52 16:47 23:11 WBC RBC Hgb Hct MCV MCH MCHC RDW Plt Count MPV Seg Neutrophils % Band Neutrophils % Lymphocytes % Monocytes % Eosinophils % Neutrophils # Lymphocytes # Monocytes # Eosinophils # Platelet Estimate Poikilocytosis Sodium Potassium Chloride Carbon Dioxide BUN Creatinine Est GFR ( Amer) Est GFR (Non-Af Amer) BUN/Creatinine Ratio Glucose POC Glucose 126 H 105 H 189 H Calculated Osmolality Calcium Magnesium Vancomycin Trough 10/14/17 10/14/17 10/14/17 06:00 06:00 06:00 WBC 1.3 L RBC 3.30 L Hgb 9.1 L Hct 27.1 L MCV 82.1 L MCH 27.6 L MCHC 33.6 RDW 15.3 H Plt Count 158 MPV 10.1 Seg Neutrophils % 72.0 Band Neutrophils % 4.0 Lymphocytes % 12.0 Monocytes % 8.0 Eosinophils % 4.0 Neutrophils # 1.0 L Lymphocytes # 0.2 L Monocytes # 0.1 Eosinophils # 0.1 Platelet Estimate Normal Poikilocytosis 1+ A Sodium 123 L Potassium 3.4 L Chloride 99 Carbon Dioxide 16 L BUN 30 H Creatinine 0.67 L Est GFR ( Amer) > 60 Est GFR (Non-Af Amer) > 60 BUN/Creatinine Ratio 45 H Glucose 102 H POC Glucose Calculated Osmolality 262 L Calcium 8.5 L Magnesium Vancomycin Trough 16.3 10/14/17 07:13 WBC RBC Hgb Hct MCV MCH MCHC RDW Plt Count MPV Seg Neutrophils % Band Neutrophils % Lymphocytes % Monocytes % Eosinophils % Neutrophils # Lymphocytes # Monocytes # Eosinophils # Platelet Estimate Poikilocytosis Sodium Potassium Chloride Carbon Dioxide BUN Creatinine Est GFR ( Amer) Est GFR (Non-Af Amer) BUN/Creatinine Ratio Glucose POC Glucose Calculated Osmolality Calcium Magnesium 2.0 Vancomycin Trough - Impressions Impressions Paracentesis Ultrasound 10/13/17 00:00
[2017-10-14] MEDS ORDERED: Potassium Chloride Elixir 20 MEQ/15 ML UDC PO ONE (13:01)
--- NOTE | 2017-10-14 19:00 | Internal Med Progress Note ---
Date of Encounter: 10/14/17 Time of Encounter: 13:00 - Assessment and plan (1) Acute hepatic encephalopathy Current Visit: Yes Status: Resolved Assessment and plan: reolved. continue lactulose PO (2) Ascites Current Visit: Yes Status: Acute Assessment and plan: - CT A/P on 10/06/17 showed large volume ascites. - Pleur X catheter was placed by IR on 09/09/17 with limited drainage and removed on 10/07/17 with pustular fluid present. - SAAG 2.5: portal hypertension - Peritoneal fluid culture positive for Cornybacterium species. Continue IV vancomycin for SBP. - Significant ascites on exam noted today. - IR consulted for paracentesis. Will also give albumin if large volume of ascites is drained. Qualifiers: Ascites type: malignant Qualified Code(s): R18.0 - Malignant ascites (3) Hyponatremia Current Visit: Yes Status: Acute Assessment and plan: Hopefully will improve with paracentesis. (4) Pancreatic cancer Current Visit: Yes Status: Chronic Assessment and plan: - Pancreatic cancer with multiple organ mets. Patient of Dr. Waters - CT abdomen/pelvis on 10/06/17 showed ill defined soft tissue extending posteriorlly from pancreatic neck surrounding celiac and SMA, likely cancer. persistent portal vein thrombosis and biliary ductal dilation - Oncology was consulted during recent hospitalization and determined patient would need to clinically improve in order to attempt clinical trials - Continue Morphine/Dilaudid for pain control. - Palliative on board and appreciate assistance. - PT recommends inpatient rehab. Appreciate social service assistance regarding placement. Qualifiers: Pancreatic malignancy location: body of pancreas Qualified Code(s): C25.1 - Malignant neoplasm of body of pancreas (5) Severe protein-calorie malnutrition Current Visit: Yes Status: Acute Assessment and plan: - Continue regular diet along with Ensure high protein supplement TID with meals. 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 - CT abdomen/pelvis on 10/06/17 showed ill defined soft tissue extending posteriorlly from pancreatic neck surrounding celiac and SMA, likely cancer. persistent portal vein thrombosis and biliary ductal dilation. - Concern of GI bleed when NG tube was pulled but per GI, it's likely trauma from NG tube and okay to continue Eliquis. - Continue Eliquis while monitoring H&H closely. - Subjective Interval history: Patient reports feeling better since the day of admission - Constitutional Vitals: Temp Pulse Resp BP Pulse Ox 97.7 F 97 15 97/63 100 10/14/17 16:03 10/14/17 16:03 10/14/17 16:03 10/14/17 16:03 10/14/17 16:03 General appearance: Present: A&O X 3, no acute distress, underweight, answers questions appropriately - Cardiovascular Cardiovascular exam: Present: RRR, +S1, +S2. Absent: diastolic murmur, gallop, rubs, systolic murmur Internal Medicine: Result - Labs CBC & Chem 7: 10/14/17 06:00 10/14/17 06:00 Labs: Short CBC 10/14/17 Range/Units 06:00 WBC 1.3 L (4.3-11.1) K/mcL Hgb 9.1 L (12.9-16.9) g/dL Hct 27.1 L (37.5-50.1) % Plt Count 158 (140-400) K/mcL Neutrophils # 1.0 L (1.6-8.9) K/mcL BMP 10/14/17 06:00 Sodium 123 L Potassium 3.4 L Chloride 99 Carbon Dioxide 16 L BUN 30 H Creatinine 0.67 L Glucose 102 H Calcium 8.5 L - ABG Interpretation ABG results: PT/INR, D-dimer PT 15.7 Seconds (9.4-12.1) H 10/13/17 09:15 - VTE Documentation of Mechanical Device: Intermittent pneumatic compression device Consult Discharge Plan - Plan Referrals: Garett Ervin DO [Primary Care Provider] - 10/16/17 1:30 pm ()
[2017-10-14] MEDS: *HR* HYDROmorphone 2 MG TABLET PO PRN (23:08)
[2017-10-15] MEDS: Insulin LISPRO 300 UNITS/3 ML VIAL SQ SCH ×3 (00:13→12:23)
[2017-10-15] MEDS: Vancomycin 750 MG in D5% in Water 250 ML IVPB SCH (06:24)
--- NOTE | 2017-10-15 09:14 | Palliative Progress Note ---
<Judith Parmar - Last Filed: 10/15/17 09:07> Date of Encounter: 10/15/17 Time of Encounter: 09:08 - Assessment and plan (1) Counseling regarding goals of care Current Visit: Yes Status: Acute Assessment and plan: Thai of [place] is still waiting to hear back from the re-hab facility about acceptance into the facility. The issue is that multiple facilities do not take his insurance. The patient requested that the facility that he goes to will allow his to stay with him and have his own private room. Thai informed him that he will do his best to arrange a facility that will accommodate these requests. The patient stated that he would like to be home for [place] and would be happy to go home with home health instead of re-hab facility if that option worked better. His stated that she is okay with the other option to possibly go home. The patient and his stated that PT came yesterday but did not work with him. He would like to continue PT/OT. The patient reported that he is able to walk with a walker and by himself to the bathroom. (2) Cancer-related pain Current Visit: Yes Status: Chronic Assessment and plan: The patient's pain is controlled with PRN Hydromorphone tablets that he took at home. Current order is 2mg available for moderate pain and 4mg for severe. (3) Acute hepatic encephalopathy Current Visit: Yes Status: Resolved (4) Pancreatic cancer Current Visit: Yes Status: Chronic Qualifiers: Pancreatic malignancy location: body of pancreas Qualified Code(s): C25.1 - Malignant neoplasm of body of pancreas - Time Spent With Patient Total time spent is greater than 50% in coordination of care (as documented) at patient's floor/unit and/or counseling patient: - Subjective Interval history: Patient is awake, alert, and oriented and sitting up in a chair. He reports PT came and saw him yesterday but did not work with him. He would still like to continue working with PT/OT. Still waiting for Thai eller [employer] [facility] to hear back about acceptance into re-had facility. His insurance is not accepted by the facilities, hence is the delay. The patient would like to be home for [place] and would be happy to go home with home health instead of re-hab facility if at all possible. Thai will look into that option. - Constitutional Vitals: Abnormal lab results WBC 1.3 K/mcL (4.3-11.1) L 10/14/17 06:00 RBC 3.30 M/mcL (4.19-5.50) L 10/14/17 06:00 Hgb 9.1 g/dL (12.9-16.9) L 10/14/17 06:00 Hct 27.1 % (37.5-50.1) L 10/14/17 06:00 MCV 82.1 fL (83.0-100.0) L 10/14/17 06:00 MCH 27.6 pg (28.0-33.3) L 10/14/17 06:00 RDW 15.3 % (11.5-14.5) H 10/14/17 06:00 Neutrophils # 1.0 K/mcL (1.6-8.9) L 10/14/17 06:00 Lymphocytes # 0.2 K/mcL (0.6-4.6) L 10/14/17 06:00 Poikilocytosis 1+ (Not Present) A 10/14/17 06:00 Tear Drop Cells 1+ (Not Present) A 10/07/17 04:40 [place] Cells 1+ (Not Present) A 10/08/17 05:30 PT 15.7 Seconds (9.4-12.1) H 10/13/17 09:15 Sodium 123 mEq/L (136-145) L 10/14/17 06:00 Potassium 3.4 mEq/L (3.5-4.5) L 10/14/17 06:00 Carbon Dioxide 16 mEq/L (19-29) L 10/14/17 06:00 BUN 30 mg/dL (8-26) H 10/14/17 06:00 Creatinine 0.67 mg/dL (0.72-1.25) L 10/14/17 06:00 BUN/Creatinine Ratio 45 (6-26) H 10/14/17 06:00 Glucose 102 mg/dL (70-99) H 10/14/17 06:00 POC Glucose 140 (58-89) H 10/14/17 20:55 Calculated Osmolality 262 (280-300) L 10/14/17 06:00 Calcium 8.5 mg/dL (8.6-10.8) L 10/14/17 06:00 Phosphorus 2.2 mg/dL (2.3-4.7) L 10/12/17 04:55 Iron 25 mcg/dL (65-175) L 10/11/17 03:24 % Saturation 10 % (20-55) L 10/11/17 03:24 Transferrin 172 mg/dL (174-364) L 10/11/17 03:24 Total Bilirubin 2.0 mg/dL (0.2-1.2) H 10/08/17 05:30 Alkaline Phosphatase 136 Units/L (38-126) H 10/08/17 05:30 Ammonia 99 mcmol/L (18-72) H 10/10/17 04:30 Serum Total Protein 5.4 g/dL (6.0-8.3) L 10/08/17 05:30 Albumin 3.1 g/dL (3.5-5.0) L D 10/08/17 05:30 Globulin 2.3 g/dL (2.4-3.5) L 10/08/17 05:30 Vitamin B12 1328 pg/mL (213-816) H 10/11/17 03:24 Ur Specific [place] > 1.030 (1.010-1.025) H 10/06/17 05:04 Urine Ketones Trace mg/dL (Negative) H 10/06/17 05:04 Urine Bilirubin Small (Negative) H 10/06/17 05:04 General appearance: Present: cooperative, no acute distress - Respiratory Respiratory exam: Present: CTAB. Absent: rales, rhonchi - Cardiovascular Cardiovascular exam: Present: RRR, +S1, +S2 - GI/Abdominal GI/Abdominal exam: Present: normal bowel sounds, soft. Absent: tenderness Palliative Quality Palliative Quality: Screen for Code Status: No, Screen for Goals of Care: Yes, Screen for Pain: Yes, If Pain Regimen Started, Initiate Bowel Regimen: NA, Screen for Nausea/Vomitting: Yes Code Status: 10/06/17 09:24 Resuscitation Status: Active [RES] Routine Comment: Resuscitation Status: Full Code Resuscitation Status: Active [RES] Routine Comment: SHORT TERM INTUBATION OK NO TRACH Resuscitation Status: DNR-Comfort Care-Arrest - Labs CBC & Chem 7: 10/14/17 06:00 10/14/17 06:00 Labs: Laboratory Results - last 24 hr 10/14/17 10/14/17 10/14/17 05:44 11:03 20:55 POC Glucose 109 H 138 H 140 H - ABG Interpretation ABG results: PT/INR, D-dimer PT 15.7 Seconds (9.4-12.1) H 10/13/17 09:15 Consult Discharge Plan - Plan Referrals: Garett Ervin DO [Primary Care Provider] - 10/16/17 1:30 pm () <Aime Carrillo - Last Filed: 10/15/17 09:31> Date of Encounter: 10/15/17 - Time Spent With Patient Total time spent is greater than 50% in coordination of care (as documented) at patient's floor/unit and/or counseling patient: - Constitutional Vitals: Abnormal lab results WBC 1.3 K/mcL (4.3-11.1) L 10/14/17 06:00 RBC 3.30 M/mcL (4.19-5.50) L 10/14/17 06:00 Hgb 9.1 g/dL (12.9-16.9) L 10/14/17 06:00 Hct 27.1 % (37.5-50.1) L 10/14/17 06:00 MCV 82.1 fL (83.0-100.0) L 10/14/17 06:00 MCH 27.6 pg (28.0-33.3) L 10/14/17 06:00 RDW 15.3 % (11.5-14.5) H 10/14/17 06:00 Neutrophils # 1.0 K/mcL (1.6-8.9) L 10/14/17 06:00 Lymphocytes # 0.2 K/mcL (0.6-4.6) L 10/14/17 06:00 Poikilocytosis 1+ (Not Present) A 10/14/17 06:00 Tear Drop Cells 1+ (Not Present) A 10/07/17 04:40 Beba Cells 1+ (Not Present) A 10/08/17 05:30 PT 15.7 Seconds (9.4-12.1) H 10/13/17 09:15 Sodium 123 mEq/L (136-145) L 10/14/17 06:00 Potassium 3.4 mEq/L (3.5-4.5) L 10/14/17 06:00 Carbon Dioxide 16 mEq/L (19-29) L 10/14/17 06:00 BUN 30 mg/dL (8-26) H 10/14/17 06:00 Creatinine 0.67 mg/dL (0.72-1.25) L 10/14/17 06:00 BUN/Creatinine Ratio 45 (6-26) H 10/14/17 06:00 Glucose 102 mg/dL (70-99) H 10/14/17 06:00 POC Glucose 140 (58-89) H 10/14/17 20:55 Calculated Osmolality 262 (280-300) L 10/14/17 06:00 Calcium 8.5 mg/dL (8.6-10.8) L 10/14/17 06:00 Phosphorus 2.2 mg/dL (2.3-4.7) L 10/12/17 04:55 Iron 25 mcg/dL (65-175) L 10/11/17 03:24 % Saturation 10 % (20-55) L 10/11/17 03:24 Transferrin 172 mg/dL (174-364) L 10/11/17 03:24 Total Bilirubin 2.0 mg/dL (0.2-1.2) H 10/08/17 05:30 Alkaline Phosphatase 136 Units/L (38-126) H 10/08/17 05:30 Ammonia 99 mcmol/L (18-72) H 10/10/17 04:30 Serum Total Protein 5.4 g/dL (6.0-8.3) L 10/08/17 05:30 Albumin 3.1 g/dL (3.5-5.0) L D 10/08/17 05:30 Globulin 2.3 g/dL (2.4-3.5) L 10/08/17 05:30 Vitamin B12 1328 pg/mL (213-816) H 10/11/17 03:24 Ur Specific [place] > 1.030 (1.010-1.025) H 10/06/17 05:04 Urine Ketones Trace mg/dL (Negative) H 10/06/17 05:04 Urine Bilirubin Small (Negative) H 10/06/17 05:04 - Attending Attestation I examined this patient and my medical decision-making was reviewed with the Resident Physician. I agree with the documented findings, disposition and treatment plan as described except to the extent set forth below. Palliative Quality Code Status: 10/06/17 09:24 Resuscitation Status: Active [RES] Routine Comment: Resuscitation Status: Full Code Resuscitation Status: Active [RES] Routine Comment: SHORT TERM INTUBATION OK NO TRACH Resuscitation Status: DNR-Comfort Care-Arrest - Labs CBC & Chem 7: 10/14/17 06:00 10/14/17 06:00 Labs: Laboratory Results - last 24 hr 10/14/17 10/14/17 10/14/17 05:44 11:03 20:55 POC Glucose 109 H 138 H 140 H - ABG Interpretation ABG results: PT/INR, D-dimer PT 15.7 Seconds (9.4-12.1) H 10/13/17 09:15
[2017-10-15] MEDS: APIXABAN 2.5 MG TABLET PO SCH ×2 (09:50→20:06)
[2017-10-15] MEDS: Lactulose Oral Soln 20 GM/30 ML UDC PO SCH ×3 (09:51→20:06)
[2017-10-15] MEDS: Sennosides/Docusate Sodium TABLET PO SCH (09:53)
[2017-10-15] MEDS ORDERED: Vancomycin 750 MG in D5% in Water 250 ML IVPB SCH (18:00)
--- NOTE | 2017-10-15 18:37 | Internal Med Progress Note ---
Date of Encounter: 10/15/17 Time of Encounter: 12:00 - Assessment and plan (1) Acute hepatic encephalopathy Current Visit: Yes Status: Resolved Assessment and plan: reolved. continue lactulose PO (2) Ascites Current Visit: Yes Status: Acute Assessment and plan: - CT A/P on 10/06/17 showed large volume ascites. - Pleur X catheter was placed by IR on 09/09/17 with limited drainage and removed on 10/07/17 with pustular fluid present. - SAAG 2.5: portal hypertension - Peritoneal fluid culture positive for Cornybacterium species. Continue IV vancomycin for SBP. - Significant ascites. - IR consulted for paracentesis. Qualifiers: Ascites type: malignant Qualified Code(s): R18.0 - Malignant ascites (3) Hyponatremia Current Visit: Yes Status: Acute Assessment and plan: Not much improvement but stable (4) Pancreatic cancer Current Visit: Yes Status: Chronic Assessment and plan: - Pancreatic cancer with multiple organ mets. Patient of Dr. Waters - CT abdomen/pelvis on 10/06/17 showed ill defined soft tissue extending posteriorlly from pancreatic neck surrounding celiac and SMA, likely cancer. persistent portal vein thrombosis and biliary ductal dilation - Oncology was consulted during recent hospitalization and determined patient would need to clinically improve in order to attempt clinical trials - Continue tramadol for pain control. - Palliative on board and appreciate assistance. - Patient will be discharged home with home health Qualifiers: Pancreatic malignancy location: body of pancreas Qualified Code(s): C25.1 - Malignant neoplasm of body of pancreas (5) Severe protein-calorie malnutrition Current Visit: Yes Status: Acute Assessment and plan: - Continue regular diet along with Ensure high protein supplement TID with meals. 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 - CT abdomen/pelvis on 10/06/17 showed ill defined soft tissue extending posteriorlly from pancreatic neck surrounding celiac and SMA, likely cancer. persistent portal vein thrombosis and biliary ductal dilation. - Concern of GI bleed when NG tube was pulled but per GI, it's likely trauma from NG tube and okay to continue Eliquis. - Continue Eliquis while monitoring H&H closely. - Subjective Interval history: Patient reports feeling better since the day of admission - Constitutional Vitals: Temp Pulse Resp BP Pulse Ox 97.4 F L 94 15 87/61 100 10/15/17 12:07 10/15/17 12:07 10/15/17 12:07 10/15/17 12:07 10/15/17 12:07 General appearance: Present: A&O X 3, no acute distress, underweight, answers questions appropriately - Respiratory Respiratory exam: Present: CTAB. Absent: accessory muscle use, rales, rhonchi, wheezes - Cardiovascular Cardiovascular exam: Present: RRR, +S1, +S2. Absent: diastolic murmur, gallop, rubs, systolic murmur Internal Medicine: Result - Labs CBC & Chem 7: 10/14/17 06:00 10/14/17 06:00 - ABG Interpretation ABG results: PT/INR, D-dimer PT 15.7 Seconds (9.4-12.1) H 10/13/17 09:15 - VTE Documentation of Mechanical Device: Intermittent pneumatic compression device Consult Discharge Plan - Plan Referrals: Garett Ervin DO [Primary Care Provider] - 10/16/17 1:30 pm ()
[2017-10-15] MEDS ORDERED: traMADol 50 MG TABLET PO SCH (21:00)
[2017-10-16] MEDS: Vancomycin 750 MG in D5% in Water 250 ML IVPB SCH ×2 (05:12→15:53)
--- NOTE | 2017-10-16 07:50 | Palliative Progress Note ---
<Judith Parmar - Last Filed: 10/16/17 07:46> Date of Encounter: 10/16/17 Time of Encounter: 07:35 - Assessment and plan (1) Counseling regarding goals of care Current Visit: Yes Status: Acute Assessment and plan: [facility] is setting up the patient to be discharged home with home health and PT/OT. The patient will be discharged once he finishes the last dose of IV antibiotics. The patient is very happy to be going home for [place]. He has no other complaints. The patient and his stated that PT came yesterday and worked with him and that it went well. (2) Cancer-related pain Current Visit: Yes Status: Chronic Assessment and plan: The patient's pain is controlled with PRN Hydromorphone tablets that he took at home. Current order is 2mg available for moderate pain and 4mg for severe. (3) Acute hepatic encephalopathy Current Visit: Yes Status: Resolved (4) Pancreatic cancer Current Visit: Yes Status: Chronic Qualifiers: Pancreatic malignancy location: body of pancreas Qualified Code(s): C25.1 - Malignant neoplasm of body of pancreas - Time Spent With Patient Total time spent is greater than 50% in coordination of care (as documented) at patient's floor/unit and/or counseling patient: - Subjective Interval history: Patient is awake, alert, and oriented and laying down in bed. He reports PT came and saw him yesterday and worked with him. [facility] is setting up the patient to be discharged home and have home health and PT/OT. The patient will have his last dose of IV antibiotics and then be discharged today. The patient would like to be home for [place] since this may be his last with his family. His only complaint was that he had 4 bouts of "liquidy" diarrhea which is most likely due to the lactulose. I assured the patient I would inform nurse of the diarrhea and that we would keep an eye on it. - Constitutional Vitals: Abnormal lab results WBC 1.3 K/mcL (4.3-11.1) L 10/14/17 06:00 RBC 3.30 M/mcL (4.19-5.50) L 10/14/17 06:00 Hgb 9.1 g/dL (12.9-16.9) L 10/14/17 06:00 Hct 27.1 % (37.5-50.1) L 10/14/17 06:00 MCV 82.1 fL (83.0-100.0) L 10/14/17 06:00 MCH 27.6 pg (28.0-33.3) L 10/14/17 06:00 RDW 15.3 % (11.5-14.5) H 10/14/17 06:00 Neutrophils # 1.0 K/mcL (1.6-8.9) L 10/14/17 06:00 Lymphocytes # 0.2 K/mcL (0.6-4.6) L 10/14/17 06:00 Poikilocytosis 1+ (Not Present) A 10/14/17 06:00 Tear Drop Cells 1+ (Not Present) A 10/07/17 04:40 Beba Cells 1+ (Not Present) A 10/08/17 05:30 PT 15.7 Seconds (9.4-12.1) H 10/13/17 09:15 Sodium 123 mEq/L (136-145) L 10/14/17 06:00 Potassium 3.4 mEq/L (3.5-4.5) L 10/14/17 06:00 Carbon Dioxide 16 mEq/L (19-29) L 10/14/17 06:00 BUN 30 mg/dL (8-26) H 10/14/17 06:00 Creatinine 0.67 mg/dL (0.72-1.25) L 10/14/17 06:00 BUN/Creatinine Ratio 45 (6-26) H 10/14/17 06:00 Glucose 102 mg/dL (70-99) H 10/14/17 06:00 POC Glucose 179 (58-89) H 10/15/17 12:04 Calculated Osmolality 262 (280-300) L 10/14/17 06:00 Calcium 8.5 mg/dL (8.6-10.8) L 10/14/17 06:00 Phosphorus 2.2 mg/dL (2.3-4.7) L 10/12/17 04:55 Iron 25 mcg/dL (65-175) L 10/11/17 03:24 % Saturation 10 % (20-55) L 10/11/17 03:24 Transferrin 172 mg/dL (174-364) L 10/11/17 03:24 Total Bilirubin 2.0 mg/dL (0.2-1.2) H 10/08/17 05:30 Alkaline Phosphatase 136 Units/L (38-126) H 10/08/17 05:30 Ammonia 99 mcmol/L (18-72) H 10/10/17 04:30 Serum Total Protein 5.4 g/dL (6.0-8.3) L 10/08/17 05:30 Albumin 3.1 g/dL (3.5-5.0) L D 10/08/17 05:30 Globulin 2.3 g/dL (2.4-3.5) L 10/08/17 05:30 Vitamin B12 1328 pg/mL (213-816) H 10/11/17 03:24 Ur Specific [place] > 1.030 (1.010-1.025) H 10/06/17 05:04 Urine Ketones Trace mg/dL (Negative) H 10/06/17 05:04 Urine Bilirubin Small (Negative) H 10/06/17 05:04 - Head Head exam: Present: atraumatic, normocephalic - Respiratory Respiratory exam: Present: CTAB. Absent: rales, rhonchi, wheezes - Cardiovascular Cardiovascular exam: Present: RRR, +S1, +S2. Absent: clicks - GI/Abdominal GI/Abdominal exam: Present: normal bowel sounds, soft. Absent: guarding, tenderness - Neurological Exam Neurological exam: Present: alert, oriented X3 ( ) - Skin Skin exam: Present: dry, intact Palliative Quality Palliative Quality: Screen for Code Status: No, Screen for Goals of Care: Yes, Screen for Pain: Yes, If Pain Regimen Started, Initiate Bowel Regimen: NA, Screen for Nausea/Vomitting: Yes Code Status: 10/06/17 09:24 Resuscitation Status: Active [RES] Routine Comment: Resuscitation Status: Full Code Resuscitation Status: Active [RES] Routine Comment: SHORT TERM INTUBATION OK NO TRACH Resuscitation Status: DNR-Comfort Care-Arrest - Labs CBC & Chem 7: 10/14/17 06:00 10/14/17 06:00 Labs: Laboratory Results - last 24 hr 10/14/17 10/15/17 10/15/17 17:26 05:29 12:04 POC Glucose 134 H 128 H 179 H - ABG Interpretation ABG results: PT/INR, D-dimer PT 15.7 Seconds (9.4-12.1) H 10/13/17 09:15 Consult Discharge Plan - Plan Referrals: Garett Ervin DO [Primary Care Provider] - 10/16/17 1:30 pm () <Aime Carrillo - Last Filed: 10/16/17 09:08> Date of Encounter: 10/16/17 - Time Spent With Patient Total time spent is greater than 50% in coordination of care (as documented) at patient's floor/unit and/or counseling patient: - Constitutional Vitals: Abnormal lab results WBC 1.3 K/mcL (4.3-11.1) L 10/14/17 06:00 RBC 3.30 M/mcL (4.19-5.50) L 10/14/17 06:00 Hgb 9.1 g/dL (12.9-16.9) L 10/14/17 06:00 Hct 27.1 % (37.5-50.1) L 10/14/17 06:00 MCV 82.1 fL (83.0-100.0) L 10/14/17 06:00 MCH 27.6 pg (28.0-33.3) L 10/14/17 06:00 RDW 15.3 % (11.5-14.5) H 10/14/17 06:00 Neutrophils # 1.0 K/mcL (1.6-8.9) L 10/14/17 06:00 Lymphocytes # 0.2 K/mcL (0.6-4.6) L 10/14/17 06:00 Poikilocytosis 1+ (Not Present) A 10/14/17 06:00 Tear Drop Cells 1+ (Not Present) A 10/07/17 04:40 [place] Cells 1+ (Not Present) A 10/08/17 05:30 PT 15.7 Seconds (9.4-12.1) H 10/13/17 09:15 Sodium 123 mEq/L (136-145) L 10/14/17 06:00 Potassium 3.4 mEq/L (3.5-4.5) L 10/14/17 06:00 Carbon Dioxide 16 mEq/L (19-29) L 10/14/17 06:00 BUN 30 mg/dL (8-26) H 10/14/17 06:00 Creatinine 0.67 mg/dL (0.72-1.25) L 10/14/17 06:00 BUN/Creatinine Ratio 45 (6-26) H 10/14/17 06:00 Glucose 102 mg/dL (70-99) H 10/14/17 06:00 POC Glucose 179 (58-89) H 10/15/17 12:04 Calculated Osmolality 262 (280-300) L 10/14/17 06:00 Calcium 8.5 mg/dL (8.6-10.8) L 10/14/17 06:00 Phosphorus 2.2 mg/dL (2.3-4.7) L 10/12/17 04:55 Iron 25 mcg/dL (65-175) L 10/11/17 03:24 % Saturation 10 % (20-55) L 10/11/17 03:24 Transferrin 172 mg/dL (174-364) L 10/11/17 03:24 Total Bilirubin 2.0 mg/dL (0.2-1.2) H 10/08/17 05:30 Alkaline Phosphatase 136 Units/L (38-126) H 10/08/17 05:30 Ammonia 99 mcmol/L (18-72) H 10/10/17 04:30 Serum Total Protein 5.4 g/dL (6.0-8.3) L 10/08/17 05:30 Albumin 3.1 g/dL (3.5-5.0) L D 10/08/17 05:30 Globulin 2.3 g/dL (2.4-3.5) L 10/08/17 05:30 Vitamin B12 1328 pg/mL (213-816) H 10/11/17 03:24 Ur Specific [place] > 1.030 (1.010-1.025) H 10/06/17 05:04 Urine Ketones Trace mg/dL (Negative) H 10/06/17 05:04 Urine Bilirubin Small (Negative) H 10/06/17 05:04 - Attending Attestation I examined this patient and my medical decision-making was reviewed with the Resident Physician. I agree with the documented findings, disposition and treatment plan as described except to the extent set forth below. Palliative Quality Code Status: 10/06/17 09:24 Resuscitation Status: Active [RES] Routine Comment: Resuscitation Status: Full Code Resuscitation Status: Active [RES] Routine Comment: SHORT TERM INTUBATION OK NO TRACH Resuscitation Status: DNR-Comfort Care-Arrest - Labs CBC & Chem 7: 10/14/17 06:00 10/14/17 06:00 Labs: Laboratory Results - last 24 hr 10/14/17 10/15/17 10/15/17 17:26 05:29 12:04 POC Glucose 134 H 128 H 179 H - ABG Interpretation ABG results: PT/INR, D-dimer PT 15.7 Seconds (9.4-12.1) H 10/13/17 09:15
[2017-10-16] MEDS: Lactulose Oral Soln 20 GM/30 ML UDC PO SCH ×2 (08:21→15:53)
[2017-10-16] MEDS: APIXABAN 2.5 MG TABLET PO SCH (08:21)
[2017-10-16] MEDS: Sennosides/Docusate Sodium TABLET PO SCH (08:22)
[2017-10-16 11:54] VITALS: BP 93/66
[2017-10-16] MEDS: *HR* HYDROmorphone 2 MG TABLET PO PRN (12:27)
--- NOTE | 2017-10-16 15:53 | Discharge Summary ---
Date of Encounter: 10/16/17 Time of Encounter: 12:00 - Discharge Diagnosis (1) Acute hepatic encephalopathy Priority: Primary Status: Resolved (2) Ascites Priority: Primary Status: Acute Qualifiers: Ascites type: malignant Qualified Code(s): R18.0 - Malignant ascites (3) Hyponatremia Priority: Secondary Status: Acute (4) Pancreatic cancer Priority: Secondary Status: Chronic Qualifiers: Pancreatic malignancy location: body of pancreas Qualified Code(s): C25.1 - Malignant neoplasm of body of pancreas (5) Severe protein-calorie malnutrition Priority: Secondary Status: Acute (6) Mesenteric venous thrombosis Priority: Secondary Status: Chronic - Discharge Medications Home Medications: Multivitamin [Multivitamins] 1 each PO DAILY 11/06/16 [History] Baclofen [Lioresal] 10 mg PO DAILY PRN 08/13/17 [History] Gabapentin [Neurontin] 300 mg PO HS PRN 08/13/17 [History] Lipase/Protease/Amylase [Darrin Cartagena 12,000 Units Capsule] 1 each PO TID PRN [History] Melatonin 5 mg PO HS 08/13/17 [History] Pantoprazole Sodium [Protonix] 40 mg PO BID #60 tablet.dr 08/16/17 [Rx] Hydromorphone HCl [Dilaudid] 1 - 2 tab PO Q4H PRN #90 tablet 09/03/17 [Rx] Apixaban [Eliquis] 1 tab PO BID #60 tablet 09/10/17 [Rx] Potassium Chloride Elixir [Potassium Chloride] 7.5 ml PO DAILY #220 mls [Rx] Morphine Sulfate SR (12 HR) [MS Contin] 1 tab PO Q12HR #60 tab 10/02/17 [Rx] Pantoprazole Sodium 40 mg PO BID #60 tablet. 10/02/17 [Rx] Sennosides/Docusate Sodium [Senna Plus] 2 each PO BID #60 tablet 10/02/17 [Rx] Granisetron [Sancuso] 1 each TD QWEEK #4 patch.tdwk 10/13/17 [Rx] Allergies/Adverse Reactions: 3 Allergy/AdvReac Type Severity Reaction Status Date / Time ondansetron Allergy Swelling Verified 10/06/17 02:56 [From Zofran (as of hydrochloride)] Lip/Tongue/Throat prochlorperazine Allergy Swelling Verified 10/06/17 02:56 [From Compazine] of Lip/Tongue/Throat Oxycodone AdvReac Rash Verified 10/06/17 02:56 Date of admission: 10/06/17 05:50 Primary care physician: Cora Santacruz Consults: 10/06/17 08:12 Consult to Nutrition [CONS] Routine Comment: Consulting Provider: NUTRITION Reason for Dietary Consult: MST Score 10/06/17 08:29 Consult to Critical Care [CONS] Routine Consulting Provider: Pulm Crit Care & Sleep Leandra Reason for Consult: hyponatremia, hepatic encephalopathy Call Completed: No 10/06/17 09:27 Consult to Palliative Care [CONS] Routine Comment: Consulting Provider: Palliative Care Leandra Reason for Consult: Advanced pancreatic cancer Time Notified: 09:28 Call Completed: Yes 10/06/17 10:28 Consult to Interventional Radiology [CONS] Routine Consulting Provider: Radiology Interventional Cols Reason for Consult: PleurX catheter inserted 09/09/17 not functioning, ascites, pancreatic CA Time Notified: 10:31 Call Completed: Yes 10/07/17 11:16 Consult to Gastroenterology [CONS] Routine Consulting Provider: Gastroenterology Leandra Reason for Consult: +/- PEG, BRB in NG tube output, history of chemo induced gastric ulcers Time Notified: 11:17 Call Completed: Yes 10/07/17 12:47 Consult to Interventional Radiology [CONS] Stat Consulting Provider: Radiology Interventional Cols Reason for Consult: pluerix drainage growing, dc pluerix drain Time Notified: 12:49 Call Completed: Yes 10/08/17 09:55 Consult to Occupational Therapy [CONS] Routine Comment: Evaluate, develop and implement POC Reason for Consult: therapy, placement recs Consult to Physical Therapy [CONS] Routine Comment: Evaluate, develop and implement POC Reason for Consult: therapy, placement recs 10/08/17 09:56 Consult to Speech Therapy [CONS] Routine Comment: Evaluate, develop and implement POC Reason for Consult: s/p NG removal, needs eval for swallowing. Call Completed: No 10/13/17 09:02 Consult to Interventional Radiology [CONS] Stat Consulting Provider: Radiology Interventional Cols Reason for Consult: Paracentesis Call Completed: Yes 10/13/17 11:51 OT [Consult to Occupational Therapy] [CONS] Stat Comment: Evaluate, develop and implement POC Reason for Consult: discharge planning PT [Consult to Physical Therapy] [CONS] Stat Comment: Evaluate, develop and implement POC Reason for Consult: discharge planning - Patient Status Disposition: Home Health Service Condition: Critical - Discharge Instructions Follow Up With: Garett Ervin DO [Primary Care Provider] - (web request sent ) Hospital course: Patient is a 52-year-old male with past medical history significant for pancreatic adenocarcinoma with poor prognosis and thrombosed portal vein who presents the ER on 10/06/17 due to altered mental status. Patient unable to give history but is present at the bedside and reports that patient has gradually been declining over the last 3 or 4 weeks now with a cute onset of altered mental status. Patient is managed by hematology oncology waiting to enter into a new trial for therapy. In the ER, she was found to be neutropenic with hypernatremia and dehydration. Patients ammonia levels was also found to be elevated at 162. Patient was admitted to the ICU for further medical management. During patients hospital stay, his acute hepatic encephalopathy resolved with lactulose treatment. CT A/P on 10/06/17 showed large volume ascites and Pleur X catheter was placed by IR on 09/09/17 with limited drainage and removed on 10/07/17 with pustular fluid present; SAAG 2.5: portal hypertension. Peritoneal fluid culture positive for Cornybacterium species. Patient was continued on IV vancomycin for SBP. Due to patient having pancreatic cancer with multiple organ mets, palliative care was consulted. Oncology as previously determined patient would need to clinically improve in order to attempt clinical trials. Patient was continued on Morphine/Dilaudid for pain control. PT recommended inpatient rehab but patient wishes to go home with home health. 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 - Time Spent with Patient Total time spent providing and/or coordinating discharge services: Less than 30 minutes - Constitutional Vitals: Temp Pulse Resp BP Pulse Ox 97.3 F L 94 17 93/66 100 10/16/17 11:53 10/16/17 11:53 10/16/17 11:53 10/16/17 11:53 10/16/17 11:53 General appearance: Present: A&O X 3, no acute distress, underweight, answers questions appropriately - Cardiovascular Cardiovascular exam: Present: RRR, +S1, +S2. Absent: diastolic murmur, gallop, rubs, systolic murmur - VTE Documentation of Mechanical Device: Intermittent pneumatic compression device
--- NOTE | 2017-10-16 16:00 | Physician Discharge Referral ---
Home Health/Hosp Referral Info Transfer to: Home Health - Diagnosis (1) Acute hepatic encephalopathy Status: Resolved (2) Ascites Status: Acute (3) Hyponatremia Status: Acute (4) Pancreatic cancer Status: Chronic (5) Severe protein-calorie malnutrition Status: Acute (6) Mesenteric venous thrombosis Status: Chronic - Respiratory Orders Smoking Cessation: Smoking cessation has been advised. For more information, call the [place] Tobacco Quit Line at 0-092-OBQN-NOW. - Transfer Medications Home Medications: Multivitamin [Multivitamins] 1 each PO DAILY 11/06/16 [History] Baclofen [Lioresal] 10 mg PO DAILY PRN 08/13/17 [History] Gabapentin [Neurontin] 300 mg PO HS PRN 08/13/17 [History] Lipase/Protease/Amylase [Darrin Cartagena 12,000 Units Capsule] 1 each PO TID PRN [History] Melatonin 5 mg PO HS 08/13/17 [History] Pantoprazole Sodium [Protonix] 40 mg PO BID #60 tablet. 08/16/17 [Rx] Hydromorphone HCl [Dilaudid] 1 - 2 tab PO Q4H PRN #90 tablet 09/03/17 [Rx] Apixaban [Eliquis] 1 tab PO BID #60 tablet 09/10/17 [Rx] Potassium Chloride Elixir [Potassium Chloride] 7.5 ml PO DAILY #220 mls [Rx] Morphine Sulfate SR (12 HR) [MS Contin] 1 tab PO Q12HR #60 tab 10/02/17 [Rx] Pantoprazole Sodium 40 mg PO BID #60 tablet. 10/02/17 [Rx] Sennosides/Docusate Sodium [Senna Plus] 2 each PO BID #60 tablet 10/02/17 [Rx] Granisetron [Sancuso] 1 each TD QWEEK #4 patch.tdwk 10/13/17 [Rx] Allergies/Adverse Reactions: 3 Allergy/AdvReac Type Severity Reaction Status Date / Time ondansetron Allergy Swelling Verified 10/06/17 02:56 [From Zofran (as of hydrochloride)] Lip/Tongue/Throat prochlorperazine Allergy Swelling Verified 10/06/17 02:56 [From Compazine] of Lip/Tongue/Throat Oxycodone AdvReac Rash Verified 10/06/17 02:56 Certification: Further, I certify that my clinical findings support that this patient is homebound (i.e. absences from home require considerable and taxing effort and are for medical reasons or latter day services or infrequently or short duration when for other reasons) because: Homebound Reason: Leaving home requires considerable and taxing effort due to condition Attestation: My signature below is to certify that this patient is under my care and that I, or nurse practitioner, or a physician's business support assistant working with me, has a face-to -face encounter with this patient.
[2017-10-16] MEDS ORDERED: Aminoglycoside Consult 1 EACH MC ONE (17:29)
== END 2017-10-16 17:30 | disposition home health service (06) | DRG 435 ==
LOC: EMEROO 02:53 → ICNU 05:50 → SUATTDRO 05:50 → ICNU 05:57 → 2NNU 10-07 14:44 → 2ANU 10-10 11:01
PROVIDERS: ADMIT Internal Medicine Pulmonary Disease; ATTEND Hospitalist

== ENCOUNTER 2017-10-23 15:36 | Inpatient (IN) ==
[2017-10-23] MEDS ORDERED: 0.9 % Sodium Chloride 1,000 ML IVC ONE (16:25)
--- NOTE | 2017-10-23 16:43 | Emergency Department Note ---
Disposition Clinical Impression: Hyponatremia, JOSE (acute kidney injury), Hyperkalemia Disposition: Admitted As Inpatient Condition: Fair Referrals: Garett Ervin DO [Primary Care Provider] - Forms: ED Satisfaction Letter Recheck wound or abnormal lab - General Chief Complaint: ED Recheck/Abnormal Lab/Rx Stated Complaint: "abnormal labs" Time Seen by Provider: 10/23/17 16:09 Source: patient Mode of arrival: private vehicle Limitations: no limitations Nursing Notes Reviewed: Yes Vital Signs Reviewed: Yes - History of Present Illness HPI Narrative: 52-year-old male history of pancreatic cancer presents to the ER due to abnormal labs. Patient had a paracentesis performed this morning with 7 L removed without albumin replenishment. He was called this afternoon due to a low sodium. Family reports he has been admitted before and managed for low sodium with salt tablets. Reports weakness but nothing out of the usual. No seizure-like activity. No numbness tingling or paresthesias. Reports decent appetite without vomiting or diarrhea. No fevers cough or sore throat. No other complaints. Pt Subjective Complaint: abnormal lab(s) Initial Visit (ago): hour(s) Symptoms Since Prior Visit: no new symptoms Context: called for abnormal lab result Associated symptoms: none - Related Data Home Medications Medication Instructions Recorded Confirmed Multivitamin [Multivitamins] 1 each PO DAILY 11/06/16 10/23/17 Baclofen [Lioresal] 10 mg PO DAILY PRN 08/13/17 10/23/17 Gabapentin [Neurontin] 300 mg PO HS PRN 08/13/17 10/23/17 Lipase/Protease/Amylase [Creon Dr 1 each PO TID PRN 08/13/17 10/23/17 12,000 Units Capsule] Melatonin 5 mg PO HS 08/13/17 10/23/17 Apixaban [Eliquis] 2.5 mg PO BID 10/23/17 10/23/17 Hydromorphone HCl [Dilaudid] 2 - 4 mg PO Q4H PRN 10/23/17 10/23/17 Morphine Sulfate SR (12 HR) [MS 15 mg PO Q12HR 10/23/17 10/23/17 Contin] Potassium Chloride Elixir 10 meq PO DAILY 10/23/17 10/23/17 [Potassium Chloride] Sennosides/Docusate Sodium [Senna 1 each PO BID 10/23/17 10/23/17 Plus] Previous Rx's Medication Instructions Recorded Pantoprazole Sodium 40 mg PO BID #60 tablet. 10/02/17 Granisetron [Sancuso] 1 each TD QWEEK #4 patch.tdwk 10/13/17 Allergies Allergy/AdvReac Type Severity Reaction Status Date / Time ondansetron Allergy Swelling Verified 10/23/17 15:56 [From Zofran (as of hydrochloride)] Lip/Tongue/Throat prochlorperazine Allergy Swelling Verified 10/23/17 15:56 [From Compazine] of Lip/Tongue/Throat Oxycodone AdvReac Rash Verified 10/23/17 15:56 All systems ED: reviewed and negative except as stated. Constitutional: Denies: fever Cardiovascular: Denies: chest pain Respiratory: Denies: dyspnea Gastrointestinal: Denies: abdominal pain, nausea, vomiting, diarrhea Past Medical History - Past Medical History Attestation: Yes The following information was validated with the patient. Source: patient Medical history: Reports: cancer, diabetes Surgical history: Reports: orthopedic, other Psychiatric history: Reports: no psych history - Social History Smoking Status: Never smoker Smokeless Tobacco Status: No Alcohol use: Reports: none Drug use: Reports: none Physical Exam - General Limitations: no limitations General appearance: alert, cachectic - Head Head exam: atraumatic, normocephalic - Eye Eye exam: Present: normal appearance - ENT ENT exam: normal exam - Neck Neck exam: Present: normal inspection, full ROM - Chest Chest inspection: Present: normal inspection, symmetric chest wall rise - Respiratory Respiratory exam: Present: normal lung sounds bilaterally - Cardiovascular Cardiovascular exam: Present: regular rate, normal rhythm, normal heart sounds - Abdominal Exam Abdominal exam: Present: soft, Non-Tender. Absent: tenderness - Extremities Exam Extremities exam: Present: normal inspection, full ROM - Expanded Upper Extremity Exam Shoulder exam: Present: normal inspection, full ROM Arm exam: Present: normal inspection, full ROM Elbow exam: Present: normal inspection, full ROM Forearm/Wrist exam: Present: normal inspection, full ROM Hand exam: Present: normal inspection, full ROM - Expanded Lower Extremity Exam Hip/Pelvis exam: Present: normal inspection, full ROM Upper leg exam: Present: normal inspection, full ROM Knee exam: Present: normal inspection, full ROM Lower leg exam: Present: normal inspection, full ROM Ankle exam: Present: normal inspection, full ROM Foot/toe exam: Present: normal inspection, full ROM - Neurological Exam Neurological exam: Present: alert, other (GCS 15. Nonfocal exam.) - Psychiatric Psychiatric exam: Present: normal affect - Skin Skin exam: Present: warm, dry, intact Course Course Narrative: Patient seen and examined. Cachectic in appearance. We will recheck his labs and admit for hyponatremia. - Reevaluation(s) Reevaluation #1: Discussed findings as well as nephrology recommendations with the patient and family. They are in agreement with being admitted. - Consultations Consultation #1: I spoke with the on-call furniture associate at the request of the hospitalist due to hyponatremia. Discussed the patient's history and exam labs and interventions. He does not recommend starting 3% hypertonic saline at this time. Believes there is likely volume depletion component with the patient's acute kidney injury and recommends to start normal saline at maintenance. Vital Signs Temperature 95.6 F L 10/23/17 15:49 Pulse Rate 60 10/23/17 15:49 Respiratory Rate 20 10/23/17 15:49 Blood Pressure 73/44 10/23/17 15:49 O2 Sat by Pulse Oximetry 98 10/23/17 15:49 Temperature 95.6 F L 10/23/17 15:49 Pulse Rate 85 10/23/17 19:40 Respiratory Rate 16 10/23/17 19:40 Blood Pressure 89/62 10/23/17 19:40 O2 Sat by Pulse Oximetry 98 10/23/17 19:40 Oxygen Delivery Oxygen Delivery Room Air Recheck wound or abnormal lab - MDM Narrative Medical decision making narrative: 52-year-old male history of pancreatic cancer presents to the ER due to abnormal labs. Noted to be hyponatremic today at 117. Here with repeat was 116. No nausea vomiting or diarrhea. Noted to have an AK I with hyperkalemia without EKG changes. Discussed with nephrology who recommended IV fluid resuscitation with normal saline at maintenance. No neurologic symptoms. Admitted to the hospitalist service. - Lab Data Lab results reviewed: Yes I reviewed the patient's lab results. Result diagrams: 10/23/17 17:14 10/23/17 17:14 Lab Results 10/23/17 10/23/17 Range/Units 17:14 17:14 WBC 2.2 L (4.3-11.1) K/mcL RBC 4.07 L (4.19-5.50) M/mcL Hgb 10.8 L (12.9-16.9) g/dL Hct 30.5 L (37.5-50.1) % MCV 74.9 L (83.0-100.0) fL MCH 26.5 L (28.0-33.3) pg MCHC 35.4 (31.6-35.5) g/dL RDW 16.6 H (11.5-14.5) % Plt Count 195 (140-400) K/mcL MPV 9.2 L (9.4-12.4) fL Immature Gran % 0.5 (0-4) % Seg Neutrophils % 84.7 % Lymphocytes % 3.7 % Monocytes % 10.6 % Eosinophils % 0.5 % Basophils % 0.0 % Neutrophils # 1.9 (1.6-8.9) K/mcL Lymphocytes # 0.1 L (0.6-4.6) K/mcL Monocytes # 0.2 (0.0-1.3) K/mcL Eosinophils # 0.0 (0.0-0.6) K/mcL Basophils # 0.0 (0.0-0.2) K/mcL Sodium 116 L* (136-145) mEq/L Potassium 5.6 H (3.5-5.1) mEq/L Chloride 90 L (98-107) mEq/L Carbon Dioxide 16 L (23-29) mEq/L BUN 60 H (6-20) mg/dL Creatinine 1.51 H (0.70-1.30) mg/dL Est GFR ( Amer) 59 L (> 60) Est GFR (Non-Af Amer) 49 L (> 60) BUN/Creatinine Ratio 40 H (6-26) Glucose 127 H (70-105) mg/dL Calculated Osmolality 260 L (280-300) Calcium 8.9 (8.6-10.3) mg/dL - EKG Data EKG attestation: Yes I reviewed and interpreted this EKG. EKG results narrative: EKG demonstrates sinus rhythm with a rate of 84 bpm. Normal axis. Normal intervals. Normal R-wave progression. No gross ST elevations or depressions. No acute ischemic findings. No significant changes from previous EKG dated 09/12. S.B.A.R. - S.B.A.R. Situation: Demographics, MOA Background: Presenting Complaint, Relevant PMH, Meds, & Allergies Assessment: Vital Signs, Course and respsone to treatment, Exam Concerns, Patient/Family Expectation, Pertinant Lab Results Recommendation: Barrier(s) to disposition, Recommendation based on pending studies, treatments, or consults S.B.A.R. Report Given to: Kayden Ybarra
[2017-10-23 17:20] LABS: Eosinophils % 0.5 %; Hematocrit 30.5 % (37.5-50.1); Hemoglobin 10.8 g/dL (12.9-16.9); Immature Granulocytes % 0.5 % (0-4); Lymphocytes # 0.1 K/mcL (0.6-4.6); Lymphocytes % 3.7 %; Mean Corpuscular HGB Conc 35.4 g/dL (31.6-35.5); Mean Corpuscular Hemoglobin 26.5 pg (28.0-33.3); Mean Platelet Volume 9.2 fL (9.4-12.4); Monocytes # 0.2 K/mcL (0.0-1.3); Monocytes % 10.6 %; Neutrophils # 1.9 K/mcL (1.6-8.9); Platelet Count 195 K/mcL (140-400); Red Blood Count 4.07 M/mcL (4.19-5.50); Red Cell Distribution Width 16.6 % (11.5-14.5); Segmented Neutrophils % 84.7 %
[2017-10-23 17:22] LABS: Mean Corpuscular Volume 74.9 fL (83.0-100.0)
[2017-10-23 17:34] LABS: Calcium 8.9 mg/dL (8.6-10.3); Potassium 5.6 mEq/L (3.5-5.1)
--- NOTE | 2017-10-23 18:09 | Emergency Department Note ---
START Narrative - START START: I examined this patient and my medical decision-making was reviewed with the DATA CENTER OPERATOR/PA/Advanced Practice Nurse/Resident Physician. I agree with the documented findings, disposition and treatment plan as described except to the extent set forth below. ED attending: Patient's emergency medicine resident Dr. Chuck Block. Please see copy of this note for H&P evaluation and management and ED disposition. We both had independent [id number] time in contact with this patient. Briefly: 52 year old male patient with history of pancreatic carcinoma since with "abnormal labs". Patient was seen by oncology in the day sodium of 117 was noted which is the lowest [place] and brought here for further evaluation. Patient has no focal neurologic symptoms. He just feels fatigued. Patient getting IV saline labs are back otherwise awaiting callback from hospitalist for admission for profound hyponatremia and failure to thrive
[2017-10-23] MEDS ORDERED: 0.9 % Sodium Chloride 1,000 ML IVC SCH (18:15)
[2017-10-23] MEDS ORDERED: Naloxone 0.4 MG/ML INJ IVP PRN (19:59)
[2017-10-23] MEDS ORDERED: Acetaminophen 325 MG TABLET PO PRN (19:59)
[2017-10-23] MEDS ORDERED: Dextrose Gel 15 GM/37.5 ML TUBE PO PRN ×2 (20:02)
[2017-10-23] MEDS ORDERED: *HR* Dextrose 50 % in Water (Syg) 50 ML SYRINGE IVP PRN (20:02)
[2017-10-23] MEDS ORDERED: D5% in Water 1,000 ML IVC PRN (20:02)
[2017-10-23] MEDS ORDERED: Baclofen 10 MG TABLET PO PRN (20:07)
[2017-10-23] MEDS ORDERED: Gabapentin 300 MG CAPSULE PO PRN (20:07)
[2017-10-23] MEDS ORDERED: *HR* HYDROmorphone 2 MG TABLET PO PRN ×3 (20:07→22:45)
[2017-10-23] MEDS ORDERED: Lactulose Oral Soln 20 GM/30 ML UDC PO PRN (20:08)
--- NOTE | 2017-10-23 20:16 | Internal Med History&Physical ---
Date of Encounter: 10/23/17 Time of Encounter: 19:40 Assessment and Plan (1) JOSE (acute kidney injury) Current visit: Yes Status: Acute likely related to large volume paracentesis and dehydration; case d/w Nephrology by ER physician- recommend maintenance IV fluid hydration; continue NS and monitor serum creatinine and urine output closely; (2) Hyponatremia Current visit: Yes Status: Acute Acute on chronic; baseline serum sodium noted to be around 123 during previous admissions; currently at 116; likely hypovolemic from large volume paracentesis. Continue IV NS per Nephrology recommendations; no mental status changes or seizures, no indication for urgent hypertonic saline at this time. F/ up formal consult. Monitor BMP Q4hrly; monitor urine output; check urine and serum osmolality and urine sodium; High risk for complications; (3) Ascites Current visit: Yes Status: Acute s/p paracentesis and removal of 7L peritoneal fluid; will give 50g Albumin due to hypotension; continue to monitor; Qualifiers: Ascites type: malignant Qualified Code(s): R18.0 - Malignant ascites (4) Counseling regarding goals of care Current visit: Yes Status: Acute Discussed goals of care with patient and ; he understands his poor prognosis in terms of his pancreatic cancer- per Oncology, he is not a candidate for aggressive chemotherapy and he can only take part in a clinical trial if his functional status improves. However he still wishes to reverse his CODE STATUS to Full Code at this time; is in agreement; he will consider PEG tube only of absolutely necessary. 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 Hatch is a 52 year old male with h/o metastatic pancreatic cancer with declining functional status, was sent from Oncology office for abnormal labs on routine testing. He was noted to have a significantly low serum sodium and elevated creatinine. He is too weak to answer questions and his at bedside , provided most of the history. Patient has no c/o- altered mental status, nausea, vomiting, headache, seizures ; does have generalized weakness and poor appetite at baseline. He had significant abdominal distension and ascites and underwent therapeutic paracentesis this morning with removal of 7L of fluid per notes. This was his second tap thus far. He was recently discharged from our hospital after being treated for hepatic encephalopathy and ascites; he was seen by palliative care team and his Code status at the time was changed to DNR-CCA with limited intubation. However today , he wishes to reverse his status to Full Code. Past Med Surg Social Fam HX - Past Medical History Medical history: cancer (metastatic pancreatic cancer), diabetes, other ( mesenteric vein thrombosis) Psychiatric history: no psych history - Past Surgical History Surgical History: orthopedic, other (right shoulder surgery), other (cervical spinal surgery) - Social History Smoking Status: Never smoker Smokeless Tobacco Status: No Alcohol use: none Drug use: none Occupational status: disabled Current living situation: Home, With Family Activity Level: Independent ambulation Recent Out of Country Travel Within the Last 8 Weeks: No Exposure or Possible Exposure to Illness During Travel: No - Family History Father Adopted: No Hx Family Cardiac Disorders: Yes (NC, CABG, HTN) Hx Family Endocrine Disorder: Yes (DM) Mother Hx Family Cardiac Disorders: No Internal Medicine - H&P: Meds Multivitamin [Multivitamins] 1 each PO DAILY 11/06/16 [History] Baclofen [Lioresal] 10 mg PO DAILY PRN 08/13/17 [History] Gabapentin [Neurontin] 300 mg PO HS PRN 08/13/17 [History] Lipase/Protease/Amylase [Darrin Cartagena 12,000 Units Capsule] 1 each PO TID PRN [History] Melatonin 5 mg PO HS 08/13/17 [History] Pantoprazole Sodium 40 mg PO BID #60 tablet. 10/02/17 [Rx] Granisetron [Sancuso] 1 each TD QWEEK #4 patch.tdwk 10/13/17 [Rx] Apixaban [Eliquis] 2.5 mg PO BID 10/23/17 [History] Hydromorphone HCl [Dilaudid] 2 - 4 mg PO Q4H PRN 10/23/17 [History] Morphine Sulfate SR (12 HR) [MS Contin] 15 mg PO Q12HR 10/23/17 [History] Potassium Chloride Elixir [Potassium Chloride] 10 meq PO DAILY 10/23/17 [History ] Sennosides/Docusate Sodium [Senna Plus] 1 each PO BID 10/23/17 [History] 3 Allergy/AdvReac Type Severity Reaction Status Date / Time ondansetron Allergy Swelling Verified 10/23/17 15:56 [From Zofran (as of hydrochloride)] Lip/Tongue/Throat prochlorperazine Allergy Swelling Verified 10/23/17 15:56 [From Compazine] of Lip/Tongue/Throat Oxycodone AdvReac Rash Verified 10/23/17 15:56 All Systems PM: A 10-system review of systems was performed and is negative for pertinent findings except as documented above in the HPI. - Constitutional Constitutional: fatigue, weakness, weight loss - EENT Eyes: no change in vision, no discharge, no pain, no photophobia Ears: no ear discharge, no ear pain, no tinnitus Nose, mouth and throat: no dysphagia, no nasal discharge, no neck pain, no sore throat - Cardiovascular Cardiovascular ROS IM: no chest pain, no diaphoresis, no dyspnea, no lightheadedness, no palpitations, no syncope - Respiratory Respiratory: no cough, no dyspnea, no wheezing, no excessive phlegm production - Gastrointestinal Gastrointestinal: no abdominal pain, no diarrhea, no hematemesis, no hematochezia, no melena, no nausea, no vomiting - Musculoskeletal Musculoskeletal ROS IM: muscle weakness, no numbness, no tingling - Integumentary Integumentary IM: no rash, no unusual bruising - Neurological Neurological ROS: no confusion, no convulsions, no focal weakness, no numbness, no tingling, no tremor(s) - Hematologic/Lymphatic Hematologic/Lymphatic: easy bruising - Constitutional Vitals: Temp Pulse Resp BP Pulse Ox 95.6 F L 85 16 89/62 98 10/23/17 15:49 10/23/17 19:40 10/23/17 19:40 10/23/17 19:40 10/23/17 19:40 General appearance: Present: cachectic, A&O X 3, loss of weight, answers questions appropriately - Eye Eye exam: Present: PERRL, scleral icterus (B/L), conjuntiva pink Pupils: Present: PERRL - Respiratory Respiratory exam: Present: CTAB. Absent: accessory muscle use, rales, rhonchi, wheezes - Cardiovascular Cardiovascular exam: Present: RRR, +S1, +S2. Absent: diastolic murmur, gallop, rubs, systolic murmur - GI/Abdominal GI/Abdominal exam: Present: normal bowel sounds, soft (scaphoid abdomen), no peritoneal signs. Absent: distended, tenderness - Extremities Exam Extremities exam: Present: full ROM, warm, radial pulses palpable and symmetrical. Absent: calf tenderness, cyanotic, pedal edema - Neurological Exam Neurological exam: Present: CN II-XII intact, oriented X3, no focal deficits. Absent: pronater drift, facial droop, speech deficit - Skin Skin exam: Present: dry, intact, petechiae Internal Med - H&P Results - Labs CBC & Chem 7: 10/23/17 17:14 10/23/17 17:14 Labs: Short CBC 10/23/17 Range/Units 17:14 WBC 2.2 L (4.3-11.1) K/mcL Hgb 10.8 L (12.9-16.9) g/dL Hct 30.5 L (37.5-50.1) % Plt Count 195 (140-400) K/mcL Neutrophils # 1.9 (1.6-8.9) K/mcL BMP 10/23/17 17:14 Sodium 116 L* Potassium 5.6 H Chloride 90 L Carbon Dioxide 16 L BUN 60 H Creatinine 1.51 H Glucose 127 H Calcium 8.9 - EKG Data -: EKG Interpreted by Myself EKG shows normal: sinus rhythm Rate: normal
[2017-10-23] MEDS ORDERED: Melatonin 3 MG TABLET PO SCH (21:00)
[2017-10-23] MEDS ORDERED: Insulin LISPRO 300 UNITS/3 ML VIAL SQ SCH (21:00)
[2017-10-23 21:21] LABS: BUN/Creatinine Ratio 39 (6-26); Blood Urea Nitrogen 52 mg/dL (6-20); Calcium 8.2 mg/dL (8.6-10.3); Carbon Dioxide 18 mEq/L (23-29); Chloride 94 mEq/L (98-107); Glucose 111 mg/dL (70-105); Osmolality,Calculated 263 (280-300); Potassium 5.5 mEq/L (3.5-5.1); Sodium 119 mEq/L (136-145); eGFR For African Americans > 60 (> 60); eGFR For Non-African Americans 56 (> 60)
[2017-10-23] MEDS: Apixaban 2.5 MG TABLET PO SCH (21:30)
[2017-10-23] MEDS: 0.9 % Sodium Chloride 1,000 ML IVC SCH (21:31)
[2017-10-23] MEDS: Sennosides/Docusate Sodium TABLET PO SCH (21:31)
[2017-10-23] MEDS: Albumin 25% 25gram/100mL 25 GM/100 ML IV.SOLN IVPB SCH (21:32)
[2017-10-23] MEDS ORDERED: *HR* HYDROmorphone 4 MG TABLET PO PRN ×2 (21:45)
[2017-10-23] MEDS ORDERED: 0.9 % Sodium Chloride 500 ML IVC ONE (22:42)
[2017-10-23] MEDS ORDERED: 0.9 % Sodium Chloride 500 ML ONE (22:48)
[2017-10-23 23:48] LABS: Bilirubin,Urine Large (Negative); Blood,Urine Negative (Negative); Clarity,Urine Cloudy (Clear); Color,Urine Dark Yellow (Yellow); Glucose,Urine (UA) Normal (Normal); Ketones,Urine Negative (Negative); Leukocyte Esterase,Urine Small (Negative); Nitrite,Urine Negative (Negative); Protein,Urine Trace mg/dL (Neg-Trace); Specific Gravity,Urine 1.022 (1.010-1.025); Urobilinogen,Urine Normal (Normal)
[2017-10-24] MEDS: Albumin 25% 25gram/100mL 25 GM/100 ML IV.SOLN IVPB SCH (04:01)
[2017-10-24 04:11] LABS: Alanine Aminotransferase 414 Units/L (7-52); Albumin 3.2 g/dL (3.5-5.7); Albumin/Globulin Ratio 1.5 (1.1-2.2); Alkaline Phosphatase > 1500 Units/L (34-104); Aspartate Amino Transferase 552 Units/L (13-39); BUN/Creatinine Ratio 42 (6-26); Bilirubin,Total 11.5 mg/dL (0.3-1.0); Blood Urea Nitrogen 49 mg/dL (6-20); Calcium 8.5 mg/dL (8.6-10.3); Carbon Dioxide 15 mEq/L (23-29); Chloride 96 mEq/L (98-107); Glucose 98 mg/dL (70-105); Magnesium 2.4 mg/dL (1.6-2.6); Osmolality,Calculated 263 (280-300); Phosphorous 2.9 mg/dL (2.7-4.5); Potassium 5.2 mEq/L (3.5-5.1); Sodium 120 mEq/L (136-145); Total Protein 5.4 g/dL (6.4-8.9); eGFR For African Americans > 60 (> 60); eGFR For Non-African Americans > 60 (> 60)
[2017-10-24 04:12] LABS: Globulin 2.2 g/dL (2.4-3.5)
[2017-10-24] MEDS ORDERED: *HR* Morphine Sulfate SR (12 HR) 15 MG TABLET.ER PO SCH (06:00)
[2017-10-24] MEDS: 0.9 % Sodium Chloride 1,000 ML IVC SCH (06:43)
[2017-10-24] MEDS ORDERED: *HR* HYDROmorphone 2 MG TABLET PO PRN (08:10)
[2017-10-24] MEDS ORDERED: *HR* HYDROmorphone (PF) 1 MG/ML SYRINGE IVP PRN (08:31)
--- NOTE | 2017-10-24 08:40 | Internal Med Progress Note ---
Date of Encounter: 10/24/17 Time of Encounter: 08:38 - Assessment and plan (1) Hyponatremia Current Visit: Yes Status: Acute Assessment and plan: Severe hyponatremia due to hypovolemic and dehydration slowly improving..this morning his Na @ 120 Goal of correction 0.5meq/hr, not more than 8-10 meq/day cont gentle hydration Q6hr Na Nephro consulted (2) Cancer-related pain Current Visit: No Status: Chronic Assessment and plan: Pt wanted to be comfortable and pain free so will add IV analgesics If incase his BP drops down will consider giving him fluid boluses also consulted palliative care Dr. Carrillo to discuss with the pt about goals of care talked to the pt's at bed side and explained to her about current care (3) Dehydration Current Visit: No Status: Acute Assessment and plan: con IV hydration (4) Severe protein-calorie malnutrition Current Visit: Yes Status: Acute Assessment and plan: Worsening bank note designer consulted (5) JOSE (acute kidney injury) Current Visit: Yes Status: Acute Assessment and plan: due to dehydration improving cont IV fluids (6) Mesenteric venous thrombosis Current Visit: Yes Status: Chronic Assessment and plan: on eliquis (7) Pancreatic cancer Current Visit: Yes Status: Chronic Assessment and plan: seems to be worsening his LFT and Alk phos were significantly elevated Qualifiers: Pancreatic malignancy location: body of pancreas Qualified Code(s): C25.1 - Malignant neoplasm of body of pancreas - Subjective Interval history: Mr. Hatch is a 52 year old male with h/o metastatic pancreatic cancer with declining functional status, was sent from Oncology office for abnormal labs on routine testing. He was noted to have a significantly low serum sodium and elevated creatinine. He had significant abdominal distension and ascites and underwent therapeutic paracentesis this morning with removal of 7L of fluid per notes. This was his second tap thus far. He was recently discharged from our hospital after being treated for hepatic encephalopathy and ascites. Now he looks very lethargic and weak, c/o back pain and abdominal pain, wants to get some IV pain medications. He wanted to be comfortable and pain free, however he was not able to make any decision regarding his code status [place]. - Constitutional Vitals: Temp Pulse Resp BP Pulse Ox 98.2 F 95 16 90/57 97 10/24/17 07:59 10/24/17 08:09 10/24/17 08:09 10/24/17 08:09 10/24/17 08:09 General appearance: Present: cachectic, A&O X 3, loss of weight, answers questions appropriately - Head Head exam: Present: atraumatic, normal inspection - Neck Neck exam general surgery: Present: supple - Respiratory Respiratory exam: Present: decreased breath sounds. Absent: accessory muscle use, rales, rhonchi, wheezes - Cardiovascular Cardiovascular exam: Present: RRR, +S1, +S2. Absent: tachycardia - GI/Abdominal GI/Abdominal exam: Present: soft, tenderness. Absent: rebound, rigid - Back Exam Back exam: Present: paraspinal tenderness. Absent: CVA tenderness (L), CVA tenderness (R) - Neurological Exam Neurological exam: Present: alert, oriented X3 - Psychiatric Psychiatric exam: Present: depressed Internal Medicine: Result - Labs CBC & Chem 7: 10/23/17 17:14 10/24/17 03:20 Labs: BMP 10/23/17 10/24/17 20:51 03:20 Sodium 119 L* 120 L* Potassium 5.5 H 5.2 H Chloride 94 L 96 L Carbon Dioxide 18 L 15 L BUN 52 H 49 H Creatinine 1.33 H 1.16 Glucose 111 H 98 Calcium 8.2 L 8.5 L Liver Function 10/24/17 Range/Units 03:20 Total Bilirubin 11.5 H (0.3-1.0) mg/dL AST 552 H (13-39) Units/L ALT 414 H (7-52) Units/L Alkaline Phosphatase > 1500 H (34-104) Units/L Albumin 3.2 L (3.5-5.7) g/dL Urine 10/23/17 Range/Units 23:35 Urine Color Dark Yellow (Yellow) Urine Clarity Cloudy A (Clear) Urine pH 6.0 (5.0-8.0) pH Units Ur Specific [place] 1.022 (1.010-1.025) Urine Protein Trace (Neg-Trace) mg/dL Urine Glucose (UA) Normal (Normal) mg/dL Consult Discharge Plan - Plan Referrals: Garett Ervin DO [Primary Care Provider] -
[2017-10-24] MEDS ORDERED: GRANISETRON TP SCH (09:00)
[2017-10-24] MEDS ORDERED: Multivit/Ca/Min/Fe/FA 1 TAB TABLET PO SCH (09:00)
[2017-10-24] MEDS: Sennosides/Docusate Sodium TABLET PO SCH (09:01)
[2017-10-24] MEDS: Apixaban 2.5 MG TABLET PO SCH (09:01)
--- NOTE | 2017-10-24 09:17 | Electrocardiograph Report ---
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
--- NOTE | 2017-10-24 10:17 | Nephrology Consult Note ---
Date of Encounter: 10/24/17 Time of Encounter: 09:50 Assessment and Plan (1) Hyponatremia Current Visit: Yes Status: Acute Hyponatremia-most likely related to poor oral intake, malnutrition, cancer, large volume paracentesis. JOSE-most likely dehydration, hypotension. Continue current IV fluids, monitor labs, I&O, avoid nephrotoxins. (2) JOSE (acute kidney injury) Current Visit: Yes Status: Acute History of Present Illness - Reason for Consult hyponatremia - History of Present Illness Mr. Hatch is a 52 year old male with pancreatic cancer. He presented to ER yesterday for abnormal lab values post paracentesis for 7 liters without albumin replacement. Other PMH-diabetes, orthopedics. states prior history of hyponatremia, treated with "salt pills." Initial sodium of 116, currently 120 after 0.9 ns at 75 ccc/hour. Sodium levels low 120's to low 130's onset August 2017. Prior normal sodium levels. Creat 1.57 yesterday, today 1.16. Initial K+ 5.5, now 5.2. Urine osum 626, urine sodium<10.0. Hypotensive, SBP 80- 90. Currently not on Chemo.Admits ongoing weakness which is currently his norm. He admits decreased oral intake in general which worsens when ascites increases. denies vomiting or diarrhea. Denies NSAID use. Past Med Surg Social Fam HX - Past Medical History Medical history: cancer, diabetes, other Psychiatric history: no psych history - Past Surgical History Surgical History: orthopedic, other, other - Social History Smoking Status: Never smoker Smokeless Tobacco Status: No Alcohol use: none Drug use: none - Family History Father Adopted: [place]: Papo Hatch Age: 83 Family Member Ethnicity: Non- Living Status: Still Living Hx Family Cardiac Disorders: Yes (HTN, Pacer, CABG) Hx Family Respiratory Disorders: No Hx Family Cancer: No Hx Family GI Disorders: No Hx Family Genitourinary Disorders: No Hx Family Endocrine Disorder: Yes (Diabetic) Hx Family Musculoskeletal Disorders: No Hx Family Neuromuscular Disorders: No Hx Family Neurologic Disorders: No Hx Family HEENT Disorders: No Hx Family Autoimmune Disorders: No Hx Family Reproductive Disorders: No Hx Family Psychosocial Disorders: No Hx Family Medical Disorders: No Mother Adopted: [place]: Meagan White Age: 81 Family Member Ethnicity: Non- Living Status: Still Living Hx Family Cardiac Disorders: No Hx Family Respiratory Disorders: No Hx Family Cancer: No Hx Family GI Disorders: No Hx Family Genitourinary Disorders: No Hx Family Endocrine Disorder: Yes (Diabetic) Hx Family Musculoskeletal Disorders: Yes (Arthritis) Hx Family Neuromuscular Disorders: No Hx Family Neurologic Disorders: No Hx Family HEENT Disorders: No Hx Family Autoimmune Disorders: No Hx Family Reproductive Disorders: No Hx Family Psychosocial Disorders: No Hx Family Medical Disorders: No Medications and Allergies Multivitamin [Multivitamins] 1 each PO DAILY 11/06/16 [History] Baclofen [Lioresal] 10 mg PO DAILY PRN 08/13/17 [History] Gabapentin [Neurontin] 300 mg PO HS PRN 08/13/17 [History] Lipase/Protease/Amylase [Darrin Cartagena 12,000 Units Capsule] 1 each PO TID PRN [History] Melatonin 5 mg PO HS 08/13/17 [History] Pantoprazole Sodium 40 mg PO BID #60 tablet. 10/02/17 [Rx] Granisetron [Sancuso] 1 each TD QWEEK #4 patch.tdwk 10/13/17 [Rx] Apixaban [Eliquis] 2.5 mg PO BID 10/23/17 [History] Hydromorphone HCl [Dilaudid] 2 - 4 mg PO Q4H PRN 10/23/17 [History] Morphine Sulfate SR (12 HR) [MS Contin] 15 mg PO Q12HR 10/23/17 [History] Potassium Chloride Elixir [Potassium Chloride] 10 meq PO DAILY 10/23/17 [History ] Sennosides/Docusate Sodium [Senna Plus] 1 each PO BID 10/23/17 [History] 3 Allergy/AdvReac Type Severity Reaction Status Date / Time ondansetron Allergy Swelling Verified 10/23/17 15:56 [From Zofran (as of hydrochloride)] Lip/Tongue/Throat prochlorperazine Allergy Swelling Verified 10/23/17 15:56 [From Compazine] of Lip/Tongue/Throat Oxycodone AdvReac Rash Verified 10/23/17 15:56 Review of Systems All Systems: reviewed and no additional remarkable complaints except as stated Exam - Vital Signs Vital signs: Initial Vital Signs Temp Pulse Resp BP Pulse Ox 95.6 F L 60 20 73/44 98 10/23/17 15:49 10/23/17 15:49 10/23/17 15:49 10/23/17 15:49 10/23/17 15:49 Vital Signs - Last 8 Hours Temp Pulse Resp BP Pulse Ox 10/24/17 08:09 93 16 90/57 97 10/24/17 07:59 98.2 F 10/24/17 06:44 88 10 83/54 99 10/24/17 05:55 84 10 80/59 100 10/24/17 05:00 89 14 87/59 100 10/24/17 03:56 84 12 83/55 97 10/24/17 03:37 98.4 F 10/24/17 03:12 86 10/24/17 03:00 84 12 70/48 99 10/24/17 02:00 80 10 79/48 99 Intake and Output 10/23/17 10/24/17 10/24/17 23:59 07:59 15:59 Intake Total 0 / 1000 1940 / 1940 Output Total 150 / 150 400 / 400 0 / 0 Balance -150 / 850 1540 / 1540 0 / 0 Intake: IV Fluids 1700 / 1700 0.9 % Sodium Chloride 1,000 ML 1000 / 1000 @ 75 mls/hr IVC .[id number] [facility] Rx #:[id number] 0.9 % Sodium Chloride 500 ML @ 500 / 500 1875 mls/hr IVC .Q16M ONE Rx#: [id number] Flexbumin 25 gm In 100 ml @ 60 200 / 200 mls/hr IVPB Q8H [facility] Rx#: [id number] Oral 0 / 0 240 / 240 Output: Urine 150 / 150 400 / 400 0 / 0 Other: Weight 38.2 kg Blood Glucose* 115 Patient Weight 10/24/17 23:59 Weight 38.2 kg - General Appearance General appearance: cachectic, chronically ill EENT: mucous membranes dry Neck: no JVD Respiratory: clear Cardiology: no edema, regular rate, regular rhythm Gastrointestinal: normoactive bowel sounds, no tenderness Integumentary: warm and dry Additional Comments: icteric Neurologic: alert and oriented x3 Psychiatric: mood/affect appropriate, cooperative Results - Lab Results 10/23/17 17:14 10/24/17 03:20 Most recent lab results Calcium 8.5 mg/dL (8.6-10.3) L 10/24/17 03:20 Phosphorus 2.9 mg/dL (2.7-4.5) 10/24/17 03:20 Magnesium 2.4 mg/dL (1.6-2.6) 10/24/17 03:20 Urine Sodium < 10.0 mEq/L 10/23/17 23:35 Consult Discharge Plan - Plan Referrals: Garett Ervin DO [Primary Care Provider] -
--- NOTE | 2017-10-24 10:51 | Palliative - Consult Note ---
<Judith Parmar - Last Filed: 10/24/17 10:48> Date of Encounter: 10/24/17 Time of Encounter: 10:48 - Assessment and Plan (1) Counseling regarding goals of care Current Visit: Yes Status: Acute Assessment and plan: The patient was admitted again due to abnormal labs post paracentesis that removed 7L fluid. He is currently very weak and tired. He is projecting downward in terms of health. This is 5th admission in 4 months. Last discharge was last week. His plan was to symptomatically and strength [place] improve so that he could participate in an experimental chemotherapy trial. His is at bedside. The patient and his were explained to in depth about the poor prognosis of his pancreatic cancer which despite receiving chemotherapy the disease is progressing. Hospice was discussed with the patient should he choose to go that route. The patient reports that he would like to be discharged to home when it is that time after receiving treatment at this admission. (2) Full code status Current Visit: Yes Status: Acute Assessment and plan: The patient requested a change to full code when he was admitted. After discussion with him today he decided he wanted to change his code status back to [id number]. (3) Hyponatremia Current Visit: Yes Status: Acute Assessment and plan: The patient had a sodium level of 116 at admission. It is being treated. (4) JOSE (acute kidney injury) Current Visit: Yes Status: Acute Assessment and plan: The patient was admitted and found to have an JOSE. (5) Pancreatic cancer Current Visit: Yes Status: Chronic Assessment and plan: Progressing pancreatic cancer despite having received chemotherapy. He is no longer getting chemotherapy. Qualifiers: Pancreatic malignancy location: body of pancreas Qualified Code(s): C25.1 - Malignant neoplasm of body of pancreas Palliative-CN HPI - Data of Consult Consult date: 10/24/17 Requesting Physician: Montse Swartz Primary Care Provider: Cora Santacruz - Consult Narrative History of present illness: Mr. Hatch is a 52 year old male with a past medical history of pancreatic cancer no longer receiving chemotherapy and diabetes who presented to the hospital after he was called by Oncology about abnormal labs and instructed to go to ED. Yesterday he had a paracentesis. He has been admitted 5 times in the last 4 months. The last admission was last week for hepatic encephalopathy with ascites. He has general weakness and unchanged decreased appetite. At this admission he is alert and oriented but very weak. Labs showed an JOSE and hyponatremia of 116. CC: Montse Swartz Past Med Surg Social Fam HX - Past Medical History Medical history: cancer, diabetes, other Psychiatric history: no psych history - Past Surgical History Surgical History: orthopedic, other, other - Social History Smoking Status: Never smoker Smokeless Tobacco Status: No Alcohol use: none Drug use: none - Family History Father Adopted: [place]: Papo Hatch Age: 83 Family Member Ethnicity: Non- Living Status: Still Living Hx Family Cardiac Disorders: Yes (HTN, Pacer, CABG) Hx Family Respiratory Disorders: No Hx Family Cancer: No Hx Family GI Disorders: No Hx Family Genitourinary Disorders: No Hx Family Endocrine Disorder: Yes (Diabetic) Hx Family Musculoskeletal Disorders: No Hx Family Neuromuscular Disorders: No Hx Family Neurologic Disorders: No Hx Family HEENT Disorders: No Hx Family Autoimmune Disorders: No Hx Family Reproductive Disorders: No Hx Family Psychosocial Disorders: No Hx Family Medical Disorders: No Mother Adopted: [place]: Meagan White Age: 81 Family Member Ethnicity: Non- Living Status: Still Living Hx Family Cardiac Disorders: No Hx Family Respiratory Disorders: No Hx Family Cancer: No Hx Family GI Disorders: No Hx Family Genitourinary Disorders: No Hx Family Endocrine Disorder: Yes (Diabetic) Hx Family Musculoskeletal Disorders: Yes (Arthritis) Hx Family Neuromuscular Disorders: No Hx Family Neurologic Disorders: No Hx Family HEENT Disorders: No Hx Family Autoimmune Disorders: No Hx Family Reproductive Disorders: No Hx Family Psychosocial Disorders: No Hx Family Medical Disorders: No Medications and Allergies Multivitamin [Multivitamins] 1 each PO DAILY 11/06/16 [History] Baclofen [Lioresal] 10 mg PO DAILY PRN 08/13/17 [History] Gabapentin [Neurontin] 300 mg PO HS PRN 08/13/17 [History] Lipase/Protease/Amylase [Darrin Cartagena 12,000 Units Capsule] 1 each PO TID PRN [History] Melatonin 5 mg PO HS 08/13/17 [History] Pantoprazole Sodium 40 mg PO BID #60 tablet. 10/02/17 [Rx] Granisetron [Sancuso] 1 each TD QWEEK #4 patch.tdwk 10/13/17 [Rx] Apixaban [Eliquis] 2.5 mg PO BID 10/23/17 [History] Hydromorphone HCl [Dilaudid] 2 - 4 mg PO Q4H PRN 10/23/17 [History] Morphine Sulfate SR (12 HR) [MS Contin] 15 mg PO Q12HR 10/23/17 [History] Potassium Chloride Elixir [Potassium Chloride] 10 meq PO DAILY 10/23/17 [History ] Sennosides/Docusate Sodium [Senna Plus] 1 each PO BID 10/23/17 [History] LORazepam [Ativan] 1 mg IV Q2H PRN #40 mg 10/24/17 [Rx] Morphine Oral CONC [Roxanol] 1 ml SL Q2H PRN #30 ml 10/24/17 [Rx] 3 Allergy/AdvReac Type Severity Reaction Status Date / Time ondansetron Allergy Swelling Verified 10/23/17 15:56 [From Zofran (as of hydrochloride)] Lip/Tongue/Throat prochlorperazine Allergy Swelling Verified 10/23/17 15:56 [From Compazine] of Lip/Tongue/Throat Oxycodone AdvReac Rash Verified 10/23/17 15:56 - Constitutional Constitutional ROS PAL: decreased appetite, fatigue, weight loss - Cardiovascular Cardiovascular ROS: no chest pain - Respiratory Respiratory: no dyspnea - Gastrointestinal Gastrointestinal: no abdominal pain Palliative Care-Exam - Constitutional Vitals: Temp Pulse Resp BP Pulse Ox 98.2 F 95 12 84/52 97 10/24/17 07:59 10/24/17 09:00 10/24/17 09:00 10/24/17 09:00 10/24/17 09:00 General appearance: Present: no acute distress, thin - Head Head Exam: Present: atraumatic, normocephalic - Eye Eye exam: Present: scleral icterus - ENT ENT exam: Present: mucous membranes dry - Respiratory Respiratory exam: Present: CTAB. Absent: wheezes - Cardiovascular Cardiovascular exam: Present: RRR, +S1, +S2 - GI/Abdominal Exam GI/Abdominal exam: Present: normal bowel sounds - Extremities Exam Extremities exam: Absent: calf tenderness - Neurological Exam Neurological exam: Present: alert, oriented X3 - Psychiatric Psychiatric exam: Present: normal affect, normal mood Internal Medicine - CN: Reslt - Labs CBC & Chem 7: 10/23/17 17:14 12/29/17 09:10 Labs: BMP 10/23/17 10/24/17 10/24/17 20:51 03:20 09:10 Sodium 119 L* 120 L* 121 L Potassium 5.5 H 5.2 H Chloride 94 L 96 L Carbon Dioxide 18 L 15 L BUN 52 H 49 H Creatinine 1.33 H 1.16 Glucose 111 H 98 Calcium 8.2 L 8.5 L Liver Function 10/24/17 Range/Units 03:20 Total Bilirubin 11.5 H (0.3-1.0) mg/dL AST 552 H (13-39) Units/L ALT 414 H (7-52) Units/L Alkaline Phosphatase > 1500 H (34-104) Units/L Albumin 3.2 L (3.5-5.7) g/dL Urine 10/23/17 Range/Units 23:35 Urine Color Dark Yellow (Yellow) Urine Clarity Cloudy A (Clear) Urine pH 6.0 (5.0-8.0) pH Units Ur Specific [place] 1.022 (1.010-1.025) Urine Protein Trace (Neg-Trace) mg/dL Urine Glucose (UA) Normal (Normal) mg/dL Consult Discharge Plan - Plan Referrals: Garett Ervin DO [Primary Care Provider] - Prescriptions: LORazepam [Ativan] 1 mg IV Q2H PRN #40 mg PRN Reason: anxiety n/v Morphine Oral CONC [Roxanol] 1 ml SL Q2H PRN #30 ml PRN Reason: sob or pain Palliative Quality Palliative Quality: Screen for Code Status: Yes, Screen for Goals of Care: Yes, Screen for Pain: Yes, If Pain Regimen Started, Initiate Bowel Regimen: Yes, Screen for Nausea/Vomitting: Yes <Aime Carrillo - Last Filed: 10/24/17 12:27> Date of Encounter: 10/24/17 Palliative-CN HPI - Data of Consult Requesting Physician: Montse Swartz Primary Care Provider: Cora Santacruz - Consult Narrative History of present illness: Mr. Hatch is a 52 year old male CC: Montse Swartz Palliative Care-Exam - Constitutional Vitals: Temp Pulse Resp BP Pulse Ox 98.2 F 93 12 80/52 98 10/24/17 11:28 10/24/17 11:08 10/24/17 11:08 10/24/17 11:08 10/24/17 11:08 Internal Medicine - CN: Reslt - Labs CBC & Chem 7: 10/23/17 17:14 10/24/17 09:10 Labs: BMP 10/23/17 10/24/17 10/24/17 20:51 03:20 09:10 Sodium 119 L* 120 L* 121 L Potassium 5.5 H 5.2 H Chloride 94 L 96 L Carbon Dioxide 18 L 15 L BUN 52 H 49 H Creatinine 1.33 H 1.16 Glucose 111 H 98 Calcium 8.2 L 8.5 L Liver Function 10/24/17 Range/Units 03:20 Total Bilirubin 11.5 H (0.3-1.0) mg/dL AST 552 H (13-39) Units/L ALT 414 H (7-52) Units/L Alkaline Phosphatase > 1500 H (34-104) Units/L Albumin 3.2 L (3.5-5.7) g/dL Urine 10/23/17 Range/Units 23:35 Urine Color Dark Yellow (Yellow) Urine Clarity Cloudy A (Clear) Urine pH 6.0 (5.0-8.0) pH Units Ur Specific [place] 1.022 (1.010-1.025) Urine Protein Trace (Neg-Trace) mg/dL Urine Glucose (UA) Normal (Normal) mg/dL - Attending Attestation I examined this patient and my medical decision-making was reviewed with the Resident Physician. I agree with the documented findings, disposition and treatment plan as described except to the extent set forth below. pst has noted facundo in ieyes an dskin Pt wishes to go home with hospice will change code status to dnr cc, pt will be d/c 'd to home with [facility], pt has plenaty of meds per sub lingual meds written for Palliative Quality Code Status: 10/23/17 19:59 Resuscitation Status: Active [RES] Routine Comment: Resuscitation Status: [id number]
[2017-10-24] MEDS: Insulin LISPRO 300 UNITS/3 ML VIAL SQ SCH ×2 (11:00→12:28)
--- NOTE | 2017-10-24 12:48 | Discharge Summary ---
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 (7) Pancreatic cancer Priority: Secondary Status: Chronic Qualifiers: Pancreatic malignancy location: body of pancreas Qualified Code(s): C25.1 - Malignant neoplasm of body of pancreas - Discharge Medications Prescriptions: LORazepam [Ativan] 1 mg IV Q2H PRN #40 mg PRN Reason: anxiety n/v Morphine Oral CONC [Roxanol] 1 ml SL Q2H PRN #30 ml PRN Reason: sob or pain Home Medications: Multivitamin [Multivitamins] 1 each PO DAILY 11/06/16 [History] Baclofen [Lioresal] 10 mg PO DAILY PRN 08/13/17 [History] Gabapentin [Neurontin] 300 mg PO HS PRN 08/13/17 [History] Lipase/Protease/Amylase [Darrin Cartagena 12,000 Units Capsule] 1 each PO TID PRN [History] Melatonin 5 mg PO HS 08/13/17 [History] Pantoprazole Sodium 40 mg PO BID #60 tablet.dr 10/02/17 [Rx] Granisetron [Sancuso] 1 each TD QWEEK #4 patch.tdwk 10/13/17 [Rx] Hydromorphone HCl [Dilaudid] 2 - 4 mg PO Q4H PRN 10/23/17 [History] Morphine Sulfate SR (12 HR) [MS Contin] 15 mg PO Q12HR 10/23/17 [History] Sennosides/Docusate Sodium [Senna Plus] 1 each PO BID 10/23/17 [History] LORazepam [Ativan] 1 mg IV Q2H PRN #40 mg 10/24/17 [Rx] Morphine Oral CONC [Roxanol] 1 ml SL Q2H PRN #30 ml 10/24/17 [Rx] Allergies/Adverse Reactions: 3 Allergy/AdvReac Type Severity Reaction Status Date / Time ondansetron Allergy Swelling Verified 10/23/17 15:56 [From Zofran (as of hydrochloride)] Lip/Tongue/Throat prochlorperazine Allergy Swelling Verified 10/23/17 15:56 [From Compazine] of Lip/Tongue/Throat Oxycodone AdvReac Rash Verified 10/23/17 15:56 Date of admission: 10/23/17 20:17 Primary care physician: Cora Santacruz Consults: 10/23/17 21:23 Consult to Nutrition [CONS] Routine Comment: Consulting Provider: NUTRITION Reason for Dietary Consult: Diet Education Consult to Financial Aids Officer [CONS] Routine Reason for SW Consult: Pt has home health and will need to continue after DC 10/24/17 08:32 Consult to Palliative Care [CONS] Routine Comment: Consulting Provider: Palliative Care J[place] Reason for Consult: Advanced pancreatic cancer Call Completed: Yes - Patient Status Disposition: Hospice - Home Condition: Fair Overall status at discharge: patient is not back to baseline - Discharge Instructions Follow Up With: Garett Ervin DO [Primary Care Provider] - Aime Carrillo MD [Partnered Physician] - - Diet and Activity Activity: increase activity as tolerated Diet: advance to your usual diet Hospital course: Mr. Hatch is a 52 year old male with h/o metastatic pancreatic cancer with declining functional status, was sent from Oncology office for abnormal labs on routine testing. He was noted to have a significantly low serum sodium and elevated creatinine. He had significant abdominal distension and ascites and underwent therapeutic paracentesis this morning with removal of 7L of fluid per notes. This was his second tap thus far. He was recently discharged from our hospital after being treated for hepatic encephalopathy and ascites. Now he looks very lethargic and weak, c/o back pain and abdominal pain, wants to get some IV pain medications. He wanted to be comfortable and pain free. He was started on gentle hydration and his IV analgesics. Pt was evaluated by nephrologost and Palliative care team. Pt wanted to change his code status to comfort care and wanted to go home under [facility] care. Dr. Carrillo is arranging all the liquid pain medications and hospice services. So will d/c him home today with home hospice care. - Time Spent with Patient Total time spent providing and/or coordinating discharge services: - Constitutional Vitals: Temp Pulse Resp BP Pulse Ox 98.2 F 93 12 77/47 99 10/24/17 11:28 10/24/17 12:25 10/24/17 12:25 10/24/17 12:25 10/24/17 12:25 General appearance: Present: cachectic, A&O X 3, loss of weight, answers questions appropriately - Head Head exam: Present: atraumatic, normal inspection - Neck Neck exam general surgery: Present: supple - Respiratory Respiratory exam: Present: decreased breath sounds. Absent: rales, respiratory distress, rhonchi, wheezes - Cardiovascular Cardiovascular exam: Present: +S1, +S2, tachycardia - GI/Abdominal GI/Abdominal exam: Present: hypoactive bowel sounds, soft, tenderness. Absent: rebound, rigid - Extremities Exam Extremities exam: Absent: calf tenderness, pedal edema, tenderness - Psychiatric Psychiatric exam: Present: depressed
--- NOTE | 2017-10-24 12:52 | Physician Discharge Referral ---
Home Health/Hosp Referral Info Transfer to: Home Health, Hospice Provider in Charge Post Discharge: Inspection Manager - Diagnosis (1) Hyponatremia Status: Acute (2) Cancer-related pain Status: Chronic (3) Dehydration Status: Acute (4) Severe protein-calorie malnutrition Status: Acute (5) JOSE (acute kidney injury) Status: Acute (6) Mesenteric venous thrombosis Status: Chronic (7) Pancreatic cancer Status: Chronic - Respiratory Orders Smoking Cessation: Smoking cessation has been advised. For more information, call the [place] [employer] Quit Line at 1-679-FNVK-NOW. - Transfer Medications Prescriptions: LORazepam [Ativan] 1 mg IV Q2H PRN #40 mg PRN Reason: anxiety n/v Morphine Oral CONC [Roxanol] 1 ml SL Q2H PRN #30 ml PRN Reason: sob or pain Home Medications: Multivitamin [Multivitamins] 1 each PO DAILY 11/06/16 [History] Baclofen [Lioresal] 10 mg PO DAILY PRN 08/13/17 [History] Gabapentin [Neurontin] 300 mg PO HS PRN 08/13/17 [History] Lipase/Protease/Amylase [Darrin Cartagena 12,000 Units Capsule] 1 each PO TID PRN [History] Melatonin 5 mg PO HS 08/13/17 [History] Pantoprazole Sodium 40 mg PO BID #60 tablet. 10/02/17 [Rx] Granisetron [Sancuso] 1 each TD QWEEK #4 patch.tdwk 10/13/17 [Rx] Hydromorphone HCl [Dilaudid] 2 - 4 mg PO Q4H PRN 10/23/17 [History] Morphine Sulfate SR (12 HR) [MS Contin] 15 mg PO Q12HR 10/23/17 [History] Sennosides/Docusate Sodium [Senna Plus] 1 each PO BID 10/23/17 [History] LORazepam [Ativan] 1 mg IV Q2H PRN #40 mg 10/24/17 [Rx] Morphine Oral CONC [Roxanol] 1 ml SL Q2H PRN #30 ml 10/24/17 [Rx] Allergies/Adverse Reactions: 3 Allergy/AdvReac Type Severity Reaction Status Date / Time ondansetron Allergy Swelling Verified 10/23/17 15:56 [From Zofran (as of hydrochloride)] Lip/Tongue/Throat prochlorperazine Allergy Swelling Verified 10/23/17 15:56 [From Compazine] of Lip/Tongue/Throat Oxycodone AdvReac Rash Verified 10/23/17 15:56 Certification: Further, I certify that my clinical findings support that this patient is homebound (i.e. absences from home require considerable and taxing effort and are for medical reasons or amish services or infrequently or short duration when for other reasons) because: Homebound Reason: Patient requires assistance of a person or device to safely leave home Attestation: My signature below is to certify that this patient is under my care and that I, or nurse practitioner, or a physician's video production assistant working with me, has a face-to -face encounter with this patient.
[2017-10-24 13:28] VITALS: BP 78/52
--- NOTE | 2017-10-28 15:49 | Event Note ---
Date of Encounter: 10/28/17 Time of Encounter: 15:48 Hospice manager medical certification of terminal illness: Hospice benefit. Start: Hospice benefit. In: +90 days Palliative performance scale: 30% History: She with a history of pancreatic cancer this widely metastatic. Patient had been trying to get aggressive chemotherapy however his performance scale has dropped off to such a point that he is no longer eligible for any further therapy. At point time patient also agreed to forego any further therapy and given the overall aggressive nature of his cancer and the fact that there is no further therapy available I believe that These findings support a life expectancy of 6 months or less. I attest that I have compose the above narrative based on my review of the patient's medical records, and or on my examination of the patient. Aime Carrillo M.D. Associate certified medical asst. [facility]
== END 2017-10-24 15:49 | disposition hospice, home (50) | DRG 640 ==
LOC: EMEROO 15:36 → ICNU 20:17
PROVIDERS: ADMIT Internal Medicine Hematology & Oncology; ATTEND Internal Medicine Nephrology